=== PATIENT | female | born 1960 | race Caucasian/White ===

== ENCOUNTER 2017-04-16 06:39 | Inpatient (IN) | payer MEDICARE, OTHER ==
[2017-04-16] VITALS (10 sets, daily range): BP systolic 127–174; BP diastolic 81–93
[~2017-04-16] VITALS: Ht 160 cm; Wt 56.2 kg
[~2017-04-16 06:39] MED LIST: ADVAIR 500-501 EACH INH; AMITRIPTYLINE100 M1 ORAL; BACLOFEN10 MG ORAL; BONIVA150 MG ORAL; FLECTOR1 EACH TP; LOVENOX40 MG/0.4 SUBQ; LYRICA75 M1 ORAL; MAGNESIUM250 M2 PO; NORCO 10/3251 EA ORAL; PROAIR HFA8.5 GM INH; PROPRANOLOL HCL10 MG ORAL; SINGULAIR10 MG ORAL; SYNTHROID25 MCG ORAL; TIZANIDINE HCL4 MG ORAL; TOPIRAMATE100 MG ORAL; VESICARE10 MG ORAL; VITAMIN D1000 UNI1 ORAL; VOLTAREN100 G1 TP; ZOFRAN4 M1 SL
[2017-04-16] MEDS ORDERED: LR 1000ml 1,000 ML IV SCH (08:00)
[2017-04-16] MEDS ORDERED: Depo-Medrol 80mg Vial ONE (08:37)
[2017-04-16] MEDS ORDERED: EPINEPHrine 1mg/1ml Amp ONE (08:37)
[2017-04-16] MEDS ORDERED: Bupivacaine w/Epi 0.5% 30ml Vial INJ ONE (08:37)
[2017-04-16] MEDS ORDERED: Bacitracin 50000 Units Vial ONE (08:39)
[2017-04-16] MEDS ORDERED: LR 1000ml 1,000 ML IVLG SCH (08:59)
--- NOTE | 2017-04-16 08:59 | Anethesia Preoperative Eval ---
Anesthesia Pre-op PMH/ROS General Date of Evaluation: Apr 16, 2017 Time of Evaluation: 08:53 Anesthesiologist: Sadie ASA Score: ASA 3 Mallampati Score Class I : Soft palate, uvula, fauces, pillars visible Class II: Soft palate, uvula, fauces visible Class III: Soft palate, base of uvula visible Class IV: Only hard plate visible Mallampati Classification: Class III Surgeon: Сергей Diagnosis: R knee infected implant Surgical Procedure: R knee scope I&D Anesthesia History: none Family History: no anesthesia problems Allergies: Coded Allergies: CEFAZOLIN (Verified Allergy, Severe, hives all over her body, 01/10/16) PHENYTOIN (Verified Allergy, Severe, swell up face, 01/10/16) SULFA (SULFONAMIDE ANTIBIOTICS) (Verified Allergy, Severe, hives all over her body, 01/10/16) HYDROXYZINE (Verified Adverse Reaction, Severe, tachypnea; tachycardia, 01/10/16) PENICILLINS (Verified Adverse Reaction, Severe, vomiting, 01/10/16) PROCHLORPERAZINE (Verified Adverse Reaction, Severe, musle spasm, 01/10/16) Medications: see eMAR Past Medical History Cardiovascular: Reports: HTN, Denies: CAD, HI, arrhythmia, other, valve dz Pulmonary: Denies: COPD, DEEDEE, asthma, other Gastrointestinal/Genitourinary: Reports: GERD, Denies: CRI, ESRD, other Neurologic/Psychiatric: Reports: depression/anxiety, other - chronic pain, Denies: CVA, TIA, dementia Endocrine: Reports: hypothyroidism, Denies: DM, other, steroids HEENT: Denies: [place] (L), [place] (R), cataract (L), cataract (R), glaucoma, other Hematology/Immune: Reports: anemia - mild, Denies: DVT, bleeding disorder, other Musculoskeletal/Integumentary: Reports: DJD, edema - bilateral lower extremities edema, other - severe scoliosis s/p Sx PMH Narrative: parathyroidectomy, ACDF, Multiple back Sx for scoliosis treatment hysterectomy, Cholecystectomy, bilateral Knees arthroplasty, ACL repair R PSxH Narrative: see above Anesthesia Pre-op Phys. Exam Physician Exam Last Vital Signs Date Time Temp Pulse Resp B/P Pulse Ox O2 Delivery O2 Flow Rate FiO2 04/16/17 07:18 97.3 100 18 140/93 98 Room Air Constitutional: NAD Neurologic: CN 2-12 intact Cardiovascular: RRR Respiratory: CTA Gastrointestinal: S/NT/ND Airway Exam Mallampati Score: Class III MO: limited Neck: stiff ROM: limited Teeth: missing Dentures: lower, upper Anesthesia Pre-op A/P Labs see chart Risk Assessment & Plan Assessment: ASA 3 Plan: GA with LMA Status Change Before Surgery: No Pre-Antibiotics Drug: Clindamycin 300 mg. Given Within 1 Hr of Incision: Yes Time Given: 08:59 VERNON OLSON M.D. Apr 16, 2017 08:59
[2017-04-16] MEDS ORDERED: Sterile Water Irrig 1000ml IRRIG ONE (09:00)
[2017-04-16] MEDS ORDERED: Metoclopramide 10mg/2ml Inj IVP PRN (09:00)
[2017-04-16] MEDS ORDERED: NS Irrig 1000ml ONE (09:00)
[2017-04-16] MEDS ORDERED: Midazolam 2mg/2ml Inj ONE (09:00)
[2017-04-16] MEDS ORDERED: Ketorolac 30mg Inj ONE (09:00)
[2017-04-16] MEDS ORDERED: Hydromorphone 0.5mg/0.5ml inj IVP PRN (09:00)
[2017-04-16] MEDS ORDERED: Meperidine 25mg/0.5ml Inj IV PRN (09:00)
[2017-04-16] MEDS ORDERED: DiphenhydrAMINE 50mg/ml Inj IVP PRN (09:00)
[2017-04-16] MEDS ORDERED: Propofol 10mg/ml 20ml IV ONE (09:00)
[2017-04-16] MEDS ORDERED: LR 1000ml ONE (09:00)
[2017-04-16] MEDS ORDERED: Midazolam 2mg/2ml Inj IVP PRN (09:00)
[2017-04-16] MEDS ORDERED: fentaNYL 100 mcg/2 mL IV ONE (09:00)
[2017-04-16] MEDS ORDERED: Clindamycin 2 ML ONE (09:04)
--- NOTE | 2017-04-16 09:11 | Pre-Procedure Note/Attestation ---
Pre-Procedure Note/Attestation Complete Prior to Procedure Planned Procedure: right Procedure Narrative: irrigation debridement r9ight knee Indications for Procedure Pre-Operative Diagnosis: right knee rule out infection Attestation I attest that I discussed the nature of the procedure; its benefits; risks and complications; and alternatives (and the risks and benefits of such alternatives ), prior to the procedure, with the patient (or the patient's legal customer support representative). I attest that, if there was a reasonable possibility of needing a blood transfusion, the patient (or the patient's legal customer support representative) was given the [facility] standardized written summary, pursuant to the Eric Sunita Blood Safety Act ([place] Health and Safety Code # 1645, as amended). I attest that I re-evaluated the patient just prior to the surgery and that there has been no change in the patient's H&P, except as documented below: LUISANA WEEMS Apr 16, 2017 09:11
--- NOTE | 2017-04-16 09:23 | Brief Operative Note ---
Immediate Post Operative Note Operative Note Pre-op Diagnosis: right knee rule out infection Procedure: right bknee i and d Post-op Diagnosis: right knee riule out infection Post-op Diagnosis: same as pre-op Surgeon: ravi Anesthesia: general Specimen: yes Complications: none Condition: stable Estimated Blood Loss: minimal Drains: hemovac Implant(s) used?: No LUISANA WEEMS Apr 16, 2017 09:23
--- NOTE | 2017-04-16 11:40 | Immediate Post-Op Evaluation ---
Immediate Post-Op Evalulation Immediate Post-Op Evalulation Procedure: I&D of R infected knee implant Date of Evaluation: Apr 16, 2017 Time of Evaluation: 10:24 IV Fluids: 600 Blood Products: none Estimated Blood Loss: min Urinary Output: none Blood Pressure Systolic: 128 Blood Pressure Diastolic: 65 Pulse Rate: 68 Respiratory Rate: 22 O2 Sat by Pulse Oximetry: 98 Temperature (Fahrenheit): 97.6 Pain Score (1-10): 2 Nausea: No Vomiting: No Complications none Patient Status: awake, patent, none Hydration Status: adequate VERNON OLSON M.D. Apr 16, 2017 11:40
[2017-04-16] MEDS ORDERED: HYDROmorphone 1mg/ml Carpuject IVP PRN (14:00)
--- NOTE | 2017-04-16 14:14 | General Progress Note ---
Assessment/Plan Assessment/Plan I&D of R infected knee implant knee replacement PLAN 1. incentive spirometry 2. IV antibiotics 3. PT evaluation and therapy 4. Hydration 5. Pain management evaluation noted 6. discharge once stable with outpatient follow up Subjective Allergies: Coded Allergies: CEFAZOLIN (Verified Allergy, Severe, hives all over her body, 01/10/16) PHENYTOIN (Verified Allergy, Severe, swell up face, 01/10/16) SULFA (SULFONAMIDE ANTIBIOTICS) (Verified Allergy, Severe, hives all over her body, 01/10/16) HYDROXYZINE (Verified Adverse Reaction, Severe, tachypnea; tachycardia, 01/10/16) PENICILLINS (Verified Adverse Reaction, Severe, vomiting, 01/10/16) PROCHLORPERAZINE (Verified Adverse Reaction, Severe, musle spasm, 01/10/16) Subjective s/p I and D asked to evaluate Objective Last 24 Hour Vital Signs Date Time Temp Pulse Resp B/P Pulse Ox O2 Delivery O2 Flow Rate FiO2 04/16/17 11:40 68 22 98 04/16/17 11:10 98.9 04/16/17 11:10 98.9 04/16/17 11:09 98.9 93 18 136/92 100 Nasal Cannula 3.0 04/16/17 11:00 95 20 127/84 100 Nasal Cannula 3.0 04/16/17 10:50 93 20 132/92 100 Nasal Cannula 3.0 04/16/17 10:45 94 21 138/83 100 Nasal Cannula 3.0 04/16/17 10:30 97 22 132/91 98 Simple Mask 6.0 04/16/17 10:25 95 16 132/91 100 Simple Mask 6.0 04/16/17 10:20 97.6 94 15 140/93 100 Simple Mask 6.0 04/16/17 07:18 97.3 100 18 140/93 98 Room Air Height (Feet): 5 Height (Inches): 3.00 Weight (Pounds): 124 Objective WDWN NAD clear breath sounds bilaterally without rhonchi or wheeze [id number] without MRG NABS nontender no HSM no CCE nonfocal ALISSA LAN Apr 16, 2017 14:14
[2017-04-16] MEDS ORDERED: Norco 10mg/325mg tab ORAL SCH (14:30)
[2017-04-16] MEDS: D5 1/2NS w/KCl 20mEq 1,000 ML IV SCH (14:52)
[2017-04-16] MEDS: Clindamycin 600mg 50 ML IV SCH ×2 (14:58→23:50)
[2017-04-16] MEDS ORDERED: Norco 10mg/325mg tab ORAL PRN (18:00)
[2017-04-16] MEDS ORDERED: Naloxone 0.4mg/ml Inj IVP PRN (18:00)
[2017-04-16] MEDS: Lyrica 75mg cap ORAL SCH (18:00)
[2017-04-16] MEDS ORDERED: Rate Change PCA 1 Each MISC PRN (18:00)
[2017-04-16] MEDS ORDERED: PCA HYDROmorphone 1mg/ml 30 ML IV PRN (18:00)
[2017-04-16] MEDS ORDERED: Albuterol 90mcg Inhaler 8gm INH PRN (18:30)
[2017-04-16] MEDS: PCA shift volume MISC SCH (19:00)
[2017-04-16] MEDS ORDERED: Amitriptyline 100mg tab ORAL SCH (21:00)
[2017-04-16] MEDS: Amitriptyline 100mg tab ORAL SCH (23:49)
[2017-04-16] MEDS: Montelukast 10mg tablet ORAL SCH (23:49)
[2017-04-16] MEDS: Topiramate 100mg tab ORAL SCH (23:49)
[2017-04-17] MEDS: Clindamycin 600mg 50 ML IV SCH ×4 (03:25→20:56)
[2017-04-17] MEDS: D5 1/2NS w/KCl 20mEq 1,000 ML IV SCH ×3 (03:25→20:56)
[2017-04-17 04:00] VITALS: BP 138/88
[2017-04-17 06:38] LABS: INR 1.1 (0.9-1.1); PROTHROMBIN TIME 11.7 SEC (9.30-11.50)
[2017-04-17 06:53] LABS: ALANINE AMINOTRANSFERASE 6 U/L (3-33); ALBUMIN/GLOBULIN RATIO 0.6 (1.0-2.7); ANION GAP 16 (5-15); ASPARTATE AMINO TRANSFERASE 11 U/L (5-40); CALCIUM 8.1 mg/dL (8.6-10.2); CARBON DIOXIDE 22 mEQ/L (20-30); CHLORIDE 95 mEQ/L (98-107); CREATININE 0.5 mg/dL (0.5-0.9); GLOMERULAR FILTRATION RATE > 60 mL/min (>60); HEMOLYSIS 0; POTASSIUM 3.4 mEQ/L (3.4-4.9); SODIUM 133 mEQ/L (135-145); TOTAL PROTEIN 6.4 g/dL (6.6-8.7)
[2017-04-17 07:00] LABS: BASOPHILS % (AUTO) 0.3 % (0.0-2.0); EOSINOPHILS % (AUTO) 0.1 % (0.0-3.0); LYMPHOCYTES % (AUTO) 18.1 % (20.0-45.0); MEAN CORPUSCULAR HEMOGLOBIN 24.3 PG (27.0-31.0); MEAN CORPUSCULAR HGB CONC 31.4 G/DL (32.0-36.0); MEAN CORPUSCULAR VOLUME 77 FL (80-99); MEAN PLATELET VOLUME 5.9 FL (6.5-10.1); MONOCYTES % (AUTO) 7.5 % (1.0-10.0); PLATELET COUNT 371 K/UL (150-450); RED BLOOD COUNT 3.42 M/UL (4.20-5.40); RED CELL DISTRIBUTION WIDTH 14.4 % (11.6-14.8); WHITE BLOOD COUNT 9.6 K/UL (4.8-10.8)
[2017-04-17] MEDS: PCA shift volume MISC SCH (07:00)
[2017-04-17 08:00] VITALS: BP 146/99
[2017-04-17] MEDS: Propranolol LA 60mg cap ORAL SCH (08:36)
[2017-04-17] MEDS: Solifenacin 10mg tab ORAL SCH (08:39)
[2017-04-17] MEDS: Topiramate 100mg tab ORAL SCH ×2 (08:40→20:56)
[2017-04-17] MEDS: Lyrica 75mg cap ORAL SCH ×4 (08:42→17:20)
--- NOTE | 2017-04-17 08:53 | General Progress Note ---
Assessment/Plan Assessment/Plan (1) H/O Spinal surgery (2) DDD (degenerative disc disease), cervical (3) Lumbar spondylosis (4) Cervical spondylosis (5) Lumbar degenerative disc disease (6) History of total knee replacement, right (7) Osteoarthritis of right knee (8) Right knee pain (9) Status post I+D We will discontinue the Dilaudid IVP and AQUATIC PERFORMER. We will continued the [place] and start Morphine 4mg IVP Q4H PRN severe pain. Pt was d/w Dr. Schaffer and he concurred Thank you for the courtesy of this consultation. Subjective Date patient seen: Apr 17, 2017 Time patient seen: 07:15 - am Constitutional: Reports: no symptoms HEENT: Reports: no symptoms Cardiovascular: Reports: no symptoms Respiratory: Reports: no symptoms Gastrointestinal/Abdominal: Reports: no symptoms Genitourinary: Reports: no symptoms Neurologic/Psychiatric: Reports: no symptoms Endocrine: Reports: no symptoms Hematologic/Lymphatic: Reports: no symptoms Allergies: Coded Allergies: CEFAZOLIN (Verified Allergy, Severe, hives all over her body, 01/10/16) PHENYTOIN (Verified Allergy, Severe, swell up face, 01/10/16) SULFA (SULFONAMIDE ANTIBIOTICS) (Verified Allergy, Severe, hives all over her body, 01/10/16) HYDROXYZINE (Verified Adverse Reaction, Severe, tachypnea; tachycardia, 01/10/16) PENICILLINS (Verified Adverse Reaction, Severe, vomiting, 01/10/16) PROCHLORPERAZINE (Verified Adverse Reaction, Severe, musle spasm, 01/10/16) Subjective Patient is s/p surgery. She was started on Dilaudid 1mg IV Q4H PRN severe pain, [place] 10/325mg PO 1 tab Q6H PRN, and AQUATIC PERFORMER Dilaudid 0.2 mg lock out interval Q6H. At this time pt has used 5.4mg of the AQUATIC PERFORMER in the last 24hrs. However she is confused due to the anesthesia. We will discontinue the Dilaudid IVP and AQUATIC PERFORMER. We will continued the [place] and start Morphine 4mg IVP Q4H PRN severe pain. Objective Last 24 Hour Vital Signs Date Time Temp Pulse Resp B/P Pulse Ox O2 Delivery O2 Flow Rate FiO2 04/17/17 08:00 18 04/17/17 08:00 98.8 100 20 146/99 93 Room Air 04/17/17 06:15 20 04/17/17 04:00 98.8 108 20 138/88 94 Room Air 04/17/17 02:15 20 04/16/17 22:15 20 04/16/17 21:45 20 04/16/17 21:15 20 04/16/17 21:00 18 04/16/17 21:00 99.7 107 20 174/92 98 Room Air 04/16/17 20:45 18 04/16/17 20:30 18 04/16/17 19:53 111 18 Room Air 04/16/17 16:37 98.2 04/16/17 16:03 98.2 93 20 141/81 98 Nasal Cannula 2.0 04/16/17 14:27 98.2 95 18 100 Room Air 04/16/17 11:40 68 22 98 04/16/17 11:10 98.9 04/16/17 11:10 98.9 04/16/17 11:09 98.9 93 18 136/92 100 Nasal Cannula 3.0 04/16/17 11:00 95 20 127/84 100 Nasal Cannula 3.0 04/16/17 10:50 93 20 132/92 100 Nasal Cannula 3.0 04/16/17 10:45 94 21 138/83 100 Nasal Cannula 3.0 04/16/17 10:30 97 22 132/91 98 Simple Mask 6.0 04/16/17 10:25 95 16 132/91 100 Simple Mask 6.0 04/16/17 10:20 97.6 94 15 140/93 100 Simple Mask 6.0 Intake and Output 04/16/17 04/17/17 19:00 07:00 Intake Total 1215 ml 777 ml Output Total 520 ml 1408 ml Balance 695 ml -631 ml Intake Oral 240 ml IV Total 975 ml 777 ml Output Urine Total 500 ml 1400 ml Drainage Total 8 ml Estimated Blood Loss 20 ml Other 0 ml # Voids 5 Laboratory Tests 04/17/17 05:25: White Blood Count 9.6, Red Blood Count 3.42L, Hemoglobin 8.3L, Hematocrit 26.5L , Mean Corpuscular Volume 77L, Mean Corpuscular Hemoglobin 24.3L, Mean Corpuscular Hemoglobin Concent 31.4L, Red Cell Distribution Width 14.4, Platelet Count 371, Mean Platelet Volume 5.9L, Neutrophils (%) (Auto) 74.0, Lymphocytes (%) (Auto) 18.1L, Monocytes (%) (Auto) 7.5, Eosinophils (%) (Auto) 0.1, Basophils (%) (Auto) 0.3, Erythrocyte Sedimentation Rate 90H, Prothrombin Time 11.7H, Prothromb Time International Ratio 1.1, Sodium Level 133L, Potassium Level 3.4, Chloride Level 95L, Carbon Dioxide Level 22, Anion Gap 16H , Blood Urea Nitrogen 7, Creatinine 0.5, Estimat Glomerular Filtration Rate > 60 , Glucose Level 144H, Calcium Level 8.1L, Total Bilirubin 0.3, Aspartate Amino Transf (AST/SGOT) 11, Alanine Aminotransferase (ALT/SGPT) 6, Alkaline Phosphatase 110H, C-Reactive Protein, Quantitative [Pending], Total Protein 6.4L , Albumin 2.5L, Globulin 3.9, Albumin/Globulin Ratio 0.6L Height (Feet): 5 Height (Inches): 3.00 Weight (Pounds): 124 General Appearance: no apparent distress, alert EENT: PERRL/EOMI, normal ENT inspection Neck: non-tender, normal alignment Respiratory/Chest: lungs clear, normal breath sounds Abdomen: non tender, soft Extremities: other - bandages applied to right knee Neurologic: alert, responsive Skin: warm/dry GBAE DOMINGO Apr 17, 2017 08:53
[2017-04-17] MEDS ORDERED: Morphine Sulfate 4mg/ml Inj IVP PRN (09:00)
[2017-04-17] MEDS: Enoxaparin 40mg Inj SUBQ SCH (09:42)
[2017-04-17 12:00] VITALS: BP 152/107
--- NOTE | 2017-04-17 15:17 | 48 Hour Post Anesthesia Eval ---
Post Anesthesia Evaluation Procedure: I&D of R infected knee implant Date of Evaluation: Apr 17, 2017 Time of Evaluation: 15:20 Blood Pressure Systolic: 148 0: 99 Pulse Rate: 100 Respiratory Rate: 20 Temperature (Fahrenheit): 98.8 O2 Sat by Pulse Oximetry: 93 Airway: patent Nausea: No Vomiting: No Pain Intensity: 3 Hydration Status: adequate Cardiopulmonary Status: Stable Mental Status/LOC: other - Patient is repeating herself and not oriented to place at this time. Follow-up Care/Observations: As per surgery. Patient pulled out her hemovac. Message left at Dr. Faith's service. Dr. Toure aware. Post-Anesthesia Complications: No anesthetic complication Follow-up care needed: N/A BRIDGETTE PECK M.D. Apr 17, 2017 15:17
[2017-04-17] MEDS: Morphine Sulfate 4mg/ml Inj IVP PRN ×2 (15:32→20:58)
[2017-04-17 16:00] VITALS: BP 157/91
[2017-04-17] MEDS: Montelukast 10mg tablet ORAL SCH (16:34)
[2017-04-17 20:00] VITALS: BP 153/95
[2017-04-17] MEDS: Amitriptyline 100mg tab ORAL SCH (20:56)
[2017-04-18] VITALS: BP 122/70
[2017-04-18 04:00] VITALS: BP 139/66
[2017-04-18] MEDS: Clindamycin 600mg 50 ML IV SCH ×2 (04:16→10:04)
[2017-04-18 07:06] LABS: INR 1.1 (0.9-1.1)
[2017-04-18 07:13] LABS: BASOPHILS % (AUTO) 0.6 % (0.0-2.0); EOSINOPHILS % (AUTO) 0.6 % (0.0-3.0); MEAN CORPUSCULAR HEMOGLOBIN 24.3 PG (27.0-31.0); MEAN CORPUSCULAR HGB CONC 31.3 G/DL (32.0-36.0); MEAN CORPUSCULAR VOLUME 78 FL (80-99); MEAN PLATELET VOLUME 5.8 FL (6.5-10.1); MONOCYTES % (AUTO) 9.4 % (1.0-10.0); NEUTROPHILS % (AUTO) 63.4 % (45.0-75.0); PLATELET COUNT 361 K/UL (150-450); RED BLOOD COUNT 3.38 M/UL (4.20-5.40); RED CELL DISTRIBUTION WIDTH 14.7 % (11.6-14.8); WHITE BLOOD COUNT 6.8 K/UL (4.8-10.8)
[2017-04-18 08:00] VITALS: BP 160/98
--- NOTE | 2017-04-18 08:33 | General Progress Note ---
Assessment/Plan Assessment/Plan (1) H/O Spinal surgery (2) DDD (degenerative disc disease), cervical (3) Lumbar spondylosis (4) Cervical spondylosis (5) Lumbar degenerative disc disease (6) History of total knee replacement, right (7) Osteoarthritis of right knee (8) Right knee pain (9) Status post I+D We will continued the [place] and Morphine. Pt was d/w Dr. Schaffer and he concurred Subjective Date patient seen: Apr 18, 2017 Time patient seen: 07:00 - am Constitutional: Reports: no symptoms HEENT: Reports: no symptoms Cardiovascular: Reports: no symptoms Respiratory: Reports: no symptoms Gastrointestinal/Abdominal: Reports: no symptoms Genitourinary: Reports: no symptoms Neurologic/Psychiatric: Reports: no symptoms Endocrine: Reports: no symptoms Hematologic/Lymphatic: Reports: no symptoms Allergies: Coded Allergies: CEFAZOLIN (Verified Allergy, Severe, hives all over her body, 01/10/16) PHENYTOIN (Verified Allergy, Severe, swell up face, 01/10/16) SULFA (SULFONAMIDE ANTIBIOTICS) (Verified Allergy, Severe, hives all over her body, 01/10/16) HYDROXYZINE (Verified Adverse Reaction, Severe, tachypnea; tachycardia, 01/10/16) PENICILLINS (Verified Adverse Reaction, Severe, vomiting, 01/10/16) PROCHLORPERAZINE (Verified Adverse Reaction, Severe, musle spasm, 01/10/16) Subjective Her pain is tolerated on the medications. She has been tolerating the pain on the [place] and Morphine doing PT to the best of his abilities. Objective Last 24 Hour Vital Signs Date Time Temp Pulse Resp B/P Pulse Ox O2 Delivery O2 Flow Rate FiO2 04/18/17 04:00 97.5 87 20 139/66 96 Room Air 04/18/17 00:00 97.7 96 20 122/70 97 Room Air 04/17/17 20:00 97.2 87 20 153/95 94 Room Air 04/17/17 16:00 97.7 20 157/91 95 Room Air 04/17/17 15:17 100 20 93 04/17/17 12:00 98.8 98 20 152/107 96 Room Air Intake and Output 04/17/17 04/18/17 19:00 07:00 Intake Total 775 ml 1075 ml Output Total 190 ml 900 ml Balance 585 ml 175 ml IV Total 775 ml 1075 ml Output Urine Total 180 ml 900 ml Drainage Total 10 ml # Voids 4 4 Laboratory Tests 04/18/17 05:35: White Blood Count 6.8, Red Blood Count 3.38L, Hemoglobin 8.2L, Hematocrit 26.2L , Mean Corpuscular Volume 78L, Mean Corpuscular Hemoglobin 24.3L, Mean Corpuscular Hemoglobin Concent 31.3L, Red Cell Distribution Width 14.7, Platelet Count 361, Mean Platelet Volume 5.8L, Neutrophils (%) (Auto) 63.4, Lymphocytes (%) (Auto) 26.0, Monocytes (%) (Auto) 9.4, Eosinophils (%) (Auto) 0.6, Basophils (%) (Auto) 0.6, Erythrocyte Sedimentation Rate [Pending], Prothrombin Time 12.0H, Prothromb Time International Ratio 1.1, C-Reactive Protein, Quantitative 15.1H Height (Feet): 5 Height (Inches): 3.00 Weight (Pounds): 124 General Appearance: no apparent distress, alert EENT: PERRL/EOMI, normal ENT inspection Neck: non-tender, normal alignment Cardiovascular: normal rate, regular rhythm Abdomen: non tender, soft Extremities: other - bandages noted on right knee Neurologic: alert, responsive GABE DOMINGO Apr 18, 2017 08:33
[2017-04-18] MEDS: Lyrica 75mg cap ORAL SCH ×3 (10:03→16:59)
[2017-04-18] MEDS: Propranolol LA 60mg cap ORAL SCH (10:03)
[2017-04-18] MEDS: Morphine Sulfate 4mg/ml Inj IVP PRN ×4 (10:06→21:10)
[2017-04-18] MEDS: Solifenacin 10mg tab ORAL SCH (10:07)
[2017-04-18] MEDS: Enoxaparin 40mg Inj SUBQ SCH (10:07)
[2017-04-18] MEDS: Topiramate 100mg tab ORAL SCH ×2 (10:07→21:06)
[2017-04-18 12:00] VITALS: BP 148/92
--- NOTE | 2017-04-18 12:19 | General Progress Note ---
Assessment/Plan Assessment/Plan I&D of R infected knee implant knee replacement PLAN 1. incentive spirometry 2. IV antibiotics 3. PT evaluation and therapy 4. Hydration 5. Pain management evaluation noted 6. discharge to SNF 7. PICC line 8. ID evaluation to clarify Subjective Allergies: Coded Allergies: CEFAZOLIN (Verified Allergy, Severe, hives all over her body, 01/10/16) PHENYTOIN (Verified Allergy, Severe, swell up face, 01/10/16) SULFA (SULFONAMIDE ANTIBIOTICS) (Verified Allergy, Severe, hives all over her body, 01/10/16) HYDROXYZINE (Verified Adverse Reaction, Severe, tachypnea; tachycardia, 01/10/16) PENICILLINS (Verified Adverse Reaction, Severe, vomiting, 01/10/16) PROCHLORPERAZINE (Verified Adverse Reaction, Severe, musle spasm, 01/10/16) Subjective s/p I and D fluid positive Objective Last 24 Hour Vital Signs Date Time Temp Pulse Resp B/P Pulse Ox O2 Delivery O2 Flow Rate FiO2 04/18/17 08:00 98.4 94 20 160/98 95 Room Air 04/18/17 04:00 97.5 87 20 139/66 96 Room Air 04/18/17 00:00 97.7 96 20 122/70 97 Room Air 04/17/17 20:00 97.2 87 20 153/95 94 Room Air 04/17/17 16:00 97.7 20 157/91 95 Room Air 04/17/17 15:17 100 20 93 Intake and Output 04/17/17 04/18/17 19:00 07:00 Intake Total 775 ml 1075 ml Output Total 190 ml 900 ml Balance 585 ml 175 ml IV Total 775 ml 1075 ml Output Urine Total 180 ml 900 ml Drainage Total 10 ml # Voids 4 4 Laboratory Tests 04/18/17 05:35: White Blood Count 6.8, Red Blood Count 3.38L, Hemoglobin 8.2L, Hematocrit 26.2L , Mean Corpuscular Volume 78L, Mean Corpuscular Hemoglobin 24.3L, Mean Corpuscular Hemoglobin Concent 31.3L, Red Cell Distribution Width 14.7, Platelet Count 361, Mean Platelet Volume 5.8L, Neutrophils (%) (Auto) 63.4, Lymphocytes (%) (Auto) 26.0, Monocytes (%) (Auto) 9.4, Eosinophils (%) (Auto) 0.6, Basophils (%) (Auto) 0.6, Erythrocyte Sedimentation Rate 102H, Prothrombin Time 12.0H, Prothromb Time International Ratio 1.1, C-Reactive Protein, Quantitative 15.1H Height (Feet): 5 Height (Inches): 3.00 Weight (Pounds): 124 Objective WDWN NAD clear breath sounds bilaterally without rhonchi or wheeze [id number] without MRG NABS nontender no HSM no CCE nonfocal some confusion noted ALISSA LAN Apr 18, 2017 12:19
[2017-04-18 16:00] VITALS: BP 117/77
[2017-04-18] MEDS: Montelukast 10mg tablet ORAL SCH (16:59)
[2017-04-18] MEDS: Vancomycin 1.5 GM in D5W 325 ML IVPB SCH (18:05)
[2017-04-18] MEDS: D5 1/2NS w/KCl 20mEq 1,000 ML IV SCH (18:09)
[2017-04-18] MEDS ORDERED: Norco 10mg/325mg tab ORAL PRN (18:15)
[2017-04-18 20:00] VITALS: BP 92/56
[2017-04-18] MEDS: Amitriptyline 100mg tab ORAL SCH (21:06)
--- NOTE | 2017-04-18 23:15 | Consultation ---
DATE OF CONSULTATION: 04/18/2017 INFECTIOUS DISEASE CONSULTATION This consult is for coverage of Dr. Irving. PRIMARY ATTENDING PHYSICIAN: Mario Cao M.D. Gerhard Toure M.D., Internal Medicine doctor. REASON FOR CONSULTATION: Right knee infection. HISTORY OF PRESENT ILLNESS: The patient is a 56-year-old female admitted on 04/16/2017 for surgery. The patient had right knee implant placement in 2016 and was admitted for right knee irrigation and debridement that was done on the day of admission. The patient's culture is growing gram-positive cocci. PAST MEDICAL HISTORY: Significant for hypothyroidism, anemia, multiple surgeries, osteoarthritis, osteoporosis, and cervical fusion. ALLERGIES: The patient has multiple drug allergies including cefazolin, hydroxyzine, penicillin, phenytoin, sulfa. MEDICATIONS: Vancomycin started by me, morphine, enoxaparin, VESIcare, levothyroxine, amitriptyline, Singulair, topiramate, Zofran, albuterol, and Lyrica. Clindamycin was discontinued. The patient was on clindamycin since 04/16/2017. REVIEW OF SYSTEMS: The patient states she is fine. No coughing. No shortness of breath. No problems with passing urine. PHYSICAL EXAMINATION: VITAL SIGNS: Temperature is 98.2, pulse 91, and blood pressure 148/92. GENERAL APPEARANCE: Seems to be thin, in no acute distress. HEAD AND NECK: [place] conjunctivae. HEART: Regular. LUNGS: Clear. ABDOMEN: Soft and nontender. EXTREMITIES: She has right knee bruising, has some swelling in the right knee area. LABORATORY AND DIAGNOSTIC DATA: WBC 6.8, hemoglobin 8.2, hematocrit 26.2, and platelets 361,000. Sodium 133, potassium 3.4, chloride 95, bicarbonate 22, BUN 7, creatinine 0.5, and glucose 144. CRP was elevated at 15.1. Albumin is 2.5. Wound and knee cultures grew Gram-positive cocci in cluster. IMPRESSION: Right knee infection, status post incision and drainage by Orthopedic doctor. According to nurse, had fusion of knee. The patient has anemia and hypothyroidism. RECOMMENDATIONS: We will continue with vancomycin at least for two weeks. We will discuss the case with Orthopedic doctor regarding previous surgeries. At the end of my exam, I thank, Dr. Toure and Dr. Cao, for involving me in the care of this patient. Jose Roberson M.D. DR: BHARATHI JOB#: [id number] CC: ERINN
[2017-04-19] VITALS (7 sets, daily range): BP systolic 94–140; BP diastolic 49–87
[2017-04-19] MEDS: Morphine Sulfate 4mg/ml Inj IVP PRN ×6 (04:48→21:34)
[2017-04-19 06:57] LABS: INR 1.1 (0.9-1.1); PROTHROMBIN TIME 11.5 SEC (9.30-11.50)
[2017-04-19 07:18] LABS: MEAN CORPUSCULAR HEMOGLOBIN 25.3 PG (27.0-31.0); MEAN CORPUSCULAR HGB CONC 32.1 G/DL (32.0-36.0); MEAN CORPUSCULAR VOLUME 79 FL (80-99); MEAN PLATELET VOLUME 5.9 FL (6.5-10.1); PLATELET COUNT 277 K/UL (150-450); RED BLOOD COUNT 2.89 M/UL (4.20-5.40); RED CELL DISTRIBUTION WIDTH 14.6 % (11.6-14.8); WHITE BLOOD COUNT 6.1 K/UL (4.8-10.8)
[2017-04-19] MEDS ORDERED: Heparin 2000 units/Ns 1000ml INJ PRN (08:00)
[2017-04-19] MEDS ORDERED: Lidocaine 1% Plain 30 ml INJ PRN (08:00)
[2017-04-19] MEDS ORDERED: Sodium Bicarbonate 4% 2.4meq/5ml vial INJ PRN (08:00)
--- NOTE | 2017-04-19 08:23 | General Progress Note ---
Assessment/Plan Assessment/Plan I&D of R infected knee implant knee replacement anemia acute encephalopathy resolved debility PLAN 1. incentive spirometry 2. IV antibiotics 3. PT evaluation and therapy 4. Hydration 5. Pain management evaluation noted 6. discharge to home in am with HH 7. PICC line 8. ID evaluation noted impression, plan, and exam edited and reviewed in detail care discussed with RN Subjective Allergies: Coded Allergies: CEFAZOLIN (Verified Allergy, Severe, hives all over her body, 01/10/16) PHENYTOIN (Verified Allergy, Severe, swell up face, 01/10/16) SULFA (SULFONAMIDE ANTIBIOTICS) (Verified Allergy, Severe, hives all over her body, 01/10/16) HYDROXYZINE (Verified Adverse Reaction, Severe, tachypnea; tachycardia, 01/10/16) PENICILLINS (Verified Adverse Reaction, Severe, vomiting, 01/10/16) PROCHLORPERAZINE (Verified Adverse Reaction, Severe, musle spasm, 01/10/16) Subjective s/p I and D fluid positive ID noted does not want SNF Objective Last 24 Hour Vital Signs Date Time Temp Pulse Resp B/P Pulse Ox O2 Delivery O2 Flow Rate FiO2 04/19/17 04:00 98.1 104 18 107/67 93 Room Air 04/19/17 00:00 99.0 109 18 94/60 94 Room Air 04/18/17 20:00 97.9 104 18 92/56 94 Room Air 04/18/17 16:00 97.5 52 20 117/77 95 Room Air 04/18/17 12:00 98.2 91 20 148/92 97 Room Air Intake and Output 04/18/17 04/19/17 19:00 07:00 Intake Total 775 ml 1475.0 ml Balance 775 ml 1475.0 ml Intake Oral 200 ml 250 ml IV Total 575 ml 1225.0 ml # Voids 4 2 # Bowel Movements 1 Laboratory Tests 04/19/17 05:30: White Blood Count 6.1, Red Blood Count 2.89L, Hemoglobin 7.3L, Hematocrit 22.8L , Mean Corpuscular Volume 79L, Mean Corpuscular Hemoglobin 25.3L, Mean Corpuscular Hemoglobin Concent 32.1, Red Cell Distribution Width 14.6, Platelet Count 277, Mean Platelet Volume 5.9L, Neutrophils (%) (Auto) , Lymphocytes (%) ( Auto) , Monocytes (%) (Auto) , Eosinophils (%) (Auto) , Basophils (%) (Auto) , Neutrophils % (Manual) [Pending], Lymphocytes % (Manual) [Pending], Platelet Estimate [Pending], Platelet Morphology [Pending], Erythrocyte Sedimentation Rate [Pending], Prothrombin Time 11.5, Prothromb Time International Ratio 1.1, C -Reactive Protein, Quantitative 8.0H Height (Feet): 5 Height (Inches): 3.00 Weight (Pounds): 124 Objective WDWN NAD clear breath sounds bilaterally without rhonchi or wheeze [id number] without MRG NABS nontender no HSM no CCE nonfocal some confusion noted which is improved ALISSA LAN Apr 19, 2017 08:23
[2017-04-19] MEDS: Propranolol LA 60mg cap ORAL SCH (08:24)
[2017-04-19] MEDS: D5 1/2NS w/KCl 20mEq 1,000 ML IV SCH ×2 (08:31→15:59)
[2017-04-19] MEDS: Lyrica 75mg cap ORAL SCH ×3 (08:33→17:07)
[2017-04-19] MEDS: Solifenacin 10mg tab ORAL SCH (08:33)
[2017-04-19] MEDS: Topiramate 100mg tab ORAL SCH ×2 (08:33→20:27)
[2017-04-19] MEDS: Enoxaparin 40mg Inj SUBQ SCH (08:34)
--- NOTE | 2017-04-19 08:40 | General Progress Note ---
Assessment/Plan Assessment/Plan (1) H/O Spinal surgery (2) DDD (degenerative disc disease), cervical (3) Lumbar spondylosis (4) Cervical spondylosis (5) Lumbar degenerative disc disease (6) History of total knee replacement, right (7) Osteoarthritis of right knee (8) Right knee pain (9) Status post I+D We will continued the [place] and Morphine. Pt was d/w Dr. Schaffer and he concurred Subjective Date patient seen: Apr 19, 2017 Time patient seen: 08:30 - am Constitutional: Reports: no symptoms HEENT: Reports: no symptoms Cardiovascular: Reports: no symptoms Respiratory: Reports: no symptoms Gastrointestinal/Abdominal: Reports: no symptoms Genitourinary: Reports: no symptoms Neurologic/Psychiatric: Reports: no symptoms Endocrine: Reports: no symptoms Hematologic/Lymphatic: Reports: no symptoms Allergies: Coded Allergies: CEFAZOLIN (Verified Allergy, Severe, hives all over her body, 01/10/16) PHENYTOIN (Verified Allergy, Severe, swell up face, 01/10/16) SULFA (SULFONAMIDE ANTIBIOTICS) (Verified Allergy, Severe, hives all over her body, 01/10/16) HYDROXYZINE (Verified Adverse Reaction, Severe, tachypnea; tachycardia, 01/10/16) PENICILLINS (Verified Adverse Reaction, Severe, vomiting, 01/10/16) PROCHLORPERAZINE (Verified Adverse Reaction, Severe, musle spasm, 01/10/16) Subjective Patient reports that her pain has has been tolerated on the Morphine, will use the norco if needed. She is doing PT to the best of her abilities. Objective Last 24 Hour Vital Signs Date Time Temp Pulse Resp B/P Pulse Ox O2 Delivery O2 Flow Rate FiO2 04/19/17 04:00 98.1 104 18 107/67 93 Room Air 04/19/17 00:00 99.0 109 18 94/60 94 Room Air 04/18/17 20:00 97.9 104 18 92/56 94 Room Air 04/18/17 16:00 97.5 52 20 117/77 95 Room Air 04/18/17 12:00 98.2 91 20 148/92 97 Room Air Intake and Output 04/18/17 04/19/17 19:00 07:00 Intake Total 775 ml 1475.0 ml Balance 775 ml 1475.0 ml Intake Oral 200 ml 250 ml IV Total 575 ml 1225.0 ml # Voids 4 2 # Bowel Movements 1 Laboratory Tests 04/19/17 05:30: White Blood Count 6.1, Red Blood Count 2.89L, Hemoglobin 7.3L, Hematocrit 22.8L , Mean Corpuscular Volume 79L, Mean Corpuscular Hemoglobin 25.3L, Mean Corpuscular Hemoglobin Concent 32.1, Red Cell Distribution Width 14.6, Platelet Count 277, Mean Platelet Volume 5.9L, Neutrophils (%) (Auto) , Lymphocytes (%) ( Auto) , Monocytes (%) (Auto) , Eosinophils (%) (Auto) , Basophils (%) (Auto) , Neutrophils % (Manual) [Pending], Lymphocytes % (Manual) [Pending], Platelet Estimate [Pending], Platelet Morphology [Pending], Erythrocyte Sedimentation Rate [Pending], Prothrombin Time 11.5, Prothromb Time International Ratio 1.1, C -Reactive Protein, Quantitative 8.0H Height (Feet): 5 Height (Inches): 3.00 Weight (Pounds): 124 General Appearance: no apparent distress, alert EENT: PERRL/EOMI, normal ENT inspection Neck: non-tender, normal alignment Cardiovascular: normal rate, regular rhythm Respiratory/Chest: lungs clear, normal breath sounds Abdomen: non tender, soft Extremities: other - right knee bandages noted and tenderness to palpation Edema: trace edema Neurologic: alert, oriented x 3 Skin: warm/dry GABE DOMINGO Apr 19, 2017 08:40
[2017-04-19 10:37] LABS: ANISOCYTOSIS 1+; BAND NEUTROPHILS % (MANUAL) 0 % (0-8); BASOPHILS % (MANUAL) 0 % (0-2); EOSINOPHILS % (MANUAL) 0 % (0-3); HYPOCHROMASIA 1+; LYMPHOCYTES % (MANUAL) 26 % (20-45); MICROCYTES 1+; NEUTROPHILS % (MANUAL) 70 % (45-75); PLATELET ESTIMATE ADEQUATE; PLATELET MORPHOLOGY NORMAL; TOTAL CELLS COUNTED 100
[2017-04-19] MEDS: Dyna-Hex 2% Top Sol 8oz TOPIC SCH (13:08)
--- NOTE | 2017-04-19 13:45 | Diagnostic Imaging Report ---
Indications: Long-term central IV access required for intravenous therapy Technique: The procedure indications, risks, and alternatives were explained to the patient who understands and gives consent to proceed. Strict aseptic technique was utilized, including hand washing, use of hat and mask, use of sterile gown and gloves, sterile ultrasound gel and probe cover, prepping of left arm skin with 2% chlorhexidine solution, and application of full body sterile barrier over this area. Skin and subcutaneous soft tissues were infiltrated with 1% lidocaine and sodium bicarbonate. A small dermatotomy was made, through which the larger of two patent, adequate size left brachial veins was punctured percutaneously under direct sonographic guidance with a 21-gauge needle . Exchange was made over a 0.018 inch guidewire for a 5 [place] peel-away sheath. A [facility] Power-PICC 5 [place] dual lumen central venous catheter was cut to appropriate length, then advanced through the sheath over the guidewire under direct fluoroscopic guidance into the superior vena cava. Guidewire and sheath were removed. Both catheter ports were aspirated, then flushed with heparinized saline. Final image was obtained. Catheter was secured the skin with adhesive dressing. Patient tolerated procedure well without immediate complications. Total fluoroscopy time: 0.2 minutes. Dose-area product: 6.7 dGy-cm2 Findings: Final image demonstrates tip of the central venous catheter at the level of superior vena cava-right atrial junction, 38 cm in from the skin. Both ports aspirate and flush freely. IMPRESSION: Placement of peripherally inserted central venous catheter via left brachial vein, working well.
--- NOTE | 2017-04-19 14:26 | Infectious Diseases Prog Note ---
Assessment/Plan Assessment/Plan A; R Knee infection with MRSA OA Osteoporosis Anemia P; Continue IV Vancomycin X 6 weeks Subjective ROS Limited/Unobtainable: No Constitutional: Reports: no symptoms Respiratory: Reports: no symptoms Cardiovascular: Reports: no symptoms Musculoskeletal: Reports: other - in right knee, pain Allergies: Coded Allergies: CEFAZOLIN (Verified Allergy, Severe, hives all over her body, 01/10/16) PHENYTOIN (Verified Allergy, Severe, swell up face, 01/10/16) SULFA (SULFONAMIDE ANTIBIOTICS) (Verified Allergy, Severe, hives all over her body, 01/10/16) HYDROXYZINE (Verified Adverse Reaction, Severe, tachypnea; tachycardia, 01/10/16) PENICILLINS (Verified Adverse Reaction, Severe, vomiting, 01/10/16) PROCHLORPERAZINE (Verified Adverse Reaction, Severe, musle spasm, 01/10/16) Objective Vital Signs Last 24 Hour Vital Signs Date Time Temp Pulse Resp B/P Pulse Ox O2 Delivery O2 Flow Rate FiO2 04/19/17 13:37 98.1 04/19/17 12:00 98.1 113 19 124/76 97 Room Air 04/19/17 10:15 98.0 110 19 118/70 Room Air 04/19/17 09:32 98.1 04/19/17 08:00 98.2 113 19 94/49 Room Air 04/19/17 04:00 98.1 104 18 107/67 93 Room Air 04/19/17 00:00 99.0 109 18 94/60 94 Room Air 04/18/17 20:00 97.9 104 18 92/56 94 Room Air 04/18/17 16:00 97.5 52 20 117/77 95 Room Air Height (Feet): 5 Height (Inches): 3.00 Weight (Pounds): 124 General Appearance: no acute distress HEENT: mucous membranes moist Respiratory/Chest: lungs clear Cardiovascular: normal rate Abdomen: soft, non tender Extremities: other - left arm PICC line Neurologic/Psychiatric: alert, oriented x 3, responsive Laboratory Tests Test 04/19/17 05:30 White Blood Count 6.1 K/UL (4.8-10.8) Red Blood Count 2.89 M/UL (4.20-5.40) L Hemoglobin 7.3 G/DL (12.0-16.0) L Hematocrit 22.8 % (37.0-47.0) L Mean Corpuscular Volume 79 FL (80-99) L Mean Corpuscular Hemoglobin 25.3 PG (27.0-31.0) L Mean Corpuscular Hemoglobin Concent 32.1 G/DL (32.0-36.0) Red Cell Distribution Width 14.6 % (11.6-14.8) Platelet Count 277 K/UL (150-450) Mean Platelet Volume 5.9 FL (6.5-10.1) L Neutrophils (%) (Auto) % (45.0-75.0) Lymphocytes (%) (Auto) % (20.0-45.0) Monocytes (%) (Auto) % (1.0-10.0) Eosinophils (%) (Auto) % (0.0-3.0) Basophils (%) (Auto) % (0.0-2.0) Differential Total Cells Counted 100 Neutrophils % (Manual) 70 % (45-75) Lymphocytes % (Manual) 26 % (20-45) Monocytes % (Manual) 4 % (1-10) Eosinophils % (Manual) 0 % (0-3) Basophils % (Manual) 0 % (0-2) Band Neutrophils 0 % (0-8) Platelet Estimate Adequate Platelet Morphology Normal Hypochromasia 1+ Anisocytosis 1+ Microcytosis 1+ Erythrocyte Sedimentation Rate 86 MM/HR (0-30) H Prothrombin Time 11.5 SEC (9.30-11.50) Prothromb Time International Ratio 1.1 (0.9-1.1) C-Reactive Protein, Quantitative 8.0 mg/dL (< 0.5) H Current Medications Medications (Trade) Dose Ordered Sig/Reanna Route PRN Reason Start Time Stop Time Status Last Admin Dose Admin Acetaminophen/ Hydrocodone Bitart ([place] 10/325) 1 ea Q4H PRN ORAL For moderate Pain 04/18/17 18:15 04/25/17 18:14 Albuterol Sulfate (Proventil MDI) 2 puff EVERY 4 HOURS PRN INH Shortness of Breath 04/16/17 18:30 05/16/17 18:29 Amitriptyline HCl (Elavil) 100 mg BEDTIME ORAL 04/16/17 21:00 05/16/17 20:59 04/18/17 21:06 Chlorhexidine Gluconate (Faye-Hex 2%) 1 applic DAILY TOPIC 04/19/17 09:00 05/19/17 08:59 04/19/17 13:08 Dextrose/ Electrolytes (D5 0.45%NS W/ KCl 20mEq) 1,000 ml @ 75 mls/hr [id number] IV 04/16/17 14:00 05/16/17 13:59 04/18/17 18:09 Enoxaparin Sodium (Lovenox) 40 mg DAILY SUBQ 04/17/17 09:00 05/01/17 08:59 04/19/17 08:34 Heparin Sodium/ Sodium Chloride (Heparin 2000 units/Ns 1000ml premix) 2,000 unit ONCE PRN INJ PICC PLACEMENT 04/19/17 08:00 04/20/17 23:59 Levothyroxine Sodium (Synthroid) 100 mcg DAILY@0600 ORAL 04/17/17 06:00 05/17/17 05:59 04/19/17 05:57 Lidocaine HCl (Xylocaine 1% 30ml) 30 ml ONCE PRN INJ PICC PLACEMENT 04/19/17 08:00 04/20/17 23:59 Montelukast Sodium (Singulair) 10 mg QPM ORAL 04/16/17 21:00 05/16/17 20:59 04/18/17 16:59 Morphine Sulfate (Morphine Sulfate) 4 mg Q3H PRN IVP For severe Pain 04/17/17 14:15 04/24/17 14:14 04/19/17 13:07 Ondansetron HCl (Zofran) 4 mg Q6H PRN IVP Nausea & Vomiting 04/16/17 21:00 05/16/17 20:59 04/19/17 10:23 Pregabalin (Lyrica) 75 mg THREE TIMES A DAY ORAL 04/16/17 18:00 05/16/17 17:59 04/19/17 08:33 Propranolol HCl (Inderal LA) 60 mg DAILY ORAL 04/17/17 09:00 05/17/17 08:59 04/18/17 10:03 Sodium Bicarbonate (Sodium Bicarbonate 4%) 1 ml ONCE PRN INJ PICC PLACEMENT 04/19/17 08:00 04/20/17 23:59 Solifenacin (Vesicare) 10 mg DAILY ORAL 04/17/17 09:00 05/17/17 08:59 04/19/17 08:33 Tizanidine HCl (Zanaflex) 4 mg TIDPRN PRN ORAL muscle spasm 04/16/17 14:00 05/16/17 13:59 Topiramate (Topamax) 200 mg Q12HR ORAL 04/16/17 21:00 05/16/17 20:59 04/19/17 08:33 Vancomycin HCl 1 ea 1 ea DAILY PRN MISC Per rx protocol 04/18/17 16:00 05/18/17 15:59 Vancomycin HCl/ Dextrose (Vancomycin/D5W) 325 ml @ 162.5 mls/ hr Q24H IVPB 04/18/17 18:00 04/23/17 17:59 04/18/17 18:05 KARON MILLER Apr 19, 2017 14:26
[2017-04-19] MEDS: Vancomycin 1.5 GM in D5W 325 ML IVPB SCH (17:07)
[2017-04-19] MEDS: Montelukast 10mg tablet ORAL SCH (17:07)
[2017-04-19] MEDS: Amitriptyline 100mg tab ORAL SCH (20:27)
--- NOTE | 2017-04-19 20:45 | Operative Note - Dictated ---
PREOPERATIVE DIAGNOSIS: Right knee internal derangement, rule out infection with spontaneous effusion and pain. POSTOPERATIVE DIAGNOSIS: Right knee internal derangement, rule out infection with spontaneous effusion and pain. PROCEDURE: Irrigation and debridement of right knee. Modifier 22 secondary to complexity in order to rule out infection. SURGEON: Mario Cao M.D. AUTO ELECTRICAL TECHNICIAN: Unknown. NEWS CAMERAMAN: None. PREOPERATIVE NOTE: This is a pleasant woman who has been having issues with knee. She had a knee replacement done elsewhere four to five years ago. She has been having recurrent instability issues like recently she had spontaneous effusion and pain with no etiology often swollen. She is ruled out . If it is anything, it is an acute infection upon chronic situation due to immunocompromised state. I explained to her the surgery and the risks and benefits. We have planned for implant removal. The patient agreed. Consents were obtained. OPERATIVE ROOM NOTE: Under the benefit of endotracheal intubation and general anesthetic, the patient's knee is prepped and draped in appropriate manner. Through a midline incision retinaculum washed up inferiorly across 5 cm to 6 cm. She has no signs of infection. The synovium was taken and sent off for pathology, Gram stain culture, and urinalysis. I then placed a drain in closing the retinaculum with #1 Vicryl, subcutaneous tissue #0 Vicryl, and skin with alvaro. The patient went to recovery room in stable condition. There were no complications. Mario Cao M.D. DR: Sariah JOB#: [id number] CC:
[2017-04-20 00:27] VITALS: BP 136/78
[2017-04-20] MEDS: Morphine Sulfate 4mg/ml Inj IVP PRN ×3 (01:35→08:53)
[2017-04-20 04:42] VITALS: BP 124/61
[2017-04-20 06:52] LABS: INR 1.1 (0.9-1.1)
[2017-04-20 07:15] LABS: BASOPHILS % (AUTO) 0.9 % (0.0-2.0); EOSINOPHILS % (AUTO) 0.8 % (0.0-3.0); MEAN CORPUSCULAR HEMOGLOBIN 26.5 PG (27.0-31.0); MEAN CORPUSCULAR HGB CONC 32.5 G/DL (32.0-36.0); MEAN CORPUSCULAR VOLUME 81 FL (80-99); MEAN PLATELET VOLUME 5.4 FL (6.5-10.1); MONOCYTES % (AUTO) 8.7 % (1.0-10.0); NEUTROPHILS % (AUTO) 65.7 % (45.0-75.0); PLATELET COUNT 277 K/UL (150-450); RED BLOOD COUNT 3.79 M/UL (4.20-5.40); WHITE BLOOD COUNT 8.8 K/UL (4.8-10.8)
[2017-04-20 07:42] VITALS: BP 138/85
--- NOTE | 2017-04-20 08:45 | General Progress Note ---
Assessment/Plan Assessment/Plan I&D of R infected knee implant- MRSA knee replacement anemia acute encephalopathy resolved debility PLAN 1. ID clearance 2. IV antibiotics-Vanco x 6 weeks; monitor renal function 3. PT evaluation and therapy 4. Hydration 5. Pain management evaluation noted 6. discharge to home HH 7. PICC line 8. ID evaluation appreciated impression, plan, and exam edited and reviewed in detail care discussed with RN Subjective Allergies: Coded Allergies: CEFAZOLIN (Verified Allergy, Severe, hives all over her body, 01/10/16) PHENYTOIN (Verified Allergy, Severe, swell up face, 01/10/16) SULFA (SULFONAMIDE ANTIBIOTICS) (Verified Allergy, Severe, hives all over her body, 01/10/16) HYDROXYZINE (Verified Adverse Reaction, Severe, tachypnea; tachycardia, 01/10/16) PENICILLINS (Verified Adverse Reaction, Severe, vomiting, 01/10/16) PROCHLORPERAZINE (Verified Adverse Reaction, Severe, musle spasm, 01/10/16) Subjective s/p I and D fluid positive for MRSA ID noted does not want SNF Objective Last 24 Hour Vital Signs Date Time Temp Pulse Resp B/P Pulse Ox O2 Delivery O2 Flow Rate FiO2 04/20/17 07:42 99.5 115 20 138/85 96 Room Air 04/20/17 04:42 98.1 64 17 124/61 97 Room Air 04/20/17 00:27 101.7 115 21 136/78 94 Room Air 04/19/17 20:30 99.1 121 22 127/79 96 Room Air 04/19/17 18:59 98.1 04/19/17 18:06 98.1 04/19/17 16:00 98.6 115 20 140/87 97 Room Air 04/19/17 12:00 98.1 113 19 124/76 97 Room Air 04/19/17 10:15 98.0 110 19 118/70 Room Air Intake and Output 04/19/17 04/20/17 19:00 07:00 Intake Total 237.5 ml 1062.5 ml Balance 237.5 ml 1062.5 ml IV Total 237.5 ml 1062.5 ml # Voids 5 Laboratory Tests 04/20/17 06:00: White Blood Count 8.8, Red Blood Count 3.79L, Hemoglobin 10.0#L, Hematocrit 30.8 #L, Mean Corpuscular Volume 81, Mean Corpuscular Hemoglobin 26.5L, Mean Corpuscular Hemoglobin Concent 32.5, Red Cell Distribution Width 15.0H, Platelet Count 277, Mean Platelet Volume 5.4L, Neutrophils (%) (Auto) 65.7, Lymphocytes (%) (Auto) 24.0, Monocytes (%) (Auto) 8.7, Eosinophils (%) (Auto) 0.8, Basophils (%) (Auto) 0.9, Prothrombin Time 11.0, Prothromb Time International Ratio 1.1 Height (Feet): 5 Height (Inches): 3.00 Weight (Pounds): 124 Objective WDWN NAD clear breath sounds bilaterally without rhonchi or wheeze [id number] without MRG NABS nontender no HSM no CCE nonfocal some confusion noted which is improved ALISSA LAN Apr 20, 2017 08:45
[2017-04-20] MEDS ORDERED: VANCOMYCIN1 GM/2502 IVPB (09:09)
[2017-04-20 09:13] LABS: OTHERS PATHOLOGIST COMMENT
--- NOTE | 2017-04-20 09:35 | General Progress Note ---
Assessment/Plan Assessment/Plan (1) H/O Spinal surgery (2) DDD (degenerative disc disease), cervical (3) Lumbar spondylosis (4) Cervical spondylosis (5) Lumbar degenerative disc disease (6) History of total knee replacement, right (7) Osteoarthritis of right knee (8) Right knee pain (9) Status post I+D We will continued the [place] and discontinue Morphine. Rx written in anticipation for discharge [place] 10/325mg 30 tabs. Pt was d/w Dr. Schaffer and he concurred Subjective Date patient seen: Apr 20, 2017 Time patient seen: 07:00 - am Constitutional: Reports: no symptoms HEENT: Reports: no symptoms Respiratory: Reports: no symptoms Gastrointestinal/Abdominal: Reports: no symptoms Genitourinary: Reports: no symptoms Neurologic/Psychiatric: Reports: no symptoms Endocrine: Reports: no symptoms Hematologic/Lymphatic: Reports: no symptoms Allergies: Coded Allergies: CEFAZOLIN (Verified Allergy, Severe, hives all over her body, 01/10/16) PHENYTOIN (Verified Allergy, Severe, swell up face, 01/10/16) SULFA (SULFONAMIDE ANTIBIOTICS) (Verified Allergy, Severe, hives all over her body, 01/10/16) HYDROXYZINE (Verified Adverse Reaction, Severe, tachypnea; tachycardia, 01/10/16) PENICILLINS (Verified Adverse Reaction, Severe, vomiting, 01/10/16) PROCHLORPERAZINE (Verified Adverse Reaction, Severe, musle spasm, 01/10/16) Subjective Patient is stable in bed continues to c/o pain in her back and knee. The pain is tolerated on the medication and is looking forward to being discharged home. Objective Last 24 Hour Vital Signs Date Time Temp Pulse Resp B/P Pulse Ox O2 Delivery O2 Flow Rate FiO2 04/20/17 07:42 99.5 115 20 138/85 96 Room Air 04/20/17 04:42 98.1 64 17 124/61 97 Room Air 04/20/17 00:27 101.7 115 21 136/78 94 Room Air 04/19/17 20:30 99.1 121 22 127/79 96 Room Air 04/19/17 18:59 98.1 04/19/17 18:06 98.1 04/19/17 16:00 98.6 115 20 140/87 97 Room Air 04/19/17 12:00 98.1 113 19 124/76 97 Room Air 04/19/17 10:15 98.0 110 19 118/70 Room Air Intake and Output 04/19/17 04/20/17 19:00 07:00 Intake Total 237.5 ml 1062.5 ml Balance 237.5 ml 1062.5 ml IV Total 237.5 ml 1062.5 ml # Voids 5 Laboratory Tests 04/20/17 06:00: White Blood Count 8.8, Red Blood Count 3.79L, Hemoglobin 10.0#L, Hematocrit 30.8 #L, Mean Corpuscular Volume 81, Mean Corpuscular Hemoglobin 26.5L, Mean Corpuscular Hemoglobin Concent 32.5, Red Cell Distribution Width 15.0H, Platelet Count 277, Mean Platelet Volume 5.4L, Neutrophils (%) (Auto) 65.7, Lymphocytes (%) (Auto) 24.0, Monocytes (%) (Auto) 8.7, Eosinophils (%) (Auto) 0.8, Basophils (%) (Auto) 0.9, Prothrombin Time 11.0, Prothromb Time International Ratio 1.1 Height (Feet): 5 Height (Inches): 3.00 Weight (Pounds): 124 Objective General Appearance: no apparent distress, alert EENT: PERRL/EOMI, normal ENT inspection Neck: non-tender, normal alignment Cardiovascular: normal rate, regular rhythm Respiratory/Chest: lungs clear, normal breath sounds Abdomen: non tender, soft Extremities: other - right knee bandages noted and tenderness to palpation Edema: trace edema Neurologic: alert, oriented x 3 Skin: warm/dry GABE DOMINGO N. PGopi Apr 20, 2017 09:35
[2017-04-20] MEDS: Solifenacin 10mg tab ORAL SCH (10:18)
[2017-04-20] MEDS: Propranolol LA 60mg cap ORAL SCH (10:19)
[2017-04-20] MEDS: Topiramate 100mg tab ORAL SCH (10:19)
[2017-04-20] MEDS: Lyrica 75mg cap ORAL SCH ×2 (10:25→13:31)
[2017-04-20] MEDS: Dyna-Hex 2% Top Sol 8oz TOPIC SCH (10:27)
[2017-04-20] MEDS: Enoxaparin 40mg Inj SUBQ SCH (10:27)
--- NOTE | 2017-04-20 11:09 | Infectious Diseases Prog Note ---
Assessment/Plan Assessment/Plan antibiotics : vancomycin iv A 1. right knee infection with MRSA s/p i and d 2. osteoarthritis 3. osteoporosis 4. anemia P 1. continue iv vancomycin 39 more days 2. cbc, bmp, vancomycin level q weekly 3. will follow up cultures Subjective Constitutional: Denies: chills, fever Respiratory: Denies: dry cough, shortness of breath Gastrointestinal/Abdominal: Denies: diarrhea, nausea, vomiting Musculoskeletal: Reports: pain Allergies: Coded Allergies: CEFAZOLIN (Verified Allergy, Severe, hives all over her body, 01/10/16) PHENYTOIN (Verified Allergy, Severe, swell up face, 01/10/16) SULFA (SULFONAMIDE ANTIBIOTICS) (Verified Allergy, Severe, hives all over her body, 01/10/16) HYDROXYZINE (Verified Adverse Reaction, Severe, tachypnea; tachycardia, 01/10/16) PENICILLINS (Verified Adverse Reaction, Severe, vomiting, 01/10/16) PROCHLORPERAZINE (Verified Adverse Reaction, Severe, musle spasm, 01/10/16) Objective Vital Signs Last 24 Hour Vital Signs Date Time Temp Pulse Resp B/P Pulse Ox O2 Delivery O2 Flow Rate FiO2 04/20/17 07:42 99.5 115 20 138/85 96 Room Air 04/20/17 04:42 98.1 64 17 124/61 97 Room Air 04/20/17 00:27 101.7 115 21 136/78 94 Room Air 04/19/17 20:30 99.1 121 22 127/79 96 Room Air 04/19/17 18:59 98.1 04/19/17 18:06 98.1 04/19/17 16:00 98.6 115 20 140/87 97 Room Air 04/19/17 12:00 98.1 113 19 124/76 97 Room Air Height (Feet): 5 Height (Inches): 3.00 Weight (Pounds): 124 Respiratory/Chest: lungs clear Cardiovascular: normal rate, regular rhythm, no gallop/murmur Abdomen: soft, non tender Extremities: no edema, other - right leg in a brace Laboratory Tests Test 04/20/17 06:00 White Blood Count 8.8 K/UL (4.8-10.8) Red Blood Count 3.79 M/UL (4.20-5.40) L Hemoglobin 10.0 G/DL (12.0-16.0) #L Hematocrit 30.8 % (37.0-47.0) #L Mean Corpuscular Volume 81 FL (80-99) Mean Corpuscular Hemoglobin 26.5 PG (27.0-31.0) L Mean Corpuscular Hemoglobin Concent 32.5 G/DL (32.0-36.0) Red Cell Distribution Width 15.0 % (11.6-14.8) H Platelet Count 277 K/UL (150-450) Mean Platelet Volume 5.4 FL (6.5-10.1) L Neutrophils (%) (Auto) 65.7 % (45.0-75.0) Lymphocytes (%) (Auto) 24.0 % (20.0-45.0) Monocytes (%) (Auto) 8.7 % (1.0-10.0) Eosinophils (%) (Auto) 0.8 % (0.0-3.0) Basophils (%) (Auto) 0.9 % (0.0-2.0) Prothrombin Time 11.0 SEC (9.30-11.50) Prothromb Time International Ratio 1.1 (0.9-1.1) SKYLER RODRIGUEZ Apr 20, 2017 11:09
[2017-04-20] MEDS: D5 1/2NS w/KCl 20mEq 1,000 ML IV SCH (11:20)
[2017-04-20 12:51] VITALS: BP 144/85
[2017-04-20 16:15] VITALS: BP 113/60
[2017-04-20] MEDS: Montelukast 10mg tablet ORAL SCH (17:12)
[2017-04-20] MEDS ORDERED: Tubing IV Secondary IV ONE (18:53)
[2017-04-20] MEDS ORDERED: NS 275ml ONE (18:53)
--- NOTE | 2017-04-23 10:49 | Discharge Summary ---
Discharge Summary Hospital Course Date of Admission Apr 16, 2017 at 13:15 Date of Discharge Apr 20, 2017 at 18:54 Admitting Diagnosis R knee internal derangement, r/o infection HPI Indu Flores is a 56 year old female who was admitted on Apr 16, 2017 at 13: 15 for Rt knee internal derangement with knee effusion, to rule out infection for elective surgery Consultations Ana Oliver, -PADMINI Webster, -pain specialist Dolores Irving- ID Procedures s/p 04/16 Irrigation and debridement of right knee. by Mario Cao M.D. Hospital Course s/p surgery 04/16 pain management pain specialist followed IS at the bedside wound care PT Rx initially on IVF anemic with HH- 7.3/22.8, s/p 2 u PRBC, HH upon dc -10.0/30.8 culture + MRSA ID followed need total 6 wks of abx/ Vanco PICC placed prior to discharge HH arranged for IV abx q wk CBC, BMP, Vanco level as per ID to be checked VSS, labs stable wound clean neurovascular intact tolerated diet voided , had BM FINAL DIAGNOSIS R knee internal derangement s/p Irrigation and debridement of right knee. R knee infection with MRSA anemia s/p blood transfusion acute encephalopathy-resolved OA R knee hx of R total knee replacement hx of spinal surgery cervical DDD lumbar DDD lumbar spondylosis cervical spondylosis Discharge Medications Continued Medications: Albuterol Sulfate* (Proair Hfa*) 8.5 Gm Hfa.aer.ad 2 PUFF INH EVERY 4 HOURS, #8.5 GM 0 Refills Amitriptyline Hcl* (Amitriptyline Hcl*) 100 Mg Tablet 100 MG ORAL BEDTIME, TAB Fluticasone/Salmeterol (Advair 500-50 Diskus) 1 Each Disk.w.dev 1 PUFF INH BID, EA Levothyroxine Sodium* (Synthroid*) 25 Mcg Tablet 0.1 MG ORAL DAILY, TAB Take in the morning on an empty stomach, at least 30 minutes before food. Montelukast Sodium* (Singulair*) 10 Mg Tablet 10 MG ORAL DAILY, TAB Propranolol Hcl* (Inderal*) 10 Mg Tablet 60 MG ORAL DAILY, #90 TAB 0 Refills Solifenacin Succinate (Vesicare*) 10 Mg Tablet 10 MG ORAL DAILY, TAB Topiramate* (Topamax*) 100 Mg Tablet 200 MG ORAL BID, #60 TAB 0 Refills Vancomycin Hcl/D5w (Vancomycin-D5w 1 G/250 Ml) 1 Gm/250 Ml Plast..bag 1.5 GM IVPB Q24H for 42 Days, BAG Discharge Condition Upon Discharge: stable Discharge Disposition Patient was discharged to Home with Home Health(06) Discharge Diagnoses: Discharge Instructions Discharge Instructions Special Instructions I have been assigned to complete a D/C Summary on this account. I was not involved in the patient management Daisy Mendez NP ([place]) Apr 23, 2017 10:49
== END 2017-04-20 18:54 | disposition home health service (06) | DRG 485 ==
LOC: SUR 06:39 → 4E 13:15
PROC: 0S9C00Z Drainage of Right Knee Joint with Drainage Device, Open Approach (ICD-10-PCS; principal; 2017-04-16 08:30)
PROC: 0SBC0ZZ Excision of Right Knee Joint, Open Approach (ICD-10-PCS; principal; 2017-04-16 08:30)
PROC: 30233N1 Transfusion of Nonautologous Red Blood Cells into Peripheral Vein, Percutaneous Approach (ICD-10-PCS; 2017-04-19)
PROC: 02HV33Z Insertion of Infusion Device into Superior Vena Cava, Percutaneous Approach (ICD-10-PCS; 2017-04-19)
DX: T84.53XA Infection and inflammatory reaction due to internal right knee prosthesis, initial encounter (principal); G93.40 Encephalopathy, unspecified; Z88.0 Allergy status to penicillin; Z88.2 Allergy status to sulfonamides; Z88.8 Allergy status to other drugs, medicaments and biological substances; M17.11 Unilateral primary osteoarthritis, right knee; B95.62 Methicillin resistant Staphylococcus aureus infection as the cause of diseases classified elsewhere; M81.0 Age-related osteoporosis without current pathological fracture; D64.9 Anemia, unspecified; Y83.9 Surgical procedure, unspecified as the cause of abnormal reaction of the patient, or of later complication, without mention of misadventure at the time of the procedure; E03.9 Hypothyroidism, unspecified; Z98.1 Arthrodesis status; M47.892 Other spondylosis, cervical region; M47.896 Other spondylosis, lumbar region; R56.9 Unspecified convulsions; I10 Essential (primary) hypertension; J44.9 Chronic obstructive pulmonary disease, unspecified
CPT/HCPCS: 36415; 36569; 76937; 80053; 85007; 85025; 85610; 85651; 86140; 86850; 86870; 86900; 86901; 86904; 86920; 87070; 87075; 87181; 87205; 94003; 94150; 94664; J2180; J2250; J2405; S0077

== ENCOUNTER 2017-09-24 16:49 | Inpatient (IN) | payer MEDICARE, OTHER ==
[~2017-09-24] VITALS: Ht 157.5 cm; Wt 54.4 kg
[~2017-09-24 16:49] MED LIST changes: +VANCOMYCIN1 GM/2502 IVPB
[2017-09-24 17:00] VITALS: BP 102/65
--- NOTE | 2017-09-24 17:28 | Emergency Room Report ---
History of Present Illness General Chief Complaint: Generalized Weakness Source: Patient Present Illness HPI 48-year-old female, multiple back surgeries, chronic back pain, history of DVT on xarelto, bedbound, presenting with dizziness and generalized weakness. Patient states that she was at her pain management doctor, she suddenly felt very weak, felt like she was going to faint but did not actually syncopized. Complaining of her chronic back pain. Denying any shortness of breath, no palpitations. Denies any fever or chills. The last time she ate food was this morning Allergies: Coded Allergies: CEFAZOLIN (Verified Allergy, Severe, hives all over her body, 01/10/16) PHENYTOIN (Verified Allergy, Severe, swell up face, 01/10/16) SULFA (SULFONAMIDE ANTIBIOTICS) (Verified Allergy, Severe, hives all over her body, 01/10/16) HYDROXYZINE (Verified Adverse Reaction, Severe, tachypnea; tachycardia, 01/10/16) PENICILLINS (Verified Adverse Reaction, Severe, vomiting, 01/10/16) PROCHLORPERAZINE (Verified Adverse Reaction, Severe, musle spasm, 01/10/16) Patient History Past Medical History: see triage record Past Surgical History: none Pertinent Family History: none Reviewed Nursing Documentation: PMH: Agreed, PSxH: Agreed Nursing Documentation-PMH Hx Cardiac Problems: No Hx Hypertension: Yes Hx Asthma: No Hx COPD: No Hx Cancer: No Hx Gastrointestinal Problems: Yes Hx Neurological Problems: Yes - chronic back problem Hx Cerebrovascular Accident: No Hx Transient Ischemic Attacks: No Hx Dementia: No Hx Parkinson's Disease: No Hx Meningitis: No Hx Encephalitis: No Hx Seizures: No - patient state more than 15-20 year ago Hx Epilepsy: No Hx Multiple Sclerosis: No Hx Cerebral Palsy: No Hx Amyotrophic Lat Sclerosis: No Hx [place] Syndrome: No Hx Paralysis: No Hx Peripheral Neuropathy: No Hx Spinal Cord Injury: No Hx Head Trauma: No Hx Traumatic Brain Injury: No Hx Memory Loss: No Hx Concentration Difficulty: No Hx Speech Problem: No Hx Tremors: No Hx Headaches: Yes - has migraines at times Hx Aphasia: No Hx Dysphasia: No Hx Numbness: No Hx Weakness: Yes - right leg Hx Neurologic Surgery: No Hx Brain Shunt: No Review of Systems All Other Systems: negative except mentioned in HPI Physical Exam Vital Signs Date Time Temp Pulse Resp B/P (MAP) Pulse Ox O2 Delivery O2 Flow Rate FiO2 09/24/17 16:52 98.2 86 16 90/50 98 Room Air Sp02 EP Interpretation: reviewed, normal General Appearance: Chronically Ill - Thin, chronically ill-appearing middle- aged female, awake and alert Head: normocephalic, atraumatic Eyes: bilateral eye normal inspection, bilateral eye PERRL, bilateral eye EOMI ENT: normal ENT inspection, normal pharynx, normal voice, moist mucus membranes Neck: normal inspection, full range of motion, supple Respiratory: normal inspection, lungs clear, normal breath sounds, no respiratory distress, no retraction, no wheezing, speaking full sentences, chest symmetrical Cardiovascular #1: normal inspection, regular rate, rhythm, normal capillary refill Cardiovascular #2: 2+ radial (R), 2+ radial (L) Gastrointestinal: normal inspection, non tender, soft, non-distended, no guarding Musculoskeletal: other - Diffuse generalized paraspinal tenderness in her back , limited range of motion of bilateral lower extremities which is chronic, but able to bend both her knees without issue 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, other - Awake alert, oriented x4, good strength bilateral upper extremities, able to move bilateral lower extremities spontaneously Psychiatric: normal inspection, judgement/insight normal, memory normal Skin: normal inspection, normal color, no rash, warm/dry, well hydrated, normal turgor Medical Decision Making Diagnostic Impression: Primary Impression: Episode of generalized weakness Additional Impressions: Chronic back pain UTI (urinary tract infection) ER Course 56-year-old female, chronic back pain, generalized weakness DDX: Dehydration, hypovolemia, infection, UTI, pneumonia, electrolyte disturbance Patient has a history of DVT, on his arrival to, but states that she has not taken it recently, however patient is not tachycardic or hypoxic, she is not complaining of chest pain or shortness of breath Plan: Obtain labs, ua, EKG, CXR ER course: Patient has been monitored during ED stay, HD stable Complaining of her chronic back pain, morphine given ABX given for UTI Disposition: Patient is to be admitted to telemetry D/W hospitalist Dr Neely Please note that this Emergency Department Report was dictated using The [employer] pattern maker technology software, occasionally this can lead to erroneous entry secondary to interpretation by the dictation equipment. EKG Diagnostic Results EP Interpretation: Yes Rate: normal Rhythm: NSR ST Segments: Q waves in 2, 3 and aVF ASA given to patient: No Rhythm Strip EP Interpretation: Yes Rate: 90 Rhythm: NSR, no PVCs, no ectopy Chest X-ray CXR: Ordered: Yes 1 view Indication: Pain EP interpretation: Yes Interpretation: No consolidation, no effusion, no PTX, no acute cardiopulmonary disease, surgical screws noted in in back Impression: No acute disease Electronically signed by Shilo Camarillo MD Laboratory Tests Test 09/24/17 17:40 09/24/17 19:10 White Blood Count 13.4 K/UL (4.8-10.8) H Red Blood Count 4.46 M/UL (4.20-5.40) Hemoglobin 11.2 G/DL (12.0-16.0) L Hematocrit 36.7 % (37.0-47.0) L Mean Corpuscular Volume 82 FL (80-99) Mean Corpuscular Hemoglobin 25.1 PG (27.0-31.0) L Mean Corpuscular Hemoglobin Concent 30.5 G/DL (32.0-36.0) L Red Cell Distribution Width 14.3 % (11.6-14.8) Platelet Count 363 K/UL (150-450) Mean Platelet Volume 5.4 FL (6.5-10.1) L Neutrophils (%) (Auto) 77.8 % (45.0-75.0) H Lymphocytes (%) (Auto) 16.2 % (20.0-45.0) L Monocytes (%) (Auto) 5.3 % (1.0-10.0) Eosinophils (%) (Auto) 0.1 % (0.0-3.0) Basophils (%) (Auto) 0.7 % (0.0-2.0) Prothrombin Time 10.7 SEC (9.30-11.50) Prothrombin Time INR 1.0 (0.9-1.1) PTT 30 SEC (23-33) Sodium Level 140 MMOL/L (136-145) Potassium Level 3.9 MMOL/L (3.5-5.1) Chloride Level 108 MMOL/L (98-107) H Carbon Dioxide Level 20 MMOL/L (21-32) L Anion Gap 13 mmol/L (5-15) Blood Urea Nitrogen 19 mg/dL (7-18) H Creatinine 0.8 MG/DL (0.55-1.30) Estimate Glomerular Filtration Rate > 60 mL/min (>60) Glucose Level 98 MG/DL (74-106) Lactic Acid Level 3.00 mmol/L (0.66-2.22) H Calcium Level 8.5 MG/DL (8.5-10.1) Total Bilirubin 0.2 MG/DL (0.2-1.0) Aspartate Amino Transferase (AST) 15 U/L (15-37) Alanine Aminotransferase (ALT) 13 U/L (12-78) Alkaline Phosphatase 105 U/L (46-116) Troponin I 0.003 ng/mL (0.000-0.056) Pro-B-Type Natriuretic Peptide 267 pg/mL (0-125) H Total Protein 7.3 G/DL (6.4-8.2) Albumin 3.0 G/DL (3.4-5.0) L Globulin 4.3 g/dL Albumin/Globulin Ratio 0.7 (1.0-2.7) L Urine Color Pale yellow Urine Appearance Slightly cloudy Urine pH 7 (4.5-8.0) Urine Specific [place] 1.005 (1.005-1.035) Urine Protein Negative (NEGATIVE) Urine Glucose (UA) Negative (NEGATIVE) Urine Ketones Negative (NEGATIVE) Urine Occult Blood 2+ (NEGATIVE) H Urine Nitrite Positive (NEGATIVE) H Urine Bilirubin Negative (NEGATIVE) Urine Urobilinogen Normal MG/DL (0.0-1.0) Urine Leukocyte Esterase 3+ (NEGATIVE) H Urine RBC 5-10 /HPF (0 - 2) H Urine WBC 30-40 /HPF (0 - 2) H Urine Squamous Epithelial Cells Few /LPF (NONE/OCC) Urine Bacteria Moderate /HPF (NONE) H Last Vital Signs Date Time Temp Pulse Resp B/P (MAP) Pulse Ox O2 Delivery O2 Flow Rate FiO2 09/24/17 16:52 98.2 86 16 90/50 98 Room Air Shilo Camarillo M.D. Sep 24, 2017 17:28
[2017-09-24] MEDS ORDERED: XARELTO20 MG ORAL (17:46)
[2017-09-24] MEDS ORDERED: ESOMEPRAZOLE MA40 MG PO (17:54)
[2017-09-24] MEDS ORDERED: FLONASE1 SPRAYS NASAL (17:54)
[2017-09-24] MEDS ORDERED: LEVOTHYROXINE100 MCG PO (17:54)
[2017-09-24] MEDS ORDERED: VOLTAREN100 G1 (18:09)
[2017-09-24 18:22] LABS: BASOPHILS % (AUTO) 0.7 % (0.0-2.0); EOSINOPHILS % (AUTO) 0.1 % (0.0-3.0); LYMPHOCYTES % (AUTO) 16.2 % (20.0-45.0); MEAN CORPUSCULAR HEMOGLOBIN 25.1 PG (27.0-31.0); MEAN CORPUSCULAR HGB CONC 30.5 G/DL (32.0-36.0); MEAN CORPUSCULAR VOLUME 82 FL (80-99); MEAN PLATELET VOLUME 5.4 FL (6.5-10.1); MONOCYTES % (AUTO) 5.3 % (1.0-10.0); NEUTROPHILS % (AUTO) 77.8 % (45.0-75.0); PLATELET COUNT 363 K/UL (150-450); RED BLOOD COUNT 4.46 M/UL (4.20-5.40); RED CELL DISTRIBUTION WIDTH 14.3 % (11.6-14.8); WHITE BLOOD COUNT 13.4 K/UL (4.8-10.8)
[2017-09-24 18:31] LABS: PROTHROMBIN TIME 10.7 SEC (9.30-11.50)
[2017-09-24 18:32] LABS: ANION GAP 13 mmol/L (5-15); CALCIUM 8.5 MG/DL (8.5-10.1); CARBON DIOXIDE 20 MMOL/L (21-32); CHLORIDE 108 MMOL/L (98-107); CREATININE 0.8 MG/DL (0.55-1.30); GLOMERULAR FILTRATION RATE > 60 mL/min (>60); POTASSIUM 3.9 MMOL/L (3.5-5.1); SODIUM 140 MMOL/L (136-145)
[2017-09-24 18:43] LABS: ALANINE AMINOTRANSFERASE 13 U/L (12-78); ALBUMIN/GLOBULIN RATIO 0.7 (1.0-2.7); ASPARTATE AMINO TRANSFERASE 15 U/L (15-37); REFLEX LACTIC ACID YES OR NO YES; TOTAL PROTEIN 7.3 G/DL (6.4-8.2)
[2017-09-24] MEDS ORDERED: Morphine Sulfate 4mg/ml Inj IVP ONE (18:45)
[2017-09-24 19:30] VITALS: BP 136/75
[2017-09-24 19:59] LABS: KETONES,URINE NEGATIVE (NEGATIVE); LEUKOCYTE ESTERASE ,URINE 3+ (NEGATIVE); NITRITE,URINE POSITIVE (NEGATIVE); PH,URINE 7 (4.5-8.0); PROTEIN,URINE NEGATIVE (NEGATIVE); UROBILINOGEN,URINE NORMAL MG/DL (0.0-1.0)
[2017-09-24 20:00] LABS: APPEARANCE,URINE SLIGHTLY CLOUDY
[2017-09-24 20:11] LABS: BACTERIA,URINE MODERATE /HPF; SQUAMOUS EPITHELIAL CELL,UR FEW /LPF (NONE/OCC); WBC,URINE 30-40 /HPF (0 - 2)
[2017-09-24 21:00] VITALS: BP 138/69
[2017-09-24] MEDS ORDERED: Mylanta II UD 30ml ORAL PRN (21:30)
[2017-09-24] MEDS ORDERED: Norco 10mg/325mg tab ORAL PRN (21:30)
[2017-09-24] MEDS ORDERED: Miralax 17gm pkt ORAL PRN (21:30)
[2017-09-24] MEDS: Montelukast 10mg tablet ORAL SCH (22:26)
[2017-09-24] MEDS: Morphine Sulfate 2mg/ml Inj IVP PRN (22:27)
[2017-09-25] VITALS: BP 116/69
[2017-09-25] MEDS: Morphine Sulfate 2mg/ml Inj IVP PRN ×4 (02:37→20:31)
[2017-09-25 04:00] VITALS: BP 106/64
[2017-09-25 05:46] LABS: BASOPHILS % (AUTO) 0.6 % (0.0-2.0); EOSINOPHILS % (AUTO) 0.1 % (0.0-3.0); LYMPHOCYTES % (AUTO) 25.7 % (20.0-45.0); MEAN CORPUSCULAR HEMOGLOBIN 26.2 PG (27.0-31.0); MEAN CORPUSCULAR HGB CONC 32.7 G/DL (32.0-36.0); MEAN CORPUSCULAR VOLUME 80 FL (80-99); MEAN PLATELET VOLUME 5.4 FL (6.5-10.1); MONOCYTES % (AUTO) 7.4 % (1.0-10.0); NEUTROPHILS % (AUTO) 66.2 % (45.0-75.0); PLATELET COUNT 289 K/UL (150-450); RED BLOOD COUNT 3.93 M/UL (4.20-5.40); WHITE BLOOD COUNT 7.3 K/UL (4.8-10.8)
[2017-09-25] MEDS: LORazepam Inj 2mg/ml 1ml IV PRN (06:32)
[2017-09-25 07:23] LABS: ALANINE AMINOTRANSFERASE 10 U/L (12-78); ALBUMIN/GLOBULIN RATIO 0.6 (1.0-2.7); ANION GAP 13 mmol/L (5-15); ASPARTATE AMINO TRANSFERASE 13 U/L (15-37); CALCIUM 8.7 MG/DL (8.5-10.1); CARBON DIOXIDE 18 MMOL/L (21-32); CHLORIDE 109 MMOL/L (98-107); CHOLESTEROL 152 MG/DL (< 200); CHOLESTEROL/HDL RATIO 4.6 (3.3-4.4); CREATININE 0.8 MG/DL (0.55-1.30); GLOMERULAR FILTRATION RATE > 60 mL/min (>60); POTASSIUM 3.6 MMOL/L (3.5-5.1); SODIUM 140 MMOL/L (136-145); THYROID STIMULATING HORMONE 2.885 uiU/mL (0.358-3.740); TOTAL PROTEIN 7.3 G/DL (6.4-8.2)
[2017-09-25 08:00] VITALS: BP 111/64
--- NOTE | 2017-09-25 08:51 | General Progress Note ---
Assessment/Plan Assessment/Plan (1) H/O Spinal surgery (2) DDD (degenerative disc disease), cervical (3) Lumbar spondylosis (4) Cervical spondylosis (5) Lumbar degenerative disc disease (6) History of total knee replacement, right (7) Osteoarthritis of right knee We will continue the [place] Morphine. Pt was d/w Dr. Schaffer and he concurred Thank you for the courtesy of this consultation Subjective Date patient seen: Sep 26, 2017 Time patient seen: 07:15 - am Allergies: Coded Allergies: CEFAZOLIN (Verified Allergy, Severe, hives all over her body, 01/10/16) PHENYTOIN (Verified Allergy, Severe, swell up face, 01/10/16) SULFA (SULFONAMIDE ANTIBIOTICS) (Verified Allergy, Severe, hives all over her body, 01/10/16) HYDROXYZINE (Verified Adverse Reaction, Severe, tachypnea; tachycardia, 01/10/16) PENICILLINS (Verified Adverse Reaction, Severe, vomiting, 01/10/16) PROCHLORPERAZINE (Verified Adverse Reaction, Severe, musle spasm, 01/10/16) Subjective Constitutional: Reports: no symptoms HEENT: Reports: no symptoms Respiratory: Reports: no symptoms Gastrointestinal/Abdominal: Reports: no symptoms Genitourinary: Reports: no symptoms Neurologic/Psychiatric: Reports: no symptoms Endocrine: Reports: no symptoms Hematologic/Lymphatic: Reports: no symptoms Subjective Patient is a known patient from prior admission and was seen in Dr. Richard office yesterday. She was c/o weakness in her LE and dizziness and feeling the room going black. Paramedics were called and she was brought to the ER and is admitted under the care of Dr. Neely. She was started on Morphine 1mg IV Q4H PRN and [place] 10/ 325mg PRN. Objective Last 24 Hour Vital Signs Date Time Temp Pulse Resp B/P (MAP) Pulse Ox O2 Delivery O2 Flow Rate FiO2 09/25/17 08:00 97.5 95 19 111/64 95 Room Air 09/25/17 04:00 98.6 86 18 106/64 95 Room Air 09/25/17 04:00 95 09/25/17 00:00 93 09/25/17 00:00 98.2 85 20 116/69 100 Room Air 09/24/17 21:00 97.9 82 20 138/69 96 Room Air 09/24/17 20:30 98.8 85 23 136/75 99 Room Air 09/24/17 19:30 98.8 85 23 136/75 99 Room Air 09/24/17 19:14 98.0 09/24/17 17:00 98.0 92 20 102/65 97 Room Air 09/24/17 16:52 98.2 86 16 90/50 98 Room Air Laboratory Tests 09/24/17 17:40: White Blood Count 13.4H, Red Blood Count 4.46, Hemoglobin 11.2L, Hematocrit 36.7L, Mean Corpuscular Volume 82, Mean Corpuscular Hemoglobin 25.1L, Mean Corpuscular Hemoglobin Concent 30.5L, Red Cell Distribution Width 14.3, Platelet Count 363, Mean Platelet Volume 5.4L, Neutrophils (%) (Auto) 77.8H, Lymphocytes (%) (Auto) 16.2L, Monocytes (%) (Auto) 5.3, Eosinophils (%) (Auto) 0.1, Basophils (%) (Auto) 0.7, Prothrombin Time 10.7, Prothromb Time International Ratio 1.0, Activated Partial Thromboplast Time 30, Sodium Level 140, Potassium Level 3.9, Chloride Level 108H, Carbon Dioxide Level 20L, Anion Gap 13, Blood Urea Nitrogen 19H, Creatinine 0.8, Estimat Glomerular Filtration Rate > 60, Glucose Level 98, Lactic Acid Level 3.00H, Calcium Level 8.5, Total Bilirubin 0.2, Aspartate Amino Transf (AST/SGOT) 15, Alanine Aminotransferase ( ALT/SGPT) 13, Alkaline Phosphatase 105, Troponin I 0.003, Pro-B-Type Natriuretic Peptide 267H, Total Protein 7.3, Albumin 3.0L, Globulin 4.3, Albumin /Globulin Ratio 0.7L 09/24/17 19:10: Urine Color Pale yellow, Urine Appearance Slightly cloudy, Urine pH 7, Urine Specific [place] 1.005, Urine Protein Negative, Urine Glucose (UA) Negative, Urine Ketones Negative, Urine Occult Blood 2+H, Urine Nitrite PositiveH, Urine Bilirubin Negative, Urine Urobilinogen Normal, Urine Leukocyte Esterase 3+H, Urine RBC 5-10H, Urine WBC 30-40H, Urine Squamous Epithelial Cells Few, Urine Bacteria ModerateH 09/24/17 20:14: Lactic Acid Level 2.20 09/25/17 05:30: White Blood Count 7.3, Red Blood Count 3.93L, Hemoglobin 10.3L, Hematocrit 31.5L , Mean Corpuscular Volume 80, Mean Corpuscular Hemoglobin 26.2L, Mean Corpuscular Hemoglobin Concent 32.7, Red Cell Distribution Width 14.0, Platelet Count 289, Mean Platelet Volume 5.4L, Neutrophils (%) (Auto) 66.2, Lymphocytes ( %) (Auto) 25.7, Monocytes (%) (Auto) 7.4, Eosinophils (%) (Auto) 0.1, Basophils (%) (Auto) 0.6, Sodium Level 140, Potassium Level 3.6, Chloride Level 109H, Carbon Dioxide Level 18L, Anion Gap 13, Blood Urea Nitrogen 20H, Creatinine 0.8 , Estimat Glomerular Filtration Rate > 60, Glucose Level 119H, Calcium Level 8.7 , Total Bilirubin 0.2, Aspartate Amino Transf (AST/SGOT) 13L, Alanine Aminotransferase (ALT/SGPT) 10L, Alkaline Phosphatase 97, Total Protein 7.3, Albumin 2.8L, Globulin 4.5, Albumin/Globulin Ratio 0.6L, Triglycerides Level 178H, Cholesterol Level 152, LDL Cholesterol 92, HDL Cholesterol 33L, Cholesterol/HDL Ratio 4.6H, Thyroid Stimulating Hormone (TSH) 2.885 Height (Feet): 5 Height (Inches): 2.00 Weight (Pounds): 120 Objective General Appearance: no apparent distress, alert EENT: PERRL/EOMI, normal ENT inspection Neck: non-tender, normal alignment Cardiovascular: normal rate, regular rhythm Respiratory/Chest: lungs clear, normal breath sounds Abdomen: non tender, soft Extremities: weakness noted Edema: trace edema Neurologic: alert, oriented x 3 Skin: warm/dry GABE DOMINGO Sep 25, 2017 08:51
[2017-09-25] MEDS: Lyrica 75mg cap ORAL SCH ×3 (09:24→17:22)
[2017-09-25] MEDS: Propranolol ER 60mg cap ORAL SCH (09:24)
[2017-09-25] MEDS: Topiramate 100mg tab ORAL SCH (09:25)
--- NOTE | 2017-09-25 10:30 | Consultation ---
History of Present Illness General Date patient seen: Sep 25, 2017 Time patient seen: 10:29 Chief Complaint: Generalized Weakness Present Illness HPI 56 y/o F with hx of chronic back pain s/p multiple back surgeries, hx of DVT on xarelto, bedbound, HTN, migraine presents to ED on 09/24 with dizziness and generalized weakness. While at her pain management doctor's office she suddently felt very weak and like she was about to faint. Denies SOB, palpitations, f/c. +chronic back pain and +urinary urgency ; denies frequency or dysuria. Afebrile, Mild leukocytosis upon admission. u/a with pyuria and growing GNB. s/ p Cipro x1 in the ED. In ED Bp 90/50, responded to IVFs. Allergies: Coded Allergies: CEFAZOLIN (Verified Allergy, Severe, hives all over her body, 01/10/16) PHENYTOIN (Verified Allergy, Severe, swell up face, 01/10/16) SULFA (SULFONAMIDE ANTIBIOTICS) (Verified Allergy, Severe, hives all over her body, 01/10/16) HYDROXYZINE (Verified Adverse Reaction, Severe, tachypnea; tachycardia, 01/10/16) PENICILLINS (Verified Adverse Reaction, Severe, vomiting, 01/10/16) PROCHLORPERAZINE (Verified Adverse Reaction, Severe, musle spasm, 01/10/16) Medication History Scheduled Cholecalciferol (Vitamin D3)* (Vitamin D*), 2,000 UNITS ORAL DAILY, (Reported) Esomeprazole Magnesium (Esomeprazole Magnesium), 40 MG PO BID, (Reported) Fluticasone Propionate (Fluticasone Propionate), 50 MCG NASAL DAILY, (Reported) Levothyroxine Sodium* (Levothyroxine Sodium*), 100 MCG PO DAILY, (Reported) Montelukast Sodium* (Singulair*), 10 MG ORAL DAILY, (Reported) Pregabalin* (Lyrica*), 75 MG ORAL TID, (Reported) Propranolol Hcl* (Inderal*), 60 MG ORAL DAILY, (Reported) Solifenacin Succinate (Vesicare*), 10 MG ORAL DAILY, (Reported) Tizanidine Hcl* (Zanaflex*), 4 MG ORAL BID, (Reported) Topiramate* (Topamax*), 200 MG ORAL DAILY, (Reported) Scheduled PRN Albuterol Sulfate* (Proair Hfa*), 2 PUFF INH EVERY 4 HOURS PRN for Bronchospasm, (Reported) Fluticasone/Salmeterol (Advair 500-50 Diskus), 1 PUFF INH BID PRN for Bronchospasm, (Reported) Hydrocodone/Acetaminophen (Hydrocodon-Acetaminophn 10-325), 1 TAB ORAL 6 times a day PRN for For Pain, (Reported) Ondansetron (Zofran), 4 MG SL EVERY 8 HOURS PRN for Nausea & Vomiting, (Reported ) Miscellaneous Medications Diclofenac Sodium (Voltaren), (Reported) Rivaroxaban (Xarelto), 20 MG ORAL, (Reported) Discontinued Medications Amitriptyline Hcl* (Amitriptyline Hcl*), 100 MG ORAL BEDTIME, (Reported) Discontinued Reason: Pt stopped taking med Ibandronate (Boniva), 150 MG ORAL Q30D, (Reported) Discontinued Reason: Pt stopped taking med Levothyroxine Sodium* (Synthroid*), 0.1 MG ORAL DAILY, (Reported) Discontinued Reason: Pt stopped taking med Vancomycin Hcl/D5w (Vancomycin-D5w 1 G/250 Ml), 1.5 GM IVPB Q24H, (Reported) Discontinued Reason: Pt stopped taking med Patient History Healthcare decision maker Resuscitation status Full Code Advanced Directive on File Patient History Narrative Pmhx as above reviewed Fhx non contributory Review of Systems All Other Systems: negative except mentioned in HPI Physical Exam Physical Exam Narrative General Appearance: Chronically Ill - Thin, chronically ill-appearing middle- aged female, awake and alert HEENT: normocephalic, atraumatic, bilateral eye PERRL, bilateral eye EOMI, moist mucus membranes Neck: normal inspection, full range of motion, supple Respiratory: normal inspection, lungs clear, normal breath sounds, no respiratory distress, no wheezing, Cardiovascular : normal inspection, regular rate, rhythm, normal capillary refill Gastrointestinal: normal inspection, soft, non-distended, no guarding, L flank TTP Musculoskeletal: other - Diffuse generalized paraspinal tenderness in her back , limited range of motion of bilateral lower extremities which is chronic, but able to bend both her knees without issue 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, other - Awake alert, oriented x4, good strength bilateral upper extremities, able to move bilateral lower extremities spontaneously Skin: normal inspection, normal color, no pat Last 24 Hour Vital Signs Date Time Temp Pulse Resp B/P (MAP) Pulse Ox O2 Delivery O2 Flow Rate FiO2 09/25/17 08:00 97.5 95 19 111/64 95 Room Air 09/25/17 04:00 98.6 86 18 106/64 95 Room Air 09/25/17 04:00 95 09/25/17 00:00 93 09/25/17 00:00 98.2 85 20 116/69 100 Room Air 09/24/17 21:00 97.9 82 20 138/69 96 Room Air 09/24/17 20:30 98.8 85 23 136/75 99 Room Air 09/24/17 19:30 98.8 85 23 136/75 99 Room Air 09/24/17 19:14 98.0 09/24/17 17:00 98.0 92 20 102/65 97 Room Air 09/24/17 16:52 98.2 86 16 90/50 98 Room Air Intake and Output 09/25/17 09/26/17 19:00 07:00 # Bowel Movements 1 Laboratory Tests Test 09/24/17 17:40 09/24/17 19:10 09/24/17 20:14 09/25/17 05:30 White Blood Count 13.4 K/UL (4.8-10.8) H 7.3 K/UL (4.8-10.8) Red Blood Count 4.46 M/UL (4.20-5.40) 3.93 M/UL (4.20-5.40) L Hemoglobin 11.2 G/DL (12.0-16.0) L 10.3 G/DL (12.0-16.0) L Hematocrit 36.7 % (37.0-47.0) L 31.5 % (37.0-47.0) L Mean Corpuscular Volume 82 FL (80-99) 80 FL (80-99) Mean Corpuscular Hemoglobin 25.1 PG (27.0-31.0) L 26.2 PG (27.0-31.0) L Mean Corpuscular Hemoglobin Concent 30.5 G/DL (32.0-36.0) L 32.7 G/DL (32.0-36.0) Red Cell Distribution Width 14.3 % (11.6-14.8) 14.0 % (11.6-14.8) Platelet Count 363 K/UL (150-450) 289 K/UL (150-450) Mean Platelet Volume 5.4 FL (6.5-10.1) L 5.4 FL (6.5-10.1) L Neutrophils (%) (Auto) 77.8 % (45.0-75.0) H 66.2 % (45.0-75.0) Lymphocytes (%) (Auto) 16.2 % (20.0-45.0) L 25.7 % (20.0-45.0) Monocytes (%) (Auto) 5.3 % (1.0-10.0) 7.4 % (1.0-10.0) Eosinophils (%) (Auto) 0.1 % (0.0-3.0) 0.1 % (0.0-3.0) Basophils (%) (Auto) 0.7 % (0.0-2.0) 0.6 % (0.0-2.0) Prothrombin Time 10.7 SEC (9.30-11.50) Prothromb Time International Ratio 1.0 (0.9-1.1) Activated Partial Thromboplast Time 30 SEC (23-33) Sodium Level 140 MMOL/L (136-145) 140 MMOL/L (136-145) Potassium Level 3.9 MMOL/L (3.5-5.1) 3.6 MMOL/L (3.5-5.1) Chloride Level 108 MMOL/L (98-107) H 109 MMOL/L (98-107) H Carbon Dioxide Level 20 MMOL/L (21-32) L 18 MMOL/L (21-32) L Anion Gap 13 mmol/L (5-15) 13 mmol/L (5-15) Blood Urea Nitrogen 19 mg/dL (7-18) H 20 mg/dL (7-18) H Creatinine 0.8 MG/DL (0.55-1.30) 0.8 MG/DL (0.55-1.30) Estimat Glomerular Filtration Rate > 60 mL/min (>60) > 60 mL/min (>60) Glucose Level 98 MG/DL (74-106) 119 MG/DL (74-106) H Lactic Acid Level 3.00 mmol/L (0.66-2.22) H 2.20 mmol/L (0.66-2.22) Calcium Level 8.5 MG/DL (8.5-10.1) 8.7 MG/DL (8.5-10.1) Total Bilirubin 0.2 MG/DL (0.2-1.0) 0.2 MG/DL (0.2-1.0) Aspartate Amino Transf (AST/SGOT) 15 U/L (15-37) 13 U/L (15-37) L Alanine Aminotransferase (ALT/SGPT) 13 U/L (12-78) 10 U/L (12-78) L Alkaline Phosphatase 105 U/L (46-116) 97 U/L (46-116) Troponin I 0.003 ng/mL (0.000-0.056) Pro-B-Type Natriuretic Peptide 267 pg/mL (0-125) H Total Protein 7.3 G/DL (6.4-8.2) 7.3 G/DL (6.4-8.2) Albumin 3.0 G/DL (3.4-5.0) L 2.8 G/DL (3.4-5.0) L Globulin 4.3 g/dL 4.5 g/dL Albumin/Globulin Ratio 0.7 (1.0-2.7) L 0.6 (1.0-2.7) L Urine Color Pale yellow Urine Appearance Slightly cloudy Urine pH 7 (4.5-8.0) Urine Specific [place] 1.005 (1.005-1.035) Urine Protein Negative (NEGATIVE) Urine Glucose (UA) Negative (NEGATIVE) Urine Ketones Negative (NEGATIVE) Urine Occult Blood 2+ (NEGATIVE) H Urine Nitrite Positive (NEGATIVE) H Urine Bilirubin Negative (NEGATIVE) Urine Urobilinogen Normal MG/DL (0.0-1.0) Urine Leukocyte Esterase 3+ (NEGATIVE) H Urine RBC 5-10 /HPF (0 - 2) H Urine WBC 30-40 /HPF (0 - 2) H Urine Squamous Epithelial Cells Few /LPF (NONE/OCC) Urine Bacteria Moderate /HPF (NONE) H Triglycerides Level 178 MG/DL (30-150) H Cholesterol Level 152 MG/DL (< 200) LDL Cholesterol 92 mg/dL (<100) HDL Cholesterol 33 MG/DL (40-60) L Cholesterol/HDL Ratio 4.6 (3.3-4.4) H Thyroid Stimulating Hormone (TSH) 2.885 uiU/mL (0.358-3.740) Microbiology Date/Time Source Procedure Growth Status 09/24/17 19:10 Urine,Clean Catch Urine Culture - Preliminary Gram Negative Bacillus 1 Resulted Height (Feet): 5 Height (Inches): 2.00 Weight (Pounds): 120 Medications Current Medications Medications (Trade) Dose Ordered Sig/Reanna Route PRN Reason Start Time Stop Time Status Last Admin Dose Admin Acetaminophen (Tylenol) 650 mg Q4H PRN ORAL fever 09/24/17 21:30 10/24/17 21:29 Acetaminophen/ Hydrocodone Bitart ([place] 10/325) 1 ea DAILY PRN ORAL For Pain 09/24/17 21:30 10/01/17 21:29 Al Hydroxide/Mg Hydroxide ([place] II) 30 ml Q6H PRN ORAL dyspepsia 09/24/17 21:30 10/24/17 21:29 Dextrose (Dextrose 50%) STAT PRN IV Hypoglycemia 09/24/17 21:30 10/24/17 21:29 Levothyroxine Sodium (Synthroid) 100 mcg ACBREAKFAST ORAL 09/25/17 06:30 10/25/17 06:29 09/25/17 06:32 Lorazepam (Ativan 2mg/ml 1ml) 0.5 mg Q4H PRN IV For Anxiety 09/24/17 21:30 10/01/17 21:29 09/25/17 06:32 Montelukast Sodium (Singulair) 10 mg QHS ORAL 09/24/17 22:00 10/24/17 21:59 09/24/17 22:26 Morphine Sulfate (Morphine Sulfate) 1 mg Q4H PRN IVP For Pain 09/24/17 21:30 10/01/17 21:29 09/25/17 09:26 Ondansetron HCl (Zofran) 4 mg Q6H PRN IVP Nausea & Vomiting 09/24/17 21:30 10/24/17 21:29 09/25/17 06:32 Polyethylene Glycol (Miralax) 17 gm HSPRN PRN ORAL Constipation 09/24/17 21:30 10/24/17 21:29 Pregabalin (Lyrica) 75 mg TID ORAL 09/25/17 09:00 10/25/17 08:59 09/25/17 09:24 Propranolol HCl (Inderal [place]) 60 mg DAILY ORAL 09/25/17 09:00 10/25/17 08:59 09/25/17 09:24 Tizanidine HCl (Zanaflex) 4 mg BID ORAL 09/25/17 09:00 10/25/17 08:59 09/25/17 09:24 Topiramate (Topamax) 200 mg DAILY ORAL 09/25/17 09:00 10/25/17 08:59 09/25/17 09:25 Zolpidem Tartrate (Ambien) 5 mg HSPRN PRN ORAL Insomnia 09/24/17 21:30 10/01/17 21:29 Assessment/Plan Assessment/Plan Abx: Cipro x1 09/24 Assesment: Presyncopal event- likely due to hypotension and dehydration UTI- +Pyuria/bacteriuria, urgency -u/a wbc 30-40, nit+, leuk +3; ucx >100K GNB (Id and sensi pending) Leukocytosis, mild- resolved -afebrile chronic back pain s/p multiple back surgeries, hx of DVT on xarelto, bedbound, HTN, migraine Plan: -Start IV Aztreonam pending urine culture -f/u cx -Monitor CBC/BMP, temperatures Thank you for this consultation. Will continue to follow along with you. Discussed with Cami Hathaway M.D. Sep 25, 2017 10:30
--- NOTE | 2017-09-25 11:34 | History and Physical ---
History of Present Illness General Date patient seen: Sep 25, 2017 Reason for Hospitalization: Generalized Weakness Present Illness HPI 48-year-old female, multiple back surgeries, chronic back pain, history of DVT, bedbound, presenting with dizziness and generalized weakness. She suddenly felt very weak, felt like she was going to faint Complaining of her chronic back pain. She is c/o dysuria and back pain. Allergies: Coded Allergies: CEFAZOLIN (Verified Allergy, Severe, hives all over her body, 01/10/16) PHENYTOIN (Verified Allergy, Severe, swell up face, 01/10/16) SULFA (SULFONAMIDE ANTIBIOTICS) (Verified Allergy, Severe, hives all over her body, 01/10/16) HYDROXYZINE (Verified Adverse Reaction, Severe, tachypnea; tachycardia, 01/10/16) PENICILLINS (Verified Adverse Reaction, Severe, vomiting, 01/10/16) PROCHLORPERAZINE (Verified Adverse Reaction, Severe, musle spasm, 01/10/16) Medication History Scheduled Cholecalciferol (Vitamin D3)* (Vitamin D*), 2,000 UNITS ORAL DAILY, (Reported) Esomeprazole Magnesium (Esomeprazole Magnesium), 40 MG PO BID, (Reported) Fluticasone Propionate (Fluticasone Propionate), 50 MCG NASAL DAILY, (Reported) Levothyroxine Sodium* (Levothyroxine Sodium*), 100 MCG PO DAILY, (Reported) Montelukast Sodium* (Singulair*), 10 MG ORAL DAILY, (Reported) Pregabalin* (Lyrica*), 75 MG ORAL TID, (Reported) Propranolol Hcl* (Inderal*), 60 MG ORAL DAILY, (Reported) Solifenacin Succinate (Vesicare*), 10 MG ORAL DAILY, (Reported) Tizanidine Hcl* (Zanaflex*), 4 MG ORAL BID, (Reported) Topiramate* (Topamax*), 200 MG ORAL DAILY, (Reported) Scheduled PRN Albuterol Sulfate* (Proair Hfa*), 2 PUFF INH EVERY 4 HOURS PRN for Bronchospasm, (Reported) Fluticasone/Salmeterol (Advair 500-50 Diskus), 1 PUFF INH BID PRN for Bronchospasm, (Reported) Hydrocodone/Acetaminophen (Hydrocodon-Acetaminophn 10-325), 1 TAB ORAL 6 times a day PRN for For Pain, (Reported) Ondansetron (Zofran), 4 MG SL EVERY 8 HOURS PRN for Nausea & Vomiting, (Reported ) Miscellaneous Medications Diclofenac Sodium (Voltaren), (Reported) Rivaroxaban (Xarelto), 20 MG ORAL, (Reported) Discontinued Medications Amitriptyline Hcl* (Amitriptyline Hcl*), 100 MG ORAL BEDTIME, (Reported) Discontinued Reason: Pt stopped taking med Ibandronate (Boniva), 150 MG ORAL Q30D, (Reported) Discontinued Reason: Pt stopped taking med Levothyroxine Sodium* (Synthroid*), 0.1 MG ORAL DAILY, (Reported) Discontinued Reason: Pt stopped taking med Vancomycin Hcl/D5w (Vancomycin-D5w 1 G/250 Ml), 1.5 GM IVPB Q24H, (Reported) Discontinued Reason: Pt stopped taking med Patient History Healthcare decision maker Resuscitation status Full Code Advanced Directive on File Past Medical/Surgical History Past Medical/Surgical History: (1) H/O Spinal surgery (2) Status post total knee replacement, right (3) Chronic back pain (4) Osteoarthritis of right knee Review of Systems Constitutional: Reports: malaise, weakness All Other Systems: negative except mentioned in HPI Physical Exam General Appearance: cachetic Lines, tubes and drains: peripheral HEENT: normocephalic, atraumatic Neck: non-tender, normal alignment Cardiovascular/Chest: normal peripheral pulses, normal rate Abdomen: normal bowel sounds, non tender Skin Exam: normal pigmentation 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 Last 24 Hour Vital Signs Date Time Temp Pulse Resp B/P (MAP) Pulse Ox O2 Delivery O2 Flow Rate FiO2 09/25/17 08:00 97.5 95 19 111/64 95 Room Air 09/25/17 04:00 98.6 86 18 106/64 95 Room Air 09/25/17 04:00 95 09/25/17 00:00 93 09/25/17 00:00 98.2 85 20 116/69 100 Room Air 09/24/17 21:00 97.9 82 20 138/69 96 Room Air 09/24/17 20:30 98.8 85 23 136/75 99 Room Air 09/24/17 19:30 98.8 85 23 136/75 99 Room Air 09/24/17 19:14 98.0 09/24/17 17:00 98.0 92 20 102/65 97 Room Air 09/24/17 16:52 98.2 86 16 90/50 98 Room Air Intake and Output 09/25/17 09/26/17 19:00 07:00 # Bowel Movements 1 Laboratory Tests Test 09/24/17 17:40 09/24/17 19:10 09/24/17 20:14 09/25/17 05:30 White Blood Count 13.4 K/UL (4.8-10.8) H 7.3 K/UL (4.8-10.8) Red Blood Count 4.46 M/UL (4.20-5.40) 3.93 M/UL (4.20-5.40) L Hemoglobin 11.2 G/DL (12.0-16.0) L 10.3 G/DL (12.0-16.0) L Hematocrit 36.7 % (37.0-47.0) L 31.5 % (37.0-47.0) L Mean Corpuscular Volume 82 FL (80-99) 80 FL (80-99) Mean Corpuscular Hemoglobin 25.1 PG (27.0-31.0) L 26.2 PG (27.0-31.0) L Mean Corpuscular Hemoglobin Concent 30.5 G/DL (32.0-36.0) L 32.7 G/DL (32.0-36.0) Red Cell Distribution Width 14.3 % (11.6-14.8) 14.0 % (11.6-14.8) Platelet Count 363 K/UL (150-450) 289 K/UL (150-450) Mean Platelet Volume 5.4 FL (6.5-10.1) L 5.4 FL (6.5-10.1) L Neutrophils (%) (Auto) 77.8 % (45.0-75.0) H 66.2 % (45.0-75.0) Lymphocytes (%) (Auto) 16.2 % (20.0-45.0) L 25.7 % (20.0-45.0) Monocytes (%) (Auto) 5.3 % (1.0-10.0) 7.4 % (1.0-10.0) Eosinophils (%) (Auto) 0.1 % (0.0-3.0) 0.1 % (0.0-3.0) Basophils (%) (Auto) 0.7 % (0.0-2.0) 0.6 % (0.0-2.0) Prothrombin Time 10.7 SEC (9.30-11.50) Prothromb Time International Ratio 1.0 (0.9-1.1) Activated Partial Thromboplast Time 30 SEC (23-33) Sodium Level 140 MMOL/L (136-145) 140 MMOL/L (136-145) Potassium Level 3.9 MMOL/L (3.5-5.1) 3.6 MMOL/L (3.5-5.1) Chloride Level 108 MMOL/L (98-107) H 109 MMOL/L (98-107) H Carbon Dioxide Level 20 MMOL/L (21-32) L 18 MMOL/L (21-32) L Anion Gap 13 mmol/L (5-15) 13 mmol/L (5-15) Blood Urea Nitrogen 19 mg/dL (7-18) H 20 mg/dL (7-18) H Creatinine 0.8 MG/DL (0.55-1.30) 0.8 MG/DL (0.55-1.30) Estimat Glomerular Filtration Rate > 60 mL/min (>60) > 60 mL/min (>60) Glucose Level 98 MG/DL (74-106) 119 MG/DL (74-106) H Lactic Acid Level 3.00 mmol/L (0.66-2.22) H 2.20 mmol/L (0.66-2.22) Calcium Level 8.5 MG/DL (8.5-10.1) 8.7 MG/DL (8.5-10.1) Total Bilirubin 0.2 MG/DL (0.2-1.0) 0.2 MG/DL (0.2-1.0) Aspartate Amino Transf (AST/SGOT) 15 U/L (15-37) 13 U/L (15-37) L Alanine Aminotransferase (ALT/SGPT) 13 U/L (12-78) 10 U/L (12-78) L Alkaline Phosphatase 105 U/L (46-116) 97 U/L (46-116) Troponin I 0.003 ng/mL (0.000-0.056) Pro-B-Type Natriuretic Peptide 267 pg/mL (0-125) H Total Protein 7.3 G/DL (6.4-8.2) 7.3 G/DL (6.4-8.2) Albumin 3.0 G/DL (3.4-5.0) L 2.8 G/DL (3.4-5.0) L Globulin 4.3 g/dL 4.5 g/dL Albumin/Globulin Ratio 0.7 (1.0-2.7) L 0.6 (1.0-2.7) L Urine Color Pale yellow Urine Appearance Slightly cloudy Urine pH 7 (4.5-8.0) Urine Specific [place] 1.005 (1.005-1.035) Urine Protein Negative (NEGATIVE) Urine Glucose (UA) Negative (NEGATIVE) Urine Ketones Negative (NEGATIVE) Urine Occult Blood 2+ (NEGATIVE) H Urine Nitrite Positive (NEGATIVE) H Urine Bilirubin Negative (NEGATIVE) Urine Urobilinogen Normal MG/DL (0.0-1.0) Urine Leukocyte Esterase 3+ (NEGATIVE) H Urine RBC 5-10 /HPF (0 - 2) H Urine WBC 30-40 /HPF (0 - 2) H Urine Squamous Epithelial Cells Few /LPF (NONE/OCC) Urine Bacteria Moderate /HPF (NONE) H Triglycerides Level 178 MG/DL (30-150) H Cholesterol Level 152 MG/DL (< 200) LDL Cholesterol 92 mg/dL (<100) HDL Cholesterol 33 MG/DL (40-60) L Cholesterol/HDL Ratio 4.6 (3.3-4.4) H Thyroid Stimulating Hormone (TSH) 2.885 uiU/mL (0.358-3.740) Microbiology Date/Time Source Procedure Growth Status 09/24/17 19:10 Urine,Clean Catch Urine Culture - Preliminary Gram Negative Bacillus 1 Resulted 09/25/17 01:41 Sacral Wound Gram Stain - Final Resulted 09/25/17 01:41 Sacral Wound Wound Culture Pending Resulted Height (Feet): 5 Height (Inches): 2.00 Weight (Pounds): 120 Medications Current Medications Medications (Trade) Dose Ordered Sig/Reanna Route PRN Reason Start Time Stop Time Status Last Admin Dose Admin Acetaminophen (Tylenol) 650 mg Q4H PRN ORAL fever 09/24/17 21:30 10/24/17 21:29 Acetaminophen/ Hydrocodone Bitart ([place] 10/325) 1 ea DAILY PRN ORAL For Pain 09/24/17 21:30 10/01/17 21:29 Al Hydroxide/Mg Hydroxide (Mylanta II) 30 ml Q6H PRN ORAL dyspepsia 09/24/17 21:30 10/24/17 21:29 Dextrose (Dextrose 50%) STAT PRN IV Hypoglycemia 09/24/17 21:30 10/24/17 21:29 Levothyroxine Sodium (Synthroid) 100 mcg ACBREAKFAST ORAL 09/25/17 06:30 10/25/17 06:29 09/25/17 06:32 Lorazepam (Ativan 2mg/ml 1ml) 0.5 mg Q4H PRN IV For Anxiety 09/24/17 21:30 10/01/17 21:29 09/25/17 06:32 Montelukast Sodium (Singulair) 10 mg QHS ORAL 09/24/17 22:00 10/24/17 21:59 09/24/17 22:26 Morphine Sulfate (Morphine Sulfate) 1 mg Q4H PRN IVP For Pain 09/24/17 21:30 10/01/17 21:29 09/25/17 09:26 Ondansetron HCl (Zofran) 4 mg Q6H PRN IVP Nausea & Vomiting 09/24/17 21:30 10/24/17 21:29 09/25/17 06:32 Polyethylene Glycol (Miralax) 17 gm HSPRN PRN ORAL Constipation 09/24/17 21:30 10/24/17 21:29 Pregabalin (Lyrica) 75 mg TID ORAL 09/25/17 09:00 10/25/17 08:59 09/25/17 09:24 Propranolol HCl (Inderal LA) 60 mg DAILY ORAL 09/25/17 09:00 10/25/17 08:59 09/25/17 09:24 Tizanidine HCl (Zanaflex) 4 mg BID ORAL 09/25/17 09:00 10/25/17 08:59 09/25/17 09:24 Topiramate (Topamax) 200 mg DAILY ORAL 09/25/17 09:00 10/25/17 08:59 09/25/17 09:25 Zolpidem Tartrate (Ambien) 5 mg HSPRN PRN ORAL Insomnia 09/24/17 21:30 10/01/17 21:29 Assessment/Plan Problem List: (1) Sepsis ICD Codes: A41.9 - Sepsis, unspecified organism SNOMED: 61990854 (2) Hypotension ICD Codes: I95.9 - Hypotension, unspecified SNOMED: 57590066 (3) UTI (urinary tract infection) ICD Codes: N39.0 - Urinary tract infection, site not specified SNOMED: 03772006 (4) Bedridden ICD Codes: Z74.01 - Bed confinement status SNOMED: 801865846 (5) H/O Spinal surgery ICD Codes: Z98.89 - Other specified postprocedural states SNOMED: 07200651, 340474951 Assessment/Plan IV abx check cultures pain management medical social consultant for home safety. JAMA ALONZO Sep 25, 2017 11:34
[2017-09-25 12:00] VITALS: BP 96/62
--- NOTE | 2017-09-25 12:09 | Diagnostic Imaging Report ---
Indication: Chest pain pain Comparison: None A single view chest radiograph was obtained. Findings: Lungs are clear. Heart size is normal. Aorta is ectatic and calcified. Bones are osteopenic. Cervical thoracic fusion hardware noted as well as thoracolumbar fusion hardware. Impression: No acute cardiopulmonary disease
--- NOTE | 2017-09-25 15:03 | Wound Care Consultation ---
Wound Assessment Wound Assessment #1: Wound Number: 1 Wound Present on Admission: Yes New Wound: No Status Change of Wound: No Wound Location Body Site Modif: mid Wound Location Body Site: sacral Wound Type: pressure ulcer Richard Test: Does not Richard Pressure Ulcer Stage: Unstageable Wound Thickness: Full Thickness Wound Length: 3.5 Wound Width: 2.5 Wound Depth: utd Percent of Wound Alianza/Red: 40 Percent of Wound Bed Yellow/Wh: 60 Wound Drainage Description: Serosanguineous Wound Drainage Amount: Scant Wound Drainage Odor: None/Absent Tissue Surrounding Wound: Erythemic Wound Undermining at 12:00: 0.5 Wound General Appearance: Reddened - yellow, Draining Wound Assessment #2: Wound Number: 2 Wound Present on Admission: Yes New Wound: No Status Change of Wound: No Wound Location Body Site Modif: right Wound Location Body Site: buttocks Wound Type: pressure ulcer Richard Test: Does not Richard Pressure Ulcer Stage: Unstageable Wound Thickness: Full Thickness Wound Length: 4.0 Wound Width: 1.5 Wound Depth: utd Percent of Wound Bed Yellow/Wh: 100 Wound Drainage Description: Serosanguineous Wound Drainage Amount: Moderate Wound Drainage Odor: None/Absent Tissue Surrounding Wound: purple/maroon in color. Wound General Appearance: Reddened - yellow, Draining Wound Comment #1 Sacral unstageable pressure ulcer #2 Right buttock unstageable pressure ulcer Recommendation -Sacral unstageable pressure ulcer and Right buttock unstageable pressure ulcer Cleanse with saline, pat dry, apply skin barrier film to periwound, apply Therahoney gel to wound bed, cover with Biatain silicone daily and PRN soiled/ dislodged -Offload both heels -Low air loss mattress -Heel protector on both heels -Optimize nutrition -Turn and reposition -Keep clean and dry -Assess and f/u accordingly for any changes VIRGINIA GONSALES RN Sep 25, 2017 15:03
--- NOTE | 2017-09-25 15:38 | Cardiology Report ---
APPROVED REPORT EKG Measurement Heart [id number] Normal sinus rhythm Normal ECG
[2017-09-25 16:00] VITALS: BP 115/68
[2017-09-25] MEDS: Aztreonam Inj 1 GM in D5W 55 ML IVPB SCH ×2 (16:05→23:47)
[2017-09-25 20:00] VITALS: BP 96/50
[2017-09-25] MEDS: Montelukast 10mg tablet ORAL SCH (20:30)
[2017-09-26] VITALS (8 sets, daily range): BP systolic 93–124; BP diastolic 54–71
[2017-09-26] MEDS: Morphine Sulfate 2mg/ml Inj IVP PRN ×5 (00:49→20:22)
[2017-09-26] MEDS: Zolpidem 5mg tab ORAL PRN ×2 (00:49→21:06)
[2017-09-26] MEDS: Aztreonam Inj 1 GM in D5W 55 ML IVPB SCH (05:58)
[2017-09-26 06:33] LABS: BASOPHILS % (AUTO) 0.6 % (0.0-2.0); EOSINOPHILS % (AUTO) 0.2 % (0.0-3.0); LYMPHOCYTES % (AUTO) 33.7 % (20.0-45.0); MEAN CORPUSCULAR HEMOGLOBIN 27.3 PG (27.0-31.0); MEAN CORPUSCULAR HGB CONC 33.8 G/DL (32.0-36.0); MEAN CORPUSCULAR VOLUME 81 FL (80-99); NEUTROPHILS % (AUTO) 57.6 % (45.0-75.0); PLATELET COUNT 245 K/UL (150-450); RED BLOOD COUNT 3.58 M/UL (4.20-5.40); RED CELL DISTRIBUTION WIDTH 14.6 % (11.6-14.8); WHITE BLOOD COUNT 5.4 K/UL (4.8-10.8)
[2017-09-26 07:20] LABS: ALANINE AMINOTRANSFERASE 10 U/L (12-78); ALBUMIN/GLOBULIN RATIO 0.6 (1.0-2.7); ANION GAP 12 mmol/L (5-15); ASPARTATE AMINO TRANSFERASE 11 U/L (15-37); CALCIUM 8.5 MG/DL (8.5-10.1); CARBON DIOXIDE 20 MMOL/L (21-32); CHLORIDE 108 MMOL/L (98-107); CREATININE 0.8 MG/DL (0.55-1.30); GLOMERULAR FILTRATION RATE > 60 mL/min (>60); MAGNESIUM 1.8 MG/DL (1.8-2.4); PHOSPHORUS 3.5 MG/DL (2.5-4.9); POTASSIUM 3.7 MMOL/L (3.5-5.1); SODIUM 140 MMOL/L (136-145)
--- NOTE | 2017-09-26 08:25 | General Progress Note ---
Assessment/Plan Assessment/Plan (1) H/O Spinal surgery (2) DDD (degenerative disc disease), cervical (3) Lumbar spondylosis (4) Cervical spondylosis (5) Lumbar degenerative disc disease (6) History of total knee replacement, right (7) Osteoarthritis of right knee We will continue the [address] Morphine. Pt was d/w Dr. Schaffer and he concurred Subjective Date patient seen: Sep 26, 2017 Time patient seen: 07:30 - am Allergies: Coded Allergies: CEFAZOLIN (Verified Allergy, Severe, hives all over her body, 01/10/16) PHENYTOIN (Verified Allergy, Severe, swell up face, 01/10/16) SULFA (SULFONAMIDE ANTIBIOTICS) (Verified Allergy, Severe, hives all over her body, 01/10/16) HYDROXYZINE (Verified Adverse Reaction, Severe, tachypnea; tachycardia, 01/10/16) PENICILLINS (Verified Adverse Reaction, Severe, vomiting, 01/10/16) PROCHLORPERAZINE (Verified Adverse Reaction, Severe, musle spasm, 01/10/16) Subjective Constitutional: Reports: no symptoms HEENT: Reports: no symptoms Respiratory: Reports: no symptoms Gastrointestinal/Abdominal: Reports: no symptoms Genitourinary: Reports: no symptoms Neurologic/Psychiatric: Reports: no symptoms Endocrine: Reports: no symptoms Hematologic/Lymphatic: Reports: no symptoms Subjective Patient is in bed no signs of distress. Has been tolerating the pain on the norco and Morphine. She has no new complaints. Objective Last 24 Hour Vital Signs Date Time Temp Pulse Resp B/P (MAP) Pulse Ox O2 Delivery O2 Flow Rate FiO2 09/26/17 04:00 80 09/26/17 04:00 97.7 77 20 119/69 96 Room Air 09/26/17 00:00 97.7 97 20 106/70 97 Room Air 09/26/17 00:00 74 09/25/17 20:00 76 09/25/17 20:00 97.7 75 20 96/50 96 Room Air 09/25/17 16:00 80 09/25/17 16:00 97.7 81 21 115/68 95 Room Air 09/25/17 12:00 97.5 84 19 96/62 97 Room Air 09/25/17 12:00 77 Laboratory Tests 09/26/17 05:45: White Blood Count 5.4, Red Blood Count 3.58L, Hemoglobin 9.8L, Hematocrit 28.9L , Mean Corpuscular Volume 81, Mean Corpuscular Hemoglobin 27.3, Mean Corpuscular Hemoglobin Concent 33.8, Red Cell Distribution Width 14.6, Platelet Count 245, Mean Platelet Volume 6.0L, Neutrophils (%) (Auto) 57.6, Lymphocytes ( %) (Auto) 33.7, Monocytes (%) (Auto) 8.0, Eosinophils (%) (Auto) 0.2, Basophils (%) (Auto) 0.6, Sodium Level 140, Potassium Level 3.7, Chloride Level 108H, Carbon Dioxide Level 20L, Anion Gap 12, Blood Urea Nitrogen 17, Creatinine 0.8, Estimat Glomerular Filtration Rate > 60, Glucose Level 95, Calcium Level 8.5, Phosphorus Level 3.5, Magnesium Level 1.8, Total Bilirubin 0.2, Aspartate Amino Transf (AST/SGOT) 11L, Alanine Aminotransferase (ALT/SGPT) 10L, Alkaline Phosphatase 85, Total Protein 7.0, Albumin 2.5L, Globulin 4.5, Albumin/Globulin Ratio 0.6L Height (Feet): 5 Height (Inches): 2.00 Weight (Pounds): 120 Objective General Appearance: no apparent distress, alert EENT: PERRL/EOMI, normal ENT inspection Neck: non-tender, normal alignment Cardiovascular: normal rate, regular rhythm Respiratory/Chest: lungs clear, normal breath sounds Abdomen: non tender, soft Extremities: weakness noted Edema: trace edema Neurologic: alert, oriented x 3 Skin: warm/dry GABE DOMINGO PGopi Sep 26, 2017 08:25
[2017-09-26] MEDS ORDERED: Norco 10mg/325mg tab ORAL PRN (08:30)
[2017-09-26] MEDS: Propranolol ER 60mg cap ORAL SCH (09:01)
[2017-09-26] MEDS: Topiramate 100mg tab ORAL SCH (09:01)
[2017-09-26] MEDS: Lyrica 75mg cap ORAL SCH ×3 (09:01→17:29)
--- NOTE | 2017-09-26 10:13 | Infectious Diseases Prog Note ---
Assessment/Plan Assessment/Plan Abx: Cipro x1 09/24 Aztreonam 09/25- Assesment: Presyncopal event- likely due to hypotension and dehydration UTI- +Pyuria/bacteriuria, urgency -u/a wbc 30-40, nit+, leuk +3; ucx >100K PsA (R Cipro/levo, aztreonam; S Cefepime, zosyn) Leukocytosis, mild- resolved -afebrile chronic back pain s/p multiple back surgeries, hx of DVT on xarelto, bedbound, HTN, migraine Plan: -Switch IV Aztreonam #2 to Zosyn for PsA UTI; will treat for 5-7 days -discussed with patient. She has multiple allergies: Ancef worst than PNC in causing hives. FQ and aztreonam are not option as specimen are resistant. We will give Benadryl 30 min before Zosyn administration. Discussed with RN and she will be monitored closely. -f/u cx -Monitor CBC/BMP, temperatures Thank you for this consultation. Will continue to follow along with you. Discussed with RN. Subjective Allergies: Coded Allergies: CEFAZOLIN (Verified Allergy, Severe, hives all over her body, 01/10/16) PHENYTOIN (Verified Allergy, Severe, swell up face, 01/10/16) SULFA (SULFONAMIDE ANTIBIOTICS) (Verified Allergy, Severe, hives all over her body, 01/10/16) HYDROXYZINE (Verified Adverse Reaction, Severe, tachypnea; tachycardia, 01/10/16) PENICILLINS (Verified Adverse Reaction, Severe, vomiting, 01/10/16) PROCHLORPERAZINE (Verified Adverse Reaction, Severe, musle spasm, 01/10/16) Subjective afebrile no leukocytosis Bcx NTD urgency improving Objective Vital Signs Last 24 Hour Vital Signs Date Time Temp Pulse Resp B/P (MAP) Pulse Ox O2 Delivery O2 Flow Rate FiO2 09/26/17 08:00 98.2 82 20 110/63 99 Room Air 09/26/17 04:00 80 09/26/17 04:00 97.7 77 20 119/69 96 Room Air 09/26/17 00:00 97.7 97 20 106/70 97 Room Air 09/26/17 00:00 74 09/25/17 20:00 76 09/25/17 20:00 97.7 75 20 96/50 96 Room Air 09/25/17 16:00 80 09/25/17 16:00 97.7 81 21 115/68 95 Room Air 09/25/17 12:00 97.5 84 19 96/62 97 Room Air 09/25/17 12:00 77 Height (Feet): 5 Height (Inches): 2.00 Weight (Pounds): 120 Objective General Appearance: Chronically Ill - Thin, chronically ill-appearing middle- aged female, awake and alert HEENT: normocephalic, atraumatic, bilateral eye PERRL, bilateral eye EOMI, moist mucus membranes Neck: normal inspection, full range of motion, supple Respiratory: normal inspection, lungs clear, normal breath sounds, no respiratory distress, no wheezing, Cardiovascular : normal inspection, regular rate, rhythm, normal capillary refill Gastrointestinal: normal inspection, soft, non-distended, no guarding, L flank TTP Musculoskeletal: other - Diffuse generalized paraspinal tenderness in her back , limited range of motion of bilateral lower extremities which is chronic, but able to bend both her knees without issue 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: lamp tester 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 inspector III-XII nml as tested, other - Awake alert, oriented x4, good strength bilateral upper extremities, able to move bilateral lower extremities spontaneously Skin: normal inspection, normal color, no pat Microbiology Date/Time Source Procedure Growth Status 09/24/17 17:45 Blood Blood Culture - Preliminary NO GROWTH AFTER 24 HOURS Resulted 09/24/17 17:45 Blood Blood Culture - Preliminary NO GROWTH AFTER 24 HOURS Resulted 09/24/17 19:10 Urine,Clean Catch Urine Culture - Final Pseudomonas Aeruginosa Complete 09/25/17 01:41 Sacral Wound Gram Stain - Final Resulted 09/25/17 01:41 Wound Culture - Preliminary Gram Negative Bacillus 1 Resulted Laboratory Tests Test 09/26/17 05:45 White Blood Count 5.4 K/UL (4.8-10.8) Red Blood Count 3.58 M/UL (4.20-5.40) L Hemoglobin 9.8 G/DL (12.0-16.0) L Hematocrit 28.9 % (37.0-47.0) L Mean Corpuscular Volume 81 FL (80-99) Mean Corpuscular Hemoglobin 27.3 PG (27.0-31.0) Mean Corpuscular Hemoglobin Concent 33.8 G/DL (32.0-36.0) Red Cell Distribution Width 14.6 % (11.6-14.8) Platelet Count 245 K/UL (150-450) Mean Platelet Volume 6.0 FL (6.5-10.1) L Neutrophils (%) (Auto) 57.6 % (45.0-75.0) Lymphocytes (%) (Auto) 33.7 % (20.0-45.0) Monocytes (%) (Auto) 8.0 % (1.0-10.0) Eosinophils (%) (Auto) 0.2 % (0.0-3.0) Basophils (%) (Auto) 0.6 % (0.0-2.0) Sodium Level 140 MMOL/L (136-145) Potassium Level 3.7 MMOL/L (3.5-5.1) Chloride Level 108 MMOL/L (98-107) H Carbon Dioxide Level 20 MMOL/L (21-32) L Anion Gap 12 mmol/L (5-15) Blood Urea Nitrogen 17 mg/dL (7-18) Creatinine 0.8 MG/DL (0.55-1.30) Estimat Glomerular Filtration Rate > 60 mL/min (>60) Glucose Level 95 MG/DL (74-106) Calcium Level 8.5 MG/DL (8.5-10.1) Phosphorus Level 3.5 MG/DL (2.5-4.9) Magnesium Level 1.8 MG/DL (1.8-2.4) Total Bilirubin 0.2 MG/DL (0.2-1.0) Aspartate Amino Transf (AST/SGOT) 11 U/L (15-37) L Alanine Aminotransferase (ALT/SGPT) 10 U/L (12-78) L Alkaline Phosphatase 85 U/L (46-116) Total Protein 7.0 G/DL (6.4-8.2) Albumin 2.5 G/DL (3.4-5.0) L Globulin 4.5 g/dL Albumin/Globulin Ratio 0.6 (1.0-2.7) L Current Medications Medications (Trade) Dose Ordered Sig/Reanna Route PRN Reason Start Time Stop Time Status Last Admin Dose Admin Acetaminophen (Tylenol) 650 mg Q4H PRN ORAL fever 09/24/17 21:30 10/24/17 21:29 Acetaminophen/ Hydrocodone Bitart ([place] 10/325) 1 ea Q4H PRN ORAL Moderate Pain (Pain Scale 4-6) 09/26/17 08:30 10/01/17 08:29 Al Hydroxide/Mg Hydroxide (Mylanta II) 30 ml Q6H PRN ORAL dyspepsia 09/24/17 21:30 10/24/17 21:29 Aztreonam 1 gm/ Dextrose 55 ml @ 110 mls/hr Q8HR IVPB 09/25/17 16:00 10/02/17 15:59 09/26/17 05:58 Dextrose (Dextrose 50%) STAT PRN IV Hypoglycemia 09/24/17 21:30 10/24/17 21:29 Levothyroxine Sodium (Synthroid) 100 mcg ACBREAKFAST ORAL 09/25/17 06:30 10/25/17 06:29 09/26/17 05:36 Lorazepam (Ativan 2mg/ml 1ml) 0.5 mg Q4H PRN IV For Anxiety 09/24/17 21:30 10/01/17 21:29 09/25/17 06:32 Montelukast Sodium (Singulair) 10 mg QHS ORAL 09/24/17 22:00 10/24/17 21:59 09/25/17 20:30 Morphine Sulfate (Morphine Sulfate) 1 mg Q4H PRN IVP Severe Pain (Pain Scale 7-10) 09/26/17 10:00 10/03/17 09:59 Ondansetron HCl (Zofran) 4 mg Q6H PRN IVP Nausea & Vomiting 09/24/17 21:30 10/24/17 21:29 09/26/17 05:35 Phenazopyridine HCl (Pyridium) 100 mg THREE TIMES A DAY ORAL 09/25/17 13:00 10/25/17 12:59 09/26/17 09:01 Polyethylene Glycol (Miralax) 17 gm HSPRN PRN ORAL Constipation 09/24/17 21:30 10/24/17 21:29 Pregabalin (Lyrica) 75 mg TID ORAL 09/25/17 09:00 10/25/17 08:59 09/26/17 09:01 Propranolol HCl (Inderal LA) 60 mg DAILY ORAL 09/25/17 09:00 10/25/17 08:59 09/26/17 09:01 Tizanidine HCl (Zanaflex) 4 mg BID ORAL 09/25/17 09:00 10/25/17 08:59 09/26/17 09:02 Topiramate (Topamax) 200 mg DAILY ORAL 09/25/17 09:00 10/25/17 08:59 09/26/17 09:01 Zolpidem Tartrate (Ambien) 5 mg HSPRN PRN ORAL Insomnia 09/24/17 21:30 10/01/17 21:29 09/26/17 00:49 Cami Mendez M.D. Sep 26, 2017 10:13
--- NOTE | 2017-09-26 11:30 | Pulmonology Progress Note ---
Assessment/Plan Problems: (1) Sepsis (2) Hypotension (3) UTI (urinary tract infection) (4) Bedridden (5) H/O Spinal surgery Assessment/Plan improving continue abx check cultures echo cardio evaluation social service evaluation. Subjective ROS Limited/Unobtainable: No Interval Events: doesn't like the food HEENT: Repors: no symptoms Allergies: Coded Allergies: CEFAZOLIN (Verified Allergy, Severe, hives all over her body, 01/10/16) PHENYTOIN (Verified Allergy, Severe, swell up face, 01/10/16) SULFA (SULFONAMIDE ANTIBIOTICS) (Verified Allergy, Severe, hives all over her body, 01/10/16) HYDROXYZINE (Verified Adverse Reaction, Severe, tachypnea; tachycardia, 01/10/16) PENICILLINS (Verified Adverse Reaction, Severe, vomiting, 01/10/16) PROCHLORPERAZINE (Verified Adverse Reaction, Severe, musle spasm, 01/10/16) Objective Last 24 Hour Vital Signs Date Time Temp Pulse Resp B/P (MAP) Pulse Ox O2 Delivery O2 Flow Rate FiO2 09/26/17 08:00 98.2 82 20 110/63 99 Room Air 09/26/17 04:00 80 09/26/17 04:00 97.7 77 20 119/69 96 Room Air 09/26/17 00:00 97.7 97 20 106/70 97 Room Air 09/26/17 00:00 74 09/25/17 20:00 76 09/25/17 20:00 97.7 75 20 96/50 96 Room Air 09/25/17 16:00 80 09/25/17 16:00 97.7 81 21 115/68 95 Room Air 09/25/17 12:00 97.5 84 19 96/62 97 Room Air 09/25/17 12:00 77 Intake and Output 09/26/17 09/27/17 19:00 07:00 # Bowel Movements 1 General Appearance: cachetic HEENT: normocephalic, atraumatic Respiratory/Chest: chest wall non-tender, lungs clear Cardiovascular: normal peripheral pulses, normal rate Abdomen: normal bowel sounds, no organomegaly Genitourinary: normal external genitalia Extremities: no cyanosis Skin: no ulcers 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, alert Lymphatic: no neck adenopathy, no groin adenopathy Musculoskeletal: normal muscle bulk Microbiology Date/Time Source Procedure Growth Status 09/24/17 17:45 Blood Blood Culture - Preliminary NO GROWTH AFTER 24 HOURS Resulted 09/24/17 17:45 Blood Blood Culture - Preliminary NO GROWTH AFTER 24 HOURS Resulted 09/24/17 19:10 Urine,Clean Catch Urine Culture - Final Pseudomonas Aeruginosa Complete 09/25/17 01:41 Sacral Wound Gram Stain - Final Resulted 09/25/17 01:41 Wound Culture - Preliminary Gram Negative Bacillus 1 Resulted Laboratory Tests 09/26/17 05:45: White Blood Count 5.4, Red Blood Count 3.58L, Hemoglobin 9.8L, Hematocrit 28.9L , Mean Corpuscular Volume 81, Mean Corpuscular Hemoglobin 27.3, Mean Corpuscular Hemoglobin Concent 33.8, Red Cell Distribution Width 14.6, Platelet Count 245, Mean Platelet Volume 6.0L, Neutrophils (%) (Auto) 57.6, Lymphocytes ( %) (Auto) 33.7, Monocytes (%) (Auto) 8.0, Eosinophils (%) (Auto) 0.2, Basophils (%) (Auto) 0.6, Sodium Level 140, Potassium Level 3.7, Chloride Level 108H, Carbon Dioxide Level 20L, Anion Gap 12, Blood Urea Nitrogen 17, Creatinine 0.8, Estimat Glomerular Filtration Rate > 60, Glucose Level 95, Calcium Level 8.5, Phosphorus Level 3.5, Magnesium Level 1.8, Total Bilirubin 0.2, Aspartate Amino Transf (AST/SGOT) 11L, Alanine Aminotransferase (ALT/SGPT) 10L, Alkaline Phosphatase 85, Total Protein 7.0, Albumin 2.5L, Globulin 4.5, Albumin/Globulin Ratio 0.6L Current Medications Medications (Trade) Dose Ordered Sig/Reanna Route PRN Reason Start Time Stop Time Status Last Admin Dose Admin Acetaminophen (Tylenol) 650 mg Q4H PRN ORAL fever 09/24/17 21:30 10/24/17 21:29 Acetaminophen/ Hydrocodone Bitart ([place] 10/325) 1 ea Q4H PRN ORAL Moderate Pain (Pain Scale 4-6) 09/26/17 08:30 10/01/17 08:29 Al Hydroxide/Mg Hydroxide (Mylanta II) 30 ml Q6H PRN ORAL dyspepsia 09/24/17 21:30 10/24/17 21:29 Aztreonam 1 gm/ Dextrose 55 ml @ 110 mls/hr Q8HR IVPB 09/25/17 16:00 10/02/17 15:59 09/26/17 05:58 Dextrose (Dextrose 50%) STAT PRN IV Hypoglycemia 09/24/17 21:30 10/24/17 21:29 Levothyroxine Sodium (Synthroid) 100 mcg ACBREAKFAST ORAL 09/25/17 06:30 10/25/17 06:29 09/26/17 05:36 Lorazepam (Ativan 2mg/ml 1ml) 0.5 mg Q4H PRN IV For Anxiety 09/24/17 21:30 10/01/17 21:29 09/25/17 06:32 Montelukast Sodium (Singulair) 10 mg QHS ORAL 09/24/17 22:00 10/24/17 21:59 09/25/17 20:30 Morphine Sulfate (Morphine Sulfate) 1 mg Q4H PRN IVP Severe Pain (Pain Scale 7-10) 09/26/17 10:00 10/03/17 09:59 Ondansetron HCl (Zofran) 4 mg Q6H PRN IVP Nausea & Vomiting 09/24/17 21:30 10/24/17 21:29 09/26/17 05:35 Phenazopyridine HCl (Pyridium) 100 mg THREE TIMES A DAY ORAL 09/25/17 13:00 10/25/17 12:59 09/26/17 09:01 Polyethylene Glycol (Miralax) 17 gm HSPRN PRN ORAL Constipation 09/24/17 21:30 10/24/17 21:29 Pregabalin (Lyrica) 75 mg TID ORAL 09/25/17 09:00 10/25/17 08:59 09/26/17 09:01 Propranolol HCl (Inderal LA) 60 mg DAILY ORAL 09/25/17 09:00 10/25/17 08:59 09/26/17 09:01 Tizanidine HCl (Zanaflex) 4 mg BID ORAL 09/25/17 09:00 10/25/17 08:59 09/26/17 09:02 Topiramate (Topamax) 200 mg DAILY ORAL 09/25/17 09:00 10/25/17 08:59 09/26/17 09:01 Zolpidem Tartrate (Ambien) 5 mg HSPRN PRN ORAL Insomnia 09/24/17 21:30 10/01/17 21:29 09/26/17 00:49 JAMA ALONZO Sep 26, 2017 11:30
[2017-09-26] MEDS ORDERED: DiphenhydrAMINE 25mg/10ml Elixir NG SCH (14:00)
[2017-09-26] MEDS: DiphenhydrAMINE 25mg/10ml Elixir ORAL SCH ×2 (14:31→22:04)
[2017-09-26] MEDS: Piperacillin/Tazobactam 3.375 GM in D5W 55 ML IVPB SCH ×2 (14:53→22:05)
--- NOTE | 2017-09-26 16:40 | Cardiology Progress Note ---
Assessment/Plan Assessment/Plan [id number] Objective Last 24 Hour Vital Signs Date Time Temp Pulse Resp B/P (MAP) Pulse Ox O2 Delivery O2 Flow Rate FiO2 09/26/17 12:00 69 09/26/17 12:00 98.2 69 18 111/63 99 Room Air 09/26/17 08:00 98.2 82 20 110/63 99 Room Air 09/26/17 08:00 83 09/26/17 04:00 80 09/26/17 04:00 97.7 77 20 119/69 96 Room Air 09/26/17 00:00 97.7 97 20 106/70 97 Room Air 09/26/17 00:00 74 09/25/17 20:00 76 09/25/17 20:00 97.7 75 20 96/50 96 Room Air Intake and Output 09/26/17 09/27/17 18:59 06:59 Intake Total 13.75 ml Balance 13.75 ml IV Total 13.75 ml # Bowel Movements 1 Laboratory Tests Test 09/26/17 05:45 White Blood Count 5.4 K/UL (4.8-10.8) Red Blood Count 3.58 M/UL (4.20-5.40) L Hemoglobin 9.8 G/DL (12.0-16.0) L Hematocrit 28.9 % (37.0-47.0) L Mean Corpuscular Volume 81 FL (80-99) Mean Corpuscular Hemoglobin 27.3 PG (27.0-31.0) Mean Corpuscular Hemoglobin Concent 33.8 G/DL (32.0-36.0) Red Cell Distribution Width 14.6 % (11.6-14.8) Platelet Count 245 K/UL (150-450) Mean Platelet Volume 6.0 FL (6.5-10.1) L Neutrophils (%) (Auto) 57.6 % (45.0-75.0) Lymphocytes (%) (Auto) 33.7 % (20.0-45.0) Monocytes (%) (Auto) 8.0 % (1.0-10.0) Eosinophils (%) (Auto) 0.2 % (0.0-3.0) Basophils (%) (Auto) 0.6 % (0.0-2.0) Sodium Level 140 MMOL/L (136-145) Potassium Level 3.7 MMOL/L (3.5-5.1) Chloride Level 108 MMOL/L (98-107) H Carbon Dioxide Level 20 MMOL/L (21-32) L Anion Gap 12 mmol/L (5-15) Blood Urea Nitrogen 17 mg/dL (7-18) Creatinine 0.8 MG/DL (0.55-1.30) Estimat Glomerular Filtration Rate > 60 mL/min (>60) Glucose Level 95 MG/DL (74-106) Calcium Level 8.5 MG/DL (8.5-10.1) Phosphorus Level 3.5 MG/DL (2.5-4.9) Magnesium Level 1.8 MG/DL (1.8-2.4) Total Bilirubin 0.2 MG/DL (0.2-1.0) Aspartate Amino Transf (AST/SGOT) 11 U/L (15-37) L Alanine Aminotransferase (ALT/SGPT) 10 U/L (12-78) L Alkaline Phosphatase 85 U/L (46-116) Total Protein 7.0 G/DL (6.4-8.2) Albumin 2.5 G/DL (3.4-5.0) L Globulin 4.5 g/dL Albumin/Globulin Ratio 0.6 (1.0-2.7) L Microbiology Date/Time Source Procedure Growth Status 09/24/17 17:45 Blood Blood Culture - Preliminary NO GROWTH AFTER 24 HOURS Resulted 09/24/17 17:45 Blood Blood Culture - Preliminary NO GROWTH AFTER 24 HOURS Resulted 09/24/17 19:10 Urine,Clean Catch Urine Culture - Final Pseudomonas Aeruginosa Complete 09/25/17 01:41 Sacral Wound Gram Stain - Final Resulted 09/25/17 01:41 Wound Culture - Preliminary Gram Negative Bacillus 1 Resulted CHESTER WAITE Sep 26, 2017 16:40
[2017-09-26] MEDS: Montelukast 10mg tablet ORAL SCH (21:06)
--- NOTE | 2017-09-26 23:01 | Consultation ---
DATE OF CONSULTATION: 09/26/2017 CARDIOLOGY CONSULTATION CONSULTING PHYSICIAN: Nicolas Cardona M.D. REFERRING PHYSICIAN: Roge Neely M.D. REASON FOR REFERRAL: Syncope or near syncope. HISTORY OF PRESENT ILLNESS: This is a 56-year-old female, who apparently had some spine problems dating back to 04/2017, in which she was treated and sent home. She was told she would need spine surgery to allow her to walk, unfortunately developed a deep venous thrombosis and the spine surgery was postponed. She received anticoagulation therapy with NOACs, Xarelto for a number of months and from the rehabilitation she was sent home approximately three weeks ago. She has been at home for the past three weeks. She has had a plastic boat buffer that stays with her for approximately three hours a day and arranges for her to have some food and water and then leave for the rest of the day. She is not able to get out of bed on her own and she is basically in bed pretty much most of the time except for going to the doctor's office. She went to her pain management doctor's office in an upright position in a sitting walker, and while she was waiting there, she had almost syncope or near syncopal episode. Apparently, the patient was brought to the emergency room at [facility]. She said when they tried to get blood pressure and heart rate, they were initially unable to get her blood pressure, eventually registered 70/50 according to the patient and she was slow in her heart rate. She was brought to the emergency room here at [place] and she was documented having a blood pressure of 90/50. She denies having had any chest pains. She does not have really any shortness of breath. There is no PND, no orthopnea. No palpitations. She does not really sit or stand to be able to identify if she was lightheaded in those positions. PAST MEDICAL HISTORY: Positive history of back pain. She has had a history of hepatitis B that she has been apparently cured. She has had a history of asthma that was cured. She has had a history of peptic ulcer disease that was cured. She has had a hysterectomy, and she has had parathyroidectomy as well as gallbladder resection. No heart attack. No cancer. No stroke. No tuberculosis. No kidney or liver or thyroid problems or anemia or arthritis. ALLERGIES: She is allergic to multiple medications including cefazolin, Dilantin, sulfa, penicillin, and prochlorperazine. SOCIAL HISTORY: Never smoked and never drank. She lives at home at the present time as mentioned. REVIEW OF SYSTEMS: GASTROINTESTINAL: She has had some nausea and some loose stools recently. GENITOURINARY: She has discomfort on urination. PULMONARY: Denies any coughing or wheezing. CONSTITUTIONAL: She felt hot and cold. NEUROLOGICAL: Basically bedbound and inability to use her legs, though she is able to move her feet. PHYSICAL EXAMINATION: GENERAL: Shows to be an elderly female, in no respiratory distress. NECK: Supple. No jugular venous distention. LUNGS: Appear to be clear to auscultation and percussion. CARDIAC: S1 is normal. S2 is normal. Regular rate and rhythm. No heaves, thrills, gallops, or rubs are noted. ABDOMEN: Abdomen is soft. Positive bowel sounds. EXTREMITIES: There is no clubbing, cyanosis, nor edema. NEUROLOGIC: She is awake, alert, and responsive. She is able to move her toes. LABORATORY AND DIAGNOSTIC DATA: Laboratory values, white count of 5.3, hematocrit 22, and platelet count 245; white count initially was 13.4. Sodium is 140, potassium 3.7, chloride 108, bicarbonate 20, BUN of 17, creatinine 0.8, glucose of 95, and calcium is 8.5. Liver function tests are normal. Her albumin is only 2.5. Her triglycerides 178 with a total cholesterol of 152 with an LDL of 92, HDL of 33. TSH of 2.85. Her proBNP at the time of admission was 267. One set of cardiac enzymes was negative. Her coags, INR 1.0 and PTT of 30. Urinalysis, 30 to 40 WBCs, 5 to 10 RBCs. Her telemetry data shows sinus rhythm, and her EKG shows sinus rhythm with normal QRS axis, really no ST or T-wave abnormalities. There were some Q-waves in lead III only, but no ST-segment changes. She has had imaging performed including a chest x-ray, which is showing no cardiopulmonary disease process, and venous duplex study of the lower extremities also performed. Venous duplex study of the lower extremity shows no evidence of thrombus within the femoral, popliteal, and tibial segments. ASSESSMENT AND PLAN: 1. Syncope, likely secondary to prolonged bed rest, possibly volume and urinary tract infection with prolonged bed rest. 2. History of spine disorder. 3. History of hepatitis B. 4. Remote history of asthma. Dr. Neely, this patient was seen in cardiac consultation. The patient's symptoms, signs, and descriptions are likely in line with having been upright after a prolonged lying position, certainly a combination of hypovolemia may be possible in light of the fact that she has a plastic boat buffer only for three hours and not able to get around by herself. Her blood pressure did eventually improve to as high as 138/69 after hydration, stating again that there is a possibility of volume related. She should have a set of cortisone level checked. I will order a set of orthostatic vitals. She should continue to receive intravenous fluids and an echocardiogram will be evaluated for any wall motion abnormality. She is on high doses of propranolol 60 mg twice a day and due to hypotension in the setting of hypovolemia as well. Of course, her telemetry data has been evaluated, she has no arrhythmias and her most recent blood pressure is in the . She is being treated with intravenous antibiotics for possibility of urinary tract infection and further recommendations will be provided should it be necessary. Nicolas Cardona M.D. DR: BALA JOB#: [id number] CC:
[2017-09-27] MEDS: Morphine Sulfate 2mg/ml Inj IVP PRN ×2 (02:02→06:20)
[2017-09-27 04:07] VITALS: BP 108/70
[2017-09-27] MEDS: Piperacillin/Tazobactam 3.375 GM in D5W 55 ML IVPB SCH ×3 (06:20→22:10)
[2017-09-27] MEDS: DiphenhydrAMINE 25mg/10ml Elixir ORAL SCH ×3 (06:20→21:41)
[2017-09-27 08:00] VITALS: BP 109/64
[2017-09-27] MEDS: Propranolol ER 60mg cap ORAL SCH (09:31)
[2017-09-27] MEDS: Lyrica 75mg cap ORAL SCH ×3 (09:33→17:29)
[2017-09-27] MEDS: Topiramate 100mg tab ORAL SCH (09:34)
--- NOTE | 2017-09-27 10:06 | Pulmonology Progress Note ---
Assessment/Plan Problems: (1) Sepsis (2) Hypotension (3) UTI (urinary tract infection) (4) Bedridden (5) H/O Spinal surgery Assessment/Plan increase Mrophine prn improving continue abx check cultures echo cardio evaluation appreciated decrease Metoprolol dose, considering SBP of 60 social service evaluation. Subjective ROS Limited/Unobtainable: No Interval Events: still c/o lower back pain Allergies: Coded Allergies: CEFAZOLIN (Verified Allergy, Severe, hives all over her body, 01/10/16) PHENYTOIN (Verified Allergy, Severe, swell up face, 01/10/16) SULFA (SULFONAMIDE ANTIBIOTICS) (Verified Allergy, Severe, hives all over her body, 01/10/16) HYDROXYZINE (Verified Adverse Reaction, Severe, tachypnea; tachycardia, 01/10/16) PENICILLINS (Verified Adverse Reaction, Severe, vomiting, 01/10/16) PROCHLORPERAZINE (Verified Adverse Reaction, Severe, musle spasm, 01/10/16) Objective Last 24 Hour Vital Signs Date Time Temp Pulse Resp B/P (MAP) Pulse Ox O2 Delivery O2 Flow Rate FiO2 09/27/17 08:00 97.2 89 20 109/64 98 Room Air 09/27/17 04:07 97.5 68 18 108/70 95 Nasal Cannula 09/27/17 04:00 72 09/27/17 00:00 71 09/26/17 23:53 98.2 66 18 124/63 95 Room Air 09/26/17 20:00 98.1 73 18 93/54 93 Room Air 09/26/17 20:00 72 09/26/17 18:30 97.7 74 18 100/59 96 Room Air 09/26/17 16:00 99.7 76 20 114/71 95 Room Air 09/26/17 16:00 76 09/26/17 12:00 69 09/26/17 12:00 98.2 69 18 111/63 99 Room Air General Appearance: cachetic HEENT: normocephalic, atraumatic Respiratory/Chest: chest wall non-tender, normal breath sounds Cardiovascular: normal peripheral pulses, normal rate Abdomen: normal bowel sounds, no organomegaly Genitourinary: normal external genitalia Skin: no ulcers 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 Lymphatic: no groin adenopathy Microbiology Date/Time Source Procedure Growth Status 09/24/17 17:45 Blood Blood Culture - Preliminary NO GROWTH AFTER 48 HOURS Resulted 09/24/17 17:45 Blood Blood Culture - Preliminary NO GROWTH AFTER 48 HOURS Resulted 09/24/17 19:10 Urine,Clean Catch Urine Culture - Final Pseudomonas Aeruginosa Complete 09/25/17 01:41 Sacral Wound Gram Stain - Final Resulted 09/25/17 01:41 Wound Culture - Preliminary Pseudomonas Aeruginosa Diphtheroids Resulted Laboratory Tests 09/27/17 05:50: Troponin I 0.000 Current Medications Medications (Trade) Dose Ordered Sig/Reanna Route PRN Reason Start Time Stop Time Status Last Admin Dose Admin Acetaminophen (Tylenol) 650 mg Q4H PRN ORAL fever 09/24/17 21:30 10/24/17 21:29 Acetaminophen/ Hydrocodone Bitart ([place] 10/325) 1 ea Q4H PRN ORAL Moderate Pain (Pain Scale 4-6) 09/26/17 08:30 10/01/17 08:29 Al Hydroxide/Mg Hydroxide (Mylanta II) 30 ml Q6H PRN ORAL dyspepsia 09/24/17 21:30 10/24/17 21:29 Dextrose (Dextrose 50%) STAT PRN IV Hypoglycemia 09/24/17 21:30 10/24/17 21:29 Diphenhydramine HCl (Benadryl) 25 mg EVERY 8 HOURS ORAL 09/26/17 14:30 10/26/17 14:29 09/27/17 06:20 Levothyroxine Sodium (Synthroid) 100 mcg ACBREAKFAST ORAL 09/25/17 06:30 10/25/17 06:29 09/27/17 06:20 Lorazepam (Ativan 2mg/ml 1ml) 0.5 mg Q4H PRN IV For Anxiety 09/24/17 21:30 10/01/17 21:29 09/25/17 06:32 Montelukast Sodium (Singulair) 10 mg QHS ORAL 09/24/17 22:00 10/24/17 21:59 09/26/17 21:06 Morphine Sulfate (Morphine Sulfate) 1 mg Q4H PRN IVP Severe Pain (Pain Scale 7-10) 09/26/17 10:00 10/03/17 09:59 09/27/17 06:20 Ondansetron HCl (Zofran) 4 mg Q6H PRN IVP Nausea & Vomiting 09/24/17 21:30 10/24/17 21:29 09/27/17 06:30 Phenazopyridine HCl (Pyridium) 100 mg THREE TIMES A DAY ORAL 09/25/17 13:00 10/25/17 12:59 09/27/17 09:31 Piperacillin Sod/ Tazobactam Sod 3.375 gm/Dextrose 55 ml @ 13.75 mls/ hr EVERY 8 HOURS IVPB 09/26/17 14:00 10/01/17 13:59 09/27/17 06:20 Polyethylene Glycol (Miralax) 17 gm HSPRN PRN ORAL Constipation 09/24/17 21:30 10/24/17 21:29 Pregabalin (Lyrica) 75 mg TID ORAL 09/25/17 09:00 10/25/17 08:59 09/27/17 09:33 Propranolol HCl (Inderal LA) 60 mg DAILY ORAL 09/25/17 09:00 10/25/17 08:59 09/27/17 09:31 Tizanidine HCl (Zanaflex) 4 mg BID ORAL 09/25/17 09:00 10/25/17 08:59 09/27/17 09:31 Topiramate (Topamax) 200 mg DAILY ORAL 09/25/17 09:00 10/25/17 08:59 09/27/17 09:34 Zolpidem Tartrate (Ambien) 5 mg HSPRN PRN ORAL Insomnia 09/24/17 21:30 10/01/17 21:29 09/26/17 21:06 JAMA ALONZO Sep 27, 2017 10:06
--- NOTE | 2017-09-27 10:06 | Infectious Diseases Prog Note ---
Assessment/Plan Assessment/Plan Abx: Cipro x1 09/24 Aztreonam 09/25-09/26 Zosyn 09/26- Assesment: Presyncopal event- likely due to hypotension and dehydration UTI- +Pyuria/bacteriuria, urgency -u/a wbc 30-40, nit+, leuk +3; ucx >100K PsA (R Cipro/levo, aztreonam; S Cefepime, zosyn) Leukocytosis, mild- resolved -afebrile chronic back pain s/p multiple back surgeries, hx of DVT on xarelto, bedbound, HTN, migraine Plan: -Continue Zosyn #2/5-7 for PsA UTI -discussed with patient. She has multiple allergies: Ancef worst than PNC in causing hives. FQ and aztreonam are not option as specimen are resistant. We will give Benadryl 30 min before Zosyn administration. Discussed with RN and she will be monitored closely. Receiving Zofran because of nausea with benadryl -may need to switch to Meropenem if S/E with zofran and benadryl -check EKG to monitor Qtc while on zofran, -09/26 SP Aztreonam #2 -09/25 SP CIpro x1 -f/u cx -Monitor CBC/BMP, temperatures Thank you for this consultation. Will continue to follow along with you. Discussed with RN. Subjective Allergies: Coded Allergies: CEFAZOLIN (Verified Allergy, Severe, hives all over her body, 01/10/16) PHENYTOIN (Verified Allergy, Severe, swell up face, 01/10/16) SULFA (SULFONAMIDE ANTIBIOTICS) (Verified Allergy, Severe, hives all over her body, 01/10/16) HYDROXYZINE (Verified Adverse Reaction, Severe, tachypnea; tachycardia, 01/10/16) PENICILLINS (Verified Adverse Reaction, Severe, vomiting, 01/10/16) PROCHLORPERAZINE (Verified Adverse Reaction, Severe, musle spasm, 01/10/16) Subjective afebrile no leukocytosis Bcx NTD urgency improving nausea with benadryl no hives on zosyn Objective Vital Signs Last 24 Hour Vital Signs Date Time Temp Pulse Resp B/P (MAP) Pulse Ox O2 Delivery O2 Flow Rate FiO2 09/27/17 08:00 97.2 89 20 109/64 98 Room Air 09/27/17 04:07 97.5 68 18 108/70 95 Nasal Cannula 09/27/17 04:00 72 09/27/17 00:00 71 09/26/17 23:53 98.2 66 18 124/63 95 Room Air 09/26/17 20:00 98.1 73 18 93/54 93 Room Air 09/26/17 20:00 72 09/26/17 18:30 97.7 74 18 100/59 96 Room Air 09/26/17 16:00 99.7 76 20 114/71 95 Room Air 09/26/17 16:00 76 09/26/17 12:00 69 09/26/17 12:00 98.2 69 18 111/63 99 Room Air Height (Feet): 5 Height (Inches): 2.00 Weight (Pounds): 120 Objective General Appearance: Chronically Ill - Thin, chronically ill-appearing middle- aged female, awake and alert HEENT: normocephalic, atraumatic, bilateral eye PERRL, bilateral eye EOMI, moist mucus membranes Neck: normal inspection, full range of motion, supple Respiratory: normal inspection, lungs clear, normal breath sounds, no respiratory distress, no wheezing, Cardiovascular : normal inspection, regular rate, rhythm, normal capillary refill Gastrointestinal: normal inspection, soft, non-distended, no guarding, L flank TTP Musculoskeletal: other - Diffuse generalized paraspinal tenderness in her back , limited range of motion of bilateral lower extremities which is chronic, but able to bend both her knees without issue 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, other - Awake alert, oriented x4, good strength bilateral upper extremities, able to move bilateral lower extremities spontaneously Skin: normal inspection, normal color, no pat Microbiology Date/Time Source Procedure Growth Status 09/24/17 17:45 Blood Blood Culture - Preliminary NO GROWTH AFTER 48 HOURS Resulted 09/24/17 17:45 Blood Blood Culture - Preliminary NO GROWTH AFTER 48 HOURS Resulted 09/24/17 19:10 Urine,Clean Catch Urine Culture - Final Pseudomonas Aeruginosa Complete 09/25/17 01:41 Sacral Wound Gram Stain - Final Resulted 09/25/17 01:41 Wound Culture - Preliminary Pseudomonas Aeruginosa Diphtheroids Resulted Laboratory Tests Test 09/27/17 05:50 Troponin I 0.000 ng/mL (0.000-0.056) Current Medications Medications (Trade) Dose Ordered Sig/Reanna Route PRN Reason Start Time Stop Time Status Last Admin Dose Admin Acetaminophen (Tylenol) 650 mg Q4H PRN ORAL fever 09/24/17 21:30 10/24/17 21:29 Acetaminophen/ Hydrocodone Bitart ([place] 10/325) 1 ea Q4H PRN ORAL Moderate Pain (Pain Scale 4-6) 09/26/17 08:30 10/01/17 08:29 Al Hydroxide/Mg Hydroxide (Mylanta II) 30 ml Q6H PRN ORAL dyspepsia 09/24/17 21:30 10/24/17 21:29 Dextrose (Dextrose 50%) STAT PRN IV Hypoglycemia 09/24/17 21:30 10/24/17 21:29 Diphenhydramine HCl (Benadryl) 25 mg EVERY 8 HOURS ORAL 09/26/17 14:30 10/26/17 14:29 09/27/17 06:20 Levothyroxine Sodium (Synthroid) 100 mcg ACBREAKFAST ORAL 09/25/17 06:30 10/25/17 06:29 09/27/17 06:20 Lorazepam (Ativan 2mg/ml 1ml) 0.5 mg Q4H PRN IV For Anxiety 09/24/17 21:30 10/01/17 21:29 09/25/17 06:32 Montelukast Sodium (Singulair) 10 mg QHS ORAL 09/24/17 22:00 10/24/17 21:59 09/26/17 21:06 Morphine Sulfate (Morphine Sulfate) 1 mg Q4H PRN IVP Severe Pain (Pain Scale 7-10) 09/26/17 10:00 10/03/17 09:59 09/27/17 06:20 Ondansetron HCl (Zofran) 4 mg Q6H PRN IVP Nausea & Vomiting 09/24/17 21:30 10/24/17 21:29 09/27/17 06:30 Phenazopyridine HCl (Pyridium) 100 mg THREE TIMES A DAY ORAL 09/25/17 13:00 10/25/17 12:59 09/27/17 09:31 Piperacillin Sod/ Tazobactam Sod 3.375 gm/Dextrose 55 ml @ 13.75 mls/ hr EVERY 8 HOURS IVPB 09/26/17 14:00 10/01/17 13:59 09/27/17 06:20 Polyethylene Glycol (Miralax) 17 gm HSPRN PRN ORAL Constipation 09/24/17 21:30 10/24/17 21:29 Pregabalin (Lyrica) 75 mg TID ORAL 09/25/17 09:00 10/25/17 08:59 09/27/17 09:33 Propranolol HCl (Inderal LA) 60 mg DAILY ORAL 09/25/17 09:00 10/25/17 08:59 09/27/17 09:31 Tizanidine HCl (Zanaflex) 4 mg BID ORAL 09/25/17 09:00 10/25/17 08:59 09/27/17 09:31 Topiramate (Topamax) 200 mg DAILY ORAL 09/25/17 09:00 10/25/17 08:59 09/27/17 09:34 Zolpidem Tartrate (Ambien) 5 mg HSPRN PRN ORAL Insomnia 09/24/17 21:30 10/01/17 21:29 09/26/17 21:06 Cami Mendez M.D. Sep 27, 2017 10:06
[2017-09-27] MEDS: Morphine Sulfate 4mg/ml Inj IVP PRN ×4 (10:45→23:00)
--- NOTE | 2017-09-27 10:59 | General Progress Note ---
Assessment/Plan Assessment/Plan (1) H/O Spinal surgery (2) DDD (degenerative disc disease), cervical (3) Lumbar spondylosis (4) Cervical spondylosis (5) Lumbar degenerative disc disease (6) History of total knee replacement, right (7) Osteoarthritis of right knee We will continue the [place] Morphine. Pt was d/w Dr. Schaffer and he concurred Subjective Date patient seen: Sep 27, 2017 Time patient seen: 10:45 - am Allergies: Coded Allergies: CEFAZOLIN (Verified Allergy, Severe, hives all over her body, 01/10/16) PHENYTOIN (Verified Allergy, Severe, swell up face, 01/10/16) SULFA (SULFONAMIDE ANTIBIOTICS) (Verified Allergy, Severe, hives all over her body, 01/10/16) HYDROXYZINE (Verified Adverse Reaction, Severe, tachypnea; tachycardia, 01/10/16) PENICILLINS (Verified Adverse Reaction, Severe, vomiting, 01/10/16) PROCHLORPERAZINE (Verified Adverse Reaction, Severe, musle spasm, 01/10/16) Subjective Constitutional: Reports: no symptoms HEENT: Reports: no symptoms Respiratory: Reports: no symptoms Gastrointestinal/Abdominal: Reports: no symptoms Genitourinary: Reports: no symptoms Endocrine: Reports: no symptoms Hematologic/Lymphatic: Reports: no symptoms Subjective Patient is in bed c/o severe lower back pain due to this the Morphine was increased to 4mg and now her pain is better tolerated. Objective Last 24 Hour Vital Signs Date Time Temp Pulse Resp B/P (MAP) Pulse Ox O2 Delivery O2 Flow Rate FiO2 09/27/17 08:00 97.2 89 20 109/64 98 Room Air 09/27/17 04:07 97.5 68 18 108/70 95 Nasal Cannula 09/27/17 04:00 72 09/27/17 00:00 71 09/26/17 23:53 98.2 66 18 124/63 95 Room Air 09/26/17 20:00 98.1 73 18 93/54 93 Room Air 09/26/17 20:00 72 09/26/17 18:30 97.7 74 18 100/59 96 Room Air 09/26/17 16:00 99.7 76 20 114/71 95 Room Air 09/26/17 16:00 76 09/26/17 12:00 69 09/26/17 12:00 98.2 69 18 111/63 99 Room Air Laboratory Tests 09/27/17 05:50: Troponin I 0.000 Height (Feet): 5 Height (Inches): 2.00 Weight (Pounds): 120 Objective General Appearance: no apparent distress, alert EENT: PERRL/EOMI, normal ENT inspection Neck: non-tender, normal alignment Cardiovascular: normal rate, regular rhythm Respiratory/Chest: lungs clear, normal breath sounds Abdomen: non tender, soft Extremities: weakness noted Edema: trace edema Neurologic: alert, oriented x 3 Skin: warm/dry GABE DOMINGO Sep 27, 2017 10:59
[2017-09-27 12:00] VITALS: BP 106/64
[2017-09-27 16:00] VITALS: BP 112/66
[2017-09-27 20:00] VITALS: BP 104/63
[2017-09-27] MEDS: Montelukast 10mg tablet ORAL SCH (21:25)
[2017-09-27] MEDS: Zolpidem 5mg tab ORAL PRN (23:00)
[2017-09-28] VITALS: BP 122/72
[2017-09-28] MEDS: Morphine Sulfate 4mg/ml Inj IVP PRN ×3 (03:01→12:02)
[2017-09-28] MEDS: LORazepam Inj 2mg/ml 1ml IV PRN ×2 (03:35→23:20)
[2017-09-28 04:00] VITALS: BP 141/79
[2017-09-28] MEDS: DiphenhydrAMINE 25mg/10ml Elixir ORAL SCH ×3 (05:42→22:14)
[2017-09-28] MEDS: Piperacillin/Tazobactam 3.375 GM in D5W 55 ML IVPB SCH ×3 (06:11→22:46)
[2017-09-28 08:00] VITALS: BP 132/71
--- NOTE | 2017-09-28 08:10 | General Progress Note ---
Assessment/Plan Assessment/Plan (1) H/O Spinal surgery (2) DDD (degenerative disc disease), cervical (3) Lumbar spondylosis (4) Cervical spondylosis (5) Lumbar degenerative disc disease (6) History of total knee replacement, right (7) Osteoarthritis of right knee We will continue the [place] and Morphine. Pt was d/w Dr. Schaffer and he concurred Subjective Date patient seen: Sep 28, 2017 Time patient seen: 07:30 - am Allergies: Coded Allergies: CEFAZOLIN (Verified Allergy, Severe, hives all over her body, 01/10/16) PHENYTOIN (Verified Allergy, Severe, swell up face, 01/10/16) SULFA (SULFONAMIDE ANTIBIOTICS) (Verified Allergy, Severe, hives all over her body, 01/10/16) HYDROXYZINE (Verified Adverse Reaction, Severe, tachypnea; tachycardia, 01/10/16) PENICILLINS (Verified Adverse Reaction, Severe, vomiting, 01/10/16) PROCHLORPERAZINE (Verified Adverse Reaction, Severe, musle spasm, 01/10/16) Subjective Constitutional: Reports: no symptoms HEENT: Reports: no symptoms Respiratory: Reports: no symptoms Gastrointestinal/Abdominal: Reports: no symptoms Genitourinary: Reports: no symptoms Endocrine: Reports: no symptoms Hematologic/Lymphatic: Reports: no symptoms Subjective Patient reports that her pain continues to be severe more so with movement and laying down in the wrong positions. The pain has been tolerated on the medications and she has no new complaints. Objective Last 24 Hour Vital Signs Date Time Temp Pulse Resp B/P (MAP) Pulse Ox O2 Delivery O2 Flow Rate FiO2 09/28/17 04:00 97.7 76 20 141/79 98 Room Air 09/28/17 00:00 98.0 71 18 122/72 97 Room Air 09/27/17 20:00 97.0 64 18 104/63 94 Room Air 09/27/17 16:00 97.9 71 20 112/66 100 09/27/17 15:16 97.9 09/27/17 15:16 97.9 09/27/17 12:00 97.8 75 20 106/64 94 Room Air 09/27/17 12:00 90 Intake and Output 09/28/17 09/29/17 19:00 07:00 Intake Total 13.75 ml Balance 13.75 ml IV Total 13.75 ml Height (Feet): 5 Height (Inches): 2.00 Weight (Pounds): 120 Objective General Appearance: no apparent distress, alert EENT: PERRL/EOMI, normal ENT inspection Neck: non-tender, normal alignment Cardiovascular: normal rate, regular rhythm Respiratory/Chest: lungs clear, normal breath sounds Abdomen: non tender, soft Extremities: weakness noted Edema: trace edema Neurologic: alert, oriented x 3 Skin: warm/dry GABE DOMINGO Sep 28, 2017 08:10
[2017-09-28] MEDS: Propranolol 10mg tab ORAL SCH ×2 (09:25→21:00)
[2017-09-28] MEDS: Lyrica 75mg cap ORAL SCH ×3 (09:26→20:04)
[2017-09-28] MEDS: Topiramate 100mg tab ORAL SCH (09:27)
--- NOTE | 2017-09-28 09:54 | Infectious Diseases Prog Note ---
Assessment/Plan Assessment/Plan Abx: Cipro x1 09/24 Aztreonam 09/25-09/26 Zosyn 09/26- Assesment: Presyncopal event- likely due to hypotension and dehydration UTI- +Pyuria/bacteriuria, urgency -u/a wbc 30-40, nit+, leuk +3; ucx >100K PsA (R Cipro/levo, aztreonam; S Cefepime, zosyn) Leukocytosis, mild- resolved -afebrile chronic back pain s/p multiple back surgeries, hx of DVT on xarelto, bedbound, HTN, migraine Plan: -Continue Zosyn #3/5-7 for PsA UTI -discussed with patient. She has multiple allergies: Ancef worst than PNC in causing hives. FQ and aztreonam are not option as specimen are resistant. We will give Benadryl 30 min before Zosyn administration. Discussed with RN and she will be monitored closely. Receiving Zofran because of nausea with benadryl -may need to switch to Meropenem if S/E with zofran and benadryl -check EKG to monitor Qtc while on zofran, -09/26 SP Aztreonam #2 -09/25 SP CIpro x1 -f/u cx -Monitor CBC/BMP, temperatures Thank you for this consultation. Will continue to follow along with you. Discussed with RN. Subjective Allergies: Coded Allergies: CEFAZOLIN (Verified Allergy, Severe, hives all over her body, 01/10/16) PHENYTOIN (Verified Allergy, Severe, swell up face, 01/10/16) SULFA (SULFONAMIDE ANTIBIOTICS) (Verified Allergy, Severe, hives all over her body, 01/10/16) HYDROXYZINE (Verified Adverse Reaction, Severe, tachypnea; tachycardia, 01/10/16) PENICILLINS (Verified Adverse Reaction, Severe, vomiting, 01/10/16) PROCHLORPERAZINE (Verified Adverse Reaction, Severe, musle spasm, 01/10/16) Subjective afebrile no leukocytosis Bcx NTD urgency improving nausea with benadryl no hives on zosyn Objective Vital Signs Last 24 Hour Vital Signs Date Time Temp Pulse Resp B/P (MAP) Pulse Ox O2 Delivery O2 Flow Rate FiO2 09/28/17 09:25 77 132/83 09/28/17 04:00 97.7 76 20 141/79 98 Room Air 09/28/17 00:00 98.0 71 18 122/72 97 Room Air 09/27/17 20:00 97.0 64 18 104/63 94 Room Air 09/27/17 16:00 97.9 71 20 112/66 100 09/27/17 15:16 97.9 09/27/17 15:16 97.9 09/27/17 12:00 97.8 75 20 106/64 94 Room Air 09/27/17 12:00 90 Height (Feet): 5 Height (Inches): 2.00 Weight (Pounds): 120 Objective General Appearance: Chronically Ill - Thin, chronically ill-appearing middle- aged female, awake and alert HEENT: normocephalic, atraumatic, bilateral eye PERRL, bilateral eye EOMI, moist mucus membranes Neck: normal inspection, full range of motion, supple Respiratory: normal inspection, lungs clear, normal breath sounds, no respiratory distress, no wheezing, Cardiovascular : normal inspection, regular rate, rhythm, normal capillary refill Gastrointestinal: normal inspection, soft, non-distended, no guarding, L flank TTP Musculoskeletal: other - Diffuse generalized paraspinal tenderness in her back , limited range of motion of bilateral lower extremities which is chronic, but able to bend both her knees without issue Neurologic: media services coordinator III-XII nml as tested, other - Awake alert, oriented x4, good strength bilateral upper extremities, able to move bilateral lower extremities spontaneously Skin: normal inspection, normal color, no pat Current Medications Medications (Trade) Dose Ordered Sig/Reanna Route PRN Reason Start Time Stop Time Status Last Admin Dose Admin Acetaminophen (Tylenol) 650 mg Q4H PRN ORAL fever 09/24/17 21:30 10/24/17 21:29 Acetaminophen/ Hydrocodone Bitart ([place] 10/325) 1 ea Q4H PRN ORAL Moderate breakthrough pain 09/28/17 08:30 10/05/17 08:29 Al Hydroxide/Mg Hydroxide (Mylanta II) 30 ml Q6H PRN ORAL dyspepsia 09/24/17 21:30 10/24/17 21:29 Dextrose (Dextrose 50%) STAT PRN IV Hypoglycemia 09/24/17 21:30 10/24/17 21:29 Diphenhydramine HCl (Benadryl) 25 mg EVERY 8 HOURS ORAL 09/26/17 14:30 10/26/17 14:29 09/28/17 05:42 Levothyroxine Sodium (Synthroid) 100 mcg ACBREAKFAST ORAL 09/25/17 06:30 10/25/17 06:29 09/28/17 05:46 Lorazepam (Ativan 2mg/ml 1ml) 0.5 mg Q4H PRN IV For Anxiety 09/24/17 21:30 10/01/17 21:29 09/28/17 03:35 Montelukast Sodium (Singulair) 10 mg QHS ORAL 09/24/17 22:00 10/24/17 21:59 09/27/17 21:25 Morphine Sulfate (Morphine Sulfate) 4 mg Q4H PRN IVP Severe Pain (Pain Scale 7-10) 09/27/17 10:30 10/04/17 10:29 09/28/17 06:57 Ondansetron HCl (Zofran) 4 mg Q6H PRN IVP Nausea & Vomiting 09/24/17 21:30 10/24/17 21:29 09/28/17 05:22 Phenazopyridine HCl (Pyridium) 100 mg THREE TIMES A DAY ORAL 09/25/17 13:00 10/25/17 12:59 09/28/17 09:26 Piperacillin Sod/ Tazobactam Sod 3.375 gm/Dextrose 55 ml @ 13.75 mls/ hr EVERY 8 HOURS IVPB 09/26/17 14:00 10/01/17 13:59 09/28/17 06:11 Polyethylene Glycol (Miralax) 17 gm HSPRN PRN ORAL Constipation 09/24/17 21:30 10/24/17 21:29 Pregabalin (Lyrica) 75 mg TID ORAL 09/25/17 09:00 10/25/17 08:59 09/28/17 09:26 Propranolol HCl (Inderal) 20 mg Q12H ORAL 09/28/17 09:00 10/28/17 08:59 09/28/17 09:25 Tizanidine HCl (Zanaflex) 4 mg BID ORAL 09/25/17 09:00 10/25/17 08:59 09/28/17 09:27 Topiramate (Topamax) 200 mg DAILY ORAL 09/25/17 09:00 10/25/17 08:59 09/28/17 09:27 Zolpidem Tartrate (Ambien) 5 mg HSPRN PRN ORAL Insomnia 09/24/17 21:30 10/01/17 21:29 09/27/17 23:00 Cami Mendez M.D. Sep 28, 2017 09:54
--- NOTE | 2017-09-28 11:55 | Pulmonology Progress Note ---
Assessment/Plan Problems: (1) Sepsis (2) Hypotension (3) UTI (urinary tract infection) (4) Bedridden (5) H/O Spinal surgery Assessment/Plan increase Mrophine prn again to 6 mg improving continue abx check cultures echo cardio evaluation appreciated decrease Metoprolol dose, considering SBP of 60 social service evaluation. dc planning in progress Subjective ROS Limited/Unobtainable: No Constitutional: Reports: no symptoms HEENT: Repors: no symptoms Respiratory: Reports: no symptoms Allergies: Coded Allergies: CEFAZOLIN (Verified Allergy, Severe, hives all over her body, 01/10/16) PHENYTOIN (Verified Allergy, Severe, swell up face, 01/10/16) SULFA (SULFONAMIDE ANTIBIOTICS) (Verified Allergy, Severe, hives all over her body, 01/10/16) HYDROXYZINE (Verified Adverse Reaction, Severe, tachypnea; tachycardia, 01/10/16) PENICILLINS (Verified Adverse Reaction, Severe, vomiting, 01/10/16) PROCHLORPERAZINE (Verified Adverse Reaction, Severe, musle spasm, 01/10/16) Objective Last 24 Hour Vital Signs Date Time Temp Pulse Resp B/P (MAP) Pulse Ox O2 Delivery O2 Flow Rate FiO2 09/28/17 09:25 77 132/83 09/28/17 08:00 98.1 76 20 132/71 93 Room Air 09/28/17 04:00 97.7 76 20 141/79 98 Room Air 09/28/17 00:00 98.0 71 18 122/72 97 Room Air 09/27/17 20:00 97.0 64 18 104/63 94 Room Air 09/27/17 16:00 97.9 71 20 112/66 100 09/27/17 15:16 97.9 09/27/17 15:16 97.9 09/27/17 12:00 97.8 75 20 106/64 94 Room Air 09/27/17 12:00 90 Intake and Output 09/28/17 09/29/17 19:00 07:00 Intake Total 253.75 ml Balance 253.75 ml Intake Oral 240 ml IV Total 13.75 ml # Voids 2 # Bowel Movements 1 General Appearance: WD/WN HEENT: atraumatic, anicteric Respiratory/Chest: chest wall non-tender, lungs clear Breasts: no masses Cardiovascular: normal peripheral pulses Abdomen: normal bowel sounds, soft, non tender Genitourinary: normal external genitalia Extremities: no cyanosis Skin: no rash, no lesions Current Medications Medications (Trade) Dose Ordered Sig/Reanna Route PRN Reason Start Time Stop Time Status Last Admin Dose Admin Acetaminophen (Tylenol) 650 mg Q4H PRN ORAL fever 09/24/17 21:30 10/24/17 21:29 Acetaminophen/ Hydrocodone Bitart ([place] 10/325) 1 ea Q4H PRN ORAL Moderate breakthrough pain 09/28/17 08:30 10/05/17 08:29 Al Hydroxide/Mg Hydroxide (Mylanta II) 30 ml Q6H PRN ORAL dyspepsia 09/24/17 21:30 10/24/17 21:29 Dextrose (Dextrose 50%) STAT PRN IV Hypoglycemia 09/24/17 21:30 10/24/17 21:29 Diphenhydramine HCl (Benadryl) 25 mg EVERY 8 HOURS ORAL 09/26/17 14:30 10/26/17 14:29 09/28/17 05:42 Levothyroxine Sodium (Synthroid) 100 mcg ACBREAKFAST ORAL 09/25/17 06:30 10/25/17 06:29 09/28/17 05:46 Lorazepam (Ativan 2mg/ml 1ml) 0.5 mg Q4H PRN IV For Anxiety 09/24/17 21:30 10/01/17 21:29 09/28/17 03:35 Montelukast Sodium (Singulair) 10 mg QHS ORAL 09/24/17 22:00 10/24/17 21:59 09/27/17 21:25 Morphine Sulfate (Morphine Sulfate) 4 mg Q4H PRN IVP Severe Pain (Pain Scale 7-10) 09/27/17 10:30 10/04/17 10:29 09/28/17 06:57 Ondansetron HCl (Zofran) 4 mg Q6H PRN IVP Nausea & Vomiting 09/24/17 21:30 10/24/17 21:29 09/28/17 05:22 Phenazopyridine HCl (Pyridium) 100 mg THREE TIMES A DAY ORAL 09/25/17 13:00 10/25/17 12:59 09/28/17 09:26 Piperacillin Sod/ Tazobactam Sod 3.375 gm/Dextrose 55 ml @ 13.75 mls/ hr EVERY 8 HOURS IVPB 09/26/17 14:00 10/01/17 13:59 09/28/17 06:11 Polyethylene Glycol (Miralax) 17 gm HSPRN PRN ORAL Constipation 09/24/17 21:30 10/24/17 21:29 Pregabalin (Lyrica) 75 mg TID ORAL 09/25/17 09:00 10/25/17 08:59 09/28/17 09:26 Propranolol HCl (Inderal) 20 mg Q12H ORAL 09/28/17 09:00 10/28/17 08:59 09/28/17 09:25 Solifenacin (Vesicare) 10 mg DAILY ORAL 09/28/17 11:45 10/28/17 11:44 UNV Tizanidine HCl (Zanaflex) 4 mg BID ORAL 09/25/17 09:00 10/25/17 08:59 09/28/17 09:27 Topiramate (Topamax) 200 mg DAILY ORAL 09/25/17 09:00 10/25/17 08:59 09/28/17 09:27 Zolpidem Tartrate (Ambien) 5 mg HSPRN PRN ORAL Insomnia 09/24/17 21:30 10/01/17 21:29 09/27/17 23:00 JAMA ALONZO Sep 28, 2017 11:55
[2017-09-28] MEDS ORDERED: MS CONTIN15 M1 PO (11:57)
[2017-09-28 12:00] VITALS: BP 103/58
[2017-09-28] MEDS ORDERED: Morphine Sulfate 4mg/ml Inj IVP PRN ×2 (12:00→12:31)
--- NOTE | 2017-09-28 15:16 | Cardiology Progress Note ---
Assessment/Plan Assessment/Plan 1. Syncope, likely secondary to prolonged bed rest, possibly volume and uti 2. History of spine disorder. 3. History of hepatitis B. 4. Remote history of asthma. 5. uti several of her med can produce orthostatic hypotension watch bp cv stabel at the moment Subjective Cardiovascular: Denies: chest pain, lightheadedness, palpitations Respiratory: Denies: shortness of breath Gastrointestinal/Abdominal: Denies: abdominal pain Genitourinary: Denies: burning Subjective headache, poor sleep last ntie Objective Last 24 Hour Vital Signs Date Time Temp Pulse Resp B/P (MAP) Pulse Ox O2 Delivery O2 Flow Rate FiO2 09/28/17 12:00 97.0 88 20 103/58 99 Room Air 09/28/17 09:25 77 132/83 09/28/17 08:00 98.1 76 20 132/71 93 Room Air 09/28/17 04:00 97.7 76 20 141/79 98 Room Air 09/28/17 00:00 98.0 71 18 122/72 97 Room Air 09/27/17 20:00 97.0 64 18 104/63 94 Room Air 09/27/17 16:00 97.9 71 20 112/66 100 09/27/17 15:16 97.9 09/27/17 15:16 97.9 General Appearance: no apparent distress, alert Neck: supple Cardiovascular: normal rate, regular rhythm Respiratory/Chest: lungs clear, normal breath sounds Abdomen: non tender, soft Extremities: non-tender, no swelling Intake and Output 09/28/17 09/29/17 19:00 07:00 Intake Total 295.00 ml Balance 295.00 ml Intake Oral 240 ml IV Total 55.00 ml # Voids 2 # Bowel Movements 1 CHESTER WAITE Sep 28, 2017 15:16
[2017-09-28] MEDS ORDERED: Tubing IV Secondary IV ONE (15:19)
[2017-09-28 16:00] VITALS: BP 123/71
[2017-09-28] MEDS: Solifenacin 10mg tab ORAL SCH (17:03)
[2017-09-28] MEDS: Morphine Sulfate 10mg/ml Inj IVP PRN ×2 (17:04→21:07)
[2017-09-28 20:00] VITALS: BP 148/89
[2017-09-28] MEDS: Montelukast 10mg tablet ORAL SCH (21:07)
[2017-09-28] MEDS: Zolpidem 5mg tab ORAL PRN (22:14)
[2017-09-29] VITALS: BP 140/78
[2017-09-29 04:00] VITALS: BP 108/66
[2017-09-29] MEDS: Morphine Sulfate 10mg/ml Inj IVP PRN ×5 (04:16→21:01)
[2017-09-29] MEDS: DiphenhydrAMINE 25mg/10ml Elixir ORAL SCH ×3 (05:30→21:46)
[2017-09-29] MEDS: Piperacillin/Tazobactam 3.375 GM in D5W 55 ML IVPB SCH ×3 (06:04→23:28)
[2017-09-29 07:40] LABS: BASOPHILS % (AUTO) 0.8 % (0.0-2.0); EOSINOPHILS % (AUTO) 0.2 % (0.0-3.0); LYMPHOCYTES % (AUTO) 42.3 % (20.0-45.0); MEAN CORPUSCULAR HEMOGLOBIN 26.5 PG (27.0-31.0); MEAN CORPUSCULAR HGB CONC 33.2 G/DL (32.0-36.0); MEAN CORPUSCULAR VOLUME 80 FL (80-99); MEAN PLATELET VOLUME 5.9 FL (6.5-10.1); MONOCYTES % (AUTO) 8.4 % (1.0-10.0); NEUTROPHILS % (AUTO) 48.3 % (45.0-75.0); PLATELET COUNT 265 K/UL (150-450); RED BLOOD COUNT 4.03 M/UL (4.20-5.40); RED CELL DISTRIBUTION WIDTH 14.5 % (11.6-14.8); WHITE BLOOD COUNT 4.7 K/UL (4.8-10.8)
[2017-09-29 08:00] VITALS: BP 107/71
[2017-09-29] MEDS: Lyrica 75mg cap ORAL SCH ×3 (08:20→18:06)
[2017-09-29] MEDS: Solifenacin 10mg tab ORAL SCH (08:21)
[2017-09-29] MEDS: Topiramate 100mg tab ORAL SCH (08:22)
[2017-09-29] MEDS: Propranolol 10mg tab ORAL SCH ×2 (08:22→21:00)
[2017-09-29 08:26] LABS: ALANINE AMINOTRANSFERASE 11 U/L (12-78); ALBUMIN/GLOBULIN RATIO 0.6 (1.0-2.7); ANION GAP 4 mmol/L (5-15); ASPARTATE AMINO TRANSFERASE 10 U/L (15-37); CALCIUM 8.7 MG/DL (8.5-10.1); CARBON DIOXIDE 28 MMOL/L (21-32); CHLORIDE 106 MMOL/L (98-107); CREATININE 0.9 MG/DL (0.55-1.30); GLOMERULAR FILTRATION RATE > 60 mL/min (>60); MAGNESIUM 1.5 MG/DL (1.8-2.4); SODIUM 138 MMOL/L (136-145); TOTAL PROTEIN 6.8 G/DL (6.4-8.2)
[2017-09-29 09:27] LABS: ERYTHROCYTE SEDIMENTATION RATE 65 MM/HR (0-30)
[2017-09-29 12:00] VITALS: BP 101/60
--- NOTE | 2017-09-29 14:33 | Infectious Diseases Prog Note ---
Assessment/Plan Assessment/Plan Abx: Cipro x1 09/24 Aztreonam 09/25-09/26 Zosyn 09/26- Assesment: Presyncopal event- likely due to hypotension and dehydration UTI- +Pyuria/bacteriuria, urgency -u/a wbc 30-40, nit+, leuk +3; ucx >100K PsA (R Cipro/levo, aztreonam; S Cefepime, zosyn) Leukocytosis, mild- resolved -afebrile chronic back pain s/p multiple back surgeries, hx of DVT on xarelto, bedbound, HTN, migraine Plan: -Continue Zosyn # 4 /5-7 for PsA UTI -discussed with patient. She has multiple allergies: Ancef worst than PNC in causing hives. FQ and aztreonam are not option as specimen are resistant. We will give Benadryl 30 min before Zosyn administration. Discussed with RN and she will be monitored closely. Receiving Zofran because of nausea with benadryl -may need to switch to Meropenem if S/E with zofran and benadryl -check EKG to monitor Qtc while on zofran, -09/26 SP Aztreonam #2 -09/25 SP CIpro x1 -f/u cx -Monitor CBC/BMP, temperatures Subjective Constitutional: Denies: no symptoms, fever, chills, fatigue, anorexia, drenching sweats, other Allergies: Coded Allergies: CEFAZOLIN (Verified Allergy, Severe, hives all over her body, 01/10/16) PHENYTOIN (Verified Allergy, Severe, swell up face, 01/10/16) SULFA (SULFONAMIDE ANTIBIOTICS) (Verified Allergy, Severe, hives all over her body, 01/10/16) HYDROXYZINE (Verified Adverse Reaction, Severe, tachypnea; tachycardia, 01/10/16) PENICILLINS (Verified Adverse Reaction, Severe, vomiting, 01/10/16) PROCHLORPERAZINE (Verified Adverse Reaction, Severe, musle spasm, 01/10/16) Subjective feeling better Objective Vital Signs Last 24 Hour Vital Signs Date Time Temp Pulse Resp B/P (MAP) Pulse Ox O2 Delivery O2 Flow Rate FiO2 09/29/17 13:05 98.1 09/29/17 12:00 98.1 81 19 101/60 97 Room Air 09/29/17 08:50 98.1 09/29/17 08:50 98.1 09/29/17 08:22 91 108/66 09/29/17 08:00 98.1 89 18 107/71 98 Room Air 09/29/17 04:00 98.1 91 20 108/66 95 Room Air 09/29/17 00:00 98.6 89 18 140/78 96 Room Air 09/28/17 21:00 92 148/89 09/28/17 20:00 98.8 92 20 148/89 96 Room Air 09/28/17 16:00 99.1 76 18 123/71 99 Room Air Height (Feet): 5 Height (Inches): 2.00 Weight (Pounds): 120 HEENT: anicteric Respiratory/Chest: normal breath sounds Cardiovascular: regular rhythm Abdomen: no organomegaly Laboratory Tests Test 09/29/17 07:20 White Blood Count 4.7 K/UL (4.8-10.8) L Red Blood Count 4.03 M/UL (4.20-5.40) L Hemoglobin 10.7 G/DL (12.0-16.0) L Hematocrit 32.1 % (37.0-47.0) L Mean Corpuscular Volume 80 FL (80-99) Mean Corpuscular Hemoglobin 26.5 PG (27.0-31.0) L Mean Corpuscular Hemoglobin Concent 33.2 G/DL (32.0-36.0) Red Cell Distribution Width 14.5 % (11.6-14.8) Platelet Count 265 K/UL (150-450) Mean Platelet Volume 5.9 FL (6.5-10.1) L Neutrophils (%) (Auto) 48.3 % (45.0-75.0) Lymphocytes (%) (Auto) 42.3 % (20.0-45.0) Monocytes (%) (Auto) 8.4 % (1.0-10.0) Eosinophils (%) (Auto) 0.2 % (0.0-3.0) Basophils (%) (Auto) 0.8 % (0.0-2.0) Erythrocyte Sedimentation Rate 65 MM/HR (0-30) H Sodium Level 138 MMOL/L (136-145) Potassium Level 4.0 MMOL/L (3.5-5.1) Chloride Level 106 MMOL/L (98-107) Carbon Dioxide Level 28 MMOL/L (21-32) Anion Gap 4 mmol/L (5-15) L Blood Urea Nitrogen 13 mg/dL (7-18) Creatinine 0.9 MG/DL (0.55-1.30) Estimat Glomerular Filtration Rate > 60 mL/min (>60) Glucose Level 115 MG/DL (74-106) H Calcium Level 8.7 MG/DL (8.5-10.1) Phosphorus Level 4.0 MG/DL (2.5-4.9) Magnesium Level 1.5 MG/DL (1.8-2.4) L Total Bilirubin 0.2 MG/DL (0.2-1.0) Aspartate Amino Transf (AST/SGOT) 10 U/L (15-37) L Alanine Aminotransferase (ALT/SGPT) 11 U/L (12-78) L Alkaline Phosphatase 83 U/L (46-116) Total Protein 6.8 G/DL (6.4-8.2) Albumin 2.6 G/DL (3.4-5.0) L Globulin 4.2 g/dL Albumin/Globulin Ratio 0.6 (1.0-2.7) L Current Medications Medications (Trade) Dose Ordered Sig/Reanna Route PRN Reason Start Time Stop Time Status Last Admin Dose Admin Acetaminophen (Tylenol) 650 mg Q4H PRN ORAL fever 09/24/17 21:30 10/24/17 21:29 Acetaminophen/ Hydrocodone Bitart ([place] 10/325) 1 ea Q4H PRN ORAL Moderate breakthrough pain 09/28/17 08:30 10/05/17 08:29 Al Hydroxide/Mg Hydroxide (Mylanta II) 30 ml Q6H PRN ORAL dyspepsia 09/24/17 21:30 10/24/17 21:29 Dextrose (Dextrose 50%) STAT PRN IV Hypoglycemia 09/24/17 21:30 10/24/17 21:29 Diphenhydramine HCl (Benadryl) 25 mg EVERY 8 HOURS ORAL 09/26/17 14:30 10/26/17 14:29 09/29/17 13:56 Levothyroxine Sodium (Synthroid) 100 mcg ACBREAKFAST ORAL 09/25/17 06:30 10/25/17 06:29 09/29/17 06:04 Lorazepam (Ativan 2mg/ml 1ml) 0.5 mg Q4H PRN IV For Anxiety 09/24/17 21:30 10/01/17 21:29 09/28/17 23:20 Montelukast Sodium (Singulair) 10 mg QHS ORAL 09/24/17 22:00 10/24/17 21:59 09/28/17 21:07 Morphine Sulfate (Morphine Sulfate) 6 mg Q4H PRN IVP Severe Pain (Pain Scale 7-10) 09/28/17 17:00 10/05/17 12:30 09/29/17 12:35 Ondansetron HCl (Zofran) 4 mg Q6H PRN IVP Nausea & Vomiting 09/24/17 21:30 10/24/17 21:29 09/29/17 13:33 Phenazopyridine HCl (Pyridium) 100 mg THREE TIMES A DAY ORAL 09/25/17 13:00 10/25/17 12:59 09/29/17 13:33 Piperacillin Sod/ Tazobactam Sod 3.375 gm/Dextrose 55 ml @ 13.75 mls/ hr EVERY 8 HOURS IVPB 09/26/17 14:00 10/01/17 13:59 09/29/17 06:04 Polyethylene Glycol (Miralax) 17 gm HSPRN PRN ORAL Constipation 09/24/17 21:30 10/24/17 21:29 Pregabalin (Lyrica) 75 mg TID ORAL 09/25/17 09:00 10/25/17 08:59 09/29/17 13:33 Propranolol HCl (Inderal) 20 mg Q12H ORAL 09/28/17 09:00 10/28/17 08:59 09/28/17 09:25 Solifenacin (Vesicare) 10 mg DAILY ORAL 09/28/17 14:00 10/28/17 13:59 09/29/17 08:21 Tizanidine HCl (Zanaflex) 4 mg BID ORAL 09/25/17 09:00 10/25/17 08:59 09/29/17 08:20 Topiramate (Topamax) 200 mg DAILY ORAL 09/25/17 09:00 10/25/17 08:59 09/29/17 08:22 Zolpidem Tartrate (Ambien) 5 mg HSPRN PRN ORAL Insomnia 09/24/17 21:30 10/01/17 21:29 09/28/17 22:14 NESSA MARTINO M.D. Sep 29, 2017 14:33
[2017-09-29] MEDS: Norco 10mg/325mg tab ORAL PRN (15:39)
[2017-09-29 16:00] VITALS: BP 115/83
[2017-09-29 20:00] VITALS: BP 101/67
[2017-09-29] MEDS: Montelukast 10mg tablet ORAL SCH (21:04)
[2017-09-29] MEDS: LORazepam Inj 2mg/ml 1ml IV PRN (23:28)
[2017-09-29] MEDS: Zolpidem 5mg tab ORAL PRN (23:28)
[2017-09-30] VITALS: BP 115/84
[2017-09-30] MEDS: Morphine Sulfate 10mg/ml Inj IVP PRN ×6 (03:35→23:33)
[2017-09-30 04:24] VITALS: BP 104/71
[2017-09-30] MEDS: DiphenhydrAMINE 25mg/10ml Elixir ORAL SCH ×4 (05:45→20:26)
[2017-09-30] MEDS: Piperacillin/Tazobactam 3.375 GM in D5W 55 ML IVPB SCH ×3 (06:07→20:27)
[2017-09-30 08:00] VITALS: BP 111/67
[2017-09-30] MEDS: Propranolol 10mg tab ORAL SCH ×2 (09:00→20:25)
[2017-09-30] MEDS: Solifenacin 10mg tab ORAL SCH (09:03)
[2017-09-30] MEDS: Lyrica 75mg cap ORAL SCH ×3 (09:03→18:14)
[2017-09-30] MEDS: Topiramate 100mg tab ORAL SCH (09:04)
[2017-09-30] MEDS ORDERED: Tubing IV Secondary IV ONE (09:08)
[2017-09-30] MEDS ORDERED: NS 500ML ONE (09:08)
--- NOTE | 2017-09-30 09:24 | General Progress Note ---
Assessment/Plan Assessment/Plan (1) H/O Spinal surgery (2) DDD (degenerative disc disease), cervical (3) Lumbar spondylosis (4) Cervical spondylosis (5) Lumbar degenerative disc disease (6) History of total knee replacement, right (7) Osteoarthritis of right knee We will continue the [place] and Morphine. Pt was d/w Dr. Schaffer and he concurred Subjective Date patient seen: Sep 30, 2017 Time patient seen: 07:00 - am Allergies: Coded Allergies: CEFAZOLIN (Verified Allergy, Severe, hives all over her body, 01/10/16) PHENYTOIN (Verified Allergy, Severe, swell up face, 01/10/16) SULFA (SULFONAMIDE ANTIBIOTICS) (Verified Allergy, Severe, hives all over her body, 01/10/16) HYDROXYZINE (Verified Adverse Reaction, Severe, tachypnea; tachycardia, 01/10/16) PENICILLINS (Verified Adverse Reaction, Severe, vomiting, 01/10/16) PROCHLORPERAZINE (Verified Adverse Reaction, Severe, musle spasm, 01/10/16) Subjective Constitutional: Reports: no symptoms HEENT: Reports: no symptoms Respiratory: Reports: no symptoms Gastrointestinal/Abdominal: Reports: no symptoms Genitourinary: Reports: no symptoms Endocrine: Reports: no symptoms Hematologic/Lymphatic: Reports: no symptoms Subjective Patient is in bed and has been using the Morphine, which was increased to 6mg due to her c/o severe pain, with [place] as needed. Her pain has been tolerated well on the medication and she has no new complaints. Objective Last 24 Hour Vital Signs Date Time Temp Pulse Resp B/P (MAP) Pulse Ox O2 Delivery O2 Flow Rate FiO2 09/30/17 09:02 98.1 09/30/17 09:00 98 111/67 09/30/17 08:00 98.1 98 18 111/67 97 Room Air 09/30/17 04:24 98.2 94 18 104/71 98 Room Air 09/30/17 00:00 98.5 98 19 115/84 92 Room Air 09/29/17 21:00 87 101/67 09/29/17 20:00 98.3 87 20 101/67 94 Room Air 09/29/17 19:05 98.4 09/29/17 19:05 98.4 11/25/17 16:38 98.4 09/29/17 16:00 98.4 94 18 115/83 96 Room Air 09/29/17 12:00 98.1 81 19 101/60 97 Room Air Intake and Output 09/30/17 10/01/17 19:00 07:00 Intake Total 13.75 ml Balance 13.75 ml IV Total 13.75 ml Height (Feet): 5 Height (Inches): 2.00 Weight (Pounds): 120 Objective General Appearance: no apparent distress, alert EENT: PERRL/EOMI, normal ENT inspection Neck: non-tender, normal alignment Cardiovascular: normal rate, regular rhythm Respiratory/Chest: lungs clear, normal breath sounds Abdomen: non tender, soft Extremities: weakness noted Edema: trace edema Neurologic: alert, oriented x 3 Skin: warm/dry GABE DOMINGO Sep 30, 2017 09:24
[2017-09-30 12:00] VITALS: BP 99/63
[2017-09-30] MEDS: Norco 10mg/325mg tab ORAL PRN (12:31)
--- NOTE | 2017-09-30 14:34 | Pulmonology Progress Note ---
Assessment/Plan Problems: (1) Sepsis (2) Hypotension (3) UTI (urinary tract infection) (4) Bedridden (5) H/O Spinal surgery Assessment/Plan increase Mrophine prn again to 6 mg improving continue abx check cultures echo cardio evaluation appreciated decrease Metoprolol dose, considering SBP of 60 social service evaluation. dc planning in progress Subjective Interval Events: late note for 09/29 Constitutional: Reports: no symptoms HEENT: Repors: no symptoms Respiratory: Reports: no symptoms Allergies: Coded Allergies: CEFAZOLIN (Verified Allergy, Severe, hives all over her body, 01/10/16) PHENYTOIN (Verified Allergy, Severe, swell up face, 01/10/16) SULFA (SULFONAMIDE ANTIBIOTICS) (Verified Allergy, Severe, hives all over her body, 01/10/16) HYDROXYZINE (Verified Adverse Reaction, Severe, tachypnea; tachycardia, 01/10/16) PENICILLINS (Verified Adverse Reaction, Severe, vomiting, 01/10/16) PROCHLORPERAZINE (Verified Adverse Reaction, Severe, musle spasm, 01/10/16) Objective Last 24 Hour Vital Signs Date Time Temp Pulse Resp B/P (MAP) Pulse Ox O2 Delivery O2 Flow Rate FiO2 09/30/17 13:30 98.1 09/30/17 13:30 98.1 09/30/17 13:30 98.1 09/30/17 12:00 98.5 85 17 99/63 95 Room Air 09/30/17 10:02 98.1 09/30/17 09:00 98 111/67 09/30/17 08:00 98.1 98 18 111/67 97 Room Air 09/30/17 04:24 98.2 94 18 104/71 98 Room Air 09/30/17 00:00 98.5 98 19 115/84 92 Room Air 09/29/17 21:00 87 101/67 09/29/17 20:00 98.3 87 20 101/67 94 Room Air 09/29/17 16:00 98.4 94 18 115/83 96 Room Air Intake and Output 09/30/17 10/01/17 19:00 07:00 Intake Total 13.75 ml Balance 13.75 ml IV Total 13.75 ml # Bowel Movements 1 General Appearance: cachetic HEENT: normocephalic, anicteric Respiratory/Chest: chest wall non-tender, lungs clear Breasts: no masses Cardiovascular: normal peripheral pulses Abdomen: normal bowel sounds, soft, non tender Genitourinary: normal external genitalia Skin: no rash 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, no motor/sensory deficits Current Medications Medications (Trade) Dose Ordered Sig/Reanna Route PRN Reason Start Time Stop Time Status Last Admin Dose Admin Acetaminophen (Tylenol) 650 mg Q4H PRN ORAL fever 09/24/17 21:30 10/24/17 21:29 Acetaminophen/ Hydrocodone Bitart ([place] 10/325) 1 ea Q4H PRN ORAL Moderate breakthrough pain 09/28/17 08:30 10/05/17 08:29 09/30/17 12:31 Al Hydroxide/Mg Hydroxide (Mylanta II) 30 ml Q6H PRN ORAL dyspepsia 09/24/17 21:30 10/24/17 21:29 Dextrose (Dextrose 50%) STAT PRN IV Hypoglycemia 09/24/17 21:30 10/24/17 21:29 Diphenhydramine HCl (Benadryl) 25 mg EVERY 8 HOURS ORAL 09/26/17 14:30 10/26/17 14:29 09/30/17 05:45 Levothyroxine Sodium (Synthroid) 100 mcg ACBREAKFAST ORAL 09/25/17 06:30 10/25/17 06:29 09/30/17 06:07 Lorazepam (Ativan 2mg/ml 1ml) 0.5 mg Q4H PRN IV For Anxiety 09/24/17 21:30 10/01/17 21:29 09/29/17 23:28 Montelukast Sodium (Singulair) 10 mg QHS ORAL 09/24/17 22:00 10/24/17 21:59 09/29/17 21:04 Morphine Sulfate (Morphine Sulfate) 6 mg Q4H PRN IVP Severe Pain (Pain Scale 7-10) 09/28/17 17:00 10/05/17 12:30 09/30/17 14:11 Ondansetron HCl (Zofran) 4 mg Q6H PRN IVP Nausea & Vomiting 09/24/17 21:30 10/24/17 21:29 09/30/17 14:11 Phenazopyridine HCl (Pyridium) 100 mg THREE TIMES A DAY ORAL 09/25/17 13:00 10/25/17 12:59 09/30/17 12:31 Piperacillin Sod/ Tazobactam Sod 3.375 gm/Dextrose 55 ml @ 13.75 mls/ hr EVERY 8 HOURS IVPB 09/26/17 14:00 10/01/17 13:59 09/30/17 06:07 Polyethylene Glycol (Miralax) 17 gm HSPRN PRN ORAL Constipation 09/24/17 21:30 10/24/17 21:29 Pregabalin (Lyrica) 75 mg TID ORAL 09/25/17 09:00 10/25/17 08:59 09/30/17 12:31 Propranolol HCl (Inderal) 20 mg Q12H ORAL 09/28/17 09:00 10/28/17 08:59 09/28/17 09:25 Solifenacin (Vesicare) 10 mg DAILY ORAL 09/28/17 14:00 10/28/17 13:59 09/30/17 09:03 Tizanidine HCl (Zanaflex) 4 mg BID ORAL 09/25/17 09:00 10/25/17 08:59 09/30/17 09:03 Topiramate (Topamax) 200 mg DAILY ORAL 09/25/17 09:00 10/25/17 08:59 09/30/17 09:04 Zolpidem Tartrate (Ambien) 5 mg HSPRN PRN ORAL Insomnia 09/24/17 21:30 10/01/17 21:29 09/29/17 23:28 JAMA ALONZO Sep 30, 2017 14:34
--- NOTE | 2017-09-30 14:35 | Pulmonology Progress Note ---
Assessment/Plan Problems: (1) Sepsis (2) Hypotension (3) UTI (urinary tract infection) (4) Bedridden (5) H/O Spinal surgery Assessment/Plan pain is better difficult to get a line improving continue abx check cultures echo cardio evaluation appreciated social service evaluation. dc planning in progress Subjective ROS Limited/Unobtainable: No Interval Events: pain is better controlled Allergies: Coded Allergies: CEFAZOLIN (Verified Allergy, Severe, hives all over her body, 01/10/16) PHENYTOIN (Verified Allergy, Severe, swell up face, 01/10/16) SULFA (SULFONAMIDE ANTIBIOTICS) (Verified Allergy, Severe, hives all over her body, 01/10/16) HYDROXYZINE (Verified Adverse Reaction, Severe, tachypnea; tachycardia, 01/10/16) PENICILLINS (Verified Adverse Reaction, Severe, vomiting, 01/10/16) PROCHLORPERAZINE (Verified Adverse Reaction, Severe, musle spasm, 01/10/16) Objective Last 24 Hour Vital Signs Date Time Temp Pulse Resp B/P (MAP) Pulse Ox O2 Delivery O2 Flow Rate FiO2 09/30/17 13:30 98.1 09/30/17 13:30 98.1 09/30/17 13:30 98.1 09/30/17 12:00 98.5 85 17 99/63 95 Room Air 09/30/17 10:02 98.1 09/30/17 09:00 98 111/67 09/30/17 08:00 98.1 98 18 111/67 97 Room Air 09/30/17 04:24 98.2 94 18 104/71 98 Room Air 09/30/17 00:00 98.5 98 19 115/84 92 Room Air 09/29/17 21:00 87 101/67 09/29/17 20:00 98.3 87 20 101/67 94 Room Air 09/29/17 16:00 98.4 94 18 115/83 96 Room Air Intake and Output 09/30/17 10/01/17 19:00 07:00 Intake Total 13.75 ml Balance 13.75 ml IV Total 13.75 ml # Bowel Movements 1 General Appearance: WD/WN HEENT: normocephalic, atraumatic Respiratory/Chest: chest wall non-tender, lungs clear Breasts: no masses Cardiovascular: normal peripheral pulses, regular rhythm Abdomen: normal bowel sounds, soft, non tender Genitourinary: normal external genitalia Extremities: no clubbing Current Medications Medications (Trade) Dose Ordered Sig/Reanna Route PRN Reason Start Time Stop Time Status Last Admin Dose Admin Acetaminophen (Tylenol) 650 mg Q4H PRN ORAL fever 09/24/17 21:30 10/24/17 21:29 Acetaminophen/ Hydrocodone Bitart ([place] 10/325) 1 ea Q4H PRN ORAL Moderate breakthrough pain 09/28/17 08:30 10/05/17 08:29 09/30/17 12:31 Al Hydroxide/Mg Hydroxide (Mylanta II) 30 ml Q6H PRN ORAL dyspepsia 09/24/17 21:30 10/24/17 21:29 Dextrose (Dextrose 50%) STAT PRN IV Hypoglycemia 09/24/17 21:30 10/24/17 21:29 Diphenhydramine HCl (Benadryl) 25 mg EVERY 8 HOURS ORAL 09/26/17 14:30 10/26/17 14:29 09/30/17 05:45 Levothyroxine Sodium (Synthroid) 100 mcg ACBREAKFAST ORAL 09/25/17 06:30 10/25/17 06:29 09/30/17 06:07 Lorazepam (Ativan 2mg/ml 1ml) 0.5 mg Q4H PRN IV For Anxiety 09/24/17 21:30 10/01/17 21:29 09/29/17 23:28 Montelukast Sodium (Singulair) 10 mg QHS ORAL 09/24/17 22:00 10/24/17 21:59 09/29/17 21:04 Morphine Sulfate (Morphine Sulfate) 6 mg Q4H PRN IVP Severe Pain (Pain Scale 7-10) 09/28/17 17:00 10/05/17 12:30 09/30/17 14:11 Ondansetron HCl (Zofran) 4 mg Q6H PRN IVP Nausea & Vomiting 09/24/17 21:30 10/24/17 21:29 09/30/17 14:11 Phenazopyridine HCl (Pyridium) 100 mg THREE TIMES A DAY ORAL 09/25/17 13:00 10/25/17 12:59 09/30/17 12:31 Piperacillin Sod/ Tazobactam Sod 3.375 gm/Dextrose 55 ml @ 13.75 mls/ hr EVERY 8 HOURS IVPB 09/26/17 14:00 10/01/17 13:59 09/30/17 06:07 Polyethylene Glycol (Miralax) 17 gm HSPRN PRN ORAL Constipation 09/24/17 21:30 10/24/17 21:29 Pregabalin (Lyrica) 75 mg TID ORAL 09/25/17 09:00 10/25/17 08:59 09/30/17 12:31 Propranolol HCl (Inderal) 20 mg Q12H ORAL 09/28/17 09:00 10/28/17 08:59 09/28/17 09:25 Solifenacin (Vesicare) 10 mg DAILY ORAL 09/28/17 14:00 10/28/17 13:59 09/30/17 09:03 Tizanidine HCl (Zanaflex) 4 mg BID ORAL 09/25/17 09:00 10/25/17 08:59 09/30/17 09:03 Topiramate (Topamax) 200 mg DAILY ORAL 09/25/17 09:00 10/25/17 08:59 09/30/17 09:04 Zolpidem Tartrate (Ambien) 5 mg HSPRN PRN ORAL Insomnia 09/24/17 21:30 10/01/17 21:29 09/29/17 23:28 JAMA ALONZO Sep 30, 2017 14:35
[2017-09-30 16:00] VITALS: BP 113/70
[2017-09-30 20:00] VITALS: BP 108/58
[2017-09-30] MEDS: Montelukast 10mg tablet ORAL SCH (20:25)
[2017-09-30] MEDS: Zolpidem 5mg tab ORAL PRN (23:40)
[2017-10-01] VITALS: BP 106/59
[2017-10-01 04:00] VITALS: BP 103/65
[2017-10-01] MEDS: Morphine Sulfate 10mg/ml Inj IVP PRN ×5 (05:00→21:46)
[2017-10-01] MEDS: DiphenhydrAMINE 25mg/10ml Elixir ORAL SCH (05:34)
[2017-10-01] MEDS: Piperacillin/Tazobactam 3.375 GM in D5W 55 ML IVPB SCH (06:31)
[2017-10-01 08:00] VITALS: BP 129/20
--- NOTE | 2017-10-01 08:46 | General Progress Note ---
Assessment/Plan Assessment/Plan (1) H/O Spinal surgery (2) DDD (degenerative disc disease), cervical (3) Lumbar spondylosis (4) Cervical spondylosis (5) Lumbar degenerative disc disease (6) History of total knee replacement, right (7) Osteoarthritis of right knee We will continue the [place] and Morphine. We will start Oxycontin 20mg BID hold for oversedation Pt was d/w Dr. Schaffer and he concurred Subjective Date patient seen: Oct 01, 2017 Time patient seen: 07:00 - am Allergies: Coded Allergies: CEFAZOLIN (Verified Allergy, Severe, hives all over her body, 01/10/16) PHENYTOIN (Verified Allergy, Severe, swell up face, 01/10/16) SULFA (SULFONAMIDE ANTIBIOTICS) (Verified Allergy, Severe, hives all over her body, 01/10/16) HYDROXYZINE (Verified Adverse Reaction, Severe, tachypnea; tachycardia, 01/10/16) PENICILLINS (Verified Adverse Reaction, Severe, vomiting, 01/10/16) PROCHLORPERAZINE (Verified Adverse Reaction, Severe, musle spasm, 01/10/16) Subjective Constitutional: Reports: no symptoms HEENT: Reports: no symptoms Respiratory: Reports: no symptoms Gastrointestinal/Abdominal: Reports: no symptoms Genitourinary: Reports: no symptoms Endocrine: Reports: no symptoms Hematologic/Lymphatic: Reports: no symptoms Subjective Patient reports that the pain has been severe and not tolerated on the current medications. I d/w her about starting her on Oxycontin a long acting medication and she understands. She has used 5 does of Morphine in the last 24hrs. Objective Last 24 Hour Vital Signs Date Time Temp Pulse Resp B/P (MAP) Pulse Ox O2 Delivery O2 Flow Rate FiO2 10/01/17 04:00 97.6 82 19 103/65 95 Room Air 10/01/17 00:00 98.6 85 18 106/59 91 Room Air 09/30/17 20:25 67 108/58 09/30/17 20:00 99.7 67 18 108/58 96 Room Air 09/30/17 18:45 97.8 09/30/17 18:45 97.8 09/30/17 18:45 97.8 09/30/17 16:00 97.8 101 17 113/70 98 Room Air 09/30/17 13:30 98.1 09/30/17 12:00 98.5 85 17 99/63 95 Room Air 09/30/17 09:00 98 111/67 Height (Feet): 5 Height (Inches): 2.00 Weight (Pounds): 120 Objective General Appearance: no apparent distress, alert EENT: PERRL/EOMI, normal ENT inspection Neck: non-tender, normal alignment Cardiovascular: normal rate, regular rhythm Respiratory/Chest: lungs clear, normal breath sounds Abdomen: non tender, soft Extremities: weakness noted Edema: trace edema Neurologic: alert, oriented x 3 Skin: warm/dry GABE DOMINGO Oct 01, 2017 08:46
[2017-10-01] MEDS: Topiramate 100mg tab ORAL SCH (09:10)
[2017-10-01] MEDS: Propranolol 10mg tab ORAL SCH ×2 (09:11→21:00)
[2017-10-01] MEDS: Solifenacin 10mg tab ORAL SCH (09:12)
[2017-10-01] MEDS: Lyrica 75mg cap ORAL SCH ×3 (09:12→17:37)
--- NOTE | 2017-10-01 10:18 | Diagnostic Imaging Report ---
APPROVED REPORT CPT Code: 38759 Present Symptoms Comments: R/O DVT BILATERAL: Imaging reveals a patent deep venous system bilaterally. There is no evidence of thrombus within the femoral, popliteal or tibial segments. The greater saphenous veins are also within normal limits. Doppler indicates normal spontaneous flow within these segments.
[2017-10-01] MEDS: oxyCONTIN 20mg tab ORAL SCH ×2 (11:18→21:05)
[2017-10-01 12:00] VITALS: BP 108/49
--- NOTE | 2017-10-01 14:02 | Pulmonology Progress Note ---
Assessment/Plan Problems: (1) Sepsis (2) Hypotension (3) UTI (urinary tract infection) (4) Bedridden (5) H/O Spinal surgery Assessment/Plan pain is better improving continue abx check cultures echo noted social service evaluation. dc planning in progress Subjective ROS Limited/Unobtainable: No Constitutional: Reports: no symptoms HEENT: Repors: no symptoms Respiratory: Reports: no symptoms Allergies: Coded Allergies: CEFAZOLIN (Verified Allergy, Severe, hives all over her body, 01/10/16) PHENYTOIN (Verified Allergy, Severe, swell up face, 01/10/16) SULFA (SULFONAMIDE ANTIBIOTICS) (Verified Allergy, Severe, hives all over her body, 01/10/16) HYDROXYZINE (Verified Adverse Reaction, Severe, tachypnea; tachycardia, 01/10/16) PENICILLINS (Verified Adverse Reaction, Severe, vomiting, 01/10/16) PROCHLORPERAZINE (Verified Adverse Reaction, Severe, musle spasm, 01/10/16) Objective Last 24 Hour Vital Signs Date Time Temp Pulse Resp B/P (MAP) Pulse Ox O2 Delivery O2 Flow Rate FiO2 10/01/17 12:00 99.9 85 18 108/49 91 10/01/17 09:11 82 103/65 10/01/17 08:00 98.1 74 18 129/20 97 Room Air 10/01/17 04:00 97.6 82 19 103/65 95 Room Air 10/01/17 00:00 98.6 85 18 106/59 91 Room Air 09/30/17 20:25 67 108/58 09/30/17 20:00 99.7 67 18 108/58 96 Room Air 09/30/17 18:45 97.8 09/30/17 18:45 97.8 09/30/17 18:45 97.8 09/30/17 16:00 97.8 101 17 113/70 98 Room Air Intake and Output 10/01/17 10/02/17 19:00 07:00 # Bowel Movements 1 General Appearance: WD/WN HEENT: normocephalic, atraumatic Respiratory/Chest: chest wall non-tender, lungs clear Cardiovascular: normal peripheral pulses, normal rate Abdomen: normal bowel sounds, soft, non tender Genitourinary: normal external genitalia Extremities: no clubbing Skin: no rash Current Medications Medications (Trade) Dose Ordered Sig/Reanna Route PRN Reason Start Time Stop Time Status Last Admin Dose Admin Acetaminophen (Tylenol) 650 mg Q4H PRN ORAL fever 09/24/17 21:30 10/24/17 21:29 Acetaminophen/ Butalbital/ Caffeine (Fioricet) 1 tab Q6H PRN ORAL headache 10/01/17 10:00 10/31/17 09:59 Acetaminophen/ Hydrocodone Bitart ([place] 10/325) 1 ea Q4H PRN ORAL Moderate breakthrough pain 09/28/17 08:30 10/05/17 08:29 09/30/17 12:31 Al Hydroxide/Mg Hydroxide (Mylanta II) 30 ml Q6H PRN ORAL dyspepsia 09/24/17 21:30 10/24/17 21:29 Dextrose (Dextrose 50%) STAT PRN IV Hypoglycemia 09/24/17 21:30 10/24/17 21:29 Diphenhydramine HCl (Benadryl) 25 mg EVERY 8 HOURS ORAL 09/26/17 14:30 10/26/17 14:29 10/01/17 05:34 Levothyroxine Sodium (Synthroid) 100 mcg ACBREAKFAST ORAL 09/25/17 06:30 10/25/17 06:29 10/01/17 06:37 Lorazepam (Ativan 2mg/ml 1ml) 0.5 mg Q4H PRN IV For Anxiety 09/24/17 21:30 10/01/17 21:29 09/29/17 23:28 Montelukast Sodium (Singulair) 10 mg QHS ORAL 09/24/17 22:00 10/24/17 21:59 09/30/17 20:25 Morphine Sulfate (Morphine Sulfate) 6 mg Q4H PRN IVP Severe Pain (Pain Scale 7-10) 09/28/17 17:00 10/05/17 12:30 10/01/17 13:33 Ondansetron HCl (Zofran) 4 mg Q6H PRN IVP Nausea & Vomiting 09/24/17 21:30 10/24/17 21:29 10/01/17 05:11 Oxycodone HCl (OxyCONTIN) 20 mg Q12HR ORAL 10/01/17 11:00 10/08/17 10:59 10/01/17 11:18 Phenazopyridine HCl (Pyridium) 100 mg THREE TIMES A DAY ORAL 09/25/17 13:00 10/25/17 12:59 10/01/17 13:33 Polyethylene Glycol (Miralax) 17 gm HSPRN PRN ORAL Constipation 09/24/17 21:30 10/24/17 21:29 Pregabalin (Lyrica) 75 mg TID ORAL 09/25/17 09:00 10/25/17 08:59 10/01/17 13:33 Propranolol HCl (Inderal) 20 mg Q12H ORAL 09/28/17 09:00 10/28/17 08:59 10/01/17 09:11 Solifenacin (Vesicare) 10 mg DAILY ORAL 09/28/17 14:00 10/28/17 13:59 10/01/17 09:12 Tizanidine HCl (Zanaflex) 4 mg BID ORAL 09/25/17 09:00 10/25/17 08:59 10/01/17 09:12 Topiramate (Topamax) 200 mg DAILY ORAL 09/25/17 09:00 10/25/17 08:59 10/01/17 09:10 Zolpidem Tartrate (Ambien) 5 mg HSPRN PRN ORAL Insomnia 09/24/17 21:30 10/01/17 21:29 09/30/17 23:40 JAMA ALONZO Oct 01, 2017 14:02
--- NOTE | 2017-10-01 14:17 | Infectious Diseases Prog Note ---
Assessment/Plan Assessment/Plan Abx: Cipro x1 09/24 Aztreonam 09/25-09/26 Zosyn 09/26- Assesment: Presyncopal event- likely due to hypotension and dehydration UTI- +Pyuria/bacteriuria, urgency -u/a wbc 30-40, nit+, leuk +3; ucx >100K PsA (R Cipro/levo, aztreonam; S Cefepime, zosyn) Leukocytosis, mild- resolved -afebrile -Bcx NTD sacral wound- not infected -wound cx PSA, diphteroids (colonizers) chronic back pain s/p multiple back surgeries, hx of DVT on xarelto, bedbound, HTN, migraine Plan: -Continue to monitor off abx -10/01 SP Zosyn #6 for PsA UTI -09/26 SP Aztreonam #2 -09/25 SP CIpro x1 -wound care -Monitor CBC/BMP, temperatures -stable for discharge from ID stand point. Subjective Allergies: Coded Allergies: CEFAZOLIN (Verified Allergy, Severe, hives all over her body, 01/10/16) PHENYTOIN (Verified Allergy, Severe, swell up face, 01/10/16) SULFA (SULFONAMIDE ANTIBIOTICS) (Verified Allergy, Severe, hives all over her body, 01/10/16) HYDROXYZINE (Verified Adverse Reaction, Severe, tachypnea; tachycardia, 01/10/16) PENICILLINS (Verified Adverse Reaction, Severe, vomiting, 01/10/16) PROCHLORPERAZINE (Verified Adverse Reaction, Severe, musle spasm, 01/10/16) Subjective afebrile no leukocytosis Objective Vital Signs Last 24 Hour Vital Signs Date Time Temp Pulse Resp B/P (MAP) Pulse Ox O2 Delivery O2 Flow Rate FiO2 10/01/17 12:00 99.9 85 18 108/49 91 10/01/17 09:11 82 103/65 10/01/17 08:00 98.1 74 18 129/20 97 Room Air 10/01/17 04:00 97.6 82 19 103/65 95 Room Air 10/01/17 00:00 98.6 85 18 106/59 91 Room Air 09/30/17 20:25 67 108/58 09/30/17 20:00 99.7 67 18 108/58 96 Room Air 09/30/17 18:45 97.8 09/30/17 18:45 97.8 09/30/17 18:45 97.8 09/30/17 16:00 97.8 101 17 113/70 98 Room Air Height (Feet): 5 Height (Inches): 2.00 Weight (Pounds): 120 Objective General Appearance: Chronically Ill - Thin, chronically ill-appearing middle- aged female, awake and alert HEENT: normocephalic, atraumatic, bilateral eye PERRL, bilateral eye EOMI, moist mucus membranes Neck: normal inspection, full range of motion, supple Respiratory: normal inspection, lungs clear, normal breath sounds, no respiratory distress, no wheezing, Cardiovascular : normal inspection, regular rate, rhythm, normal capillary refill Gastrointestinal: normal inspection, soft, non-distended, no guarding, L flank TTP Musculoskeletal: other - Diffuse generalized paraspinal tenderness in her back , limited range of motion of bilateral lower extremities which is chronic, but able to bend both her knees without issue 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, other - Awake alert, oriented x4, good strength bilateral upper extremities, able to move bilateral lower extremities spontaneously Skin: normal inspection, normal color, no pat Current Medications Medications (Trade) Dose Ordered Sig/Reanna Route PRN Reason Start Time Stop Time Status Last Admin Dose Admin Acetaminophen (Tylenol) 650 mg Q4H PRN ORAL fever 09/24/17 21:30 10/24/17 21:29 Acetaminophen/ Butalbital/ Caffeine (Fioricet) 1 tab Q6H PRN ORAL headache 10/01/17 10:00 10/31/17 09:59 Acetaminophen/ Hydrocodone Bitart ([place] 10/325) 1 ea Q4H PRN ORAL Moderate breakthrough pain 09/28/17 08:30 10/05/17 08:29 09/30/17 12:31 Al Hydroxide/Mg Hydroxide (Mylanta II) 30 ml Q6H PRN ORAL dyspepsia 09/24/17 21:30 10/24/17 21:29 Dextrose (Dextrose 50%) STAT PRN IV Hypoglycemia 09/24/17 21:30 10/24/17 21:29 Diphenhydramine HCl (Benadryl) 25 mg EVERY 8 HOURS ORAL 09/26/17 14:30 10/26/17 14:29 10/01/17 05:34 Levothyroxine Sodium (Synthroid) 100 mcg ACBREAKFAST ORAL 09/25/17 06:30 10/25/17 06:29 10/01/17 06:37 Lorazepam (Ativan 2mg/ml 1ml) 0.5 mg Q4H PRN IV For Anxiety 09/24/17 21:30 10/01/17 21:29 09/29/17 23:28 Montelukast Sodium (Singulair) 10 mg QHS ORAL 09/24/17 22:00 10/24/17 21:59 09/30/17 20:25 Morphine Sulfate (Morphine Sulfate) 6 mg Q4H PRN IVP Severe Pain (Pain Scale 7-10) 09/28/17 17:00 10/05/17 12:30 10/01/17 13:33 Ondansetron HCl (Zofran) 4 mg Q6H PRN IVP Nausea & Vomiting 09/24/17 21:30 10/24/17 21:29 10/01/17 05:11 Oxycodone HCl (OxyCONTIN) 20 mg Q12HR ORAL 10/01/17 11:00 10/08/17 10:59 10/01/17 11:18 Phenazopyridine HCl (Pyridium) 100 mg THREE TIMES A DAY ORAL 09/25/17 13:00 10/25/17 12:59 10/01/17 13:33 Polyethylene Glycol (Miralax) 17 gm HSPRN PRN ORAL Constipation 09/24/17 21:30 10/24/17 21:29 Pregabalin (Lyrica) 75 mg TID ORAL 09/25/17 09:00 10/25/17 08:59 10/01/17 13:33 Propranolol HCl (Inderal) 20 mg Q12H ORAL 09/28/17 09:00 10/28/17 08:59 10/01/17 09:11 Solifenacin (Vesicare) 10 mg DAILY ORAL 09/28/17 14:00 10/28/17 13:59 10/01/17 09:12 Tizanidine HCl (Zanaflex) 4 mg BID ORAL 09/25/17 09:00 10/25/17 08:59 10/01/17 09:12 Topiramate (Topamax) 200 mg DAILY ORAL 09/25/17 09:00 10/25/17 08:59 10/01/17 09:10 Zolpidem Tartrate (Ambien) 5 mg HSPRN PRN ORAL Insomnia 09/24/17 21:30 10/01/17 21:29 09/30/17 23:40 Cami Mendez M.D. Oct 01, 2017 14:17
[2017-10-01 16:00] VITALS: BP 109/64
[2017-10-01] MEDS ORDERED: DiphenhydrAMINE 50mg/ml Inj IVP PRN (16:30)
[2017-10-01] MEDS: Norco 10mg/325mg tab ORAL PRN (16:38)
[2017-10-01 20:00] VITALS: BP 102/59
[2017-10-01] MEDS: Montelukast 10mg tablet ORAL SCH (21:03)
--- NOTE | 2017-10-01 23:31 | Consultation ---
History of Present Illness General Chief Complaint: Generalized Weakness Present Illness Allergies: Coded Allergies: CEFAZOLIN (Verified Allergy, Severe, hives all over her body, 01/10/16) PHENYTOIN (Verified Allergy, Severe, swell up face, 01/10/16) SULFA (SULFONAMIDE ANTIBIOTICS) (Verified Allergy, Severe, hives all over her body, 01/10/16) HYDROXYZINE (Verified Adverse Reaction, Severe, tachypnea; tachycardia, 01/10/16) PENICILLINS (Verified Adverse Reaction, Severe, vomiting, 01/10/16) PROCHLORPERAZINE (Verified Adverse Reaction, Severe, musle spasm, 01/10/16) Medication History Scheduled Cholecalciferol (Vitamin D3)* (Vitamin D*), 2,000 UNITS ORAL DAILY, (Reported) Esomeprazole Magnesium (Esomeprazole Magnesium), 40 MG PO BID, (Reported) Fluticasone Propionate (Fluticasone Propionate), 50 MCG NASAL DAILY, (Reported) Levothyroxine Sodium* (Levothyroxine Sodium*), 100 MCG PO DAILY, (Reported) Montelukast Sodium* (Singulair*), 10 MG ORAL DAILY, (Reported) Pregabalin* (Lyrica*), 75 MG ORAL TID, (Reported) Propranolol Hcl* (Inderal*), 60 MG ORAL DAILY, (Reported) Solifenacin Succinate (Vesicare*), 10 MG ORAL DAILY, (Reported) Tizanidine Hcl* (Zanaflex*), 4 MG ORAL BID, (Reported) Topiramate* (Topamax*), 200 MG ORAL DAILY, (Reported) Scheduled PRN Albuterol Sulfate* (Proair Hfa*), 2 PUFF INH EVERY 4 HOURS PRN for Bronchospasm, (Reported) Fluticasone/Salmeterol (Advair 500-50 Diskus), 1 PUFF INH BID PRN for Bronchospasm, (Reported) Hydrocodone/Acetaminophen (Hydrocodon-Acetaminophn 10-325), 1 TAB ORAL 6 times a day PRN for For Pain, (Reported) Ondansetron (Zofran), 4 MG SL EVERY 8 HOURS PRN for Nausea & Vomiting, (Reported ) Miscellaneous Medications Diclofenac Sodium (Voltaren), (Reported) Rivaroxaban (Xarelto), 20 MG ORAL, (Reported) Discontinued Medications Amitriptyline Hcl* (Amitriptyline Hcl*), 100 MG ORAL BEDTIME, (Reported) Discontinued Reason: Pt stopped taking med Ibandronate (Boniva), 150 MG ORAL Q30D, (Reported) Discontinued Reason: Pt stopped taking med Levothyroxine Sodium* (Synthroid*), 0.1 MG ORAL DAILY, (Reported) Discontinued Reason: Pt stopped taking med Vancomycin Hcl/D5w (Vancomycin-D5w 1 G/250 Ml), 1.5 GM IVPB Q24H, (Reported) Discontinued Reason: Pt stopped taking med Patient History Healthcare decision maker Resuscitation status Full Code Advanced Directive on File Physical Exam Last 24 Hour Vital Signs Date Time Temp Pulse Resp B/P (MAP) Pulse Ox O2 Delivery O2 Flow Rate FiO2 10/01/17 21:00 78 102/59 10/01/17 20:00 98.2 78 20 102/59 95 Room Air 10/01/17 16:00 92 Room Air 10/01/17 16:00 99.3 87 18 109/64 90 10/01/17 12:00 99.9 85 18 108/49 91 10/01/17 12:00 91 Room Air 10/01/17 09:11 82 103/65 10/01/17 08:00 98.1 74 18 129/20 97 Room Air 10/01/17 04:00 97.6 82 19 103/65 95 Room Air 10/01/17 00:00 98.6 85 18 106/59 91 Room Air Intake and Output 10/01/17 10/02/17 19:00 07:00 Intake Total 480 ml Balance 480 ml Intake Oral 480 ml # Voids 8 # Bowel Movements 1 Height (Feet): 5 Height (Inches): 2.00 Weight (Pounds): 120 Medications Current Medications Medications (Trade) Dose Ordered Sig/Reanna Route PRN Reason Start Time Stop Time Status Last Admin Dose Admin Acetaminophen (Tylenol) 650 mg Q4H PRN ORAL fever 09/24/17 21:30 10/24/17 21:29 Acetaminophen/ Butalbital/ Caffeine (Fioricet) 1 tab Q6H PRN ORAL headache 10/01/17 10:00 10/31/17 09:59 Acetaminophen/ Hydrocodone Bitart ([place] 10/325) 1 ea Q4H PRN ORAL Moderate breakthrough pain 09/28/17 08:30 10/05/17 08:29 10/01/17 16:38 Al Hydroxide/Mg Hydroxide (Mylanta II) 30 ml Q6H PRN ORAL dyspepsia 09/24/17 21:30 10/24/17 21:29 Dextrose (Dextrose 50%) STAT PRN IV Hypoglycemia 09/24/17 21:30 10/24/17 21:29 Diphenhydramine HCl (Benadryl) 25 mg Q8H PRN IVP Itching 10/01/17 16:30 10/31/17 16:29 10/01/17 16:38 Levothyroxine Sodium (Synthroid) 100 mcg ACBREAKFAST ORAL 09/25/17 06:30 10/25/17 06:29 10/01/17 06:37 Montelukast Sodium (Singulair) 10 mg QHS ORAL 09/24/17 22:00 10/24/17 21:59 10/01/17 21:03 Morphine Sulfate (Morphine Sulfate) 6 mg Q4H PRN IVP Severe Pain (Pain Scale 7-10) 09/28/17 17:00 10/05/17 12:30 10/01/17 21:46 Ondansetron HCl (Zofran) 4 mg Q6H PRN IVP Nausea & Vomiting 09/24/17 21:30 10/24/17 21:29 10/01/17 15:15 Oxycodone HCl (OxyCONTIN) 20 mg Q12HR ORAL 10/01/17 11:00 10/08/17 10:59 10/01/17 21:05 Polyethylene Glycol (Miralax) 17 gm HSPRN PRN ORAL Constipation 09/24/17 21:30 10/24/17 21:29 Pregabalin (Lyrica) 75 mg TID ORAL 09/25/17 09:00 10/25/17 08:59 10/01/17 17:37 Propranolol HCl (Inderal) 20 mg Q12H ORAL 09/28/17 09:00 10/28/17 08:59 10/01/17 09:11 Solifenacin (Vesicare) 10 mg DAILY ORAL 09/28/17 14:00 10/28/17 13:59 10/01/17 09:12 Tizanidine HCl (Zanaflex) 4 mg BID ORAL 09/25/17 09:00 10/25/17 08:59 10/01/17 17:37 Topiramate (Topamax) 200 mg DAILY ORAL 09/25/17 09:00 10/25/17 08:59 10/01/17 09:10 Assessment/Plan Status: doing well, stable Assessment/Plan mood d/o danax Tata Huynh M.D. Oct 01, 2017 23:31
[2017-10-02] VITALS: BP 100/56
[2017-10-02] MEDS: Morphine Sulfate 10mg/ml Inj IVP PRN ×2 (01:50→06:10)
[2017-10-02] MEDS ORDERED: LORazepam Inj 2mg/ml 1ml IV PRN (03:00)
[2017-10-02] MEDS: Zolpidem 5mg tab ORAL PRN (03:05)
[2017-10-02 04:08] VITALS: BP 127/69
[2017-10-02 08:00] VITALS: BP 98/65
--- NOTE | 2017-10-02 08:51 | General Progress Note ---
Assessment/Plan Assessment/Plan (1) H/O Spinal surgery (2) DDD (degenerative disc disease), cervical (3) Lumbar spondylosis (4) Cervical spondylosis (5) Lumbar degenerative disc disease (6) History of total knee replacement, right (7) Osteoarthritis of right knee We will continue the [place] and Oxycontin. We will discontinue Morphine Pt was d/w Dr. Schaffer and he concurred Subjective Date patient seen: Oct 02, 2017 Time patient seen: 07:15 - am Allergies: Coded Allergies: CEFAZOLIN (Verified Allergy, Severe, hives all over her body, 01/10/16) PHENYTOIN (Verified Allergy, Severe, swell up face, 01/10/16) SULFA (SULFONAMIDE ANTIBIOTICS) (Verified Allergy, Severe, hives all over her body, 01/10/16) HYDROXYZINE (Verified Adverse Reaction, Severe, tachypnea; tachycardia, 01/10/16) PENICILLINS (Verified Adverse Reaction, Severe, vomiting, 01/10/16) PROCHLORPERAZINE (Verified Adverse Reaction, Severe, musle spasm, 01/10/16) Subjective Constitutional: Reports: no symptoms HEENT: Reports: no symptoms Respiratory: Reports: no symptoms Gastrointestinal/Abdominal: Reports: no symptoms Genitourinary: Reports: no symptoms Endocrine: Reports: no symptoms Hematologic/Lymphatic: Reports: no symptoms Subjective Patient is in bed and reports that her pain is at a moderate level since starting the oxycontin. I d/w her about discontinuing the morphine and she understands. Objective Last 24 Hour Vital Signs Date Time Temp Pulse Resp B/P (MAP) Pulse Ox O2 Delivery O2 Flow Rate FiO2 10/02/17 08:00 97.9 96 20 98/65 92 10/02/17 04:08 97.5 77 19 127/69 96 10/02/17 00:00 98.1 88 20 100/56 95 Room Air 10/01/17 21:00 78 102/59 10/01/17 20:00 98.2 78 20 102/59 95 Room Air 10/01/17 16:00 92 Room Air 10/01/17 16:00 99.3 87 18 109/64 90 10/01/17 12:00 99.9 85 18 108/49 91 10/01/17 12:00 91 Room Air 10/01/17 09:11 82 103/65 Height (Feet): 5 Height (Inches): 2.00 Weight (Pounds): 120 Objective General Appearance: no apparent distress, alert EENT: PERRL/EOMI, normal ENT inspection Neck: non-tender, normal alignment Cardiovascular: normal rate, regular rhythm Respiratory/Chest: lungs clear, normal breath sounds Abdomen: non tender, soft Extremities: weakness noted Edema: trace edema Neurologic: alert, oriented x 3 Skin: warm/dry GABE DOMINGO Oct 02, 2017 08:51
[2017-10-02] MEDS: Propranolol 10mg tab ORAL SCH ×2 (09:00→21:00)
[2017-10-02] MEDS: oxyCONTIN 20mg tab ORAL SCH ×2 (09:58→22:02)
[2017-10-02] MEDS: Lyrica 75mg cap ORAL SCH ×3 (10:00→17:09)
[2017-10-02] MEDS: Solifenacin 10mg tab ORAL SCH (10:01)
[2017-10-02] MEDS: Topiramate 100mg tab ORAL SCH (10:01)
--- NOTE | 2017-10-02 11:31 | Wound Care Consultation ---
Wound Assessment Wound Assessment #1: Wound Number: 1 Wound Present on Admission: Yes New Wound: No Status Change of Wound: No Wound Location Body Site Modif: mid Wound Location Body Site: sacral Wound Type: pressure ulcer Richard Test: Does not Richard Pressure Ulcer Stage: Unstageable Wound Thickness: Full Thickness Wound Length: 3.5 Wound Width: 2.5 Wound Depth: utd Percent of Wound [place]/Red: 50 Percent of Wound Bed Yellow/Wh: 50 Wound Drainage Description: Serosanguineous Wound Drainage Amount: Moderate Wound Drainage Odor: None/Absent Tissue Surrounding Wound: Erythemic Wound Undermining at 12:00: 0.8 Wound General Appearance: Reddened - yellow, Draining Wound Assessment #2: Wound Number: 2 Wound Present on Admission: Yes New Wound: No Status Change of Wound: No Wound Location Body Site Modif: right Wound Location Body Site: buttocks Wound Type: pressure ulcer Richard Test: Does not Richard Pressure Ulcer Stage: Unstageable Wound Thickness: Full Thickness Wound Length: 4.0 Wound Width: 1.3 Wound Depth: utd Percent of Wound [place]/Red: 5 Percent of Wound Bed Yellow/Wh: 95 Other Colors Identified: surrounding tissue maroon /purple color. intact Wound Drainage Description: Serosanguineous Wound Drainage Amount: Moderate Wound Drainage Odor: None/Absent Tissue Surrounding Wound: Erythemic Wound General Appearance: Reddened, Draining, Necrotic Wound Comment #1 Sacral unstageable pressure ulcer. #2 Right buttock unstageable pressure ulcer. Reassessment noted good progress current wound care is effective, noted decrease in slough, increase in pink tissue. Recommendation. -Local wound care as previously recommended. -Turn and reposition. -offload heels -low air loss. -Heel protectors. -Optimize nutrition. -Avoid shear and friction -Keep clean and dry. -Offload affected sites. -Assess and follow up with MD for any changes of condition to skin noted. MAURIZIO HONG Oct 02, 2017 11:31
[2017-10-02] MEDS: Norco 10mg/325mg tab ORAL PRN (11:57)
[2017-10-02 12:00] VITALS: BP 93/58
--- NOTE | 2017-10-02 12:28 | Infectious Diseases Prog Note ---
Assessment/Plan Assessment/Plan Assesment: Presyncopal event- likely due to hypotension and dehydration UTI- +Pyuria/bacteriuria, urgency -u/a wbc 30-40, nit+, leuk +3; ucx >100K PsA (R Cipro/levo, aztreonam; S Cefepime, zosyn) Leukocytosis, mild- resolved -afebrile -Bcx NTD sacral wound- not infected -wound cx PSA, diphteroids (colonizers) chronic back pain s/p multiple back surgeries, hx of DVT on xarelto, bedbound, HTN, migraine Plan: -Continue to monitor off abx -10/01 SP Zosyn #6 for PsA UTI -09/26 SP Aztreonam #2 -09/25 SP CIpro x1 -wound care -Monitor CBC/BMP, temperatures -stable for discharge from ID stand point. Subjective Allergies: Coded Allergies: CEFAZOLIN (Verified Allergy, Severe, hives all over her body, 01/10/16) PHENYTOIN (Verified Allergy, Severe, swell up face, 01/10/16) SULFA (SULFONAMIDE ANTIBIOTICS) (Verified Allergy, Severe, hives all over her body, 01/10/16) HYDROXYZINE (Verified Adverse Reaction, Severe, tachypnea; tachycardia, 01/10/16) PENICILLINS (Verified Adverse Reaction, Severe, vomiting, 01/10/16) PROCHLORPERAZINE (Verified Adverse Reaction, Severe, musle spasm, 01/10/16) Subjective afebrile no leukocytosis, mild leukopenia off abx Objective Vital Signs Last 24 Hour Vital Signs Date Time Temp Pulse Resp B/P (MAP) Pulse Ox O2 Delivery O2 Flow Rate FiO2 10/02/17 09:00 96 98/65 10/02/17 08:00 97.9 96 20 98/65 92 10/02/17 04:08 97.5 77 19 127/69 96 10/02/17 00:00 98.1 88 20 100/56 95 Room Air 10/01/17 21:00 78 102/59 10/01/17 20:00 98.2 78 20 102/59 95 Room Air 10/01/17 16:00 92 Room Air 10/01/17 16:00 99.3 87 18 109/64 90 Height (Feet): 5 Height (Inches): 2.00 Weight (Pounds): 120 Objective General Appearance: Chronically Ill - Thin, chronically ill-appearing middle- aged female, awake and alert HEENT: normocephalic, atraumatic, bilateral eye PERRL, bilateral eye EOMI, moist mucus membranes Neck: normal inspection, full range of motion, supple Respiratory: normal inspection, lungs clear, normal breath sounds, no respiratory distress, no wheezing, Cardiovascular : normal inspection, regular rate, rhythm, normal capillary refill Gastrointestinal: normal inspection, soft, non-distended, no guarding, L flank TTP Musculoskeletal: other - Diffuse generalized paraspinal tenderness in her back , limited range of motion of bilateral lower extremities which is chronic, but able to bend both her knees without issue Neurologic: fountain server III-XII nml as tested, other - Awake alert, oriented x4, good strength bilateral upper extremities, able to move bilateral lower extremities spontaneously Skin: normal inspection, normal color, no pat Current Medications Medications (Trade) Dose Ordered Sig/Reanna Route PRN Reason Start Time Stop Time Status Last Admin Dose Admin Acetaminophen (Tylenol) 650 mg Q4H PRN ORAL fever 09/24/17 21:30 10/24/17 21:29 Acetaminophen/ Butalbital/ Caffeine (Fioricet) 1 tab Q6H PRN ORAL headache 10/01/17 10:00 10/31/17 09:59 Acetaminophen/ Hydrocodone Bitart ([place] 10/325) 1 ea Q4H PRN ORAL Moderate breakthrough pain 09/28/17 08:30 10/05/17 08:29 10/02/17 11:57 Al Hydroxide/Mg Hydroxide (Mylanta II) 30 ml Q6H PRN ORAL dyspepsia 09/24/17 21:30 10/24/17 21:29 Dextrose (Dextrose 50%) STAT PRN IV Hypoglycemia 09/24/17 21:30 10/24/17 21:29 Diphenhydramine HCl (Benadryl) 25 mg Q8H PRN IVP Itching 10/01/17 16:30 10/31/17 16:29 10/01/17 16:38 Levothyroxine Sodium (Synthroid) 100 mcg ACBREAKFAST ORAL 09/25/17 06:30 10/25/17 06:29 10/02/17 06:09 Lorazepam (Ativan 2mg/ml 1ml) 0.5 mg Q4H PRN IV For Anxiety 10/02/17 03:00 10/09/17 02:59 Montelukast Sodium (Singulair) 10 mg QHS ORAL 09/24/17 22:00 10/24/17 21:59 10/01/17 21:03 Ondansetron HCl (Zofran) 4 mg Q6H PRN IVP Nausea & Vomiting 09/24/17 21:30 10/24/17 21:29 10/02/17 10:56 Oxycodone HCl (OxyCONTIN) 20 mg Q12HR ORAL 10/01/17 11:00 10/08/17 10:59 10/02/17 09:58 Polyethylene Glycol (Miralax) 17 gm HSPRN PRN ORAL Constipation 09/24/17 21:30 10/24/17 21:29 Pregabalin (Lyrica) 75 mg TID ORAL 09/25/17 09:00 10/25/17 08:59 10/02/17 10:00 Propranolol HCl (Inderal) 20 mg Q12H ORAL 09/28/17 09:00 10/28/17 08:59 10/01/17 09:11 Solifenacin (Vesicare) 10 mg DAILY ORAL 09/28/17 14:00 10/28/17 13:59 10/02/17 10:01 Tizanidine HCl (Zanaflex) 4 mg BID ORAL 09/25/17 09:00 10/25/17 08:59 10/02/17 09:57 Topiramate (Topamax) 200 mg DAILY ORAL 09/25/17 09:00 10/25/17 08:59 10/02/17 10:01 Zolpidem Tartrate (Ambien) 5 mg HSPRN PRN ORAL Insomnia 10/02/17 03:00 10/09/17 02:59 10/02/17 03:05 Cami Mendez M.D. Oct 02, 2017 12:28
[2017-10-02 16:00] VITALS: BP 96/60
--- NOTE | 2017-10-02 18:56 | Pulmonology Progress Note ---
Assessment/Plan Problems: (1) Sepsis (2) Hypotension (3) UTI (urinary tract infection) (4) Bedridden (5) H/O Spinal surgery Assessment/Plan pain is better improving off abx check cultures echo noted social service evaluation. dc planning in progress difficult placement because of lack of skilled days Subjective ROS Limited/Unobtainable: No Constitutional: Reports: no symptoms HEENT: Repors: no symptoms Allergies: Coded Allergies: CEFAZOLIN (Verified Allergy, Severe, hives all over her body, 01/10/16) PHENYTOIN (Verified Allergy, Severe, swell up face, 01/10/16) SULFA (SULFONAMIDE ANTIBIOTICS) (Verified Allergy, Severe, hives all over her body, 01/10/16) HYDROXYZINE (Verified Adverse Reaction, Severe, tachypnea; tachycardia, 01/10/16) PENICILLINS (Verified Adverse Reaction, Severe, vomiting, 01/10/16) PROCHLORPERAZINE (Verified Adverse Reaction, Severe, musle spasm, 01/10/16) Objective Last 24 Hour Vital Signs Date Time Temp Pulse Resp B/P (MAP) Pulse Ox O2 Delivery O2 Flow Rate FiO2 10/02/17 16:00 98.2 92 20 96/60 91 Room Air 10/02/17 12:00 98.2 96 20 93/58 86 10/02/17 09:00 96 98/65 10/02/17 08:00 97.9 96 20 98/65 92 10/02/17 04:08 97.5 77 19 127/69 96 10/02/17 00:00 98.1 88 20 100/56 95 Room Air 10/01/17 21:00 78 102/59 10/01/17 20:00 98.2 78 20 102/59 95 Room Air Intake and Output 10/02/17 10/03/17 19:00 07:00 Intake Total 240 ml Balance 240 ml Intake Oral 240 ml General Appearance: WD/WN HEENT: normocephalic, atraumatic Respiratory/Chest: chest wall non-tender, lungs clear Cardiovascular: normal peripheral pulses, normal rate Genitourinary: normal external genitalia Skin: no lesions Neurologic/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: 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 grossly normal, no motor/sensory deficits Current Medications Medications (Trade) Dose Ordered Sig/Reanna Route PRN Reason Start Time Stop Time Status Last Admin Dose Admin Acetaminophen (Tylenol) 650 mg Q4H PRN ORAL fever 09/24/17 21:30 10/24/17 21:29 Acetaminophen/ Butalbital/ Caffeine (Fioricet) 1 tab Q6H PRN ORAL headache 10/01/17 10:00 10/31/17 09:59 Acetaminophen/ Hydrocodone Bitart ([place] 10/325) 1 ea Q4H PRN ORAL Moderate breakthrough pain 09/28/17 08:30 10/05/17 08:29 10/02/17 11:57 Al Hydroxide/Mg Hydroxide (Mylanta II) 30 ml Q6H PRN ORAL dyspepsia 09/24/17 21:30 10/24/17 21:29 Dextrose (Dextrose 50%) STAT PRN IV Hypoglycemia 09/24/17 21:30 10/24/17 21:29 Diphenhydramine HCl (Benadryl) 25 mg Q8H PRN IVP Itching 10/01/17 16:30 10/31/17 16:29 10/01/17 16:38 Levothyroxine Sodium (Synthroid) 100 mcg ACBREAKFAST ORAL 09/25/17 06:30 10/25/17 06:29 10/02/17 06:09 Lorazepam (Ativan 2mg/ml 1ml) 0.5 mg Q4H PRN IV For Anxiety 10/02/17 03:00 10/09/17 02:59 Montelukast Sodium (Singulair) 10 mg QHS ORAL 09/24/17 22:00 10/24/17 21:59 10/01/17 21:03 Ondansetron HCl (Zofran) 4 mg Q6H PRN IVP Nausea & Vomiting 09/24/17 21:30 10/24/17 21:29 10/02/17 17:04 Oxycodone HCl (OxyCONTIN) 20 mg Q12HR ORAL 10/01/17 11:00 10/08/17 10:59 10/02/17 09:58 Polyethylene Glycol (Miralax) 17 gm HSPRN PRN ORAL Constipation 09/24/17 21:30 10/24/17 21:29 Pregabalin (Lyrica) 75 mg TID ORAL 09/25/17 09:00 10/25/17 08:59 10/02/17 17:09 Propranolol HCl (Inderal) 20 mg Q12H ORAL 09/28/17 09:00 10/28/17 08:59 10/01/17 09:11 Solifenacin (Vesicare) 10 mg DAILY ORAL 09/28/17 14:00 10/28/17 13:59 10/02/17 10:01 Tizanidine HCl (Zanaflex) 4 mg BID ORAL 09/25/17 09:00 10/25/17 08:59 10/02/17 17:09 Topiramate (Topamax) 200 mg DAILY ORAL 09/25/17 09:00 10/25/17 08:59 10/02/17 10:01 Zolpidem Tartrate (Ambien) 5 mg HSPRN PRN ORAL Insomnia 10/02/17 03:00 10/09/17 02:59 10/02/17 03:05 JAMA ALONZO Oct 02, 2017 18:56
[2017-10-02 19:52] VITALS: BP 122/71
[2017-10-02] MEDS: Montelukast 10mg tablet ORAL SCH (22:01)
[2017-10-03] VITALS (7 sets, daily range): BP systolic 99–114; BP diastolic 57–91
[2017-10-03] MEDS: Norco 10mg/325mg tab ORAL PRN (00:56)
[2017-10-03] MEDS: Morphine Sulfate 4mg/ml Inj IVP PRN ×4 (02:13→20:20)
--- NOTE | 2017-10-03 08:04 | General Progress Note ---
Assessment/Plan Assessment/Plan (1) H/O Spinal surgery (2) DDD (degenerative disc disease), cervical (3) Lumbar spondylosis (4) Cervical spondylosis (5) Lumbar degenerative disc disease (6) History of total knee replacement, right (7) Osteoarthritis of right knee We will continue the Morphine, [place] and Oxycontin. Pt was d/w Dr. Schaffer and he concurred Subjective Date patient seen: Oct 03, 2017 Time patient seen: 07:15 Allergies: Coded Allergies: CEFAZOLIN (Verified Allergy, Severe, hives all over her body, 01/10/16) PHENYTOIN (Verified Allergy, Severe, swell up face, 01/10/16) SULFA (SULFONAMIDE ANTIBIOTICS) (Verified Allergy, Severe, hives all over her body, 01/10/16) HYDROXYZINE (Verified Adverse Reaction, Severe, tachypnea; tachycardia, 01/10/16) PENICILLINS (Verified Adverse Reaction, Severe, vomiting, 01/10/16) PROCHLORPERAZINE (Verified Adverse Reaction, Severe, musle spasm, 01/10/16) Subjective Constitutional: Reports: no symptoms HEENT: Reports: no symptoms Respiratory: Reports: no symptoms Gastrointestinal/Abdominal: Reports: N/v Genitourinary: Reports: no symptoms Endocrine: Reports: no symptoms Hematologic/Lymphatic: Reports: no symptoms Subjective Patient reports that she had some N/v yesterday and it has gotten better. She was unable to take the tabs and due to this was started on Morphine 4mg IV as needed. Objective Last 24 Hour Vital Signs Date Time Temp Pulse Resp B/P (MAP) Pulse Ox O2 Delivery O2 Flow Rate FiO2 10/03/17 04:00 98.4 99 18 114/61 95 Room Air 10/03/17 00:00 Room Air 10/02/17 21:00 80 109/69 10/02/17 20:00 99 Room Air 10/02/17 19:52 99.7 97 18 122/71 99 Room Air 10/02/17 16:00 98.2 92 20 96/60 91 Room Air 10/02/17 12:00 98.2 96 20 93/58 86 10/02/17 09:00 96 98/65 Height (Feet): 5 Height (Inches): 2.00 Weight (Pounds): 120 Objective General Appearance: no apparent distress, alert EENT: PERRL/EOMI, normal ENT inspection Neck: non-tender, normal alignment Cardiovascular: normal rate, regular rhythm Respiratory/Chest: lungs clear, normal breath sounds Abdomen: non tender, soft Extremities: weakness noted Edema: trace edema Neurologic: alert, oriented x 3 Skin: warm/dry GABE DOMINGO Oct 03, 2017 08:04
[2017-10-03] MEDS: Sennosides 8.6mg ORAL SCH (08:38)
[2017-10-03] MEDS: Lyrica 75mg cap ORAL SCH ×3 (08:38→17:39)
[2017-10-03] MEDS: Solifenacin 10mg tab ORAL SCH (08:38)
[2017-10-03] MEDS: Docusate 100mg cap ORAL SCH ×3 (08:38→17:39)
[2017-10-03] MEDS: Topiramate 100mg tab ORAL SCH (08:39)
[2017-10-03] MEDS: oxyCONTIN 20mg tab ORAL SCH ×2 (08:40→20:52)
[2017-10-03] MEDS: Propranolol 10mg tab ORAL SCH ×2 (08:47→20:52)
--- NOTE | 2017-10-03 11:44 | Infectious Diseases Prog Note ---
Assessment/Plan Assessment/Plan Assesment: Low grade fevers- r/o PEMA vs persistent UTI- r/o intrabdominal pathology (+abd pain) Presyncopal event- likely due to hypotension and dehydration UTI- +Pyuria/bacteriuria, urgency -u/a wbc 30-40, nit+, leuk +3; ucx >100K PsA (R Cipro/levo, aztreonam; S Cefepime, zosyn) Leukocytosis, mild- resolved -Bcx NTD sacral wound- not infected -wound cx PSA, diphteroids (colonizers) chronic back pain s/p multiple back surgeries, hx of DVT on xarelto, bedbound, HTN, migraine Plan: -Obtain CXR, u/a with reflex, 2 sets of Bcx, Abd xray -CBC, CMP today -monitor closely may need Abd us and/or CT abd/p if persistent fever and abd pain -Continue to monitor off abx unless peristently febrile, HD unstable and/or worsening leukocytosis -10/01 SP Zosyn #6 for PsA UTI -09/26 SP Aztreonam #2 -09/25 SP CIpro x1 -wound care -Monitor CBC/BMP, temperatures Subjective Allergies: Coded Allergies: CEFAZOLIN (Verified Allergy, Severe, hives all over her body, 01/10/16) PHENYTOIN (Verified Allergy, Severe, swell up face, 01/10/16) SULFA (SULFONAMIDE ANTIBIOTICS) (Verified Allergy, Severe, hives all over her body, 01/10/16) HYDROXYZINE (Verified Adverse Reaction, Severe, tachypnea; tachycardia, 01/10/16) PENICILLINS (Verified Adverse Reaction, Severe, vomiting, 01/10/16) PROCHLORPERAZINE (Verified Adverse Reaction, Severe, musle spasm, 01/10/16) Subjective low grade fevers Tm 100.1 no new labs since 09/29 c/o of diffuse abd pain, dysuria mild cough Objective Vital Signs Last 24 Hour Vital Signs Date Time Temp Pulse Resp B/P (MAP) Pulse Ox O2 Delivery O2 Flow Rate FiO2 10/03/17 09:37 100.1 10/03/17 09:37 100.1 10/03/17 08:47 114 104/71 10/03/17 08:15 100.1 114 20 104/71 94 10/03/17 04:00 98.4 99 18 114/61 95 Room Air 10/03/17 00:00 Room Air 10/02/17 21:00 80 109/69 10/02/17 20:00 99 Room Air 10/02/17 19:52 99.7 97 18 122/71 99 Room Air 10/02/17 16:00 98.2 92 20 96/60 91 Room Air 10/02/17 12:00 98.2 96 20 93/58 86 Height (Feet): 5 Height (Inches): 2.00 Weight (Pounds): 120 Objective General Appearance: Chronically Ill - Thin, chronically ill-appearing middle- aged female, awake and alert HEENT: normocephalic, atraumatic, bilateral eye PERRL, bilateral eye EOMI, moist mucus membranes Neck: normal inspection, full range of motion, supple Respiratory: normal inspection, lungs clear, normal breath sounds, no respiratory distress, no wheezing, Cardiovascular : normal inspection, regular rate, rhythm, normal capillary refill Gastrointestinal: normal inspection, soft, non-distended, no guarding, Musculoskeletal: other - Diffuse generalized paraspinal tenderness in her back , limited range of motion of bilateral lower extremities which is chronic, but able to bend both her knees without issue 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, other - Awake alert, oriented x4, good strength bilateral upper extremities, able to move bilateral lower extremities spontaneously Skin: normal inspection, normal color, no pat Current Medications Medications (Trade) Dose Ordered Sig/Reanna Route PRN Reason Start Time Stop Time Status Last Admin Dose Admin Acetaminophen (Tylenol) 650 mg Q4H PRN ORAL fever 09/24/17 21:30 10/24/17 21:29 Acetaminophen/ Butalbital/ Caffeine (Fioricet) 1 tab Q6H PRN ORAL headache 10/01/17 10:00 10/31/17 09:59 Acetaminophen/ Hydrocodone Bitart ([place] 10/325) 1 ea Q4H PRN ORAL Moderate breakthrough pain 09/28/17 08:30 10/05/17 08:29 10/03/17 00:56 Al Hydroxide/Mg Hydroxide (Mylanta II) 30 ml Q6H PRN ORAL dyspepsia 09/24/17 21:30 10/24/17 21:29 Dextrose (Dextrose 50%) STAT PRN IV Hypoglycemia 09/24/17 21:30 10/24/17 21:29 Diphenhydramine HCl (Benadryl) 25 mg Q8H PRN IVP Itching 10/01/17 16:30 10/31/17 16:29 10/01/17 16:38 Docusate Sodium (Colace) 100 mg THREE TIMES A DAY ORAL 10/03/17 09:00 11/02/17 08:59 10/03/17 08:38 Levothyroxine Sodium (Synthroid) 100 mcg ACBREAKFAST ORAL 09/25/17 06:30 10/25/17 06:29 10/02/17 06:09 Lorazepam (Ativan 2mg/ml 1ml) 0.5 mg Q4H PRN IV For Anxiety 10/02/17 03:00 10/09/17 02:59 Montelukast Sodium (Singulair) 10 mg QHS ORAL 09/24/17 22:00 10/24/17 21:59 10/02/17 22:01 Morphine Sulfate (Morphine Sulfate) 4 mg Q4H PRN IVP severe Pain 10/02/17 23:15 10/09/17 23:14 10/03/17 06:22 Ondansetron HCl (Zofran) 4 mg Q4H PRN IVP Nausea & Vomiting 10/02/17 21:00 11/01/17 20:59 10/03/17 06:27 Oxycodone HCl (OxyCONTIN) 20 mg Q12HR ORAL 10/01/17 11:00 10/08/17 10:59 10/03/17 08:40 Polyethylene Glycol (Miralax) 17 gm HSPRN PRN ORAL Constipation 09/24/17 21:30 10/24/17 21:29 Pregabalin (Lyrica) 75 mg TID ORAL 09/25/17 09:00 10/25/17 08:59 10/03/17 08:38 Propranolol HCl (Inderal) 20 mg Q12H ORAL 09/28/17 09:00 10/28/17 08:59 10/01/17 09:11 Sennosides (Senokot) 8.6 mg DAILY ORAL 10/03/17 09:00 11/02/17 08:59 10/03/17 08:38 Solifenacin (Vesicare) 10 mg DAILY ORAL 09/28/17 14:00 10/28/17 13:59 10/03/17 08:38 Tizanidine HCl (Zanaflex) 4 mg BID ORAL 09/25/17 09:00 10/25/17 08:59 10/03/17 08:39 Topiramate (Topamax) 200 mg DAILY ORAL 09/25/17 09:00 10/25/17 08:59 10/03/17 08:39 Zolpidem Tartrate (Ambien) 5 mg HSPRN PRN ORAL Insomnia 10/02/17 03:00 10/09/17 02:59 10/02/17 03:05 Cami Mendez M.D. Oct 03, 2017 11:44
[2017-10-03 13:30] LABS: BASOPHILS % (AUTO) 0.7 % (0.0-2.0); EOSINOPHILS % (AUTO) 0.1 % (0.0-3.0); LYMPHOCYTES % (AUTO) 22.4 % (20.0-45.0); MEAN CORPUSCULAR HEMOGLOBIN 25.3 PG (27.0-31.0); MEAN CORPUSCULAR HGB CONC 30.8 G/DL (32.0-36.0); MEAN CORPUSCULAR VOLUME 82 FL (80-99); MEAN PLATELET VOLUME 6.8 FL (6.5-10.1); MONOCYTES % (AUTO) 6.6 % (1.0-10.0); NEUTROPHILS % (AUTO) 70.2 % (45.0-75.0); PLATELET COUNT 338 K/UL (150-450); RED BLOOD COUNT 4.29 M/UL (4.20-5.40); RED CELL DISTRIBUTION WIDTH 14.9 % (11.6-14.8); WHITE BLOOD COUNT 9.3 K/UL (4.8-10.8)
[2017-10-03 15:09] LABS: ALANINE AMINOTRANSFERASE 11 U/L (12-78); ALBUMIN/GLOBULIN RATIO 0.6 (1.0-2.7); ANION GAP 10 mmol/L (5-15); ASPARTATE AMINO TRANSFERASE 14 U/L (15-37); CALCIUM 8.7 MG/DL (8.5-10.1); CARBON DIOXIDE 28 MMOL/L (21-32); CHLORIDE 100 MMOL/L (98-107); CREATININE 0.8 MG/DL (0.55-1.30); GLOMERULAR FILTRATION RATE > 60 mL/min (>60); POTASSIUM 3.2 MMOL/L (3.5-5.1); SODIUM 138 MMOL/L (136-145); TOTAL PROTEIN 7.3 G/DL (6.4-8.2)
--- NOTE | 2017-10-03 16:41 | Cardiology Report ---
APPROVED REPORT EXAM: Two-dimensional and M-mode echocardiogram with Doppler and color Doppler. INDICATION Left Ventricular Function M-Mode DIMENSIONS IVSd0.8 (0.7-1.1cm)Left Atrium (MM)3.1 (1.6-4.0cm) LVDd4.8 (3.5-5.6cm)Aortic Root2.7 (2.0-3.7cm) PWd0.7 (0.7-1.1cm)Aortic Cusp Exc.1.6 (1.5-2.0cm) LVDs2.9 (2.5-4.0cm) PWs1.3 cm Normal left ventricular chamber size. Mild global left ventricular hypokinesis. Left ventricular ejection fraction estimated to be 45 %. No evidence of left ventricular hypertrophy. Anterior Echo-free space, may be due to pericardial fat or effusion. All other cardiac chamber sizes are within normal limits. Mild focal aortic valve sclerosis with adequate cusp excursion. Mildly thickened mitral valve leaflets with normal excursion. Mild mitral annulus and aortic root calcification. Normal pulmonic valve structure. Normal tricuspid valve structure. IVC dilated at 2.1 cm with physiological collapse. A color flow and spectral Doppler study was performed and revealed: Trace aortic insufficiency. Trace mitral regurgitation. reduced left ventricular relaxation c/w impaired relaxation diastolic dysfunction. Mild tricuspid regurgitation. Tricuspid systolic velocities suggests peak right ventricular systolic pressure of 32 mmHg. Trace pulmonic regurgitation present.
--- NOTE | 2017-10-03 17:03 | Pulmonology Progress Note ---
Assessment/Plan Problems: (1) Sepsis (2) Hypotension (3) UTI (urinary tract infection) (4) Bedridden (5) H/O Spinal surgery Assessment/Plan pain is better improving off abx check cultures echo noted social service evaluation. dc planning in progress difficult placement because of lack of skilled days, pt is bed bound and has only 3 hours of caregiver. Subjective ROS Limited/Unobtainable: No Constitutional: Reports: no symptoms HEENT: Repors: no symptoms Respiratory: Reports: no symptoms Allergies: Coded Allergies: CEFAZOLIN (Verified Allergy, Severe, hives all over her body, 01/10/16) PHENYTOIN (Verified Allergy, Severe, swell up face, 01/10/16) SULFA (SULFONAMIDE ANTIBIOTICS) (Verified Allergy, Severe, hives all over her body, 01/10/16) HYDROXYZINE (Verified Adverse Reaction, Severe, tachypnea; tachycardia, 01/10/16) PENICILLINS (Verified Adverse Reaction, Severe, vomiting, 01/10/16) PROCHLORPERAZINE (Verified Adverse Reaction, Severe, musle spasm, 01/10/16) Objective Last 24 Hour Vital Signs Date Time Temp Pulse Resp B/P (MAP) Pulse Ox O2 Delivery O2 Flow Rate FiO2 10/03/17 16:00 99.3 114 20 99/73 91 Room Air 10/03/17 15:35 97.9 10/03/17 14:28 97.9 10/03/17 12:15 97.9 107 21 114/91 99 Room Air 10/03/17 09:37 100.1 10/03/17 08:47 114 104/71 10/03/17 08:15 100.1 114 20 104/71 94 10/03/17 04:00 98.4 99 18 114/61 95 Room Air 10/03/17 00:00 Room Air 10/02/17 21:00 80 109/69 10/02/17 20:00 99 Room Air 10/02/17 19:52 99.7 97 18 122/71 99 Room Air Intake and Output 10/03/17 10/04/17 19:00 07:00 Intake Total 480 ml Balance 480 ml Intake Oral 480 ml # Voids 2 # Bowel Movements 1 General Appearance: cachetic HEENT: normocephalic, atraumatic Respiratory/Chest: chest wall non-tender, lungs clear Cardiovascular: normal peripheral pulses Abdomen: normal bowel sounds, soft, non tender, no scars Extremities: no cyanosis Skin: no rash Laboratory Tests 10/03/17 13:20: White Blood Count 9.3, Red Blood Count 4.29, Hemoglobin 10.9L, Hematocrit 35.3L , Mean Corpuscular Volume 82, Mean Corpuscular Hemoglobin 25.3L, Mean Corpuscular Hemoglobin Concent 30.8L, Red Cell Distribution Width 14.9H, Platelet Count 338, Mean Platelet Volume 6.8, Neutrophils (%) (Auto) 70.2, Lymphocytes (%) (Auto) 22.4, Monocytes (%) (Auto) 6.6, Eosinophils (%) (Auto) 0.1, Basophils (%) (Auto) 0.7, Sodium Level 138, Potassium Level 3.2L, Chloride Level 100, Carbon Dioxide Level 28, Anion Gap 10, Blood Urea Nitrogen 19H, Creatinine 0.8, Estimat Glomerular Filtration Rate > 60, Glucose Level 111H, Calcium Level 8.7, Total Bilirubin 0.2, Aspartate Amino Transf (AST/SGOT) 14L, Alanine Aminotransferase (ALT/SGPT) 11L, Alkaline Phosphatase 75, Total Protein 7.3, Albumin 2.7L, Globulin 4.6, Albumin/Globulin Ratio 0.6L Current Medications Medications (Trade) Dose Ordered Sig/Reanna Route PRN Reason Start Time Stop Time Status Last Admin Dose Admin Acetaminophen (Tylenol) 650 mg Q4H PRN ORAL fever 09/24/17 21:30 10/24/17 21:29 Acetaminophen/ Butalbital/ Caffeine (Fioricet) 1 tab Q6H PRN ORAL headache 10/01/17 10:00 10/31/17 09:59 Acetaminophen/ Hydrocodone Bitart ([place] 10/325) 1 ea Q4H PRN ORAL Moderate breakthrough pain 09/28/17 08:30 10/05/17 08:29 10/03/17 00:56 Al Hydroxide/Mg Hydroxide (Mylanta II) 30 ml Q6H PRN ORAL dyspepsia 09/24/17 21:30 10/24/17 21:29 Dextrose (Dextrose 50%) STAT PRN IV Hypoglycemia 09/24/17 21:30 10/24/17 21:29 Diphenhydramine HCl (Benadryl) 25 mg Q8H PRN IVP Itching 10/01/17 16:30 10/31/17 16:29 10/01/17 16:38 Docusate Sodium (Colace) 100 mg THREE TIMES A DAY ORAL 10/03/17 09:00 11/02/17 08:59 10/03/17 13:29 Levothyroxine Sodium (Synthroid) 100 mcg ACBREAKFAST ORAL 09/25/17 06:30 10/25/17 06:29 10/02/17 06:09 Lorazepam (Ativan 2mg/ml 1ml) 0.5 mg Q4H PRN IV For Anxiety 10/02/17 03:00 10/09/17 02:59 Montelukast Sodium (Singulair) 10 mg QHS ORAL 09/24/17 22:00 10/24/17 21:59 10/02/17 22:01 Morphine Sulfate (Morphine Sulfate) 4 mg Q4H PRN IVP severe Pain 10/02/17 23:15 10/09/17 23:14 10/03/17 15:05 Ondansetron HCl (Zofran) 4 mg Q4H PRN IVP Nausea & Vomiting 10/02/17 21:00 11/01/17 20:59 10/03/17 06:27 Oxycodone HCl (OxyCONTIN) 20 mg Q12HR ORAL 10/01/17 11:00 10/08/17 10:59 10/03/17 08:40 Polyethylene Glycol (Miralax) 17 gm HSPRN PRN ORAL Constipation 09/24/17 21:30 10/24/17 21:29 Pregabalin (Lyrica) 75 mg TID ORAL 09/25/17 09:00 10/25/17 08:59 10/03/17 13:29 Propranolol HCl (Inderal) 20 mg Q12H ORAL 09/28/17 09:00 10/28/17 08:59 10/01/17 09:11 Sennosides (Senokot) 8.6 mg DAILY ORAL 10/03/17 09:00 11/02/17 08:59 10/03/17 08:38 Solifenacin (Vesicare) 10 mg DAILY ORAL 09/28/17 14:00 10/28/17 13:59 10/03/17 08:38 Tizanidine HCl (Zanaflex) 4 mg BID ORAL 09/25/17 09:00 10/25/17 08:59 10/03/17 08:39 Topiramate (Topamax) 200 mg DAILY ORAL 09/25/17 09:00 10/25/17 08:59 10/03/17 08:39 Zolpidem Tartrate (Ambien) 5 mg HSPRN PRN ORAL Insomnia 10/02/17 03:00 10/09/17 02:59 10/02/17 03:05 JAMA ALONZO Oct 03, 2017 17:03
[2017-10-03] MEDS: Montelukast 10mg tablet ORAL SCH (20:21)
[2017-10-03] MEDS ORDERED: KCl 10% 40mEq/30ml liquid ORAL ONE (21:00)
[2017-10-03] MEDS: Zolpidem 5mg tab ORAL PRN (23:33)
[2017-10-04 00:47] LABS: APPEARANCE,URINE CLEAR; KETONES,URINE NEGATIVE (NEGATIVE); PH,URINE 6 (4.5-8.0); PROTEIN,URINE 2+ (NEGATIVE); UROBILINOGEN,URINE 4 MG/DL (0.0-1.0)
--- NOTE | 2017-10-04 00:51 | General Progress Note ---
Assessment/Plan Status: stable Assessment/Plan anxiety d/o mdd cont ativan cont topamax Subjective Date patient seen: Oct 03, 2017 Neurologic/Psychiatric: Reports: anxiety, depressed, emotional problems Allergies: Coded Allergies: CEFAZOLIN (Verified Allergy, Severe, hives all over her body, 01/10/16) PHENYTOIN (Verified Allergy, Severe, swell up face, 01/10/16) SULFA (SULFONAMIDE ANTIBIOTICS) (Verified Allergy, Severe, hives all over her body, 01/10/16) HYDROXYZINE (Verified Adverse Reaction, Severe, tachypnea; tachycardia, 01/10/16) PENICILLINS (Verified Adverse Reaction, Severe, vomiting, 01/10/16) PROCHLORPERAZINE (Verified Adverse Reaction, Severe, musle spasm, 01/10/16) Objective Last 24 Hour Vital Signs Date Time Temp Pulse Resp B/P (MAP) Pulse Ox O2 Delivery O2 Flow Rate FiO2 10/03/17 23:32 98.2 114 20 105/61 98 Room Air 10/03/17 20:52 111 101/57 10/03/17 20:20 106/60 Room Air 10/03/17 20:09 98.2 111 20 101/57 98 Room Air 10/03/17 18:38 99.3 10/03/17 18:38 99.3 10/03/17 16:00 99.3 114 20 99/73 91 Room Air 10/03/17 15:35 97.9 10/03/17 12:15 97.9 107 21 114/91 99 Room Air 10/03/17 08:47 114 104/71 10/03/17 08:15 100.1 114 20 104/71 94 10/03/17 04:00 98.4 99 18 114/61 95 Room Air Laboratory Tests 10/03/17 13:20: White Blood Count 9.3, Red Blood Count 4.29, Hemoglobin 10.9L, Hematocrit 35.3L , Mean Corpuscular Volume 82, Mean Corpuscular Hemoglobin 25.3L, Mean Corpuscular Hemoglobin Concent 30.8L, Red Cell Distribution Width 14.9H, Platelet Count 338, Mean Platelet Volume 6.8, Neutrophils (%) (Auto) 70.2, Lymphocytes (%) (Auto) 22.4, Monocytes (%) (Auto) 6.6, Eosinophils (%) (Auto) 0.1, Basophils (%) (Auto) 0.7, Sodium Level 138, Potassium Level 3.2L, Chloride Level 100, Carbon Dioxide Level 28, Anion Gap 10, Blood Urea Nitrogen 19H, Creatinine 0.8, Estimat Glomerular Filtration Rate > 60, Glucose Level 111H, Calcium Level 8.7, Total Bilirubin 0.2, Aspartate Amino Transf (AST/SGOT) 14L, Alanine Aminotransferase (ALT/SGPT) 11L, Alkaline Phosphatase 75, Total Protein 7.3, Albumin 2.7L, Globulin 4.6, Albumin/Globulin Ratio 0.6L 10/03/17 22:30: Urine Color [Pending], Urine Appearance [Pending], Urine pH [Pending], Urine Specific [place] [Pending], Urine Protein [Pending], Urine Glucose (UA) [Pending ], Urine Ketones [Pending], Urine Occult Blood [Pending], Urine Nitrite [Pending ], Urine Bilirubin [Pending], Urine Urobilinogen [Pending], Urine Leukocyte Esterase [Pending] Height (Feet): 5 Height (Inches): 2.00 Weight (Pounds): 120 General Appearance: no apparent distress, alert, overweight Neurologic: alert, oriented x 3, responsive, depressed affect Tata Huynh M.D. Oct 04, 2017 00:51
--- NOTE | 2017-10-04 00:52 | Geriatric Progress Note ---
Assessment/Plan Discussed with: patient Subjective Interval Events 10/02/17 Mood/Memory: Reports: prior hx, anxiety, depressed feelings, emotional problems Geriatric Geriatric Last 24 Hour Vital Signs Date Time Temp Pulse Resp B/P (MAP) Pulse Ox O2 Delivery O2 Flow Rate FiO2 10/03/17 23:32 98.2 114 20 105/61 98 Room Air 10/03/17 20:52 111 101/57 10/03/17 20:20 106/60 Room Air 10/03/17 20:09 98.2 111 20 101/57 98 Room Air 10/03/17 18:38 99.3 10/03/17 18:38 99.3 10/03/17 16:00 99.3 114 20 99/73 91 Room Air 10/03/17 15:35 97.9 10/03/17 12:15 97.9 107 21 114/91 99 Room Air 10/03/17 08:47 114 104/71 10/03/17 08:15 100.1 114 20 104/71 94 10/03/17 04:00 98.4 99 18 114/61 95 Room Air Laboratory Tests Test 10/03/17 13:20 10/03/17 22:30 White Blood Count 9.3 K/UL (4.8-10.8) Red Blood Count 4.29 M/UL (4.20-5.40) Hemoglobin 10.9 G/DL (12.0-16.0) L Hematocrit 35.3 % (37.0-47.0) L Mean Corpuscular Volume 82 FL (80-99) Mean Corpuscular Hemoglobin 25.3 PG (27.0-31.0) L Mean Corpuscular Hemoglobin Concent 30.8 G/DL (32.0-36.0) L Red Cell Distribution Width 14.9 % (11.6-14.8) H Platelet Count 338 K/UL (150-450) Mean Platelet Volume 6.8 FL (6.5-10.1) Neutrophils (%) (Auto) 70.2 % (45.0-75.0) Lymphocytes (%) (Auto) 22.4 % (20.0-45.0) Monocytes (%) (Auto) 6.6 % (1.0-10.0) Eosinophils (%) (Auto) 0.1 % (0.0-3.0) Basophils (%) (Auto) 0.7 % (0.0-2.0) Sodium Level 138 MMOL/L (136-145) Potassium Level 3.2 MMOL/L (3.5-5.1) L Chloride Level 100 MMOL/L (98-107) Carbon Dioxide Level 28 MMOL/L (21-32) Anion Gap 10 mmol/L (5-15) Blood Urea Nitrogen 19 mg/dL (7-18) H Creatinine 0.8 MG/DL (0.55-1.30) Estimat Glomerular Filtration Rate > 60 mL/min (>60) Glucose Level 111 MG/DL (74-106) H Calcium Level 8.7 MG/DL (8.5-10.1) Total Bilirubin 0.2 MG/DL (0.2-1.0) Aspartate Amino Transf (AST/SGOT) 14 U/L (15-37) L Alanine Aminotransferase (ALT/SGPT) 11 U/L (12-78) L Alkaline Phosphatase 75 U/L (46-116) Total Protein 7.3 G/DL (6.4-8.2) Albumin 2.7 G/DL (3.4-5.0) L Globulin 4.6 g/dL Albumin/Globulin Ratio 0.6 (1.0-2.7) L Urine Color Pending Urine Appearance Pending Urine pH Pending Urine Specific [place] Pending Urine Protein Pending Urine Glucose (UA) Pending Urine Ketones Pending Urine Occult Blood Pending Urine Nitrite Pending Urine Bilirubin Pending Urine Urobilinogen Pending Urine Leukocyte Esterase Pending Current Medications Medications (Trade) Dose Ordered Sig/Reanna Route PRN Reason Start Time Stop Time Status Last Admin Dose Admin Acetaminophen (Tylenol) 650 mg Q4H PRN ORAL fever 09/24/17 21:30 10/24/17 21:29 Acetaminophen/ Butalbital/ Caffeine (Fioricet) 1 tab Q6H PRN ORAL headache 10/01/17 10:00 10/31/17 09:59 Acetaminophen/ Hydrocodone Bitart ([place] ) 1 ea Q4H PRN ORAL Moderate breakthrough pain 09/28/17 08:30 10/05/17 08:29 10/03/17 00:56 Al Hydroxide/Mg Hydroxide (Mylanta II) 30 ml Q6H PRN ORAL dyspepsia 09/24/17 21:30 10/24/17 21:29 Dextrose (Dextrose 50%) STAT PRN IV Hypoglycemia 09/24/17 21:30 10/24/17 21:29 Diphenhydramine HCl (Benadryl) 25 mg Q8H PRN IVP Itching 10/01/17 16:30 10/31/17 16:29 10/01/17 16:38 Docusate Sodium (Colace) 100 mg THREE TIMES A DAY ORAL 10/03/17 09:00 11/02/17 08:59 10/03/17 17:39 Levothyroxine Sodium (Synthroid) 100 mcg ACBREAKFAST ORAL 09/25/17 06:30 10/25/17 06:29 10/02/17 06:09 Lorazepam (Ativan 2mg/ml 1ml) 0.5 mg Q4H PRN IV For Anxiety 10/02/17 03:00 10/09/17 02:59 Montelukast Sodium (Singulair) 10 mg QHS ORAL 09/24/17 22:00 10/24/17 21:59 10/03/17 20:21 Morphine Sulfate (Morphine Sulfate) 4 mg Q4H PRN IVP severe Pain 10/02/17 23:15 10/09/17 23:14 10/03/17 20:20 Ondansetron HCl (Zofran) 4 mg Q4H PRN IVP Nausea & Vomiting 10/02/17 21:00 11/01/17 20:59 10/03/17 23:33 Oxycodone HCl (OxyCONTIN) 20 mg Q12HR ORAL 10/01/17 11:00 10/08/17 10:59 10/03/17 08:40 Polyethylene Glycol (Miralax) 17 gm HSPRN PRN ORAL Constipation 09/24/17 21:30 10/24/17 21:29 Pregabalin (Lyrica) 75 mg TID ORAL 09/25/17 09:00 10/25/17 08:59 10/03/17 17:39 Propranolol HCl (Inderal) 20 mg Q12H ORAL 09/28/17 09:00 10/28/17 08:59 10/01/17 09:11 Sennosides (Senokot) 8.6 mg DAILY ORAL 10/03/17 09:00 11/02/17 08:59 10/03/17 08:38 Solifenacin (Vesicare) 10 mg DAILY ORAL 09/28/17 14:00 10/28/17 13:59 10/03/17 08:38 Tizanidine HCl (Zanaflex) 4 mg BID ORAL 09/25/17 09:00 10/25/17 08:59 10/03/17 17:39 Topiramate (Topamax) 200 mg DAILY ORAL 09/25/17 09:00 10/25/17 08:59 10/03/17 08:39 Zolpidem Tartrate (Ambien) 5 mg HSPRN PRN ORAL Insomnia 10/02/17 03:00 10/09/17 02:59 10/03/17 23:33 Height (Feet): 5 Height (Inches): 2.00 Weight (Pounds): 120 General Appearance: no apparent distress, alert Psychiatric Orientation: person, place, time Affect: appropriate Insight: Tata Giron M.D. Oct 04, 2017 00:52
[2017-10-04 00:59] LABS: LEUKOCYTE ESTERASE ,URINE NEGATIVE (NEGATIVE); NITRITE,URINE NEGATIVE (NEGATIVE)
[2017-10-04 01:00] LABS: BACTERIA,URINE FEW /HPF; RBC,URINE 0-2 /HPF (0 - 2); SQUAMOUS EPITHELIAL CELL,UR FEW /LPF (NONE/OCC); WBC,URINE 0 /HPF (0 - 2)
[2017-10-04 01:01] LABS: CALCIUM OXALATE CRYSTALS,UR MANY /LPF; ICTOTEST POSITIVE
[2017-10-04 04:10] VITALS: BP 113/48
[2017-10-04] MEDS: Morphine Sulfate 4mg/ml Inj IVP PRN ×4 (06:29→23:45)
[2017-10-04 08:15] VITALS: BP 114/76
[2017-10-04] MEDS: Solifenacin 10mg tab ORAL SCH (09:00)
[2017-10-04] MEDS: Propranolol 10mg tab ORAL SCH ×2 (09:00→21:30)
[2017-10-04] MEDS: Topiramate 100mg tab ORAL SCH (09:00)
[2017-10-04] MEDS: Docusate 100mg cap ORAL SCH ×3 (09:00→18:22)
[2017-10-04] MEDS: Lyrica 75mg cap ORAL SCH ×3 (09:00→18:23)
[2017-10-04] MEDS: oxyCONTIN 20mg tab ORAL SCH ×2 (09:00→21:31)
[2017-10-04] MEDS: Sennosides 8.6mg ORAL SCH (09:00)
--- NOTE | 2017-10-04 11:10 | Infectious Diseases Prog Note ---
Assessment/Plan Assessment/Plan Assesment: Low grade fevers x1, no further- r/o PEMA vs persistent UTI- r/o intrabdominal pathology (+abd pain) -repeat UA no pyuria Presyncopal event- likely due to hypotension and dehydration UTI- +Pyuria/bacteriuria, urgency -u/a wbc 30-40, nit+, leuk +3; ucx >100K PsA (R Cipro/levo, aztreonam; S Cefepime, zosyn) Leukocytosis, mild- resolved -Bcx NTD sacral wound- not infected -wound cx PSA, diphteroids (colonizers) chronic back pain s/p multiple back surgeries, hx of DVT on xarelto, bedbound, HTN, migraine Plan: -f/u CXR,2 sets of Bcx, Abd xray -monitor closely may need Abd us and/or CT abd/p if persistent fever and abd pain -Continue to monitor off abx unless persistently febrile, HD unstable and/or worsening leukocytosis -10/01 SP Zosyn #6 for PsA UTI -09/26 SP Aztreonam #2 -09/25 SP CIpro x1 -wound care -Monitor CBC/BMP, temperatures Subjective Allergies: Coded Allergies: CEFAZOLIN (Verified Allergy, Severe, hives all over her body, 01/10/16) PHENYTOIN (Verified Allergy, Severe, swell up face, 01/10/16) SULFA (SULFONAMIDE ANTIBIOTICS) (Verified Allergy, Severe, hives all over her body, 01/10/16) HYDROXYZINE (Verified Adverse Reaction, Severe, tachypnea; tachycardia, 01/10/16) PENICILLINS (Verified Adverse Reaction, Severe, vomiting, 01/10/16) PROCHLORPERAZINE (Verified Adverse Reaction, Severe, musle spasm, 01/10/16) Subjective afebrile in 24hrs off abx no leukocytosis repeat ua neg +abd corine, passing gas and stool Objective Vital Signs Last 24 Hour Vital Signs Date Time Temp Pulse Resp B/P (MAP) Pulse Ox O2 Delivery O2 Flow Rate FiO2 10/04/17 09:00 103 114/76 10/04/17 08:15 98.1 103 20 114/76 99 Room Air 10/04/17 04:10 98.2 105 20 113/48 98 Room Air 10/03/17 23:32 98.2 114 20 105/61 98 Room Air 10/03/17 20:52 111 101/57 10/03/17 20:20 106/60 Room Air 10/03/17 20:09 98.2 111 20 101/57 98 Room Air 10/03/17 18:38 99.3 10/03/17 18:38 99.3 10/03/17 16:00 99.3 114 20 99/73 91 Room Air 10/03/17 15:35 97.9 10/03/17 12:15 97.9 107 21 114/91 99 Room Air Height (Feet): 5 Height (Inches): 2.00 Weight (Pounds): 120 Objective General Appearance: Chronically Ill - Thin, chronically ill-appearing middle- aged female, awake and alert HEENT: normocephalic, atraumatic, bilateral eye PERRL, bilateral eye EOMI, moist mucus membranes Neck: normal inspection, full range of motion, supple Respiratory: normal inspection, lungs clear, normal breath sounds, no respiratory distress, no wheezing, Cardiovascular : normal inspection, regular rate, rhythm, normal capillary refill Gastrointestinal: normal inspection, soft, non-distended, no guarding, Musculoskeletal: other - Diffuse generalized paraspinal tenderness in her back , limited range of motion of bilateral lower extremities which is chronic, but able to bend both her knees without issue 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: recreation attendant III-XII 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 as tested, other - Awake alert, oriented x4, good strength bilateral upper extremities, able to move bilateral lower extremities spontaneously Skin: normal inspection, normal color, no pat Laboratory Tests Test 10/03/17 13:20 10/03/17 22:30 White Blood Count 9.3 K/UL (4.8-10.8) Red Blood Count 4.29 M/UL (4.20-5.40) Hemoglobin 10.9 G/DL (12.0-16.0) L Hematocrit 35.3 % (37.0-47.0) L Mean Corpuscular Volume 82 FL (80-99) Mean Corpuscular Hemoglobin 25.3 PG (27.0-31.0) L Mean Corpuscular Hemoglobin Concent 30.8 G/DL (32.0-36.0) L Red Cell Distribution Width 14.9 % (11.6-14.8) H Platelet Count 338 K/UL (150-450) Mean Platelet Volume 6.8 FL (6.5-10.1) Neutrophils (%) (Auto) 70.2 % (45.0-75.0) Lymphocytes (%) (Auto) 22.4 % (20.0-45.0) Monocytes (%) (Auto) 6.6 % (1.0-10.0) Eosinophils (%) (Auto) 0.1 % (0.0-3.0) Basophils (%) (Auto) 0.7 % (0.0-2.0) Sodium Level 138 MMOL/L (136-145) Potassium Level 3.2 MMOL/L (3.5-5.1) L Chloride Level 100 MMOL/L (98-107) Carbon Dioxide Level 28 MMOL/L (21-32) Anion Gap 10 mmol/L (5-15) Blood Urea Nitrogen 19 mg/dL (7-18) H Creatinine 0.8 MG/DL (0.55-1.30) Estimat Glomerular Filtration Rate > 60 mL/min (>60) Glucose Level 111 MG/DL (74-106) H Calcium Level 8.7 MG/DL (8.5-10.1) Total Bilirubin 0.2 MG/DL (0.2-1.0) Aspartate Amino Transf (AST/SGOT) 14 U/L (15-37) L Alanine Aminotransferase (ALT/SGPT) 11 U/L (12-78) L Alkaline Phosphatase 75 U/L (46-116) Total Protein 7.3 G/DL (6.4-8.2) Albumin 2.7 G/DL (3.4-5.0) L Globulin 4.6 g/dL Albumin/Globulin Ratio 0.6 (1.0-2.7) L Urine Color Yellow Urine Appearance Clear Urine pH 6 (4.5-8.0) Urine Specific [place] 1.015 (1.005-1.035) Urine Protein 2+ (NEGATIVE) H Urine Glucose (UA) Negative (NEGATIVE) Urine Ketones Negative (NEGATIVE) Urine Occult Blood 1+ (NEGATIVE) H Urine Nitrite Negative (NEGATIVE) Urine Bilirubin 2+ (NEGATIVE) H Urine Ictotest Positive Urine Urobilinogen 4 MG/DL (0.0-1.0) H Urine Leukocyte Esterase Negative (NEGATIVE) Urine RBC 0-2 /HPF (0 - 2) Urine WBC 0 /HPF (0 - 2) Urine Squamous Epithelial Cells Few /LPF (NONE/OCC) Urine Calcium Oxalate Crystals Many /LPF (NONE) Urine Bacteria Few /HPF (NONE) Current Medications Medications (Trade) Dose Ordered Sig/Reanna Route PRN Reason Start Time Stop Time Status Last Admin Dose Admin Acetaminophen (Tylenol) 650 mg Q4H PRN ORAL fever 09/24/17 21:30 10/24/17 21:29 Acetaminophen/ Butalbital/ Caffeine (Fioricet) 1 tab Q6H PRN ORAL headache 10/01/17 10:00 10/31/17 09:59 Acetaminophen/ Hydrocodone Bitart ([place] 10/325) 1 ea Q4H PRN ORAL Moderate breakthrough pain 09/28/17 08:30 10/05/17 08:29 10/03/17 00:56 Al Hydroxide/Mg Hydroxide (Mylanta II) 30 ml Q6H PRN ORAL dyspepsia 09/24/17 21:30 10/24/17 21:29 Dextrose (Dextrose 50%) STAT PRN IV Hypoglycemia 09/24/17 21:30 10/24/17 21:29 Diphenhydramine HCl (Benadryl) 25 mg Q8H PRN IVP Itching 10/01/17 16:30 10/31/17 16:29 10/01/17 16:38 Docusate Sodium (Colace) 100 mg THREE TIMES A DAY ORAL 10/03/17 09:00 11/02/17 08:59 10/03/17 17:39 Levothyroxine Sodium (Synthroid) 100 mcg ACBREAKFAST ORAL 09/25/17 06:30 10/25/17 06:29 10/04/17 06:05 Lorazepam (Ativan 2mg/ml 1ml) 0.5 mg Q4H PRN IV For Anxiety 10/02/17 03:00 10/09/17 02:59 Montelukast Sodium (Singulair) 10 mg QHS ORAL 09/24/17 22:00 10/24/17 21:59 10/03/17 20:21 Morphine Sulfate (Morphine Sulfate) 4 mg Q4H PRN IVP severe Pain 10/02/17 23:15 10/09/17 23:14 10/04/17 06:29 Ondansetron HCl (Zofran) 4 mg Q4H PRN IVP Nausea & Vomiting 10/02/17 21:00 11/01/17 20:59 10/03/17 23:33 Oxycodone HCl (OxyCONTIN) 20 mg Q12HR ORAL 10/01/17 11:00 10/08/17 10:59 10/03/17 08:40 Polyethylene Glycol (Miralax) 17 gm HSPRN PRN ORAL Constipation 09/24/17 21:30 10/24/17 21:29 Pregabalin (Lyrica) 75 mg TID ORAL 09/25/17 09:00 10/25/17 08:59 10/03/17 17:39 Propranolol HCl (Inderal) 20 mg Q12H ORAL 09/28/17 09:00 10/28/17 08:59 10/01/17 09:11 Sennosides (Senokot) 8.6 mg DAILY ORAL 10/03/17 09:00 11/02/17 08:59 10/03/17 08:38 Solifenacin (Vesicare) 10 mg DAILY ORAL 09/28/17 14:00 10/28/17 13:59 10/03/17 08:38 Tizanidine HCl (Zanaflex) 4 mg BID ORAL 09/25/17 09:00 10/25/17 08:59 10/03/17 17:39 Topiramate (Topamax) 200 mg DAILY ORAL 09/25/17 09:00 10/25/17 08:59 10/03/17 08:39 Zolpidem Tartrate (Ambien) 5 mg HSPRN PRN ORAL Insomnia 10/02/17 03:00 10/09/17 02:59 10/03/17 23:33 Cami Mendez M.D. Oct 04, 2017 11:10
--- NOTE | 2017-10-04 11:38 | Infectious Diseases Prog Note ---
Assessment/Plan Assessment/Plan Assesment: abd pain- r/o intrabdominal pathology Intermittent Low grade - r/o PEMA vs persistent UTI- r/o intrabdominal pathology (+abd pain) -repeat UA no pyuria -bcx p -CXR p -abd xray p Presyncopal event- likely due to hypotension and dehydration UTI- +Pyuria/bacteriuria, urgency -u/a wbc 30-40, nit+, leuk +3; ucx >100K PsA (R Cipro/levo, aztreonam; S Cefepime, zosyn) Leukocytosis, mild- resolved -Bcx NTD sacral wound- not infected -wound cx PSA, diphteroids (colonizers) chronic back pain s/p multiple back surgeries, hx of DVT on xarelto, bedbound, HTN, migraine Plan: -f/u CXR,2 sets of Bcx, Abd xray and obtain Abd us -monitor closely may need CT abd/p if persistent fever and abd pain -Will start Cipro and Flagyl given low grade fevers and abd pain awaiting abdominal studies. -10/01 SP Zosyn #6 for PsA UTI -09/26 SP Aztreonam #2 -09/25 SP CIpro x1 -wound care -Monitor CBC/BMP, temperatures Subjective Allergies: Coded Allergies: CEFAZOLIN (Verified Allergy, Severe, hives all over her body, 01/10/16) PHENYTOIN (Verified Allergy, Severe, swell up face, 01/10/16) SULFA (SULFONAMIDE ANTIBIOTICS) (Verified Allergy, Severe, hives all over her body, 01/10/16) HYDROXYZINE (Verified Adverse Reaction, Severe, tachypnea; tachycardia, 01/10/16) PENICILLINS (Verified Adverse Reaction, Severe, vomiting, 01/10/16) PROCHLORPERAZINE (Verified Adverse Reaction, Severe, musle spasm, 01/10/16) Subjective low grade fever last night Tm 100.2 no leukocytosis awaitin CXR and abd xray still c/o of abd pain Objective Vital Signs Last 24 Hour Vital Signs Date Time Temp Pulse Resp B/P (MAP) Pulse Ox O2 Delivery O2 Flow Rate FiO2 10/04/17 09:00 103 114/76 10/04/17 08:15 98.1 103 20 114/76 99 Room Air 10/04/17 04:10 98.2 105 20 113/48 98 Room Air 10/03/17 23:32 98.2 114 20 105/61 98 Room Air 10/03/17 20:52 111 101/57 10/03/17 20:20 106/60 Room Air 10/03/17 20:09 98.2 111 20 101/57 98 Room Air 10/03/17 18:38 99.3 10/03/17 18:38 99.3 10/03/17 16:00 99.3 114 20 99/73 91 Room Air 10/03/17 15:35 97.9 10/03/17 12:15 97.9 107 21 114/91 99 Room Air Height (Feet): 5 Height (Inches): 2.00 Weight (Pounds): 120 Objective General Appearance: Chronically Ill - Thin, chronically ill-appearing middle- aged female, awake and alert HEENT: normocephalic, atraumatic, bilateral eye PERRL, bilateral eye EOMI, moist mucus membranes Neck: normal inspection, full range of motion, supple Respiratory: normal inspection, lungs clear, normal breath sounds, no respiratory distress, no wheezing, Cardiovascular : normal inspection, regular rate, rhythm, normal capillary refill Gastrointestinal: normal inspection, soft, non-distended, no guarding, Musculoskeletal: other - Diffuse generalized paraspinal tenderness in her back , limited range of motion of bilateral lower extremities which is chronic, but able to bend both her knees without issue Neurologic: 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 core 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 III-XII nml as tested, other - Awake alert, oriented x4, good strength bilateral upper extremities, able to move bilateral lower extremities spontaneously Skin: normal inspection, normal color, no pat Laboratory Tests Test 10/03/17 13:20 10/03/17 22:30 White Blood Count 9.3 K/UL (4.8-10.8) Red Blood Count 4.29 M/UL (4.20-5.40) Hemoglobin 10.9 G/DL (12.0-16.0) L Hematocrit 35.3 % (37.0-47.0) L Mean Corpuscular Volume 82 FL (80-99) Mean Corpuscular Hemoglobin 25.3 PG (27.0-31.0) L Mean Corpuscular Hemoglobin Concent 30.8 G/DL (32.0-36.0) L Red Cell Distribution Width 14.9 % (11.6-14.8) H Platelet Count 338 K/UL (150-450) Mean Platelet Volume 6.8 FL (6.5-10.1) Neutrophils (%) (Auto) 70.2 % (45.0-75.0) Lymphocytes (%) (Auto) 22.4 % (20.0-45.0) Monocytes (%) (Auto) 6.6 % (1.0-10.0) Eosinophils (%) (Auto) 0.1 % (0.0-3.0) Basophils (%) (Auto) 0.7 % (0.0-2.0) Sodium Level 138 MMOL/L (136-145) Potassium Level 3.2 MMOL/L (3.5-5.1) L Chloride Level 100 MMOL/L (98-107) Carbon Dioxide Level 28 MMOL/L (21-32) Anion Gap 10 mmol/L (5-15) Blood Urea Nitrogen 19 mg/dL (7-18) H Creatinine 0.8 MG/DL (0.55-1.30) Estimat Glomerular Filtration Rate > 60 mL/min (>60) Glucose Level 111 MG/DL (74-106) H Calcium Level 8.7 MG/DL (8.5-10.1) Total Bilirubin 0.2 MG/DL (0.2-1.0) Aspartate Amino Transf (AST/SGOT) 14 U/L (15-37) L Alanine Aminotransferase (ALT/SGPT) 11 U/L (12-78) L Alkaline Phosphatase 75 U/L (46-116) Total Protein 7.3 G/DL (6.4-8.2) Albumin 2.7 G/DL (3.4-5.0) L Globulin 4.6 g/dL Albumin/Globulin Ratio 0.6 (1.0-2.7) L Urine Color Yellow Urine Appearance Clear Urine pH 6 (4.5-8.0) Urine Specific [place] 1.015 (1.005-1.035) Urine Protein 2+ (NEGATIVE) H Urine Glucose (UA) Negative (NEGATIVE) Urine Ketones Negative (NEGATIVE) Urine Occult Blood 1+ (NEGATIVE) H Urine Nitrite Negative (NEGATIVE) Urine Bilirubin 2+ (NEGATIVE) H Urine Ictotest Positive Urine Urobilinogen 4 MG/DL (0.0-1.0) H Urine Leukocyte Esterase Negative (NEGATIVE) Urine RBC 0-2 /HPF (0 - 2) Urine WBC 0 /HPF (0 - 2) Urine Squamous Epithelial Cells Few /LPF (NONE/OCC) Urine Calcium Oxalate Crystals Many /LPF (NONE) Urine Bacteria Few /HPF (NONE) Current Medications Medications (Trade) Dose Ordered Sig/Reanna Route PRN Reason Start Time Stop Time Status Last Admin Dose Admin Acetaminophen (Tylenol) 650 mg Q4H PRN ORAL fever 09/24/17 21:30 10/24/17 21:29 Acetaminophen/ Butalbital/ Caffeine (Fioricet) 1 tab Q6H PRN ORAL headache 10/01/17 10:00 10/31/17 09:59 Acetaminophen/ Hydrocodone Bitart ([place] 10/325) 1 ea Q4H PRN ORAL Moderate breakthrough pain 09/28/17 08:30 10/05/17 08:29 10/03/17 00:56 Al Hydroxide/Mg Hydroxide (Mylanta II) 30 ml Q6H PRN ORAL dyspepsia 09/24/17 21:30 10/24/17 21:29 Dextrose (Dextrose 50%) STAT PRN IV Hypoglycemia 09/24/17 21:30 10/24/17 21:29 Diphenhydramine HCl (Benadryl) 25 mg Q8H PRN IVP Itching 10/01/17 16:30 10/31/17 16:29 10/01/17 16:38 Docusate Sodium (Colace) 100 mg THREE TIMES A DAY ORAL 10/03/17 09:00 11/02/17 08:59 10/03/17 17:39 Levothyroxine Sodium (Synthroid) 100 mcg ACBREAKFAST ORAL 09/25/17 06:30 10/25/17 06:29 10/04/17 06:05 Lorazepam (Ativan 2mg/ml 1ml) 0.5 mg Q4H PRN IV For Anxiety 10/02/17 03:00 10/09/17 02:59 Montelukast Sodium (Singulair) 10 mg QHS ORAL 09/24/17 22:00 10/24/17 21:59 10/03/17 20:21 Morphine Sulfate (Morphine Sulfate) 4 mg Q4H PRN IVP severe Pain 10/02/17 23:15 10/09/17 23:14 10/04/17 06:29 Ondansetron HCl (Zofran) 4 mg Q4H PRN IVP Nausea & Vomiting 10/02/17 21:00 11/01/17 20:59 10/03/17 23:33 Oxycodone HCl (OxyCONTIN) 20 mg Q12HR ORAL 10/01/17 11:00 10/08/17 10:59 10/03/17 08:40 Polyethylene Glycol (Miralax) 17 gm HSPRN PRN ORAL Constipation 09/24/17 21:30 10/24/17 21:29 Pregabalin (Lyrica) 75 mg TID ORAL 09/25/17 09:00 10/25/17 08:59 10/03/17 17:39 Propranolol HCl (Inderal) 20 mg Q12H ORAL 09/28/17 09:00 10/28/17 08:59 10/01/17 09:11 Sennosides (Senokot) 8.6 mg DAILY ORAL 10/03/17 09:00 11/02/17 08:59 10/03/17 08:38 Solifenacin (Vesicare) 10 mg DAILY ORAL 09/28/17 14:00 10/28/17 13:59 10/03/17 08:38 Tizanidine HCl (Zanaflex) 4 mg BID ORAL 09/25/17 09:00 10/25/17 08:59 10/03/17 17:39 Topiramate (Topamax) 200 mg DAILY ORAL 09/25/17 09:00 10/25/17 08:59 10/03/17 08:39 Zolpidem Tartrate (Ambien) 5 mg HSPRN PRN ORAL Insomnia 10/02/17 03:00 10/09/17 02:59 10/03/17 23:33 Cami Mendez M.D. Oct 04, 2017 11:37
[2017-10-04 12:05] LABS: BASOPHILS % (AUTO) 0.7 % (0.0-2.0); LYMPHOCYTES % (AUTO) 24.8 % (20.0-45.0); MEAN CORPUSCULAR HEMOGLOBIN 25.5 PG (27.0-31.0); MEAN CORPUSCULAR HGB CONC 31.3 G/DL (32.0-36.0); MEAN CORPUSCULAR VOLUME 81 FL (80-99); MEAN PLATELET VOLUME 7.7 FL (6.5-10.1); MONOCYTES % (AUTO) 6.4 % (1.0-10.0); NEUTROPHILS % (AUTO) 68.2 % (45.0-75.0); PLATELET COUNT 284 K/UL (150-450); RED BLOOD COUNT 3.81 M/UL (4.20-5.40); RED CELL DISTRIBUTION WIDTH 14.7 % (11.6-14.8); WHITE BLOOD COUNT 8.3 K/UL (4.8-10.8)
[2017-10-04 12:15] VITALS: BP 123/77
--- NOTE | 2017-10-04 13:52 | General Progress Note ---
Assessment/Plan Assessment/Plan (1) H/O Spinal surgery (2) DDD (degenerative disc disease), cervical (3) Lumbar spondylosis (4) Cervical spondylosis (5) Lumbar degenerative disc disease (6) History of total knee replacement, right (7) Osteoarthritis of right knee We will continue the Morphine, [place] and Oxycontin. Pt was d/w Dr. Schaffer and he concurred Subjective Date patient seen: Oct 04, 2017 Time patient seen: 01:15 - pm Allergies: Coded Allergies: CEFAZOLIN (Verified Allergy, Severe, hives all over her body, 01/10/16) PHENYTOIN (Verified Allergy, Severe, swell up face, 01/10/16) SULFA (SULFONAMIDE ANTIBIOTICS) (Verified Allergy, Severe, hives all over her body, 01/10/16) HYDROXYZINE (Verified Adverse Reaction, Severe, tachypnea; tachycardia, 01/10/16) PENICILLINS (Verified Adverse Reaction, Severe, vomiting, 01/10/16) PROCHLORPERAZINE (Verified Adverse Reaction, Severe, musle spasm, 01/10/16) Subjective Constitutional: Reports: no symptoms HEENT: Reports: no symptoms Respiratory: Reports: no symptoms Gastrointestinal/Abdominal: Reports: N/v Genitourinary: Reports: no symptoms Endocrine: Reports: no symptoms Hematologic/Lymphatic: Reports: no symptoms Subjective Patient is in bed and c/o severe pain. Nurse informs that she had not taken two does on the OxyContin last night and this morning. I explained to patient this is why her pain has increased and now she understands to continue to take the OxyContin. Objective Last 24 Hour Vital Signs Date Time Temp Pulse Resp B/P (MAP) Pulse Ox O2 Delivery O2 Flow Rate FiO2 10/04/17 12:15 98.1 110 20 123/77 99 Room Air 10/04/17 09:00 103 114/76 10/04/17 08:15 98.1 103 20 114/76 99 Room Air 10/04/17 04:10 98.2 105 20 113/48 98 Room Air 10/03/17 23:32 98.2 114 20 105/61 98 Room Air 10/03/17 20:52 111 101/57 10/03/17 20:20 106/60 Room Air 10/03/17 20:09 98.2 111 20 101/57 98 Room Air 10/03/17 18:38 99.3 10/03/17 18:38 99.3 10/03/17 16:00 99.3 114 20 99/73 91 Room Air 10/03/17 15:35 97.9 Intake and Output 10/04/17 10/05/17 19:00 07:00 # Voids 1 Laboratory Tests 10/03/17 22:30: Urine Color Yellow, Urine Appearance Clear, Urine pH 6, Urine Specific [place] 1.015, Urine Protein 2+H, Urine Glucose (UA) Negative, Urine Ketones Negative, Urine Occult Blood 1+H, Urine Nitrite Negative, Urine Bilirubin 2+H, Urine Ictotest Positive, Urine Urobilinogen 4H, Urine Leukocyte Esterase Negative, Urine RBC 0-2, Urine WBC 0, Urine Squamous Epithelial Cells Few, Urine Calcium Oxalate Crystals Many, Urine Bacteria Few 10/04/17 11:30: White Blood Count 8.3, Red Blood Count 3.81L, Hemoglobin 9.7L, Hematocrit 31.0L , Mean Corpuscular Volume 81, Mean Corpuscular Hemoglobin 25.5L, Mean Corpuscular Hemoglobin Concent 31.3L, Red Cell Distribution Width 14.7, Platelet Count 284, Mean Platelet Volume 7.7, Neutrophils (%) (Auto) 68.2, Lymphocytes (%) (Auto) 24.8, Monocytes (%) (Auto) 6.4, Eosinophils (%) (Auto) 0.0, Basophils (%) (Auto) 0.7 Height (Feet): 5 Height (Inches): 2.00 Weight (Pounds): 120 Objective General Appearance: no apparent distress, alert EENT: PERRL/EOMI, normal ENT inspection Neck: non-tender, normal alignment Cardiovascular: normal rate, regular rhythm Respiratory/Chest: lungs clear, normal breath sounds Abdomen: non tender, soft Extremities: weakness noted Edema: trace edema Neurologic: alert, oriented x 3 Skin: warm/dry GABE DOMINGO Oct 04, 2017 13:52
[2017-10-04 16:06] VITALS: BP 122/82
--- NOTE | 2017-10-04 16:57 | Pulmonology Progress Note ---
Assessment/Plan Problems: (1) Sepsis (2) Hypotension (3) UTI (urinary tract infection) (4) Bedridden (5) H/O Spinal surgery Assessment/Plan pain is better improving off abx check cultures echo noted social service evaluation. dc planning in progress difficult placement because of lack of skilled days, pt is bed bound and has only 3 hours of caregiver. Subjective Allergies: Coded Allergies: CEFAZOLIN (Verified Allergy, Severe, hives all over her body, 01/10/16) PHENYTOIN (Verified Allergy, Severe, swell up face, 01/10/16) SULFA (SULFONAMIDE ANTIBIOTICS) (Verified Allergy, Severe, hives all over her body, 01/10/16) HYDROXYZINE (Verified Adverse Reaction, Severe, tachypnea; tachycardia, 01/10/16) PENICILLINS (Verified Adverse Reaction, Severe, vomiting, 01/10/16) PROCHLORPERAZINE (Verified Adverse Reaction, Severe, musle spasm, 01/10/16) Objective Last 24 Hour Vital Signs Date Time Temp Pulse Resp B/P (MAP) Pulse Ox O2 Delivery O2 Flow Rate FiO2 10/04/17 16:21 99 Room Air 10/04/17 16:06 98.7 109 21 122/82 99 Room Air 10/04/17 12:15 98.1 110 20 123/77 99 Room Air 10/04/17 09:00 103 114/76 10/04/17 08:15 98.1 103 20 114/76 99 Room Air 10/04/17 04:10 98.2 105 20 113/48 98 Room Air 10/03/17 23:32 98.2 114 20 105/61 98 Room Air 10/03/17 20:52 111 101/57 10/03/17 20:20 106/60 Room Air 10/03/17 20:09 98.2 111 20 101/57 98 Room Air 10/03/17 18:38 99.3 10/03/17 18:38 99.3 Intake and Output 10/04/17 10/05/17 19:00 07:00 # Voids 3 # Bowel Movements 1 Laboratory Tests 10/03/17 22:30: Urine Color Yellow, Urine Appearance Clear, Urine pH 6, Urine Specific [place] 1.015, Urine Protein 2+H, Urine Glucose (UA) Negative, Urine Ketones Negative, Urine Occult Blood 1+H, Urine Nitrite Negative, Urine Bilirubin 2+H, Urine Ictotest Positive, Urine Urobilinogen 4H, Urine Leukocyte Esterase Negative, Urine RBC 0-2, Urine WBC 0, Urine Squamous Epithelial Cells Few, Urine Calcium Oxalate Crystals Many, Urine Bacteria Few 10/04/17 11:30: White Blood Count 8.3, Red Blood Count 3.81L, Hemoglobin 9.7L, Hematocrit 31.0L , Mean Corpuscular Volume 81, Mean Corpuscular Hemoglobin 25.5L, Mean Corpuscular Hemoglobin Concent 31.3L, Red Cell Distribution Width 14.7, Platelet Count 284, Mean Platelet Volume 7.7, Neutrophils (%) (Auto) 68.2, Lymphocytes (%) (Auto) 24.8, Monocytes (%) (Auto) 6.4, Eosinophils (%) (Auto) 0.0, Basophils (%) (Auto) 0.7 Current Medications Medications (Trade) Dose Ordered Sig/Reanna Route PRN Reason Start Time Stop Time Status Last Admin Dose Admin Acetaminophen (Tylenol) 650 mg Q4H PRN ORAL fever 09/24/17 21:30 10/24/17 21:29 Acetaminophen/ Butalbital/ Caffeine (Fioricet) 1 tab Q6H PRN ORAL headache 10/01/17 10:00 10/31/17 09:59 Acetaminophen/ Hydrocodone Bitart ([place] 10/325) 1 ea Q4H PRN ORAL Moderate breakthrough pain 09/28/17 08:30 10/05/17 08:29 10/03/17 00:56 Al Hydroxide/Mg Hydroxide (Mylanta II) 30 ml Q6H PRN ORAL dyspepsia 09/24/17 21:30 10/24/17 21:29 Dextrose (Dextrose 50%) STAT PRN IV Hypoglycemia 09/24/17 21:30 10/24/17 21:29 Diphenhydramine HCl (Benadryl) 25 mg Q8H PRN IVP Itching 10/01/17 16:30 10/31/17 16:29 10/01/17 16:38 Docusate Sodium (Colace) 100 mg THREE TIMES A DAY ORAL 10/03/17 09:00 11/02/17 08:59 10/04/17 13:45 Levothyroxine Sodium (Synthroid) 100 mcg ACBREAKFAST ORAL 09/25/17 06:30 10/25/17 06:29 10/04/17 06:05 Lorazepam (Ativan 2mg/ml 1ml) 0.5 mg Q4H PRN IV For Anxiety 10/02/17 03:00 10/09/17 02:59 Montelukast Sodium (Singulair) 10 mg QHS ORAL 09/24/17 22:00 10/24/17 21:59 10/03/17 20:21 Morphine Sulfate (Morphine Sulfate) 4 mg Q4H PRN IVP severe Pain 10/02/17 23:15 10/09/17 23:14 10/04/17 12:15 Ondansetron HCl (Zofran) 4 mg Q4H PRN IVP Nausea & Vomiting 10/02/17 21:00 11/01/17 20:59 10/04/17 12:14 Oxycodone HCl (OxyCONTIN) 20 mg Q12HR ORAL 10/01/17 11:00 10/08/17 10:59 10/03/17 08:40 Polyethylene Glycol (Miralax) 17 gm HSPRN PRN ORAL Constipation 09/24/17 21:30 10/24/17 21:29 Pregabalin (Lyrica) 75 mg TID ORAL 09/25/17 09:00 10/25/17 08:59 10/04/17 13:45 Propranolol HCl (Inderal) 20 mg Q12H ORAL 09/28/17 09:00 10/28/17 08:59 10/01/17 09:11 Sennosides (Senokot) 8.6 mg DAILY ORAL 10/03/17 09:00 11/02/17 08:59 10/03/17 08:38 Solifenacin (Vesicare) 10 mg DAILY ORAL 09/28/17 14:00 10/28/17 13:59 10/03/17 08:38 Tizanidine HCl (Zanaflex) 4 mg BID ORAL 09/25/17 09:00 10/25/17 08:59 10/03/17 17:39 Topiramate (Topamax) 200 mg DAILY ORAL 09/25/17 09:00 10/25/17 08:59 10/03/17 08:39 Zolpidem Tartrate (Ambien) 5 mg HSPRN PRN ORAL Insomnia 10/02/17 03:00 10/09/17 02:59 10/03/17 23:33 JAMA ALONZO Oct 04, 2017 16:57
[2017-10-04 20:00] VITALS: BP 102/63
[2017-10-04] MEDS: Montelukast 10mg tablet ORAL SCH (21:30)
--- NOTE | 2017-10-04 23:10 | General Progress Note ---
Assessment/Plan Status: stable Assessment/Plan anxiety d/o mdd cont ativan cont topamax Subjective Neurologic/Psychiatric: Reports: anxiety, depressed, emotional problems Allergies: Coded Allergies: CEFAZOLIN (Verified Allergy, Severe, hives all over her body, 01/10/16) PHENYTOIN (Verified Allergy, Severe, swell up face, 01/10/16) SULFA (SULFONAMIDE ANTIBIOTICS) (Verified Allergy, Severe, hives all over her body, 01/10/16) HYDROXYZINE (Verified Adverse Reaction, Severe, tachypnea; tachycardia, 01/10/16) PENICILLINS (Verified Adverse Reaction, Severe, vomiting, 01/10/16) PROCHLORPERAZINE (Verified Adverse Reaction, Severe, musle spasm, 01/10/16) Subjective the pt is depressed and during the eval is not engaged the pt has cognitive impairment specifically with memory and has poor insight. Objective Last 24 Hour Vital Signs Date Time Temp Pulse Resp B/P (MAP) Pulse Ox O2 Delivery O2 Flow Rate FiO2 10/04/17 21:30 72 121/77 10/04/17 20:00 100.2 118 18 102/63 93 Room Air 10/04/17 18:54 98.7 10/04/17 18:54 98.7 10/04/17 18:54 98.7 10/04/17 16:21 99 Room Air 10/04/17 16:06 98.7 109 21 122/82 99 Room Air 10/04/17 12:15 98.1 110 20 123/77 99 Room Air 10/04/17 09:00 103 114/76 10/04/17 08:15 98.1 103 20 114/76 99 Room Air 10/04/17 04:10 98.2 105 20 113/48 98 Room Air 10/03/17 23:32 98.2 114 20 105/61 98 Room Air Intake and Output 10/04/17 10/05/17 19:00 07:00 Intake Total 480 ml Balance 480 ml Intake Oral 480 ml # Voids 3 2 # Bowel Movements 1 1 Laboratory Tests 10/04/17 11:30: White Blood Count 8.3, Red Blood Count 3.81L, Hemoglobin 9.7L, Hematocrit 31.0L , Mean Corpuscular Volume 81, Mean Corpuscular Hemoglobin 25.5L, Mean Corpuscular Hemoglobin Concent 31.3L, Red Cell Distribution Width 14.7, Platelet Count 284, Mean Platelet Volume 7.7, Neutrophils (%) (Auto) 68.2, Lymphocytes (%) (Auto) 24.8, Monocytes (%) (Auto) 6.4, Eosinophils (%) (Auto) 0.0, Basophils (%) (Auto) 0.7 Height (Feet): 5 Height (Inches): 2.00 Weight (Pounds): 120 General Appearance: no apparent distress, alert Neurologic: alert, oriented x 3, responsive, depressed affect Tata Huynh M.D. Oct 04, 2017 23:10
[2017-10-05] VITALS: BP 122/89
[2017-10-05] MEDS: Zolpidem 5mg tab ORAL PRN ×2 (00:49→23:17)
--- NOTE | 2017-10-05 07:41 | Pulmonology Progress Note ---
Assessment/Plan Assessment/Plan ASSESSMENT Sepsis UTI with Pseudomonas syncopal episode likely due to combination of dehydration, hypotension, UTI, prolonged BR, hypotension cardiomyopathy systolic HF hx of multiple spinal surgeries DDD lumbar spine DDD cervical spine Lumbar spondylosis cervical spondylosis OA R knee hypokalemia MDD anxiety disorder bedridden sacral decub unstageable POA R buttock decub unstageable POA PLAN OF CARE MS floor 500 cc bolus watch BP closely s/p abx Rx; urine cx +Pseudomonas, blood cx negative pain management pain specialist follows Venous Duplex BLE negative CXR negative cardio follows ECHO with EF 45% and RVSP of 32 K replaced, check K and Mg in am psych follows continue meds as per psych PT Rx Bowel regimen wound care a per wound nurse recommendations Dc plan difficult placement patient needs skilled services, bedridden, has caregiver only for 3 hrs case discussed and evaluated by supervising physician Subjective Allergies: Coded Allergies: CEFAZOLIN (Verified Allergy, Severe, hives all over her body, 01/10/16) PHENYTOIN (Verified Allergy, Severe, swell up face, 01/10/16) SULFA (SULFONAMIDE ANTIBIOTICS) (Verified Allergy, Severe, hives all over her body, 01/10/16) HYDROXYZINE (Verified Adverse Reaction, Severe, tachypnea; tachycardia, 01/10/16) PENICILLINS (Verified Adverse Reaction, Severe, vomiting, 01/10/16) PROCHLORPERAZINE (Verified Adverse Reaction, Severe, musle spasm, 01/10/16) Subjective BP low K-3.2 denies chest pain, SOB + back pain , chronci, intermittent , controlled with current regimen Objective Last 24 Hour Vital Signs Date Time Temp Pulse Resp B/P (MAP) Pulse Ox O2 Delivery O2 Flow Rate FiO2 10/05/17 00:15 98.2 10/05/17 00:00 98.2 103 18 122/89 95 Room Air 10/04/17 21:30 72 121/77 10/04/17 20:00 100.2 118 18 102/63 93 Room Air 10/04/17 18:54 98.7 10/04/17 18:54 98.7 10/04/17 16:21 99 Room Air 10/04/17 16:06 98.7 109 21 122/82 99 Room Air 10/04/17 12:15 98.1 110 20 123/77 99 Room Air 10/04/17 09:00 103 114/76 10/04/17 08:15 98.1 103 20 114/76 99 Room Air Objective General Appearance: no acute distress, other - awake, alert, chronically ill looking bedridden female in NAD HEENT: normocephalic, atraumatic, anicteric, mucous membranes moist Respiratory/Chest: lungs clear, normal breath sounds, no respiratory distress Cardiovascular: normal rate, regular rhythm, no JVD Abdomen: normal bowel sounds, soft, non tender Genitourinary: normal external genitalia Extremities: no edema, pedal pulses normal Neurologic/Psychiatric: abnormal gait, alert, responsive Musculoskeletal: atrophy - BLE Laboratory Tests 10/04/17 11:30: White Blood Count 8.3, Red Blood Count 3.81L, Hemoglobin 9.7L, Hematocrit 31.0L , Mean Corpuscular Volume 81, Mean Corpuscular Hemoglobin 25.5L, Mean Corpuscular Hemoglobin Concent 31.3L, Red Cell Distribution Width 14.7, Platelet Count 284, Mean Platelet Volume 7.7, Neutrophils (%) (Auto) 68.2, Lymphocytes (%) (Auto) 24.8, Monocytes (%) (Auto) 6.4, Eosinophils (%) (Auto) 0.0, Basophils (%) (Auto) 0.7 Current Medications Medications (Trade) Dose Ordered Sig/Reanna Route PRN Reason Start Time Stop Time Status Last Admin Dose Admin Acetaminophen (Tylenol) 650 mg Q4H PRN ORAL fever 09/24/17 21:30 10/24/17 21:29 Acetaminophen/ Butalbital/ Caffeine (Fioricet) 1 tab Q6H PRN ORAL headache 10/01/17 10:00 10/31/17 09:59 Acetaminophen/ Hydrocodone Bitart ([place] 10/325) 1 ea Q4H PRN ORAL Moderate breakthrough pain 09/28/17 08:30 10/05/17 08:29 10/03/17 00:56 Al Hydroxide/Mg Hydroxide (Mylanta II) 30 ml Q6H PRN ORAL dyspepsia 09/24/17 21:30 10/24/17 21:29 Dextrose (Dextrose 50%) STAT PRN IV Hypoglycemia 09/24/17 21:30 10/24/17 21:29 Diphenhydramine HCl (Benadryl) 25 mg Q8H PRN IVP Itching 10/01/17 16:30 10/31/17 16:29 10/01/17 16:38 Docusate Sodium (Colace) 100 mg THREE TIMES A DAY ORAL 10/03/17 09:00 11/02/17 08:59 10/04/17 18:22 Levothyroxine Sodium (Synthroid) 100 mcg ACBREAKFAST ORAL 09/25/17 06:30 10/25/17 06:29 10/05/17 06:15 Lorazepam (Ativan 2mg/ml 1ml) 0.5 mg Q4H PRN IV For Anxiety 10/02/17 03:00 10/09/17 02:59 Montelukast Sodium (Singulair) 10 mg QHS ORAL 09/24/17 22:00 10/24/17 21:59 10/04/17 21:30 Morphine Sulfate (Morphine Sulfate) 4 mg Q4H PRN IVP severe Pain 10/02/17 23:15 10/09/17 23:14 10/04/17 23:45 Ondansetron HCl (Zofran) 4 mg Q4H PRN IVP Nausea & Vomiting 10/02/17 21:00 11/01/17 20:59 10/04/17 23:47 Oxycodone HCl (OxyCONTIN) 20 mg Q12HR ORAL 10/01/17 11:00 10/08/17 10:59 10/04/17 21:31 Polyethylene Glycol (Miralax) 17 gm HSPRN PRN ORAL Constipation 09/24/17 21:30 10/24/17 21:29 Pregabalin (Lyrica) 75 mg TID ORAL 09/25/17 09:00 10/25/17 08:59 10/04/17 18:23 Propranolol HCl (Inderal) 20 mg Q12H ORAL 09/28/17 09:00 10/28/17 08:59 10/04/17 21:30 Sennosides (Senokot) 8.6 mg DAILY ORAL 10/03/17 09:00 11/02/17 08:59 10/03/17 08:38 Solifenacin (Vesicare) 10 mg DAILY ORAL 09/28/17 14:00 10/28/17 13:59 10/03/17 08:38 Tizanidine HCl (Zanaflex) 4 mg BID ORAL 09/25/17 09:00 10/25/17 08:59 10/04/17 18:23 Topiramate (Topamax) 200 mg DAILY ORAL 09/25/17 09:00 10/25/17 08:59 10/03/17 08:39 Zolpidem Tartrate (Ambien) 5 mg HSPRN PRN ORAL Insomnia 10/02/17 03:00 10/09/17 02:59 10/05/17 00:49 Andrea CastilloDaisy herndon NP Oct 05, 2017 07:41
[2017-10-05 08:30] VITALS: BP 113/65
--- NOTE | 2017-10-05 08:33 | General Progress Note ---
Assessment/Plan Assessment/Plan (1) H/O Spinal surgery (2) DDD (degenerative disc disease), cervical (3) Lumbar spondylosis (4) Cervical spondylosis (5) Lumbar degenerative disc disease (6) History of total knee replacement, right (7) Osteoarthritis of right knee We will continue the Morphine, [place] and Oxycontin. We will start Relistor 12mg subQ QOD. Pt was d/w Dr. Schaffer and he concurred Subjective Date patient seen: Oct 05, 2017 Time patient seen: 07:15 - am Allergies: Coded Allergies: CEFAZOLIN (Verified Allergy, Severe, hives all over her body, 01/10/16) PHENYTOIN (Verified Allergy, Severe, swell up face, 01/10/16) SULFA (SULFONAMIDE ANTIBIOTICS) (Verified Allergy, Severe, hives all over her body, 01/10/16) HYDROXYZINE (Verified Adverse Reaction, Severe, tachypnea; tachycardia, 01/10/16) PENICILLINS (Verified Adverse Reaction, Severe, vomiting, 01/10/16) PROCHLORPERAZINE (Verified Adverse Reaction, Severe, musle spasm, 01/10/16) Subjective Constitutional: Reports: no symptoms HEENT: Reports: no symptoms Respiratory: Reports: no symptoms Gastrointestinal/Abdominal: Reports: N/v, constipation Genitourinary: Reports: no symptoms Endocrine: Reports: no symptoms Hematologic/Lymphatic: Reports: no symptoms Subjective Patient reports that her pain has been severe at times and is reduced to a tolerable level on the Oxycontin, [place] and Morphine. She is c/o constipation and has been on Colace with minimal relief. Objective Last 24 Hour Vital Signs Date Time Temp Pulse Resp B/P (MAP) Pulse Ox O2 Delivery O2 Flow Rate FiO2 10/05/17 00:15 98.2 10/05/17 00:00 98.2 103 18 122/89 95 Room Air 10/04/17 21:30 72 121/77 10/04/17 20:00 100.2 118 18 102/63 93 Room Air 10/04/17 18:54 98.7 10/04/17 18:54 98.7 10/04/17 16:21 99 Room Air 10/04/17 16:06 98.7 109 21 122/82 99 Room Air 10/04/17 12:15 98.1 110 20 123/77 99 Room Air 10/04/17 09:00 103 114/76 Laboratory Tests 10/04/17 11:30: White Blood Count 8.3, Red Blood Count 3.81L, Hemoglobin 9.7L, Hematocrit 31.0L , Mean Corpuscular Volume 81, Mean Corpuscular Hemoglobin 25.5L, Mean Corpuscular Hemoglobin Concent 31.3L, Red Cell Distribution Width 14.7, Platelet Count 284, Mean Platelet Volume 7.7, Neutrophils (%) (Auto) 68.2, Lymphocytes (%) (Auto) 24.8, Monocytes (%) (Auto) 6.4, Eosinophils (%) (Auto) 0.0, Basophils (%) (Auto) 0.7 Height (Feet): 5 Height (Inches): 2.00 Weight (Pounds): 120 Objective General Appearance: no apparent distress, alert EENT: PERRL/EOMI, normal ENT inspection Neck: non-tender, normal alignment Cardiovascular: normal rate, regular rhythm Respiratory/Chest: lungs clear, normal breath sounds Abdomen: non tender, soft Extremities: weakness noted Edema: trace edema Neurologic: alert, oriented x 3 Skin: warm/dry GABE DOMINGO Oct 05, 2017 08:33
[2017-10-05] MEDS: Morphine Sulfate 4mg/ml Inj IVP PRN ×3 (09:03→21:45)
[2017-10-05] MEDS: Sennosides 8.6mg ORAL SCH (09:53)
[2017-10-05] MEDS: Docusate 100mg cap ORAL SCH ×3 (09:53→17:23)
[2017-10-05] MEDS: oxyCONTIN 20mg tab ORAL SCH ×2 (09:54→21:00)
[2017-10-05] MEDS: Propranolol 10mg tab ORAL SCH ×2 (09:55→21:00)
[2017-10-05] MEDS: Lyrica 75mg cap ORAL SCH ×3 (09:55→17:23)
[2017-10-05] MEDS: Topiramate 100mg tab ORAL SCH (09:56)
[2017-10-05] MEDS: Solifenacin 10mg tab ORAL SCH (09:56)
[2017-10-05] MEDS: Relistor 12mg/0.6ml Vial SUBQ SCH (10:30)
[2017-10-05 12:00] VITALS: BP 86/52
[2017-10-05] MEDS ORDERED: Sodium Chloride 500ML 500 ML IV ONE (13:50)
[2017-10-05 14:50] VITALS: BP 116/78
--- NOTE | 2017-10-05 15:05 | Diagnostic Imaging Report ---
Indication: COUGH, chest pain Technique: One view of the chest Comparison: 09/24/2017 Findings: Less optimal inspiration. There is interim development of infiltrate at the left lung base. There is also some atelectasis and possibly some pleural fluid. The heart size is normal. Cervical and thoracolumbar spine fusion hardware again demonstrated Impression: Left basilar infiltrate, atelectasis, possibly some pleural fluid, new since 09/24/2017
--- NOTE | 2017-10-05 15:08 | Diagnostic Imaging Report ---
Indication: Abdominal pain Technique: Supine view of the abdomen Comparison: none Findings: Considerable gas is seen in the ascending transverse colon, which is upper limits of normal in caliber. No small bowel distention. Thoracolumbar spine fusion hardware is demonstrated. Impression: Findings as noted. No definite acute process
--- NOTE | 2017-10-05 15:15 | General Progress Note ---
Assessment/Plan Status: stable Assessment/Plan anxiety d/o mdd cont ativan cont topamax Subjective Neurologic/Psychiatric: Reports: anxiety, depressed, emotional problems Allergies: Coded Allergies: CEFAZOLIN (Verified Allergy, Severe, hives all over her body, 01/10/16) PHENYTOIN (Verified Allergy, Severe, swell up face, 01/10/16) SULFA (SULFONAMIDE ANTIBIOTICS) (Verified Allergy, Severe, hives all over her body, 01/10/16) HYDROXYZINE (Verified Adverse Reaction, Severe, tachypnea; tachycardia, 01/10/16) PENICILLINS (Verified Adverse Reaction, Severe, vomiting, 01/10/16) PROCHLORPERAZINE (Verified Adverse Reaction, Severe, musle spasm, 01/10/16) Subjective the pt is depressed today she stated that she would follow our sw recs and would go to a sniff/assisted living. She understands that she is unable to take care of herself Objective Last 24 Hour Vital Signs Date Time Temp Pulse Resp B/P (MAP) Pulse Ox O2 Delivery O2 Flow Rate FiO2 10/05/17 12:00 98.4 86 18 86/52 97 10/05/17 09:55 91 113/65 10/05/17 08:30 98.1 91 18 113/65 94 Room Air 10/05/17 00:15 98.2 10/05/17 00:00 98.2 103 18 122/89 95 Room Air 10/04/17 21:30 72 121/77 10/04/17 20:00 100.2 118 18 102/63 93 Room Air 10/04/17 18:54 98.7 10/04/17 18:54 98.7 10/04/17 16:21 99 Room Air 10/04/17 16:06 98.7 109 21 122/82 99 Room Air Height (Feet): 5 Height (Inches): 2.00 Weight (Pounds): 120 General Appearance: no apparent distress, alert, thin Neurologic: alert, oriented x 3, responsive, depressed affect Tata Huynh M.D. Oct 05, 2017 15:15
[2017-10-05 16:00] VITALS: BP 111/68
[2017-10-05] MEDS: metroNIDAZOLE 500mg tab ORAL SCH ×2 (16:24→21:51)
[2017-10-05] MEDS: Aztreonam Inj 1 GM in D5W 55 ML IVPB SCH ×2 (17:08→23:26)
[2017-10-05 20:00] VITALS: BP 91/59
[2017-10-05] MEDS: Montelukast 10mg tablet ORAL SCH (21:44)
[2017-10-06] MEDS: Morphine Sulfate 4mg/ml Inj IVP PRN ×4 (02:20→15:22)
[2017-10-06] MEDS: metroNIDAZOLE 500mg tab ORAL SCH ×3 (06:06→20:54)
[2017-10-06 07:43] LABS: BASOPHILS % (AUTO) 0.9 % (0.0-2.0); EOSINOPHILS % (AUTO) 0.2 % (0.0-3.0); LYMPHOCYTES % (AUTO) 31.7 % (20.0-45.0); MEAN CORPUSCULAR HEMOGLOBIN 26.3 PG (27.0-31.0); MEAN CORPUSCULAR HGB CONC 32.3 G/DL (32.0-36.0); MEAN CORPUSCULAR VOLUME 82 FL (80-99); MEAN PLATELET VOLUME 7.4 FL (6.5-10.1); MONOCYTES % (AUTO) 9.2 % (1.0-10.0); PLATELET COUNT 224 K/UL (150-450); RED BLOOD COUNT 3.49 M/UL (4.20-5.40); WHITE BLOOD COUNT 5.1 K/UL (4.8-10.8)
[2017-10-06 07:53] LABS: ANION GAP 6 mmol/L (5-15); CALCIUM 8.5 MG/DL (8.5-10.1); CARBON DIOXIDE 26 MMOL/L (21-32); CHLORIDE 106 MMOL/L (98-107); CREATININE 0.7 MG/DL (0.55-1.30); GLOMERULAR FILTRATION RATE > 60 mL/min (>60); MAGNESIUM 1.5 MG/DL (1.8-2.4); POTASSIUM 3.8 MMOL/L (3.5-5.1); SODIUM 138 MMOL/L (136-145)
[2017-10-06 08:00] VITALS: BP 109/70
[2017-10-06] MEDS: Aztreonam Inj 1 GM in D5W 55 ML IVPB SCH ×2 (09:24→15:22)
[2017-10-06] MEDS: Lyrica 75mg cap ORAL SCH ×3 (09:25→17:37)
[2017-10-06] MEDS: Sennosides 8.6mg ORAL SCH (09:25)
[2017-10-06] MEDS: Solifenacin 10mg tab ORAL SCH (09:25)
[2017-10-06] MEDS: Docusate 100mg cap ORAL SCH ×3 (09:25→17:38)
[2017-10-06] MEDS: Topiramate 100mg tab ORAL SCH (09:25)
[2017-10-06] MEDS: oxyCONTIN 20mg tab ORAL SCH ×2 (09:26→20:55)
[2017-10-06] MEDS: Propranolol 10mg tab ORAL SCH ×2 (09:30→20:56)
--- NOTE | 2017-10-06 10:20 | Infectious Diseases Prog Note ---
Assessment/Plan Assessment/Plan Assesment: abd pain- r/o intrabdominal pathology Intermittent Low grade - r/o PEMA vs persistent UTI- r/o intrabdominal pathology (+abd pain) improved -repeat UA no pyuria probable Asp Pneum : Cxray : Left basilar infiltrate, atelectasis, possibly some pleural fluid, new since 09/24/2017 UTI- +Pyuria/bacteriuria, urgency -u/a wbc 30-40, nit+, leuk +3; ucx >100K PsA (R Cipro/levo, aztreonam; S Cefepime, zosyn) Leukocytosis, mild- resolved -Bcx NTD Presyncopal event- likely due to hypotension and dehydration sacral wound- not infected -wound cx PSA, diphteroids (colonizers) chronic back pain s/p multiple back surgeries, hx of DVT on xarelto, bedbound, HTN, migraine Plan: - on Aztreonam and Flagyl d# 2 given low grade fevers and abd pain awaiting abdominal studies. -10/01 SP Zosyn #6 for PsA UTI -09/26 SP Aztreonam #2 -09/25 SP CIpro x1 -wound care -Monitor CBC/BMP, temperatures -f/u Bcx, - Abd us -monitor closely may need CT abd/p if persistent fever and abd pain Subjective Constitutional: Denies: no symptoms, fever, chills, fatigue, anorexia, drenching sweats, other Allergies: Coded Allergies: CEFAZOLIN (Verified Allergy, Severe, hives all over her body, 01/10/16) PHENYTOIN (Verified Allergy, Severe, swell up face, 01/10/16) SULFA (SULFONAMIDE ANTIBIOTICS) (Verified Allergy, Severe, hives all over her body, 01/10/16) HYDROXYZINE (Verified Adverse Reaction, Severe, tachypnea; tachycardia, 01/10/16) PENICILLINS (Verified Adverse Reaction, Severe, vomiting, 01/10/16) PROCHLORPERAZINE (Verified Adverse Reaction, Severe, musle spasm, 01/10/16) Subjective feeling better Objective Vital Signs Last 24 Hour Vital Signs Date Time Temp Pulse Resp B/P (MAP) Pulse Ox O2 Delivery O2 Flow Rate FiO2 10/06/17 09:30 64 109/70 10/06/17 08:00 98.2 64 19 109/70 94 Room Air 10/06/17 04:00 Room Air 10/06/17 00:02 Room Air 10/05/17 21:00 97 129/58 10/05/17 20:00 Room Air 10/05/17 20:00 97.7 95 20 91/59 98 10/05/17 16:00 98.2 83 20 111/68 95 10/05/17 14:50 89 116/78 10/05/17 12:00 98.4 86 18 86/52 97 Height (Feet): 5 Height (Inches): 2.00 Weight (Pounds): 120 HEENT: anicteric Respiratory/Chest: no respiratory distress Cardiovascular: regular rhythm Abdomen: no organomegaly Microbiology Date/Time Source Procedure Growth Status 10/04/17 11:45 Blood Blood Culture - Preliminary NO GROWTH AFTER 24 HOURS Resulted 10/04/17 11:30 Blood Blood Culture - Preliminary NO GROWTH AFTER 24 HOURS Resulted Laboratory Tests Test 10/06/17 05:20 White Blood Count 5.1 K/UL (4.8-10.8) Red Blood Count 3.49 M/UL (4.20-5.40) L Hemoglobin 9.2 G/DL (12.0-16.0) L Hematocrit 28.5 % (37.0-47.0) L Mean Corpuscular Volume 82 FL (80-99) Mean Corpuscular Hemoglobin 26.3 PG (27.0-31.0) L Mean Corpuscular Hemoglobin Concent 32.3 G/DL (32.0-36.0) Red Cell Distribution Width 15.0 % (11.6-14.8) H Platelet Count 224 K/UL (150-450) Mean Platelet Volume 7.4 FL (6.5-10.1) Neutrophils (%) (Auto) 58.0 % (45.0-75.0) Lymphocytes (%) (Auto) 31.7 % (20.0-45.0) Monocytes (%) (Auto) 9.2 % (1.0-10.0) Eosinophils (%) (Auto) 0.2 % (0.0-3.0) Basophils (%) (Auto) 0.9 % (0.0-2.0) Sodium Level 138 MMOL/L (136-145) Potassium Level 3.8 MMOL/L (3.5-5.1) Chloride Level 106 MMOL/L (98-107) Carbon Dioxide Level 26 MMOL/L (21-32) Anion Gap 6 mmol/L (5-15) Blood Urea Nitrogen 14 mg/dL (7-18) Creatinine 0.7 MG/DL (0.55-1.30) Estimat Glomerular Filtration Rate > 60 mL/min (>60) Glucose Level 114 MG/DL (74-106) H Calcium Level 8.5 MG/DL (8.5-10.1) Magnesium Level 1.5 MG/DL (1.8-2.4) L Current Medications Medications (Trade) Dose Ordered Sig/Reanna Route PRN Reason Start Time Stop Time Status Last Admin Dose Admin Acetaminophen (Tylenol) 650 mg Q4H PRN ORAL fever 09/24/17 21:30 10/24/17 21:29 Acetaminophen/ Butalbital/ Caffeine (Fioricet) 1 tab Q6H PRN ORAL headache 10/01/17 10:00 10/31/17 09:59 Al Hydroxide/Mg Hydroxide (Mylanta II) 30 ml Q6H PRN ORAL dyspepsia 09/24/17 21:30 10/24/17 21:29 Aztreonam 1 gm/ Dextrose 55 ml @ 110 mls/hr Q8HR@0000,0800,1600 IVPB 10/05/17 16:00 10/12/17 15:59 10/06/17 09:24 Dextrose (Dextrose 50%) STAT PRN IV Hypoglycemia 09/24/17 21:30 10/24/17 21:29 Diphenhydramine HCl (Benadryl) 25 mg Q8H PRN IVP Itching 10/01/17 16:30 10/31/17 16:29 10/01/17 16:38 Docusate Sodium (Colace) 100 mg THREE TIMES A DAY ORAL 10/03/17 09:00 11/02/17 08:59 10/06/17 09:25 Levothyroxine Sodium (Synthroid) 100 mcg ACBREAKFAST ORAL 09/25/17 06:30 10/25/17 06:29 10/06/17 06:06 Lorazepam (Ativan 2mg/ml 1ml) 0.5 mg Q4H PRN IV For Anxiety 10/02/17 03:00 10/09/17 02:59 Methylnaltrexone [place] (Relistor) 12 mg QOD SUBQ 10/05/17 10:30 11/04/17 10:29 Metronidazole (Flagyl) 500 mg Q8HR ORAL 10/05/17 15:00 10/12/17 14:59 10/06/17 06:06 Montelukast Sodium (Singulair) 10 mg QHS ORAL 09/24/17 22:00 10/24/17 21:59 10/05/17 21:44 Morphine Sulfate (Morphine Sulfate) 4 mg Q4H PRN IVP severe Pain 10/02/17 23:15 10/09/17 23:14 10/06/17 06:30 Ondansetron HCl (Zofran) 4 mg Q4H PRN IVP Nausea & Vomiting 10/02/17 21:00 11/01/17 20:59 10/06/17 06:30 Oxycodone HCl (OxyCONTIN) 20 mg Q12HR ORAL 10/01/17 11:00 10/08/17 10:59 10/06/17 09:26 Polyethylene Glycol (Miralax) 17 gm HSPRN PRN ORAL Constipation 09/24/17 21:30 10/24/17 21:29 Pregabalin (Lyrica) 75 mg TID ORAL 09/25/17 09:00 10/25/17 08:59 10/06/17 09:25 Propranolol HCl (Inderal) 20 mg Q12H ORAL 09/28/17 09:00 10/28/17 08:59 10/05/17 09:55 Sennosides (Senokot) 8.6 mg DAILY ORAL 10/03/17 09:00 11/02/17 08:59 10/06/17 09:25 Solifenacin (Vesicare) 10 mg DAILY ORAL 09/28/17 14:00 10/28/17 13:59 10/06/17 09:25 Tizanidine HCl (Zanaflex) 4 mg BID ORAL 09/25/17 09:00 10/25/17 08:59 10/06/17 09:24 Topiramate (Topamax) 200 mg DAILY ORAL 09/25/17 09:00 10/25/17 08:59 10/06/17 09:25 Zolpidem Tartrate (Ambien) 5 mg HSPRN PRN ORAL Insomnia 10/02/17 03:00 10/09/17 02:59 10/05/17 23:17 NESSA MARTINO M.D. Oct 06, 2017 10:20
[2017-10-06 12:00] VITALS: BP 116/65
--- NOTE | 2017-10-06 14:37 | Pulmonology Progress Note ---
Assessment/Plan Assessment/Plan ASSESSMENT Sepsis UTI with Pseudomonas syncopal episode likely due to combination of dehydration, hypotension, UTI, prolonged BR, hypotension cardiomyopathy systolic HF abdominal pain hx of multiple spinal surgeries DDD lumbar spine DDD cervical spine Lumbar spondylosis cervical spondylosis OA R knee hypokalemia hypomagnesemia MDD anxiety disorder bedridden sacral decub unstageable POA R buttock decub unstageable POA PLAN OF CARE MS floor 500 cc bolus watch BP closely s/p abx Rx; urine cx +Pseudomonas, blood cx negative pain management pain specialist follows Venous Duplex BLE negative CXR negative cardio follows ECHO with EF 45% and RVSP of 32 abdominal US just completed pain management K stable after replacement, replace Mg psych follows continue meds as per psych PT Rx Bowel regimen wound care a per wound nurse recommendations Dc plan difficult placement patient needs skilled services, bedridden, has caregiver only for 3 hrs case discussed and evaluated by supervising physician Subjective Allergies: Coded Allergies: CEFAZOLIN (Verified Allergy, Severe, hives all over her body, 01/10/16) PHENYTOIN (Verified Allergy, Severe, swell up face, 01/10/16) SULFA (SULFONAMIDE ANTIBIOTICS) (Verified Allergy, Severe, hives all over her body, 01/10/16) HYDROXYZINE (Verified Adverse Reaction, Severe, tachypnea; tachycardia, 01/10/16) PENICILLINS (Verified Adverse Reaction, Severe, vomiting, 01/10/16) PROCHLORPERAZINE (Verified Adverse Reaction, Severe, musle spasm, 01/10/16) Subjective c/o abdominal pain denies chest pain, SOB + back pain , chronic, intermittent , controlled with current regimen Mg-1.5 Objective Last 24 Hour Vital Signs Date Time Temp Pulse Resp B/P (MAP) Pulse Ox O2 Delivery O2 Flow Rate FiO2 10/06/17 12:00 98.2 89 19 116/65 94 Room Air 10/06/17 09:30 64 109/70 10/06/17 08:00 98.2 64 19 109/70 94 Room Air 10/06/17 08:00 Room Air 10/06/17 04:00 Room Air 10/06/17 00:02 Room Air 10/05/17 21:00 97 129/58 10/05/17 20:00 Room Air 10/05/17 20:00 97.7 95 20 91/59 98 10/05/17 16:00 98.2 83 20 111/68 95 10/05/17 14:50 89 116/78 General Appearance: no acute distress, other - awake, alert, chronically ill looking bedridden female in NAD HEENT: normocephalic, atraumatic, anicteric, mucous membranes moist Respiratory/Chest: lungs clear, normal breath sounds, no respiratory distress Cardiovascular: normal rate, regular rhythm, no JVD Abdomen: normal bowel sounds - mild TTP in epigastric area, no rebound, no guarding Genitourinary: normal external genitalia Extremities: no edema, pedal pulses normal Neurologic/Psychiatric: abnormal gait, alert, responsive Musculoskeletal: atrophy - BLE Microbiology Date/Time Source Procedure Growth Status 10/04/17 11:45 Blood Blood Culture - Preliminary NO GROWTH AFTER 24 HOURS Resulted 10/04/17 11:30 Blood Blood Culture - Preliminary NO GROWTH AFTER 24 HOURS Resulted Laboratory Tests 10/06/17 05:20: White Blood Count 5.1, Red Blood Count 3.49L, Hemoglobin 9.2L, Hematocrit 28.5L , Mean Corpuscular Volume 82, Mean Corpuscular Hemoglobin 26.3L, Mean Corpuscular Hemoglobin Concent 32.3, Red Cell Distribution Width 15.0H, Platelet Count 224, Mean Platelet Volume 7.4, Neutrophils (%) (Auto) 58.0, Lymphocytes (%) (Auto) 31.7, Monocytes (%) (Auto) 9.2, Eosinophils (%) (Auto) 0.2, Basophils (%) (Auto) 0.9, Sodium Level 138, Potassium Level 3.8, Chloride Level 106, Carbon Dioxide Level 26, Anion Gap 6, Blood Urea Nitrogen 14, Creatinine 0.7, Estimat Glomerular Filtration Rate > 60, Glucose Level 114H, Calcium Level 8.5, Magnesium Level 1.5L Current Medications Medications (Trade) Dose Ordered Sig/Reanna Route PRN Reason Start Time Stop Time Status Last Admin Dose Admin Acetaminophen (Tylenol) 650 mg Q4H PRN ORAL fever 09/24/17 21:30 10/24/17 21:29 Acetaminophen/ Butalbital/ Caffeine (Fioricet) 1 tab Q6H PRN ORAL headache 10/01/17 10:00 10/31/17 09:59 Al Hydroxide/Mg Hydroxide (Mylanta II) 30 ml Q6H PRN ORAL dyspepsia 09/24/17 21:30 10/24/17 21:29 Aztreonam 1 gm/ Dextrose 55 ml @ 110 mls/hr Q8HR@0000,0800,1600 IVPB 10/05/17 16:00 10/12/17 15:59 10/06/17 09:24 Dextrose (Dextrose 50%) STAT PRN IV Hypoglycemia 09/24/17 21:30 10/24/17 21:29 Diphenhydramine HCl (Benadryl) 25 mg Q8H PRN IVP Itching 10/01/17 16:30 10/31/17 16:29 10/01/17 16:38 Docusate Sodium (Colace) 100 mg THREE TIMES A DAY ORAL 10/03/17 09:00 11/02/17 08:59 10/06/17 13:34 Levothyroxine Sodium (Synthroid) 100 mcg ACBREAKFAST ORAL 09/25/17 06:30 10/25/17 06:29 10/06/17 06:06 Lorazepam (Ativan 2mg/ml 1ml) 0.5 mg Q4H PRN IV For Anxiety 10/02/17 03:00 10/09/17 02:59 Methylnaltrexone [place] (Relistor) 12 mg QOD SUBQ 10/05/17 10:30 11/04/17 10:29 Metronidazole (Flagyl) 500 mg Q8HR ORAL 10/05/17 15:00 10/12/17 14:59 10/06/17 13:34 Montelukast Sodium (Singulair) 10 mg QHS ORAL 09/24/17 22:00 10/24/17 21:59 10/05/17 21:44 Morphine Sulfate (Morphine Sulfate) 4 mg Q4H PRN IVP severe Pain 10/02/17 23:15 10/09/17 23:14 10/06/17 10:43 Ondansetron HCl (Zofran) 4 mg Q4H PRN IVP Nausea & Vomiting 10/02/17 21:00 11/01/17 20:59 10/06/17 10:38 Oxycodone HCl (OxyCONTIN) 20 mg Q12HR ORAL 10/01/17 11:00 10/08/17 10:59 10/06/17 09:26 Polyethylene Glycol (Miralax) 17 gm HSPRN PRN ORAL Constipation 09/24/17 21:30 10/24/17 21:29 Pregabalin (Lyrica) 75 mg TID ORAL 09/25/17 09:00 10/25/17 08:59 10/06/17 13:34 Propranolol HCl (Inderal) 20 mg Q12H ORAL 09/28/17 09:00 10/28/17 08:59 10/05/17 09:55 Sennosides (Senokot) 8.6 mg DAILY ORAL 10/03/17 09:00 11/02/17 08:59 10/06/17 09:25 Solifenacin (Vesicare) 10 mg DAILY ORAL 09/28/17 14:00 10/28/17 13:59 10/06/17 09:25 Tizanidine HCl (Zanaflex) 4 mg BID ORAL 09/25/17 09:00 10/25/17 08:59 10/06/17 09:24 Topiramate (Topamax) 200 mg DAILY ORAL 09/25/17 09:00 10/25/17 08:59 10/06/17 09:25 Zolpidem Tartrate (Ambien) 5 mg HSPRN PRN ORAL Insomnia 10/02/17 03:00 10/09/17 02:59 10/05/17 23:17 Daisy Mendez NP ([facility]) Oct 06, 2017 14:37
[2017-10-06 16:00] VITALS: BP 106/70
[2017-10-06 20:10] VITALS: BP 109/57
[2017-10-06] MEDS: Montelukast 10mg tablet ORAL SCH (20:54)
[2017-10-06 23:45] VITALS: BP 102/67
[2017-10-07] MEDS: Morphine Sulfate 4mg/ml Inj IVP PRN ×6 (00:22→21:48)
[2017-10-07] MEDS: Aztreonam Inj 1 GM in D5W 55 ML IVPB SCH ×3 (00:28→16:04)
[2017-10-07 04:00] VITALS: BP 113/64
[2017-10-07] MEDS: metroNIDAZOLE 500mg tab ORAL SCH ×3 (06:01→21:48)
[2017-10-07 07:46] LABS: EOSINOPHILS % (AUTO) 0.2 % (0.0-3.0); LYMPHOCYTES % (AUTO) 37.9 % (20.0-45.0); MEAN CORPUSCULAR HEMOGLOBIN 26.1 PG (27.0-31.0); MEAN CORPUSCULAR VOLUME 81 FL (80-99); MEAN PLATELET VOLUME 7.2 FL (6.5-10.1); MONOCYTES % (AUTO) 9.3 % (1.0-10.0); NEUTROPHILS % (AUTO) 51.7 % (45.0-75.0); PLATELET COUNT 210 K/UL (150-450); RED BLOOD COUNT 3.42 M/UL (4.20-5.40); RED CELL DISTRIBUTION WIDTH 15.6 % (11.6-14.8); WHITE BLOOD COUNT 4.1 K/UL (4.8-10.8)
[2017-10-07 07:56] LABS: ANION GAP 7 mmol/L (5-15); CALCIUM 8.5 MG/DL (8.5-10.1); CARBON DIOXIDE 27 MMOL/L (21-32); CHLORIDE 106 MMOL/L (98-107); CREATININE 0.7 MG/DL (0.55-1.30); GLOMERULAR FILTRATION RATE > 60 mL/min (>60); MAGNESIUM 2.1 MG/DL (1.8-2.4); POTASSIUM 3.5 MMOL/L (3.5-5.1); SODIUM 139 MMOL/L (136-145)
[2017-10-07 08:00] VITALS: BP 103/67
[2017-10-07] MEDS: Relistor 12mg/0.6ml Vial SUBQ SCH (09:00)
[2017-10-07] MEDS: Propranolol 10mg tab ORAL SCH ×2 (09:00→21:00)
[2017-10-07] MEDS: oxyCONTIN 20mg tab ORAL SCH ×2 (09:00→21:00)
[2017-10-07] MEDS: Solifenacin 10mg tab ORAL SCH (09:03)
[2017-10-07] MEDS: Sennosides 8.6mg ORAL SCH (09:04)
[2017-10-07] MEDS: Topiramate 100mg tab ORAL SCH (09:04)
[2017-10-07] MEDS: Lyrica 75mg cap ORAL SCH ×3 (09:04→17:22)
[2017-10-07] MEDS: Docusate 100mg cap ORAL SCH ×3 (09:05→17:22)
--- NOTE | 2017-10-07 10:36 | General Progress Note ---
Assessment/Plan Assessment/Plan (1) H/O Spinal surgery (2) DDD (degenerative disc disease), cervical (3) Lumbar spondylosis (4) Cervical spondylosis (5) Lumbar degenerative disc disease (6) History of total knee replacement, right (7) Osteoarthritis of right knee We will continue the Relistor, Morphine, [place] and Oxycontin. Pt was d/w Dr. Schaffer and he concurred Subjective Date patient seen: Oct 07, 2017 Time patient seen: 07:30 - am Allergies: Coded Allergies: CEFAZOLIN (Verified Allergy, Severe, hives all over her body, 01/10/16) PHENYTOIN (Verified Allergy, Severe, swell up face, 01/10/16) SULFA (SULFONAMIDE ANTIBIOTICS) (Verified Allergy, Severe, hives all over her body, 01/10/16) HYDROXYZINE (Verified Adverse Reaction, Severe, tachypnea; tachycardia, 01/10/16) PENICILLINS (Verified Adverse Reaction, Severe, vomiting, 01/10/16) PROCHLORPERAZINE (Verified Adverse Reaction, Severe, musle spasm, 01/10/16) Subjective Constitutional: Reports: no symptoms HEENT: Reports: no symptoms Respiratory: Reports: no symptoms Gastrointestinal/Abdominal: Reports: N/v, constipation Genitourinary: Reports: no symptoms Endocrine: Reports: no symptoms Hematologic/Lymphatic: Reports: no symptoms Subjective Patient is in bed and reports that her pain is unchanged however is tolerated on the Oxycontin, [place] and Morphine . She has no new complaints. Objective Last 24 Hour Vital Signs Date Time Temp Pulse Resp B/P (MAP) Pulse Ox O2 Delivery O2 Flow Rate FiO2 10/07/17 09:36 98.6 10/07/17 09:36 98.6 10/07/17 09:36 98.6 10/07/17 09:00 98 103/67 10/07/17 08:00 98.6 98 20 103/67 96 Room Air 10/07/17 04:00 97.9 81 20 113/64 97 Room Air 10/07/17 04:00 Room Air 10/06/17 23:45 98.2 99 18 102/67 97 Room Air 10/06/17 20:56 91 109/57 10/06/17 20:10 97.7 91 18 109/57 97 Room Air 10/06/17 16:00 98.2 91 18 106/70 92 Room Air 10/06/17 12:00 98.2 89 19 116/65 94 Room Air Laboratory Tests 10/07/17 05:15: White Blood Count 4.1L, Red Blood Count 3.42L, Hemoglobin 8.9L, Hematocrit 27.8L , Mean Corpuscular Volume 81, Mean Corpuscular Hemoglobin 26.1L, Mean Corpuscular Hemoglobin Concent 32.0, Red Cell Distribution Width 15.6H, Platelet Count 210, Mean Platelet Volume 7.2, Neutrophils (%) (Auto) 51.7, Lymphocytes (%) (Auto) 37.9, Monocytes (%) (Auto) 9.3, Eosinophils (%) (Auto) 0.2, Basophils (%) (Auto) 1.0, Sodium Level 139, Potassium Level 3.5, Chloride Level 106, Carbon Dioxide Level 27, Anion Gap 7, Blood Urea Nitrogen 11, Creatinine 0.7, Estimat Glomerular Filtration Rate > 60, Glucose Level 102, Calcium Level 8.5, Magnesium Level 2.1 Height (Feet): 5 Height (Inches): 2.00 Weight (Pounds): 120 Objective General Appearance: no apparent distress, alert EENT: PERRL/EOMI, normal ENT inspection Neck: non-tender, normal alignment Cardiovascular: normal rate, regular rhythm Respiratory/Chest: lungs clear, normal breath sounds Abdomen: non tender, soft Extremities: weakness noted Edema: trace edema Neurologic: alert, oriented x 3 Skin: warm/dry GABE DOMINGO Oct 07, 2017 10:36
[2017-10-07 12:00] VITALS: BP 94/51
--- NOTE | 2017-10-07 13:26 | Pulmonology Progress Note ---
Assessment/Plan Assessment/Plan ASSESSMENT Sepsis UTI with Pseudomonas syncopal episode likely due to combination of dehydration, hypotension, UTI, prolonged BR, hypotension cardiomyopathy systolic HF abdominal pain hx of multiple spinal surgeries DDD lumbar spine DDD cervical spine Lumbar spondylosis cervical spondylosis OA R knee hypokalemia hypomagnesemia MDD anxiety disorder bedridden sacral decub un-stageable POA R buttock decub un-stageable POA PLAN OF CARE MS floor watch BP closely , currently stable s/p abx Rx; urine cx +Pseudomonas, blood cx negative pain management pain specialist follows Venous Duplex BLE negative CXR negative cardio follows ECHO with EF 45% and RVSP of 32 abdominal US results pending pain management K and mg stable after replacement, g psych follows continue meds as per psych PT Rx Bowel regimen wound care a per wound nurse recommendations Dc plan difficult placement patient needs skilled services, bedridden, has caregiver only for 3 hrs case discussed and evaluated by supervising physician Subjective Allergies: Coded Allergies: CEFAZOLIN (Verified Allergy, Severe, hives all over her body, 01/10/16) PHENYTOIN (Verified Allergy, Severe, swell up face, 01/10/16) SULFA (SULFONAMIDE ANTIBIOTICS) (Verified Allergy, Severe, hives all over her body, 01/10/16) HYDROXYZINE (Verified Adverse Reaction, Severe, tachypnea; tachycardia, 01/10/16) PENICILLINS (Verified Adverse Reaction, Severe, vomiting, 01/10/16) PROCHLORPERAZINE (Verified Adverse Reaction, Severe, musle spasm, 01/10/16) Subjective denies chest pain, SOB + back pain , chronic, intermittent , controlled with current regimen + abdominal pain, no n/v/diarrhea results of abdominal US pending Objective Last 24 Hour Vital Signs Date Time Temp Pulse Resp B/P (MAP) Pulse Ox O2 Delivery O2 Flow Rate FiO2 10/07/17 09:36 98.6 10/07/17 09:36 98.6 10/07/17 09:36 98.6 10/07/17 09:00 98 103/67 10/07/17 08:00 98.6 98 20 103/67 96 Room Air 10/07/17 04:00 97.9 81 20 113/64 97 Room Air 10/07/17 04:00 Room Air 10/06/17 23:45 98.2 99 18 102/67 97 Room Air 10/06/17 20:56 91 109/57 10/06/17 20:10 97.7 91 18 109/57 97 Room Air 10/06/17 16:00 98.2 91 18 106/70 92 Room Air Objective General Appearance: no acute distress, other - awake, alert, chronically ill looking bedridden female in NAD HEENT: normocephalic, atraumatic, anicteric, mucous membranes moist Respiratory/Chest: lungs clear, normal breath sounds, no respiratory distress Cardiovascular: normal rate, regular rhythm, no JVD Abdomen: normal bowel sounds, soft, non tender Genitourinary: normal external genitalia Extremities: no edema, pedal pulses normal Neurologic/Psychiatric: abnormal gait, alert, responsive Musculoskeletal: atrophy - BLE Laboratory Tests 10/07/17 05:15: White Blood Count 4.1L, Red Blood Count 3.42L, Hemoglobin 8.9L, Hematocrit 27.8L , Mean Corpuscular Volume 81, Mean Corpuscular Hemoglobin 26.1L, Mean Corpuscular Hemoglobin Concent 32.0, Red Cell Distribution Width 15.6H, Platelet Count 210, Mean Platelet Volume 7.2, Neutrophils (%) (Auto) 51.7, Lymphocytes (%) (Auto) 37.9, Monocytes (%) (Auto) 9.3, Eosinophils (%) (Auto) 0.2, Basophils (%) (Auto) 1.0, Sodium Level 139, Potassium Level 3.5, Chloride Level 106, Carbon Dioxide Level 27, Anion Gap 7, Blood Urea Nitrogen 11, Creatinine 0.7, Estimat Glomerular Filtration Rate > 60, Glucose Level 102, Calcium Level 8.5, Magnesium Level 2.1 Current Medications Medications (Trade) Dose Ordered Sig/Reanna Route PRN Reason Start Time Stop Time Status Last Admin Dose Admin Acetaminophen (Tylenol) 650 mg Q4H PRN ORAL fever 09/24/17 21:30 10/24/17 21:29 Acetaminophen/ Butalbital/ Caffeine (Fioricet) 1 tab Q6H PRN ORAL headache 10/01/17 10:00 10/31/17 09:59 Acetaminophen/ Hydrocodone Bitart ([place] 10/325) 1 ea Q4H PRN ORAL Moderate Pain (Pain Scale 4-6) 10/07/17 10:45 10/14/17 10:44 Al Hydroxide/Mg Hydroxide (Mylanta II) 30 ml Q6H PRN ORAL dyspepsia 09/24/17 21:30 10/24/17 21:29 Aztreonam 1 gm/ Dextrose 55 ml @ 110 mls/hr Q8HR@0000,0800,1600 IVPB 10/05/17 16:00 10/12/17 15:59 10/07/17 09:03 Dextrose (Dextrose 50%) STAT PRN IV Hypoglycemia 09/24/17 21:30 10/24/17 21:29 Diphenhydramine HCl (Benadryl) 25 mg Q8H PRN IVP Itching 10/01/17 16:30 10/31/17 16:29 10/01/17 16:38 Docusate Sodium (Colace) 100 mg THREE TIMES A DAY ORAL 10/03/17 09:00 11/02/17 08:59 10/07/17 13:21 Levothyroxine Sodium (Synthroid) 100 mcg ACBREAKFAST ORAL 09/25/17 06:30 10/25/17 06:29 10/07/17 06:01 Lorazepam (Ativan 2mg/ml 1ml) 0.5 mg Q4H PRN IV For Anxiety 10/02/17 03:00 10/09/17 02:59 Methylnaltrexone [place] (Relistor) 12 mg QOD SUBQ 10/05/17 10:30 11/04/17 10:29 Metronidazole (Flagyl) 500 mg Q8HR ORAL 10/05/17 15:00 10/12/17 14:59 10/07/17 13:22 Montelukast Sodium (Singulair) 10 mg QHS ORAL 09/24/17 22:00 10/24/17 21:59 10/06/17 20:54 Morphine Sulfate (Morphine Sulfate) 4 mg Q4H PRN IVP severe Pain 10/02/17 23:15 10/09/17 23:14 10/07/17 13:21 Ondansetron HCl (Zofran) 4 mg Q4H PRN IVP Nausea & Vomiting 10/02/17 21:00 11/01/17 20:59 10/07/17 13:21 Oxycodone HCl (OxyCONTIN) 20 mg Q12HR ORAL 10/01/17 11:00 10/08/17 10:59 10/06/17 20:55 Polyethylene Glycol (Miralax) 17 gm HSPRN PRN ORAL Constipation 09/24/17 21:30 10/24/17 21:29 Pregabalin (Lyrica) 75 mg TID ORAL 09/25/17 09:00 10/25/17 08:59 10/07/17 13:21 Propranolol HCl (Inderal) 20 mg Q12H ORAL 09/28/17 09:00 10/28/17 08:59 10/05/17 09:55 Sennosides (Senokot) 8.6 mg DAILY ORAL 10/03/17 09:00 11/02/17 08:59 10/07/17 09:04 Solifenacin (Vesicare) 10 mg DAILY ORAL 09/28/17 14:00 10/28/17 13:59 10/07/17 09:03 Tizanidine HCl (Zanaflex) 4 mg BID ORAL 09/25/17 09:00 10/25/17 08:59 10/07/17 09:04 Topiramate (Topamax) 200 mg DAILY ORAL 09/25/17 09:00 10/25/17 08:59 10/07/17 09:04 Zolpidem Tartrate (Ambien) 5 mg HSPRN PRN ORAL Insomnia 10/02/17 03:00 10/09/17 02:59 10/05/17 23:17 [facility] CenterDaisy Mckeon NP Oct 07, 2017 13:26
[2017-10-07] MEDS ORDERED: Tubing IV Secondary IV ONE (14:49)
[2017-10-07 16:43] VITALS: BP 119/69
[2017-10-07 19:50] VITALS: BP 102/61
[2017-10-07] MEDS: Montelukast 10mg tablet ORAL SCH (21:48)
[2017-10-07 23:57] VITALS: BP 102/69
[2017-10-08] MEDS: Aztreonam Inj 1 GM in D5W 55 ML IVPB SCH ×4 (00:13→23:31)
[2017-10-08] MEDS: Zolpidem 5mg tab ORAL PRN (00:13)
[2017-10-08 04:00] VITALS: BP 130/80
[2017-10-08] MEDS: metroNIDAZOLE 500mg tab ORAL SCH ×3 (06:00→21:27)
[2017-10-08] MEDS: Morphine Sulfate 4mg/ml Inj IVP PRN (06:00)
[2017-10-08 07:09] LABS: BASOPHILS % (AUTO) 1.7 % (0.0-2.0); EOSINOPHILS % (AUTO) 0.2 % (0.0-3.0); LYMPHOCYTES % (AUTO) 33.9 % (20.0-45.0); MEAN CORPUSCULAR HEMOGLOBIN 26.3 PG (27.0-31.0); MEAN CORPUSCULAR HGB CONC 31.9 G/DL (32.0-36.0); MEAN CORPUSCULAR VOLUME 82 FL (80-99); MEAN PLATELET VOLUME 6.7 FL (6.5-10.1); MONOCYTES % (AUTO) 9.1 % (1.0-10.0); NEUTROPHILS % (AUTO) 55.1 % (45.0-75.0); PLATELET COUNT 263 K/UL (150-450); RED BLOOD COUNT 3.59 M/UL (4.20-5.40); RED CELL DISTRIBUTION WIDTH 16.4 % (11.6-14.8); WHITE BLOOD COUNT 4.3 K/UL (4.8-10.8)
[2017-10-08 07:23] LABS: ANION GAP 7 mmol/L (5-15); CALCIUM 8.7 MG/DL (8.5-10.1); CARBON DIOXIDE 25 MMOL/L (21-32); CHLORIDE 109 MMOL/L (98-107); CREATININE 0.7 MG/DL (0.55-1.30); GLOMERULAR FILTRATION RATE > 60 mL/min (>60); POTASSIUM 4.1 MMOL/L (3.5-5.1); SODIUM 141 MMOL/L (136-145)
[2017-10-08 08:00] VITALS: BP 122/74
[2017-10-08] MEDS: Docusate 100mg cap ORAL SCH ×3 (08:22→17:25)
[2017-10-08] MEDS: Lyrica 75mg cap ORAL SCH ×3 (08:23→17:25)
[2017-10-08] MEDS: Sennosides 8.6mg ORAL SCH (08:24)
[2017-10-08] MEDS: Topiramate 100mg tab ORAL SCH (08:24)
[2017-10-08] MEDS: Solifenacin 10mg tab ORAL SCH (08:24)
--- NOTE | 2017-10-08 08:25 | General Progress Note ---
Assessment/Plan Assessment/Plan (1) H/O Spinal surgery (2) DDD (degenerative disc disease), cervical (3) Lumbar spondylosis (4) Cervical spondylosis (5) Lumbar degenerative disc disease (6) History of total knee replacement, right (7) Osteoarthritis of right knee We will continue the Relistor, [place] and start Percocet 10/325mg PO 1 tab Q4H PRN severe pain We will discontinue the Morphine and Oxycontin. Pt was d/w Dr. Schaffer and he concurred Subjective Date patient seen: Oct 08, 2017 Time patient seen: 07:15 - am Allergies: Coded Allergies: CEFAZOLIN (Verified Allergy, Severe, hives all over her body, 01/10/16) PHENYTOIN (Verified Allergy, Severe, swell up face, 01/10/16) SULFA (SULFONAMIDE ANTIBIOTICS) (Verified Allergy, Severe, hives all over her body, 01/10/16) HYDROXYZINE (Verified Adverse Reaction, Severe, tachypnea; tachycardia, 01/10/16) PENICILLINS (Verified Adverse Reaction, Severe, vomiting, 01/10/16) PROCHLORPERAZINE (Verified Adverse Reaction, Severe, musle spasm, 01/10/16) Subjective Constitutional: Reports: no symptoms HEENT: Reports: no symptoms Respiratory: Reports: no symptoms Gastrointestinal/Abdominal: Reports: N/v, constipation Genitourinary: Reports: no symptoms Endocrine: Reports: no symptoms Hematologic/Lymphatic: Reports: no symptoms Subjective Patient is in bed and reports that the pain continues to be severe. She states that the Oxycontin has not helped to reduce her pain and has been refusing the last 2 doses. I d/w her about discontinuing the Oxycontin and the Morphine, we will continue the [place] and start Percocet 10/325mg as needed for severe pain. Objective Last 24 Hour Vital Signs Date Time Temp Pulse Resp B/P (MAP) Pulse Ox O2 Delivery O2 Flow Rate FiO2 10/08/17 06:30 98.1 10/08/17 04:00 97.7 100 18 130/80 96 Room Air 10/07/17 23:57 98.1 88 18 102/69 93 10/07/17 21:00 90 102/61 10/07/17 19:50 98.1 90 18 102/61 94 10/07/17 17:53 98.1 10/07/17 17:53 98.1 10/07/17 16:43 98.1 89 16 119/69 96 Room Air 10/07/17 12:00 97.9 87 17 94/51 100 Room Air 10/07/17 09:00 98 103/67 Laboratory Tests 10/08/17 04:35: White Blood Count 4.3L, Red Blood Count 3.59L, Hemoglobin 9.4L, Hematocrit 29.5L , Mean Corpuscular Volume 82, Mean Corpuscular Hemoglobin 26.3L, Mean Corpuscular Hemoglobin Concent 31.9L, Red Cell Distribution Width 16.4H, Platelet Count 263, Mean Platelet Volume 6.7, Neutrophils (%) (Auto) 55.1, Lymphocytes (%) (Auto) 33.9, Monocytes (%) (Auto) 9.1, Eosinophils (%) (Auto) 0.2, Basophils (%) (Auto) 1.7, Sodium Level 141, Potassium Level 4.1, Chloride Level 109H, Carbon Dioxide Level 25, Anion Gap 7, Blood Urea Nitrogen 12, Creatinine 0.7, Estimat Glomerular Filtration Rate > 60, Glucose Level 106, Calcium Level 8.7 Height (Feet): 5 Height (Inches): 2.00 Weight (Pounds): 120 Objective General Appearance: no apparent distress, alert EENT: PERRL/EOMI, normal ENT inspection Neck: non-tender, normal alignment Cardiovascular: normal rate, regular rhythm Respiratory/Chest: lungs clear, normal breath sounds Abdomen: non tender, soft Extremities: weakness noted Edema: trace edema Neurologic: alert, oriented x 3 Skin: warm/dry GABE DOMINGO N. P.ANiels Oct 08, 2017 08:25
[2017-10-08] MEDS: Propranolol 10mg tab ORAL SCH ×2 (08:29→21:00)
[2017-10-08] MEDS ORDERED: oxyCONTIN 20mg tab ORAL SCH (09:00)
[2017-10-08] MEDS ORDERED: Morphine Sulfate 4mg/ml Inj IVP PRN (11:15)
[2017-10-08 12:00] VITALS: BP 97/62
--- NOTE | 2017-10-08 12:09 | Infectious Diseases Prog Note ---
Assessment/Plan Assessment/Plan Assesment: abd pain- r/o intrabdominal pathology- ?ileus -Abx xray: Considerable gas is seen in the ascending transverse colon, which is upper limits of normal in caliber. No small bowel distention. Thoracolumbar spine fusion hardware is demonstrated. Intermittent Low grade; resolved ?2ry to possible asp PNA vs intrabdominal pathology (+abd pain) -repeat UA no pyuria -10/04 Bcx NTD probable Asp Pneum : Cxray 10/05 : Left basilar infiltrate, atelectasis, possibly some pleural fluid , new since 09/24/2017 UTI- +Pyuria/bacteriuria, urgency -u/a wbc 30-40, nit+, leuk +3; ucx >100K PsA (R Cipro/levo, aztreonam; S Cefepime, zosyn) Leukocytosis, mild- resolved -Bcx NTD Presyncopal event- likely due to hypotension and dehydration sacral wound- not infected -wound cx PSA, diphteroids (colonizers) chronic back pain s/p multiple back surgeries, hx of DVT on xarelto, bedbound, HTN, migraine Plan: - on Aztreonam and Flagyl d# 4 given low grade fevers and abd pain awaiting abdominal studies. -10/01 SP Zosyn #6 for PsA UTI -09/26 SP Aztreonam #2 -09/25 SP CIpro x1 -wound care -Monitor CBC/BMP, temperatures -f/u Bcx, - f/u Abd us -monitor closely may need CT abd/p if persistent fever and abd pain Subjective Allergies: Coded Allergies: CEFAZOLIN (Verified Allergy, Severe, hives all over her body, 01/10/16) PHENYTOIN (Verified Allergy, Severe, swell up face, 01/10/16) SULFA (SULFONAMIDE ANTIBIOTICS) (Verified Allergy, Severe, hives all over her body, 01/10/16) HYDROXYZINE (Verified Adverse Reaction, Severe, tachypnea; tachycardia, 01/10/16) PENICILLINS (Verified Adverse Reaction, Severe, vomiting, 01/10/16) PROCHLORPERAZINE (Verified Adverse Reaction, Severe, musle spasm, 01/10/16) Subjective afebrile in >72hrs mild leukopenia awaiging abd us results still c/o abd pain Objective Vital Signs Last 24 Hour Vital Signs Date Time Temp Pulse Resp B/P (MAP) Pulse Ox O2 Delivery O2 Flow Rate FiO2 10/08/17 09:22 98.1 10/08/17 09:22 98.1 10/08/17 08:29 114 122/74 10/08/17 08:00 98.1 114 19 122/74 97 10/08/17 06:30 98.1 10/08/17 04:00 97.7 100 18 130/80 96 Room Air 10/07/17 23:57 98.1 88 18 102/69 93 10/07/17 21:00 90 102/61 10/07/17 19:50 98.1 90 18 102/61 94 10/07/17 16:43 98.1 89 16 119/69 96 Room Air Height (Feet): 5 Height (Inches): 2.00 Weight (Pounds): 120 Objective General Appearance: Chronically Ill - Thin, chronically ill-appearing middle- aged female, awake and alert HEENT: normocephalic, atraumatic, bilateral eye PERRL, bilateral eye EOMI, moist mucus membranes Neck: normal inspection, full range of motion, supple Respiratory: normal inspection, lungs clear, normal breath sounds, no respiratory distress, no wheezing, Cardiovascular : normal inspection, regular rate, rhythm, normal capillary refill Gastrointestinal: distended, diffused abd tenderness Musculoskeletal: other - Diffuse generalized paraspinal tenderness in her back , limited range of motion of bilateral lower extremities which is chronic, but able to bend both her knees without issue 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, other - Awake alert, oriented x4, good strength bilateral upper extremities, able to move bilateral lower extremities spontaneously Skin: normal inspection, normal color, no pat Laboratory Tests Test 10/08/17 04:35 White Blood Count 4.3 K/UL (4.8-10.8) L Red Blood Count 3.59 M/UL (4.20-5.40) L Hemoglobin 9.4 G/DL (12.0-16.0) L Hematocrit 29.5 % (37.0-47.0) L Mean Corpuscular Volume 82 FL (80-99) Mean Corpuscular Hemoglobin 26.3 PG (27.0-31.0) L Mean Corpuscular Hemoglobin Concent 31.9 G/DL (32.0-36.0) L Red Cell Distribution Width 16.4 % (11.6-14.8) H Platelet Count 263 K/UL (150-450) Mean Platelet Volume 6.7 FL (6.5-10.1) Neutrophils (%) (Auto) 55.1 % (45.0-75.0) Lymphocytes (%) (Auto) 33.9 % (20.0-45.0) Monocytes (%) (Auto) 9.1 % (1.0-10.0) Eosinophils (%) (Auto) 0.2 % (0.0-3.0) Basophils (%) (Auto) 1.7 % (0.0-2.0) Sodium Level 141 MMOL/L (136-145) Potassium Level 4.1 MMOL/L (3.5-5.1) Chloride Level 109 MMOL/L (98-107) H Carbon Dioxide Level 25 MMOL/L (21-32) Anion Gap 7 mmol/L (5-15) Blood Urea Nitrogen 12 mg/dL (7-18) Creatinine 0.7 MG/DL (0.55-1.30) Estimat Glomerular Filtration Rate > 60 mL/min (>60) Glucose Level 106 MG/DL (74-106) Calcium Level 8.7 MG/DL (8.5-10.1) Current Medications Medications (Trade) Dose Ordered Sig/Reanna Route PRN Reason Start Time Stop Time Status Last Admin Dose Admin Acetaminophen (Tylenol) 650 mg Q4H PRN ORAL fever 09/24/17 21:30 10/24/17 21:29 Acetaminophen/ Butalbital/ Caffeine (Fioricet) 1 tab Q6H PRN ORAL headache 10/01/17 10:00 10/31/17 09:59 Acetaminophen/ Hydrocodone Bitart ([place] 10) 1 ea Q4H PRN ORAL Moderate Pain (Pain Scale 4-6) 10/07/17 10:45 10/14/17 10:44 Al Hydroxide/Mg Hydroxide (Mylanta II) 30 ml Q6H PRN ORAL dyspepsia 09/24/17 21:30 10/24/17 21:29 Aztreonam 1 gm/ Dextrose 55 ml @ 110 mls/hr Q8HR@0000,0800,1600 IVPB 10/05/17 16:00 10/12/17 15:59 10/08/17 08:22 Dextrose (Dextrose 50%) STAT PRN IV Hypoglycemia 09/24/17 21:30 10/24/17 21:29 Diphenhydramine HCl (Benadryl) 25 mg Q8H PRN IVP Itching 10/01/17 16:30 10/31/17 16:29 10/01/17 16:38 Docusate Sodium (Colace) 100 mg THREE TIMES A DAY ORAL 10/03/17 09:00 11/02/17 08:59 10/08/17 08:22 Levothyroxine Sodium (Synthroid) 100 mcg ACBREAKFAST ORAL 09/25/17 06:30 10/25/17 06:29 10/08/17 06:00 Lorazepam (Ativan 2mg/ml 1ml) 0.5 mg Q4H PRN IV For Anxiety 10/02/17 03:00 10/09/17 02:59 Methylnaltrexone [place] (Relistor) 12 mg QOD SUBQ 10/05/17 10:30 11/04/17 10:29 Metronidazole (Flagyl) 500 mg Q8HR ORAL 10/05/17 15:00 10/12/17 14:59 10/08/17 06:00 Montelukast Sodium (Singulair) 10 mg QHS ORAL 09/24/17 22:00 10/24/17 21:59 10/07/17 21:48 Ondansetron HCl (Zofran) 4 mg Q4H PRN IVP Nausea & Vomiting 10/02/17 21:00 11/01/17 20:59 10/08/17 06:00 Oxycodone/ Acetaminophen (Percocet 10/325) 1 tab Q4H PRN ORAL severe pain 10/08/17 08:30 10/15/17 08:29 Polyethylene Glycol (Miralax) 17 gm HSPRN PRN ORAL Constipation 09/24/17 21:30 10/24/17 21:29 Pregabalin (Lyrica) 75 mg TID ORAL 09/25/17 09:00 10/25/17 08:59 10/08/17 08:23 Propranolol HCl (Inderal) 20 mg Q12H ORAL 09/28/17 09:00 10/28/17 08:59 12/4/17 08:29 Sennosides (Senokot) 8.6 mg DAILY ORAL 10/03/17 09:00 11/02/17 08:59 10/08/17 08:24 Solifenacin (Vesicare) 10 mg DAILY ORAL 09/28/17 14:00 10/28/17 13:59 10/08/17 08:24 Tizanidine HCl (Zanaflex) 4 mg BID ORAL 09/25/17 09:00 10/25/17 08:59 10/08/17 08:23 Topiramate (Topamax) 200 mg DAILY ORAL 09/25/17 09:00 10/25/17 08:59 10/08/17 08:24 Zolpidem Tartrate (Ambien) 5 mg HSPRN PRN ORAL Insomnia 10/02/17 03:00 10/09/17 02:59 10/08/17 00:13 Cami Mendez M.D. Oct 08, 2017 12:09
[2017-10-08] MEDS: Norco 10mg/325mg tab ORAL PRN ×3 (13:18→21:27)
--- NOTE | 2017-10-08 14:12 | Diagnostic Imaging Report ---
Indication: Abdominal pain Technique: Tadeo-scale and duplex images of the upper abdomen were obtained Comparison: None Findings: Gallbladder is surgically absent. Common bile duct measures 3 mm in diameter. No intrahepatic biliary ductal dilatation. Liver demonstrates normal echogenicity, no focal abnormality. Portal vein and hepatic veins are patent. Pancreas is unremarkable. The spleen is enlarged, measuring 14 cm long axis dimension Left kidney measures 10.7 cm in length, is suboptimally visualized due to body habitus. Right kidney measures 10.4 cm length. Both kidneys demonstrate normal echogenicity. There is no hydronephrosis. No focal abnormality . Abdominal aorta is partially obscured by bowel gas, visualized portions are non-aneurysmal . Impression: Surgically absent gallbladder. Negative for dilated ducts Mild splenomegaly Note suboptimal visualization of the abdominal aorta and left kidney
[2017-10-08 16:00] VITALS: BP 100/66
--- NOTE | 2017-10-08 16:44 | Pulmonology Progress Note ---
Assessment/Plan Problems: (1) Sepsis (2) Hypotension (3) UTI (urinary tract infection) (4) Bedridden (5) H/O Spinal surgery Assessment/Plan pain is better off iv morphine check cultures echo noted social service evaluation. dc planning in progress difficult placement because of lack of skilled days, pt is bed bound and has only 3 hours of caregiver. Subjective ROS Limited/Unobtainable: No Constitutional: Reports: no symptoms HEENT: Repors: no symptoms Allergies: Coded Allergies: CEFAZOLIN (Verified Allergy, Severe, hives all over her body, 01/10/16) PHENYTOIN (Verified Allergy, Severe, swell up face, 01/10/16) SULFA (SULFONAMIDE ANTIBIOTICS) (Verified Allergy, Severe, hives all over her body, 01/10/16) HYDROXYZINE (Verified Adverse Reaction, Severe, tachypnea; tachycardia, 01/10/16) PENICILLINS (Verified Adverse Reaction, Severe, vomiting, 01/10/16) PROCHLORPERAZINE (Verified Adverse Reaction, Severe, musle spasm, 01/10/16) Objective Last 24 Hour Vital Signs Date Time Temp Pulse Resp B/P (MAP) Pulse Ox O2 Delivery O2 Flow Rate FiO2 10/08/17 14:16 98.1 10/08/17 14:16 98.1 10/08/17 12:00 97.0 85 17 97/62 97 Room Air 10/08/17 09:22 98.1 10/08/17 08:29 114 122/74 10/08/17 08:00 98.1 114 19 122/74 97 10/08/17 06:30 98.1 10/08/17 04:00 97.7 100 18 130/80 96 Room Air 10/07/17 23:57 98.1 88 18 102/69 93 10/07/17 21:00 90 102/61 10/07/17 19:50 98.1 90 18 102/61 94 Intake and Output 10/08/17 10/09/17 19:00 07:00 Intake Total 55 ml Balance 55 ml IV Total 55 ml General Appearance: WD/WN HEENT: normocephalic, atraumatic Respiratory/Chest: chest wall non-tender, lungs clear Breasts: no masses Cardiovascular: regular rhythm Abdomen: normal bowel sounds, no organomegaly Extremities: no cyanosis, no clubbing Skin: no ulcers Laboratory Tests 10/08/17 04:35: White Blood Count 4.3L, Red Blood Count 3.59L, Hemoglobin 9.4L, Hematocrit 29.5L , Mean Corpuscular Volume 82, Mean Corpuscular Hemoglobin 26.3L, Mean Corpuscular Hemoglobin Concent 31.9L, Red Cell Distribution Width 16.4H, Platelet Count 263, Mean Platelet Volume 6.7, Neutrophils (%) (Auto) 55.1, Lymphocytes (%) (Auto) 33.9, Monocytes (%) (Auto) 9.1, Eosinophils (%) (Auto) 0.2, Basophils (%) (Auto) 1.7, Sodium Level 141, Potassium Level 4.1, Chloride Level 109H, Carbon Dioxide Level 25, Anion Gap 7, Blood Urea Nitrogen 12, Creatinine 0.7, Estimat Glomerular Filtration Rate > 60, Glucose Level 106, Calcium Level 8.7 Current Medications Medications (Trade) Dose Ordered Sig/Reanna Route PRN Reason Start Time Stop Time Status Last Admin Dose Admin Acetaminophen (Tylenol) 650 mg Q4H PRN ORAL fever 09/24/17 21:30 10/24/17 21:29 Acetaminophen/ Butalbital/ Caffeine (Fioricet) 1 tab Q6H PRN ORAL headache 10/01/17 10:00 10/31/17 09:59 Acetaminophen/ Hydrocodone Bitart ([place] 10/325) 1 ea Q4H PRN ORAL Moderate Pain (Pain Scale 4-6) 10/07/17 10:45 10/14/17 10:44 10/08/17 13:18 Al Hydroxide/Mg Hydroxide (Mylanta II) 30 ml Q6H PRN ORAL dyspepsia 09/24/17 21:30 10/24/17 21:29 Aztreonam 1 gm/ Dextrose 55 ml @ 110 mls/hr Q8HR@0000,0800,1600 IVPB 10/05/17 16:00 10/12/17 15:59 10/08/17 15:09 Dextrose (Dextrose 50%) STAT PRN IV Hypoglycemia 09/24/17 21:30 10/24/17 21:29 Diphenhydramine HCl (Benadryl) 25 mg Q8H PRN IVP Itching 10/01/17 16:30 10/31/17 16:29 11/27/17 16:38 Docusate Sodium (Colace) 100 mg THREE TIMES A DAY ORAL 10/03/17 09:00 11/02/17 08:59 10/08/17 13:18 Levothyroxine Sodium (Synthroid) 100 mcg ACBREAKFAST ORAL 09/25/17 06:30 10/25/17 06:29 10/08/17 06:00 Lorazepam (Ativan 2mg/ml 1ml) 0.5 mg Q4H PRN IV For Anxiety 10/02/17 03:00 10/09/17 02:59 Methylnaltrexone [place] (Relistor) 12 mg QOD SUBQ 10/05/17 10:30 11/04/17 10:29 Metronidazole (Flagyl) 500 mg Q8HR ORAL 10/05/17 15:00 10/12/17 14:59 10/08/17 13:18 Montelukast Sodium (Singulair) 10 mg QHS ORAL 09/24/17 22:00 10/24/17 21:59 10/07/17 21:48 Ondansetron HCl (Zofran) 4 mg Q4H PRN IVP Nausea & Vomiting 10/02/17 21:00 11/01/17 20:59 10/08/17 06:00 Oxycodone/ Acetaminophen (Percocet 10/325) 1 tab Q4H PRN ORAL severe pain 10/08/17 08:30 10/15/17 08:29 Polyethylene Glycol (Miralax) 17 gm HSPRN PRN ORAL Constipation 09/24/17 21:30 10/24/17 21:29 Pregabalin (Lyrica) 75 mg TID ORAL 09/25/17 09:00 10/25/17 08:59 10/08/17 13:18 Propranolol HCl (Inderal) 20 mg Q12H ORAL 09/28/17 09:00 10/28/17 08:59 10/08/17 08:29 Sennosides (Senokot) 8.6 mg DAILY ORAL 10/03/17 09:00 11/02/17 08:59 10/08/17 08:24 Solifenacin (Vesicare) 10 mg DAILY ORAL 09/28/17 14:00 10/28/17 13:59 10/08/17 08:24 Tizanidine HCl (Zanaflex) 4 mg BID ORAL 09/25/17 09:00 10/25/17 08:59 10/08/17 08:23 Topiramate (Topamax) 200 mg DAILY ORAL 09/25/17 09:00 10/25/17 08:59 10/08/17 08:24 Zolpidem Tartrate (Ambien) 5 mg HSPRN PRN ORAL Insomnia 10/02/17 03:00 10/09/17 02:59 10/08/17 00:13 JAMA ALONZO Oct 08, 2017 16:44
[2017-10-08 20:00] VITALS: BP 103/62
[2017-10-08] MEDS: Montelukast 10mg tablet ORAL SCH (21:27)
--- NOTE | 2017-10-08 22:41 | General Progress Note ---
Assessment/Plan Status: stable Assessment/Plan anxiety d/o mdd the pt lacks capacity as she vacillates. she is forgetful. cont ativan cont topamax Subjective Neurologic/Psychiatric: Reports: anxiety, depressed, emotional problems Allergies: Coded Allergies: CEFAZOLIN (Verified Allergy, Severe, hives all over her body, 01/10/16) PHENYTOIN (Verified Allergy, Severe, swell up face, 01/10/16) SULFA (SULFONAMIDE ANTIBIOTICS) (Verified Allergy, Severe, hives all over her body, 01/10/16) HYDROXYZINE (Verified Adverse Reaction, Severe, tachypnea; tachycardia, 01/10/16) PENICILLINS (Verified Adverse Reaction, Severe, vomiting, 01/10/16) PROCHLORPERAZINE (Verified Adverse Reaction, Severe, musle spasm, 01/10/16) Subjective the pt has poor memory she was unable to recall the discussion we had regarding her placement on sunday the pt has poor insight Objective Last 24 Hour Vital Signs Date Time Temp Pulse Resp B/P (MAP) Pulse Ox O2 Delivery O2 Flow Rate FiO2 10/08/17 21:00 89 103/62 10/08/17 20:00 97.5 89 16 103/62 96 Room Air 10/08/17 18:24 97.7 10/08/17 18:24 97.7 10/08/17 18:24 97.7 10/08/17 16:00 97.7 82 18 100/66 97 Room Air 10/08/17 12:00 97.0 85 17 97/62 97 Room Air 10/08/17 08:29 114 122/74 10/08/17 08:00 98.1 114 19 122/74 97 10/08/17 06:30 98.1 10/08/17 04:00 97.7 100 18 130/80 96 Room Air 10/07/17 23:57 98.1 88 18 102/69 93 Intake and Output 10/08/17 10/09/17 19:00 07:00 Intake Total 350 ml Balance 350 ml Intake Oral 240 ml IV Total 110 ml # Voids 2 # Bowel Movements 1 Laboratory Tests 10/08/17 04:35: White Blood Count 4.3L, Red Blood Count 3.59L, Hemoglobin 9.4L, Hematocrit 29.5L , Mean Corpuscular Volume 82, Mean Corpuscular Hemoglobin 26.3L, Mean Corpuscular Hemoglobin Concent 31.9L, Red Cell Distribution Width 16.4H, Platelet Count 263, Mean Platelet Volume 6.7, Neutrophils (%) (Auto) 55.1, Lymphocytes (%) (Auto) 33.9, Monocytes (%) (Auto) 9.1, Eosinophils (%) (Auto) 0.2, Basophils (%) (Auto) 1.7, Sodium Level 141, Potassium Level 4.1, Chloride Level 109H, Carbon Dioxide Level 25, Anion Gap 7, Blood Urea Nitrogen 12, Creatinine 0.7, Estimat Glomerular Filtration Rate > 60, Glucose Level 106, Calcium Level 8.7 Height (Feet): 5 Height (Inches): 2.00 Weight (Pounds): 120 General Appearance: WD/WN, no apparent distress, alert Neurologic: alert, oriented x 3, responsive, depressed affect Tata Huynh M.D. Oct 08, 2017 22:41
[2017-10-09] VITALS: BP 118/70
[2017-10-09] MEDS: Zolpidem 5mg tab ORAL PRN (01:31)
[2017-10-09] MEDS: Norco 10mg/325mg tab ORAL PRN ×3 (01:32→11:49)
[2017-10-09 04:00] VITALS: BP 106/62
[2017-10-09] MEDS: metroNIDAZOLE 500mg tab ORAL SCH (05:50)
[2017-10-09 08:00] VITALS: BP 137/83
[2017-10-09 08:15] VITALS: BP 137/83
--- NOTE | 2017-10-09 08:33 | General Progress Note ---
Assessment/Plan Assessment/Plan (1) H/O Spinal surgery (2) DDD (degenerative disc disease), cervical (3) Lumbar spondylosis (4) Cervical spondylosis (5) Lumbar degenerative disc disease (6) History of total knee replacement, right (7) Osteoarthritis of right knee We will continue the Relistor, [place] and Percocet. Pt was d/w Dr. Schaffer and he concurred Subjective Date patient seen: Oct 09, 2017 Time patient seen: 07:00 - am Allergies: Coded Allergies: CEFAZOLIN (Verified Allergy, Severe, hives all over her body, 01/10/16) PHENYTOIN (Verified Allergy, Severe, swell up face, 01/10/16) SULFA (SULFONAMIDE ANTIBIOTICS) (Verified Allergy, Severe, hives all over her body, 01/10/16) HYDROXYZINE (Verified Adverse Reaction, Severe, tachypnea; tachycardia, 01/10/16) PENICILLINS (Verified Adverse Reaction, Severe, vomiting, 01/10/16) PROCHLORPERAZINE (Verified Adverse Reaction, Severe, musle spasm, 01/10/16) Subjective Constitutional: Reports: no symptoms HEENT: Reports: no symptoms Respiratory: Reports: no symptoms Gastrointestinal/Abdominal: Reports: N/v, constipation Genitourinary: Reports: no symptoms Endocrine: Reports: no symptoms Hematologic/Lymphatic: Reports: no symptoms Subjective Patient is bed no signs of pain or distress. The pain has been reduced on the [place] from a 9/10 to a 5/10. Objective Last 24 Hour Vital Signs Date Time Temp Pulse Resp B/P (MAP) Pulse Ox O2 Delivery O2 Flow Rate FiO2 10/09/17 08:15 97.5 75 21 137/83 95 Room Air 10/09/17 08:00 98.1 89 18 137/83 100 Room Air 10/09/17 04:00 97.9 88 18 106/62 96 Room Air 10/09/17 00:00 98.2 90 18 118/70 95 Room Air 10/08/17 21:00 89 103/62 10/08/17 20:00 97.5 89 16 103/62 96 Room Air 10/08/17 18:24 97.7 10/08/17 18:24 97.7 10/08/17 18:24 97.7 10/08/17 16:00 97.7 82 18 100/66 97 Room Air 10/08/17 12:00 97.0 85 17 97/62 97 Room Air Height (Feet): 5 Height (Inches): 2.00 Weight (Pounds): 120 Objective General Appearance: no apparent distress, alert EENT: PERRL/EOMI, normal ENT inspection Neck: non-tender, normal alignment Cardiovascular: normal rate, regular rhythm Respiratory/Chest: lungs clear, normal breath sounds Abdomen: non tender, soft Extremities: weakness noted Edema: trace edema Neurologic: alert, oriented x 3 Skin: warm/dry GABE DOMINGO Oct 09, 2017 08:33
[2017-10-09] MEDS: Sennosides 8.6mg ORAL SCH (09:00)
[2017-10-09] MEDS: Relistor 12mg/0.6ml Vial SUBQ SCH ×2 (09:00→09:18)
[2017-10-09] MEDS: Docusate 100mg cap ORAL SCH ×2 (09:00→12:59)
[2017-10-09] MEDS: Solifenacin 10mg tab ORAL SCH (09:18)
[2017-10-09] MEDS: Aztreonam Inj 1 GM in D5W 55 ML IVPB SCH (09:18)
[2017-10-09] MEDS: Topiramate 100mg tab ORAL SCH (09:19)
[2017-10-09] MEDS: Lyrica 75mg cap ORAL SCH (09:20)
[2017-10-09] MEDS: Propranolol 10mg tab ORAL SCH (09:20)
--- NOTE | 2017-10-09 10:44 | Infectious Diseases Prog Note ---
Assessment/Plan Assessment/Plan Assesment: abd pain- r/o intrabdominal pathology- ?ileus -Abd US: Surgically absent gallbladder. Negative for dilated ducts. Mild splenomegaly -Abx xray: Considerable gas is seen in the ascending transverse colon, which is upper limits of normal in caliber. No small bowel distention. Thoracolumbar spine fusion hardware is demonstrated. Intermittent Low grade; resolved ?2ry to possible asp PNA vs intrabdominal pathology (+abd pain) -repeat UA no pyuria -10/04 Bcx NTD probable Asp Pneum : Cxray 10/05 : Left basilar infiltrate, atelectasis, possibly some pleural fluid , new since 09/24/2017 UTI- +Pyuria/bacteriuria, urgency -u/a wbc 30-40, nit+, leuk +3; ucx >100K PsA (R Cipro/levo, aztreonam; S Cefepime, zosyn) Leukocytosis, mild- resolved -Bcx NTD Presyncopal event- likely due to hypotension and dehydration sacral wound- not infected -wound cx PSA, diphteroids (colonizers) chronic back pain s/p multiple back surgeries, hx of DVT on xarelto, bedbound, HTN, migraine Plan: - on Aztreonam and Flagyl d# 5/7 for possible intrabdominal process; upon discharge transition to PO Cipro and Flagyl -10/01 SP Zosyn #6 for PsA UTI -09/26 SP Aztreonam #2 -09/25 SP CIpro x1 -monitor closely may need CT abd/p if persistent fever and abd pain -wound care -Monitor CBC/BMP, temperatures -f/u Bcx, Subjective Allergies: Coded Allergies: CEFAZOLIN (Verified Allergy, Severe, hives all over her body, 01/10/16) PHENYTOIN (Verified Allergy, Severe, swell up face, 01/10/16) SULFA (SULFONAMIDE ANTIBIOTICS) (Verified Allergy, Severe, hives all over her body, 01/10/16) HYDROXYZINE (Verified Adverse Reaction, Severe, tachypnea; tachycardia, 01/10/16) PENICILLINS (Verified Adverse Reaction, Severe, vomiting, 01/10/16) PROCHLORPERAZINE (Verified Adverse Reaction, Severe, musle spasm, 01/10/16) Subjective afebrile in >72hrs mild leukopenia for discharge today patient refers diarrhea but per RN not diarrhea, soft stool Objective Vital Signs Last 24 Hour Vital Signs Date Time Temp Pulse Resp B/P (MAP) Pulse Ox O2 Delivery O2 Flow Rate FiO2 10/09/17 09:20 75 137/83 10/09/17 08:15 97.5 75 21 137/83 95 Room Air 10/09/17 08:00 98.1 89 18 137/83 100 Room Air 10/09/17 04:00 97.9 88 18 106/62 96 Room Air 10/09/17 00:00 98.2 90 18 118/70 95 Room Air 10/08/17 21:00 89 103/62 10/08/17 20:00 97.5 89 16 103/62 96 Room Air 10/08/17 18:24 97.7 10/08/17 18:24 97.7 10/08/17 18:24 97.7 10/08/17 16:00 97.7 82 18 100/66 97 Room Air 10/08/17 12:00 97.0 85 17 97/62 97 Room Air Height (Feet): 5 Height (Inches): 2.00 Weight (Pounds): 120 Objective General Appearance: Chronically Ill - Thin, chronically ill-appearing middle- aged female, awake and alert HEENT: normocephalic, atraumatic, bilateral eye PERRL, bilateral eye EOMI, moist mucus membranes Neck: normal inspection, full range of motion, supple Respiratory: normal inspection, lungs clear, normal breath sounds, no respiratory distress, no wheezing, Cardiovascular : normal inspection, regular rate, rhythm, normal capillary refill Gastrointestinal: distended, diffused abd tenderness Musculoskeletal: other - Diffuse generalized paraspinal tenderness in her back , limited range of motion of bilateral lower extremities which is chronic, but able to bend both her knees without issue 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, other - Awake alert, oriented x4, good strength bilateral upper extremities, able to move bilateral lower extremities spontaneously Skin: normal inspection, normal color, no pat Current Medications Medications (Trade) Dose Ordered Sig/Reanna Route PRN Reason Start Time Stop Time Status Last Admin Dose Admin Acetaminophen (Tylenol) 650 mg Q4H PRN ORAL fever 09/24/17 21:30 10/24/17 21:29 Acetaminophen/ Butalbital/ Caffeine (Fioricet) 1 tab Q6H PRN ORAL headache 10/01/17 10:00 10/31/17 09:59 Acetaminophen/ Hydrocodone Bitart ([place] 10/325) 1 ea Q4H PRN ORAL Moderate Pain (Pain Scale 4-6) 10/07/17 10:45 10/14/17 10:44 10/09/17 05:51 Al Hydroxide/Mg Hydroxide (Mylanta II) 30 ml Q6H PRN ORAL dyspepsia 09/24/17 21:30 10/24/17 21:29 Aztreonam 1 gm/ Dextrose 55 ml @ 110 mls/hr Q8HR@0000,0800,1600 IVPB 10/05/17 16:00 10/12/17 15:59 10/09/17 09:18 Dextrose (Dextrose 50%) STAT PRN IV Hypoglycemia 09/24/17 21:30 10/24/17 21:29 Diphenhydramine HCl (Benadryl) 25 mg Q8H PRN IVP Itching 10/01/17 16:30 10/31/17 16:29 10/01/17 16:38 Docusate Sodium (Colace) 100 mg THREE TIMES A DAY ORAL 10/03/17 09:00 11/02/17 08:59 10/08/17 17:25 Levothyroxine Sodium (Synthroid) 100 mcg ACBREAKFAST ORAL 09/25/17 06:30 10/25/17 06:29 10/09/17 05:50 Methylnaltrexone [place] (Relistor) 12 mg QOD SUBQ 10/05/17 10:30 11/04/17 10:29 Metronidazole (Flagyl) 500 mg Q8HR ORAL 10/05/17 15:00 10/12/17 14:59 10/09/17 05:50 Montelukast Sodium (Singulair) 10 mg QHS ORAL 09/24/17 22:00 10/24/17 21:59 10/08/17 21:27 Ondansetron HCl (Zofran) 4 mg Q4H PRN IVP Nausea & Vomiting 10/02/17 21:00 11/01/17 20:59 10/09/17 09:22 Oxycodone/ Acetaminophen (Percocet 10/325) 1 tab Q4H PRN ORAL severe pain 10/08/17 08:30 10/15/17 08:29 Polyethylene Glycol (Miralax) 17 gm HSPRN PRN ORAL Constipation 09/24/17 21:30 10/24/17 21:29 Pregabalin (Lyrica) 75 mg TID ORAL 09/25/17 09:00 10/25/17 08:59 10/09/17 09:20 Propranolol HCl (Inderal) 20 mg Q12H ORAL 09/28/17 09:00 10/28/17 08:59 10/09/17 09:20 Sennosides (Senokot) 8.6 mg DAILY ORAL 10/03/17 09:00 11/02/17 08:59 10/08/17 08:24 Solifenacin (Vesicare) 10 mg DAILY ORAL 09/28/17 14:00 10/28/17 13:59 10/09/17 09:18 Tizanidine HCl (Zanaflex) 4 mg BID ORAL 09/25/17 09:00 10/25/17 08:59 10/09/17 09:19 Topiramate (Topamax) 200 mg DAILY ORAL 09/25/17 09:00 10/25/17 08:59 10/09/17 09:19 Cami Mendez M.D. Oct 09, 2017 10:44
--- NOTE | 2017-10-09 11:22 | Wound Care Consultation ---
Wound Assessment Wound Assessment #1: Wound Number: 1 Wound Present on Admission: Yes New Wound: No Status Change of Wound: No Wound Location Body Site Modif: mid Wound Location Body Site: sacral Wound Type: pressure ulcer Richard Test: Does not Richard Pressure Ulcer Stage: IV Wound Thickness: Full Thickness Wound Length: 3.2 Wound Width: 2.2 Wound Depth: 0.5 Percent of Wound [place]/Red: 80 Percent of Wound Bed Yellow/Wh: 20 Wound Drainage Description: Serosanguineous Wound Drainage Amount: Moderate Wound Drainage Odor: None/Absent Tissue Surrounding Wound: Erythemic Wound Undermining at 12:00: 0.8 Wound General Appearance: Reddened, Draining, Necrotic Wound Assessment #2: Wound Number: 2 Wound Present on Admission: Yes New Wound: No Status Change of Wound: No Wound Location Body Site Modif: right Wound Location Body Site: buttocks Wound Type: pressure ulcer Richard Test: Does not Richard Pressure Ulcer Stage: Unstageable Wound Thickness: Full Thickness Wound Length: 2.0 Wound Width: 1.0 Wound Depth: utd Percent of Wound [place]/Red: 5 Percent of Wound Bed Yellow/Wh: 95 Wound Drainage Description: Serosanguineous Wound Drainage Amount: Moderate Wound Drainage Odor: None/Absent Tissue Surrounding Wound: Erythemic Wound General Appearance: Reddened, Draining, Necrotic Wound Comment Reassessment. #1 Sacral unstageable pressure ulcer.- noted good progress, decrease in necrotic tissue,increase in granulation tissue wound bed pink and decrease in size noted. current wound care remains effective. #2 Right buttock unstageable pressure ulcer.- noted good progress decrease in size, remains as unstageable , no further deterioration present. Recommendation. -Local wound care as previously recommended. -Turn and reposition. -offload heels -low air loss. -Heel protectors. -Optimize nutrition. -Avoid shear and friction -Keep clean and dry. -Offload affected sites. -Assess and follow up with MD for any changes of condition to skin noted. MAURIZIO HONG Oct 09, 2017 11:22
[2017-10-09 11:53] VITALS: BP 116/68
--- NOTE | 2017-10-09 15:21 | General Progress Note ---
Assessment/Plan Assessment/Plan anxiety d/o mdd the pt lacks capacity as she vacillates. she is forgetful. cont ativan cont topamax Subjective Date patient seen: Oct 09, 2017 Allergies: Coded Allergies: CEFAZOLIN (Verified Allergy, Severe, hives all over her body, 01/10/16) PHENYTOIN (Verified Allergy, Severe, swell up face, 01/10/16) SULFA (SULFONAMIDE ANTIBIOTICS) (Verified Allergy, Severe, hives all over her body, 01/10/16) HYDROXYZINE (Verified Adverse Reaction, Severe, tachypnea; tachycardia, 01/10/16) PENICILLINS (Verified Adverse Reaction, Severe, vomiting, 01/10/16) PROCHLORPERAZINE (Verified Adverse Reaction, Severe, musle spasm, 01/10/16) Subjective the pt has poor memory she was unable to recall the discussion we had regarding her placement on sunday the pt has poor insight Objective Last 24 Hour Vital Signs Date Time Temp Pulse Resp B/P (MAP) Pulse Ox O2 Delivery O2 Flow Rate FiO2 10/09/17 11:53 97.7 68 18 116/68 97 Room Air 10/09/17 09:20 75 137/83 10/09/17 08:15 97.5 75 21 137/83 95 Room Air 10/09/17 08:00 98.1 89 18 137/83 100 Room Air 10/09/17 04:00 97.9 88 18 106/62 96 Room Air 10/09/17 00:00 98.2 90 18 118/70 95 Room Air 10/08/17 21:00 89 103/62 10/08/17 20:00 97.5 89 16 103/62 96 Room Air 10/08/17 18:24 97.7 10/08/17 18:24 97.7 10/08/17 18:24 97.7 10/08/17 16:00 97.7 82 18 100/66 97 Room Air Height (Feet): 5 Height (Inches): 2.00 Weight (Pounds): 120 Tata Huynh M.D. Oct 09, 2017 15:21
--- NOTE | 2017-10-09 15:24 | Pulmonology Progress Note ---
Assessment/Plan Problems: (1) Sepsis (2) Hypotension (3) UTI (urinary tract infection) (4) Bedridden (5) H/O Spinal surgery Assessment/Plan pain is better pt is accepted at [facility] evaluation. Subjective ROS Limited/Unobtainable: No Interval Events: no new complains Allergies: Coded Allergies: CEFAZOLIN (Verified Allergy, Severe, hives all over her body, 01/10/16) PHENYTOIN (Verified Allergy, Severe, swell up face, 01/10/16) SULFA (SULFONAMIDE ANTIBIOTICS) (Verified Allergy, Severe, hives all over her body, 01/10/16) HYDROXYZINE (Verified Adverse Reaction, Severe, tachypnea; tachycardia, 01/10/16) PENICILLINS (Verified Adverse Reaction, Severe, vomiting, 01/10/16) PROCHLORPERAZINE (Verified Adverse Reaction, Severe, musle spasm, 01/10/16) Objective Last 24 Hour Vital Signs Date Time Temp Pulse Resp B/P (MAP) Pulse Ox O2 Delivery O2 Flow Rate FiO2 10/09/17 11:53 97.7 68 18 116/68 97 Room Air 10/09/17 09:20 75 137/83 10/09/17 08:15 97.5 75 21 137/83 95 Room Air 10/09/17 08:00 98.1 89 18 137/83 100 Room Air 10/09/17 04:00 97.9 88 18 106/62 96 Room Air 10/09/17 00:00 98.2 90 18 118/70 95 Room Air 10/08/17 21:00 89 103/62 10/08/17 20:00 97.5 89 16 103/62 96 Room Air 10/08/17 18:24 97.7 10/08/17 18:24 97.7 10/08/17 18:24 97.7 10/08/17 16:00 97.7 82 18 100/66 97 Room Air General Appearance: cachetic HEENT: normocephalic, atraumatic Respiratory/Chest: chest wall non-tender, lungs clear Breasts: no masses Cardiovascular: normal peripheral pulses Abdomen: normal bowel sounds, no organomegaly Genitourinary: normal external genitalia Extremities: no clubbing Skin: no rash Neurologic/Psychiatric: skiver blockers II-XII grossly normal, no motor/sensory deficits, abnormal gait JAMA ALONZO Oct 09, 2017 15:24
--- NOTE | 2017-10-12 15:23 | Discharge Summary ---
Discharge Summary Hospital Course Date of Admission Sep 24, 2017 at 17:51 Date of Discharge Oct 09, 2017 at 13:35 Admitting Diagnosis hypotension, generalized weakness HPI Indu Flores is a 57 year old female who was admitted on Sep 24, 2017 at 17: 51 for Hypotesion, Generalized Weakness Hospital Course [id number] Discharge Discharge Disposition Patient was discharged to SNF/Subacute Facility(03) Discharge Diagnoses: Hayley Bloom NP Oct 12, 2017 15:23
--- NOTE | 2017-10-13 01:30 | Discharge Summary 2 SIG ---
DATE OF ADMISSION: 09/24/2017 DATE OF DISCHARGE: 10/09/2017 CONSULTANTS: 1. Nicolas Cardona M.D. 2. Tata Huynh M.D. 3. Cami Mendez M.D. BRIEF HOSPITAL COURSE: The patient is a 57-year-old female with multiple back surgeries, chronic back pain, history of DVT, and mostly bedbound, presented to ED complaining of dizziness and generalized weakness. The patient had spine problems, and would be needing spine surgery to allow her to walk. Unfortunately, she developed a deep venous thrombosis and spine and surgery was postponed. She then received anticoagulation therapy with Xarelto for several months and she was in the rehabilitation. She was sent home approximately three weeks prior to admission. She had been at home for the past three weeks and had a hygiene assistant who stays with her for approximately three hours a day and arranges for her to have some food and water. She is not able to get up much on her own from bed. She is basically in bed. On the day of admission, she was at the doctor's office and felt like she was almost about to pass out. She was then taken to [facility] ER for further evaluation. Initial blood pressure recording was 70/50. She was brought to ER, documented blood pressure was 90/50. She had an EKG done that showed normal QRS with no ST to T-wave abnormality. There was some Q-waves in lead 3, but no ST-segment changes. She had a chest x-ray done, which showed no cardiopulmonary process. Venous duplex of lower extremity was negative for DVT. Urinalysis showed infection. She was then admitted to telemetry for evaluation of syncope/presyncope and urinary tract infection. She was seen by Infectious Disease specialist and was initially started on aztreonam pending culture results. It was later on transitioned to Zosyn. She was seen by pain management and was continued on [place] and morphine p.r.n. She had a mood disorder and was continued on Topamax. Blood pressure was monitored. She had episodes of hypokalemia and was given potassium supplements. She had an echocardiogram done that showed ejection fraction of 45% with RVSP of 32. She complained of abdominal pain. Abdominal ultrasound showed surgically absent gallbladder, negative for dilated ducts with mild splenomegaly. Urine culture showed growth of Pseudomonas. She was given Zosyn and aztreonam. There was concern for possible intra-abdominal process and was given Flagyl. Blood culture did not isolate any growth. She came in with sacral and right buttock unstageable decubitus ulcer. She was given wound care. Wound culture with Pseudomonas and diphtheroids (colonizers). She had unfit living conditions at home. She was then referred to multiple facilities. She was eventually accepted at [facility] and the patient was discharged to a SNF. FINAL DIAGNOSES: 1. Sepsis. 2. Urinary tract infection with Pseudomonas. 3. Syncopal episode likely due to combination of dehydration, hypotension, infection, and prolonged bedrest. 4. Hypotension. 5. Cardiomyopathy. 6. Systolic heart failure. 7. History of multiple spinal surgeries. 8. 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 9. Lumbar spondylosis. 10. Cervical spondylosis. 11. Osteoarthritis of the right knee. 12. Hypokalemia. 13. Hypomagnesemia. 14. Major depressive disorder. 15. Anxiety disorder. 16. Unstageable decubitus on the sacral and right buttocks, present on admission. 17. Mostly bed-bound. 18. Probable aspiration pneumonia. 19. Urinary tract infection with Pseudomonas. DISCHARGE DISPOSITION: The patient was discharged to SNF. DISCHARGE MEDICATIONS: Refer to medication list. Roge Neely M.D. I have been assigned to dictate discharge summary on this account and I was not involved in the patient's management. Hayley Bloom N.P. DR: LILI JOB#: [id number] CC: ERINN
== END 2017-10-09 13:35 | DRG 871 ==
LOC: EDBD 16:49 → EMR 17:47 → 2E 17:51 → EDBEDREQ 18:02 → 4E 09-27 14:24
DX: A41.9 Sepsis, unspecified organism (principal); J69.0 Pneumonitis due to inhalation of food and vomit; L89.310 Pressure ulcer of right buttock, unstageable; I42.9 Cardiomyopathy, unspecified; I50.20 Unspecified systolic (congestive) heart failure; E83.42 Hypomagnesemia; N39.0 Urinary tract infection, site not specified; E86.0 Dehydration; R55 Syncope and collapse; R53.1 Weakness; M50.30 Other cervical disc degeneration, unspecified cervical region; Z96.651 Presence of right artificial knee joint; Z88.1 Allergy status to other antibiotic agents; Z88.0 Allergy status to penicillin; Z88.2 Allergy status to sulfonamides; Z88.8 Allergy status to other drugs, medicaments and biological substances; Z86.718 Personal history of other venous thrombosis and embolism; G89.29 Other chronic pain; Z79.01 Long term (current) use of anticoagulants; B96.5 Pseudomonas (aeruginosa) (mallei) (pseudomallei) as the cause of diseases classified elsewhere; Z74.01 Bed confinement status; M47.896 Other spondylosis, lumbar region; M47.892 Other spondylosis, cervical region; M17.11 Unilateral primary osteoarthritis, right knee; E87.6 Hypokalemia; F32.9 Major depressive disorder, single episode, unspecified; F41.9 Anxiety disorder, unspecified; Z98.890 Other specified postprocedural states; R10.9 Unspecified abdominal pain
CPT/HCPCS: 36415; 71010; 74000; 76700; 80048; 80053; 80061; 81003; 83605; 83735; 83880; 84100; 84443; 84484; 85025; 85610; 85651; 85730; 87040; 87070; 87086; 87181; 87205; 93005; 93306; 93970; 99285; J2405

== ENCOUNTER 2017-12-27 22:45 | Inpatient (IN) | payer MEDICARE, OTHER ==
[~2017-12-27] VITALS: Ht 157.5 cm; Wt 68.9 kg
[~2017-12-27 22:45] MED LIST changes: +ESOMEPRAZOLE MA40 MG PO; +FLONASE1 SPRAYS NASAL; +LEVOTHYROXINE100 MCG PO; +MS CONTIN15 M1 PO; +VOLTAREN100 G1; +XARELTO20 MG ORAL
[2017-12-27] MEDS: Ipratropium 0.02% Inh Soln 2.5ml UD HHN SCH ×3 (23:15→23:36)
[2017-12-27] MEDS: Albuterol ud Inhalation HHN SCH ×3 (23:15→23:36)
--- NOTE | 2017-12-27 23:40 | Emergency Room Report ---
History of Present Illness General Chief Complaint: Fever Source: Patient, Medical Record Present Illness HPI 57-year-old female, coming from a retirement p/w cough fever and chills for 7 days. Pt states cough is productive, with green sputum. +fever chills sob, no chest pain. Also states she has had a decreased appetite Allergies: Coded Allergies: CEFAZOLIN (Verified Allergy, Severe, hives all over her body, 01/10/16) PHENYTOIN (Verified Allergy, Severe, swell up face, 01/10/16) SULFA (SULFONAMIDE ANTIBIOTICS) (Verified Allergy, Severe, hives all over her body, 01/10/16) HYDROXYZINE (Verified Adverse Reaction, Severe, tachypnea; tachycardia, 01/10/16) PENICILLINS (Verified Adverse Reaction, Severe, vomiting, 01/10/16) PROCHLORPERAZINE (Verified Adverse Reaction, Severe, musle spasm, 01/10/16) Patient History Past Medical History: see triage record Past Surgical History: none Pertinent Family History: none Now: No Reviewed Nursing Documentation: PMH: Agreed, PSxH: Agreed Nursing Documentation-PMH Past Medical History: No History, Except For Hx Cardiac Problems: No Hx Hypertension: Yes Hx Asthma: No Hx COPD: No Hx Cancer: No Hx Gastrointestinal Problems: No - Sepsis, Low back pain, Right artificail knee joint, Ostearthritis History Of Psychiatric Problem: Yes - Major Depressive Disorder Hx Neurological Problems: Yes - Muscle weakness, Spondylolysis, Cervical Disc Denegration, Spinal stenosis Hx Cerebrovascular Accident: No Hx Transient Ischemic Attacks: No Hx Dementia: No Hx Parkinson's Disease: No Hx Meningitis: No Hx Encephalitis: No Hx Seizures: Yes - patient state more than 15-20 year ago. No recent events. Hx Epilepsy: No Hx Multiple Sclerosis: No Hx Cerebral Palsy: No Hx Amyotrophic Lat Sclerosis: No Hx Gu[place] Syndrome: No Hx Paralysis: No Hx Peripheral Neuropathy: No Hx Spinal Cord Injury: No Hx Head Trauma: No Hx Traumatic Brain Injury: No Hx Memory Loss: No Hx Concentration Difficulty: No Hx Speech Problem: No Hx Tremors: No Hx Headaches: Yes - has migraines at times Hx Aphasia: No Hx Dysphasia: No Hx Numbness: No Hx Weakness: Yes - right leg Hx Neurologic Surgery: No Hx Brain Shunt: No Review of Systems All Other Systems: negative except mentioned in HPI Physical Exam Vital Signs Date Time Temp Pulse Resp B/P (MAP) Pulse Ox O2 Delivery O2 Flow Rate FiO2 12/27/17 22:41 101.4 115 20 143/75 100 Nasal Cannula 2.0 101.5 12/27/17 23:14 28 Sp02 EP Interpretation: abnormal General Appearance: alert, GCS 15, non-toxic, moderate distress Head: normocephalic, atraumatic Eyes: bilateral eye normal inspection, bilateral eye PERRL, bilateral eye EOMI ENT: normal ENT inspection, normal pharynx, normal voice, moist mucus membranes Neck: normal inspection, full range of motion, supple Respiratory: respiratory distress, wheezing, expiration Cardiovascular #1: normal inspection, regular rate, rhythm, no edema, normal capillary refill Cardiovascular #2: 2+ radial (R), 2+ radial (L) Gastrointestinal: normal inspection, non tender, soft, non-distended, no guarding Musculoskeletal: normal inspection, back normal, normal range of motion, non- tender Neurologic: normal inspection, alert, oriented x3, responsive, motor strength/ tone normal, sensory intact, normal gait, speech normal Psychiatric: normal inspection, judgement/insight normal, memory normal Skin: normal inspection, normal color, no rash, warm/dry, well hydrated, normal turgor Medical Decision Making Diagnostic Impression: Primary Impression: Respiratory distress Additional Impressions: Pneumonia Decreased oral intake ER Course 57-year-old female with cough fever chills, not eating DDX: Viral URI vs. pneumonia The patient is wheezing however states that she has never had a diagnosis of asthma or COPD in the past Plan: Labs, nebs CXR, antibiotics ER course: Patient remains hypoxic on room air and has required NC nebs and abx given tylenol given Disposition: Patient is to be admitted to [facility] D/w hospitalist Dr Neely EKG Diagnostic Results EP Interpretation: Yes Rate: Tachycardic Rhythm: NSR ST Segments: T-wave inversion III ASA given to patient: No Rhythm Strip EP Interpretation: Yes Rate: 113 Rhythm: NSR, no PVCs, no ectopy Chest X-ray CXR: Ordered: Yes 1 view Indication: SOB EP interpretation: Yes Interpretation: +Infiltrate R Impression: R sided pneumonia Electronically signed by Shilo Camarillo MD Laboratory Tests Test 12/27/17 23:12/27/17 23:40 White Blood Count 5.1 K/UL (4.8-10.8) Red Blood Count 3.96 M/UL (4.20-5.40) L Hemoglobin 9.7 G/DL (12.0-16.0) L Hematocrit 30.2 % (37.0-47.0) L Mean Corpuscular Volume 76 FL (80-99) L Mean Corpuscular Hemoglobin 24.6 PG (27.0-31.0) L Mean Corpuscular Hemoglobin Concent 32.3 G/DL (32.0-36.0) Red Cell Distribution Width 13.8 % (11.6-14.8) Platelet Count 215 K/UL (150-450) Mean Platelet Volume 6.4 FL (6.5-10.1) L Neutrophils (%) (Auto) 72.3 % (45.0-75.0) Lymphocytes (%) (Auto) 19.8 % (20.0-45.0) L Monocytes (%) (Auto) 7.2 % (1.0-10.0) Eosinophils (%) (Auto) 0.1 % (0.0-3.0) Basophils (%) (Auto) 0.7 % (0.0-2.0) Sodium Level 130 MMOL/L (136-145) L Potassium Level 4.5 MMOL/L (3.5-5.1) Chloride Level 94 MMOL/L (98-107) L Carbon Dioxide Level 29 MMOL/L (21-32) Anion Gap 7 mmol/L (5-15) Blood Urea Nitrogen 30 mg/dL (7-18) H Creatinine 1.0 MG/DL (0.55-1.30) Estimate Glomerular Filtration Rate 56.8 mL/min (>60) Glucose Level 112 MG/DL (74-106) H Lactic Acid Level 1.20 mmol/L (0.66-2.22) Calcium Level 8.9 MG/DL (8.5-10.1) Total Bilirubin 0.2 MG/DL (0.2-1.0) Aspartate Amino Transferase (AST) 21 U/L (15-37) Alanine Aminotransferase (ALT) 15 U/L (12-78) Alkaline Phosphatase 116 U/L (46-116) Troponin I 0.000 ng/mL (0.000-0.056) Total Protein 8.0 G/DL (6.4-8.2) Albumin 2.9 G/DL (3.4-5.0) L Globulin 5.1 g/dL Albumin/Globulin Ratio 0.6 (1.0-2.7) L Urine Color Pale yellow Urine Appearance Clear Urine pH 5 (4.5-8.0) Urine Specific [place] 1.015 (1.005-1.035) Urine Protein 1+ (NEGATIVE) H Urine Glucose (UA) Negative (NEGATIVE) Urine Ketones Negative (NEGATIVE) Urine Occult Blood 3+ (NEGATIVE) H Urine Nitrite Negative (NEGATIVE) Urine Bilirubin Negative (NEGATIVE) Urine Urobilinogen Normal MG/DL (0.0-1.0) Urine Leukocyte Esterase Negative (NEGATIVE) Urine RBC 0-2 /HPF (0 - 2) Urine WBC 0-2 /HPF (0 - 2) Urine Squamous Epithelial Cells Few /LPF (NONE/OCC) Urine Amorphous Sediment Many /LPF (NONE) H Urine Bacteria Moderate /HPF (NONE) H Last Vital Signs Date Time Temp Pulse Resp B/P (MAP) Pulse Ox O2 Delivery O2 Flow Rate FiO2 12/27/17 23:35 114 16 100 Nasal Cannula 2.0 28 12/27/17 22:41 101.4 143/75 101.5 Disposition: ADMITTED INPATIENT Condition: Serious Shilo Camarillo M.D. Dec 27, 2017 23:40
[2017-12-27] MEDS ORDERED: Azithromycin 500 MG in NS 275 ML IV ONE (23:45)
[2017-12-27] MEDS ORDERED: Vancomycin 1 GM in NS 275 ML IVPB ONE (23:45)
[2017-12-27 23:59] LABS: APPEARANCE,URINE CLEAR; BILIRUBIN, URINE NEGATIVE (NEGATIVE); COLOR,URINE PALE YELLOW; GLUCOSE, URINE (UA) NEGATIVE (NEGATIVE); KETONES,URINE NEGATIVE (NEGATIVE); LEUKOCYTE ESTERASE ,URINE NEGATIVE (NEGATIVE); NITRITE,URINE NEGATIVE (NEGATIVE); PH,URINE 5 (4.5-8.0); PROTEIN,URINE 1+ (NEGATIVE); UROBILINOGEN,URINE NORMAL MG/DL (0.0-1.0)
[2017-12-28] VITALS (8 sets, daily range): BP systolic 86–106; BP diastolic 51–67
[2017-12-28 00:01] LABS: ANION GAP 7 mmol/L (5-15); BLOOD UREA NITROGEN 30 mg/dL (7-18); CALCIUM 8.9 MG/DL (8.5-10.1); CARBON DIOXIDE 29 MMOL/L (21-32); CHLORIDE 94 MMOL/L (98-107); POTASSIUM 4.5 MMOL/L (3.5-5.1); SODIUM 130 MMOL/L (136-145)
[2017-12-28 00:03] LABS: BASOPHILS % (AUTO) 0.7 % (0.0-2.0); EOSINOPHILS % (AUTO) 0.1 % (0.0-3.0); HEMATOCRIT 30.2 % (37.0-47.0); HEMOGLOBIN 9.7 G/DL (12.0-16.0); LYMPHOCYTES % (AUTO) 19.8 % (20.0-45.0); MEAN CORPUSCULAR VOLUME 76 FL (80-99); MONOCYTES % (AUTO) 7.2 % (1.0-10.0); NEUTROPHILS % (AUTO) 72.3 % (45.0-75.0); PLATELET COUNT 215 K/UL (150-450); RED BLOOD COUNT 3.96 M/UL (4.20-5.40); RED CELL DISTRIBUTION WIDTH 13.8 % (11.6-14.8); WHITE BLOOD COUNT 5.1 K/UL (4.8-10.8)
[2017-12-28] MEDS ORDERED: Azithromycin 500mg Inj IV ONE (00:04)
[2017-12-28 00:06] LABS: ALANINE AMINOTRANSFERASE 15 U/L (12-78); ALBUMIN 2.9 G/DL (3.4-5.0); ALBUMIN/GLOBULIN RATIO 0.6 (1.0-2.7); ALKALINE PHOSPHATASE 116 U/L (46-116); ASPARTATE AMINO TRANSFERASE 21 U/L (15-37); BILIRUBIN,TOTAL 0.2 MG/DL (0.2-1.0)
[2017-12-28] MEDS ORDERED: Acetaminophen 500mg (ES) tab ORAL ONE (00:15)
[2017-12-28] MEDS ORDERED: FERROUS SULFAT325 MG ORAL (00:29)
[2017-12-28] MEDS ORDERED: Morphine Sulfate 4mg/ml Inj IVP ONE (00:30)
[2017-12-28] MEDS ORDERED: POLYETHYLENE GL17 GM ORAL (00:38)
[2017-12-28] MEDS ORDERED: MULTIVITAMINS1 EAC8 ORAL (00:38)
[2017-12-28] MEDS ORDERED: ACETAMINOPHEN325 M1 ORAL (00:38)
[2017-12-28] MEDS ORDERED: LEVOTHYROXINE100 MCG ORAL (00:38)
[2017-12-28] MEDS ORDERED: AMITRIPTYLINE100 MG ORAL (00:38)
[2017-12-28] MEDS ORDERED: HEPARIN SO5000 UNIT2 SUBQ (00:38)
[2017-12-28] MEDS ORDERED: ZANAFLEX4 MG ORAL (00:38)
[2017-12-28] MEDS ORDERED: MILK OF MA400 MG/51 ORAL (00:38)
[2017-12-28] MEDS ORDERED: AMBIEN5 MG ORAL (00:38)
[2017-12-28] MEDS ORDERED: VITAMIN C500 M1 ORAL (00:38)
[2017-12-28] MEDS ORDERED: NORCO 10-325 T1 EACH ORAL (00:38)
[2017-12-28] MEDS ORDERED: ZINC SULFATE220 M1 ORAL (00:38)
[2017-12-28] MEDS ORDERED: Vancomycin 1gm inj IVPB ONE (01:52)
[2017-12-28] MEDS ORDERED: Miralax 17gm pkt ORAL PRN (06:30)
[2017-12-28] MEDS ORDERED: Albuterol/Ipratropium 3ml neb HHN PRN (06:30)
[2017-12-28] MEDS ORDERED: LORazepam Inj 2mg/ml 1ml IV PRN (06:30)
[2017-12-28] MEDS: Morphine Sulfate 4mg/ml Inj IVP PRN ×4 (06:43→22:19)
[2017-12-28 08:58] LABS: LACTATE DEHYDROGENASE 138 U/L (81-234)
--- NOTE | 2017-12-28 09:17 | General Progress Note ---
Assessment/Plan Assessment/Plan (1) H/O Spinal surgery (2) DDD (degenerative disc disease), cervical (3) Lumbar spondylosis (4) Cervical spondylosis (5) Lumbar degenerative disc disease (6) History of total knee replacement, right (7) Osteoarthritis of right knee We will continue the morphine and start [place] 10/325mg PO 1 tab Q4H PRN moderate pain. Pt was d/w Dr. Schaffer and he concurred Thank you for the courtesy of this consultation. Subjective Date patient seen: Dec 28, 2017 Time patient seen: 07:15 - am Allergies: Coded Allergies: CEFAZOLIN (Verified Allergy, Severe, hives all over her body, 01/10/16) PHENYTOIN (Verified Allergy, Severe, swell up face, 01/10/16) SULFA (SULFONAMIDE ANTIBIOTICS) (Verified Allergy, Severe, hives all over her body, 01/10/16) HYDROXYZINE (Verified Adverse Reaction, Severe, tachypnea; tachycardia, 01/10/16) PENICILLINS (Verified Adverse Reaction, Severe, vomiting, 01/10/16) PROCHLORPERAZINE (Verified Adverse Reaction, Severe, musle spasm, 01/10/16) Subjective Constitutional: Reports: no symptoms HEENT: Reports: no symptoms Respiratory: Reports: SOB Gastrointestinal/Abdominal: Reports: N/v, constipation Genitourinary: Reports: no symptoms Endocrine: Reports: no symptoms Hematologic/Lymphatic: Reports: no symptoms Subjective Patient is a known patient from prior hospital visits and Dr. Schaffer clinic. She has been admitted under the care of Dr. Restrepo due to SOB and Pneumonia. Started on Morphine 4mg IV Q4H PRN severe pain and is comfortable in bed with no signs of distress. Objective Last 24 Hour Vital Signs Date Time Temp Pulse Resp B/P (MAP) Pulse Ox O2 Delivery O2 Flow Rate FiO2 12/28/17 04:00 81 12/28/17 04:00 97.5 86 21 86/53 96 Nasal Cannula 2.0 97.5 12/28/17 02:40 91 12/28/17 02:30 98.7 97 14 97/60 98 Nasal Cannula 2.0 28 98.7 12/28/17 02:30 97.9 94 21 91/51 97 Nasal Cannula 2.0 97.9 12/28/17 02:12 98.7 97 14 97/60 98 Nasal Cannula 2.0 98.7 12/28/17 01:27 102.0 12/28/17 01:22 102.0 12/28/17 01:00 102.8 98 18 106/58 100 Nasal Cannula 2.0 102.8 12/28/17 00:53 102.8 12/28/17 00:27 102.8 12/27/17 23:46 109 16 100 Nasal Cannula 2.0 28 12/27/17 23:36 114 16 100 Nasal Cannula 2.0 28 12/27/17 23:35 114 16 100 Nasal Cannula 2.0 28 12/27/17 23:24 114 17 100 Nasal Cannula 2.0 28 12/27/17 23:24 114 17 100 Nasal Cannula 2.0 28 12/27/17 23:14 115 18 Nasal Cannula 2.0 28 12/27/17 23:14 115 18 100 Nasal Cannula 2.0 28 12/27/17 22:41 101.4 115 20 143/75 100 Nasal Cannula 2.0 101.5 Intake and Output 12/27/17 12/28/17 19:00 07:00 Intake Total 545 ml Output Total 300 ml Balance 245 ml Intake Oral 120 ml IV Total 425 ml Output Urine Total 300 ml # Voids 2 Laboratory Tests 12/27/17 23:20: White Blood Count 5.1, Red Blood Count 3.96L, Hemoglobin 9.7L, Hematocrit 30.2L , Mean Corpuscular Volume 76L, Mean Corpuscular Hemoglobin 24.6L, Mean Corpuscular Hemoglobin Concent 32.3, Red Cell Distribution Width 13.8, Platelet Count 215, Mean Platelet Volume 6.4L, Neutrophils (%) (Auto) 72.3, Lymphocytes ( %) (Auto) 19.8L, Monocytes (%) (Auto) 7.2, Eosinophils (%) (Auto) 0.1, Basophils (%) (Auto) 0.7, Sodium Level 130L, Potassium Level 4.5, Chloride Level 94L, Carbon Dioxide Level 29, Anion Gap 7, Blood Urea Nitrogen 30H, Creatinine 1.0, Estimat Glomerular Filtration Rate 56.8, Glucose Level 112H, Lactic Acid Level 1.20, Calcium Level 8.9, Total Bilirubin 0.2, Aspartate Amino Transf (AST/SGOT) 21, Alanine Aminotransferase (ALT/SGPT) 15, Alkaline Phosphatase 116, Troponin I 0.000, Total Protein 8.0, Albumin 2.9L, Globulin 5.1 , Albumin/Globulin Ratio 0.6L 12/27/17 23:40: Urine Color Pale yellow, Urine Appearance Clear, Urine pH 5, Urine Specific [place] 1.015, Urine Protein 1+H, Urine Glucose (UA) Negative, Urine Ketones Negative, Urine Occult Blood 3+H, Urine Nitrite Negative, Urine Bilirubin Negative, Urine Urobilinogen Normal, Urine Leukocyte Esterase Negative, Urine RBC 0-2, Urine WBC 0-2, Urine Squamous Epithelial Cells Few, Urine Amorphous Sediment ManyH, Urine Bacteria ModerateH 12/28/17 08:10: Erythrocyte Sedimentation Rate [Pending], Reticulocyte Count [Pending], Prothrombin Time 10.8, Prothromb Time International Ratio 1.0, Activated Partial Thromboplast Time 40H, Iron Level [Pending], Unsaturated Iron Binding [ Pending], Lactate Dehydrogenase 138, Vitamin B12 Level [Pending], Folate [ Pending] Height (Feet): 5 Height (Inches): 2.00 Weight (Pounds): 152 Objective General Appearance: no apparent distress, alert EENT: PERRL/EOMI, normal ENT inspection Neck: non-tender, normal alignment Cardiovascular: normal rate, regular rhythm Respiratory/Chest: decreased breath sounds bilaterally Abdomen: non tender, soft Extremities: weakness noted Edema: trace edema Neurologic: alert, oriented x 3 Skin: warm/dry GABE DOMINGO Dec 28, 2017 09:17
[2017-12-28 09:24] LABS: % IRON SATURATION 6 % (15-50); IRON 13 ug/dL (50-175); TOTAL IRON BINDING CAPACITY 203 ug/dL (250-450)
--- NOTE | 2017-12-28 09:53 | Diagnostic Imaging Report ---
Indication: Shortness of breath Technique: One view of the chest Comparison: 10/05/2017 Findings: Lungs and pleural spaces are currently clear, previously demonstrated left basilar opacities have resolved. The heart is borderline enlarged. Extensive spinal fusion hardware again demonstrated. The aorta is elongated tortuous and calcified Impression: No acute process
[2017-12-28] MEDS: Propranolol 10mg tab ORAL SCH (10:29)
[2017-12-28] MEDS: Heparin 5000 units/ml inj SUBQ SCH ×2 (10:43→21:56)
--- NOTE | 2017-12-28 12:29 | History and Physical ---
History of Present Illness General Date patient seen: Dec 28, 2017 Reason for Hospitalization: Fever Present Illness HPI 57-year-old female with extensive PMHx including spine surgery, PE, Hypertension , hypothyroid, fdc resident, MARIA DE JESUS, with CC of cough fever and chills for 7 days. Pt states cough is productive, with green sputum. +fever chills sob , no chest pain. Also states she has had a decreased appetite Allergies: Coded Allergies: CEFAZOLIN (Verified Allergy, Severe, hives all over her body, 01/10/16) PHENYTOIN (Verified Allergy, Severe, swell up face, 01/10/16) SULFA (SULFONAMIDE ANTIBIOTICS) (Verified Allergy, Severe, hives all over her body, 01/10/16) HYDROXYZINE (Verified Adverse Reaction, Severe, tachypnea; tachycardia, 01/10/16) PENICILLINS (Verified Adverse Reaction, Severe, vomiting, 01/10/16) PROCHLORPERAZINE (Verified Adverse Reaction, Severe, musle spasm, 01/10/16) Medication History Scheduled Amitriptyline HCl (Amitriptyline HCl), 100 MG ORAL BEDTIME, (Reported) Ascorbic Acid* (Vitamin C*), 500 MG ORAL DAILY, (Reported) Cholecalciferol (Vitamin D3)* (Vitamin D*), 2,000 UNITS ORAL DAILY, (Reported) Esomeprazole Magnesium (Esomeprazole Magnesium), 40 MG PO BID, (Reported) Ferrous Sulfate* (Ferrous Sulfate*), 325 MG ORAL TWICE A DAY, (Reported) Fluticasone Propionate (Fluticasone Propionate), 50 MCG NASAL DAILY, (Reported) Heparin Sod (Porcine) (Heparin Sodium*), 5,000 UNITS SUBQ EVERY 12 HOURS, ( Reported) Levothyroxine Sodium* (Levothyroxine Sodium*), 100 MCG PO DAILY, (Reported) Levothyroxine Sodium* (Levothyroxine Sodium*), 100 MCG ORAL DAILY, (Reported) Magnesium Hydroxide* (Milk Of Magnesia*), 30 ML ORAL DAILY, (Reported) Montelukast Sodium* (Singulair*), 10 MG ORAL DAILY, (Reported) Morphine Sulfate (Ms Contin), 15 MG PO EVERY 12 HOURS Multivitamin With Minerals (Multivitamins With Minerals*), 1 TAB ORAL DAILY, ( Reported) Pregabalin* (Lyrica*), 75 MG ORAL TID, (Reported) Propranolol Hcl* (Inderal*), 60 MG ORAL DAILY, (Reported) Solifenacin Succinate (Vesicare*), 10 MG ORAL DAILY, (Reported) Tizanidine Hcl (Zanaflex*), 4 MG ORAL EVERY 8 HOURS, (Reported) Tizanidine Hcl* (Zanaflex*), 4 MG ORAL BID, (Reported) Topiramate* (Topamax*), 200 MG ORAL DAILY, (Reported) Zinc Sulfate (Zinc Sulfate*), Unknown Dose ORAL DAILY, (Reported) Scheduled PRN Acetaminophen* (Acetaminophen 325MG Tablet*), 650 MG ORAL Q4H PRN for For Pain, (Reported) Albuterol Sulfate* (Proair Hfa*), 2 PUFF INH EVERY 4 HOURS PRN for Bronchospasm, (Reported) Fluticasone/Salmeterol (Advair 500-50 Diskus), 1 PUFF INH BID PRN for Bronchospasm, (Reported) Hydrocodone Bit/Acetaminophen 10-325* ([place] 10-325*), 1 TAB ORAL Q4H PRN for For Pain, (Reported) Hydrocodone/Acetaminophen (Hydrocodon-Acetaminophn 10-325), 1 TAB ORAL 6 times a day PRN for For Pain, (Reported) Ondansetron (Zofran), 4 MG SL EVERY 8 HOURS PRN for Nausea & Vomiting, (Reported ) Polyethylene Glycol 3350* (Polyethylene Glycol 3350*), 17 GM ORAL BEDTIME PRN for Constipation, (Reported) Zolpidem Tartrate* (Ambien*), 5 MG ORAL BEDTIME PRN for Insomnia, (Reported) Miscellaneous Medications Diclofenac Sodium (Voltaren), (Reported) Rivaroxaban (Xarelto), 20 MG ORAL, (Reported) Patient History Healthcare decision maker Resuscitation status Full Code Advanced Directive on File Review of Systems Hematologic/Lymphatic: Reports: no symptoms All Other Systems: negative except mentioned in HPI Physical Exam General Appearance: WD/WN, no apparent distress Lines, tubes and drains: peripheral HEENT: normocephalic, atraumatic Neck: non-tender, normal alignment Respiratory/Chest: chest wall non-tender, lungs clear Breasts: no masses Cardiovascular/Chest: normal peripheral pulses Abdomen: normal bowel sounds, non tender Genitourinary/Rectal: normal genital exam Extremities: normal range of motion Skin Exam: normal pigmentation 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 Last 24 Hour Vital Signs Date Time Temp Pulse Resp B/P (MAP) Pulse Ox O2 Delivery O2 Flow Rate FiO2 12/28/17 11:37 Nasal Cannula 3.0 32 12/28/17 11:37 96 Nasal Cannula 3.0 32 12/28/17 10:29 96 106/67 12/28/17 08:00 98.1 96 20 102/67 97 Nasal Cannula 2.0 98.1 12/28/17 04:00 81 12/28/17 04:00 97.5 86 21 86/53 96 Nasal Cannula 2.0 97.5 12/28/17 02:40 91 12/28/17 02:30 98.7 97 14 97/60 98 Nasal Cannula 2.0 28 98.7 12/28/17 02:30 97.9 94 21 91/51 97 Nasal Cannula 2.0 97.9 12/28/17 02:12 98.7 97 14 97/60 98 Nasal Cannula 2.0 98.7 12/28/17 01:27 102.0 12/28/17 01:22 102.0 12/28/17 01:00 102.8 98 18 106/58 100 Nasal Cannula 2.0 102.8 12/28/17 00:53 102.8 12/28/17 00:27 102.8 12/27/17 23:46 109 16 100 Nasal Cannula 2.0 28 12/27/17 23:36 114 16 100 Nasal Cannula 2.0 28 12/27/17 23:35 114 16 100 Nasal Cannula 2.0 28 12/27/17 23:24 114 17 100 Nasal Cannula 2.0 28 12/27/17 23:24 114 17 100 Nasal Cannula 2.0 28 12/27/17 23:14 115 18 Nasal Cannula 2.0 28 12/27/17 23:14 115 18 100 Nasal Cannula 2.0 28 12/27/17 22:41 101.4 115 20 143/75 100 Nasal Cannula 2.0 101.5 Intake and Output 12/27/17 12/28/17 19:00 07:00 Intake Total 545 ml Output Total 300 ml Balance 245 ml Intake Oral 120 ml IV Total 425 ml Output Urine Total 300 ml # Voids 2 Laboratory Tests Test 12/27/17 23:20 12/27/17 23:40 12/28/17 08:10 White Blood Count 5.1 K/UL (4.8-10.8) Red Blood Count 3.96 M/UL (4.20-5.40) L Hemoglobin 9.7 G/DL (12.0-16.0) L Hematocrit 30.2 % (37.0-47.0) L Mean Corpuscular Volume 76 FL (80-99) L Mean Corpuscular Hemoglobin 24.6 PG (27.0-31.0) L Mean Corpuscular Hemoglobin Concent 32.3 G/DL (32.0-36.0) Red Cell Distribution Width 13.8 % (11.6-14.8) Platelet Count 215 K/UL (150-450) Mean Platelet Volume 6.4 FL (6.5-10.1) L Neutrophils (%) (Auto) 72.3 % (45.0-75.0) Lymphocytes (%) (Auto) 19.8 % (20.0-45.0) L Monocytes (%) (Auto) 7.2 % (1.0-10.0) Eosinophils (%) (Auto) 0.1 % (0.0-3.0) Basophils (%) (Auto) 0.7 % (0.0-2.0) Differential Total Cells Counted 100 Neutrophils % (Manual) 72 % (45-75) Lymphocytes % (Manual) 20 % (20-45) Monocytes % (Manual) 8 % (1-10) Eosinophils % (Manual) 0 % (0-3) Basophils % (Manual) 0 % (0-2) Band Neutrophils 0 % (0-8) Platelet Estimate Adequate Platelet Morphology Normal Hypochromasia 2+ Anisocytosis 1+ Microcytosis 1+ Sodium Level 130 MMOL/L (136-145) L Potassium Level 4.5 MMOL/L (3.5-5.1) Chloride Level 94 MMOL/L (98-107) L Carbon Dioxide Level 29 MMOL/L (21-32) Anion Gap 7 mmol/L (5-15) Blood Urea Nitrogen 30 mg/dL (7-18) H Creatinine 1.0 MG/DL (0.55-1.30) Estimat Glomerular Filtration Rate 56.8 mL/min (>60) Glucose Level 112 MG/DL (74-106) H Lactic Acid Level 1.20 mmol/L (0.66-2.22) Calcium Level 8.9 MG/DL (8.5-10.1) Total Bilirubin 0.2 MG/DL (0.2-1.0) Aspartate Amino Transf (AST/SGOT) 21 U/L (15-37) Alanine Aminotransferase (ALT/SGPT) 15 U/L (12-78) Alkaline Phosphatase 116 U/L (46-116) Troponin I 0.000 ng/mL (0.000-0.056) Total Protein 8.0 G/DL (6.4-8.2) Albumin 2.9 G/DL (3.4-5.0) L Globulin 5.1 g/dL Albumin/Globulin Ratio 0.6 (1.0-2.7) L Urine Color Pale yellow Urine Appearance Clear Urine pH 5 (4.5-8.0) Urine Specific [place] 1.015 (1.005-1.035) Urine Protein 1+ (NEGATIVE) H Urine Glucose (UA) Negative (NEGATIVE) Urine Ketones Negative (NEGATIVE) Urine Occult Blood 3+ (NEGATIVE) H Urine Nitrite Negative (NEGATIVE) Urine Bilirubin Negative (NEGATIVE) Urine Urobilinogen Normal MG/DL (0.0-1.0) Urine Leukocyte Esterase Negative (NEGATIVE) Urine RBC 0-2 /HPF (0 - 2) Urine WBC 0-2 /HPF (0 - 2) Urine Squamous Epithelial Cells Few /LPF (NONE/OCC) Urine Amorphous Sediment Many /LPF (NONE) H Urine Bacteria Moderate /HPF (NONE) H Erythrocyte Sedimentation Rate 90 MM/HR (0-30) H Reticulocyte Count 0.4 % (0.0-2.0) Prothrombin Time 10.8 SEC (9.30-11.50) Prothromb Time International Ratio 1.0 (0.9-1.1) Activated Partial Thromboplast Time 40 SEC (23-33) H Iron Level 13 ug/dL (50-175) L Total Iron Binding Capacity 203 ug/dL (250-450) L Percent Iron Saturation 6 % (15-50) L Unsaturated Iron Binding 190 ug/dL (112-346) Lactate Dehydrogenase 138 U/L (81-234) Vitamin B12 Level 396 PG/ML (193-986) Folate 11.7 NG/ML (8.6-58.9) Height (Feet): 5 Height (Inches): 2.00 Weight (Pounds): 152 Medications Current Medications Medications (Trade) Dose Ordered Sig/Reanna Route PRN Reason Start Time Stop Time Status Last Admin Dose Admin Acetaminophen (Tylenol) 650 mg Q4H PRN ORAL FEVER 12/28/17 06:30 01/27/18 06:29 Acetaminophen/ Hydrocodone Bitart ([place] 10/325) 1 tab Q4H PRN ORAL Moderate Pain (Pain Scale 4-6) 12/28/17 09:00 01/04/18 08:59 Albuterol/ Ipratropium (Albuterol/ Ipratropium) 3 ml Q4H PRN HHN Shortness of Breath 12/28/17 06:30 01/02/18 06:29 Amitriptyline HCl (Elavil) 100 mg BEDTIME ORAL 12/28/17 21:00 01/27/18 20:59 Dextrose (Dextrose 50%) STAT PRN IV Hypoglycemia 12/28/17 06:30 01/27/18 06:29 Heparin Sodium (Porcine) (Heparin 5000 units/ml) 5,000 units EVERY 12 HOURS SUBQ 12/28/17 09:00 01/27/18 08:59 12/28/17 10:43 Levothyroxine Sodium (Synthroid) 100 mcg DAILY@0630 ORAL 12/28/17 06:30 01/27/18 06:29 12/28/17 06:40 Lorazepam (Ativan 2mg/ml 1ml) 2 mg Q2H PRN IV For Anxiety 12/28/17 06:30 01/04/18 06:29 Morphine Sulfate (Morphine Sulfate) 4 mg Q4H PRN IVP Severe Pain (Pain Scale 7-10) 12/28/17 06:30 01/04/18 06:29 12/28/17 11:13 Ondansetron HCl (Zofran) 4 mg Q6H PRN IVP Nausea & Vomiting 12/28/17 06:30 01/27/18 06:29 Polyethylene Glycol (Miralax) 17 gm DAILYPRN PRN ORAL Constipation 12/28/17 06:30 01/27/18 06:29 Propranolol HCl (Inderal) 60 mg DAILY ORAL 2/23/18 09:00 01/27/18 08:59 12/28/17 10:29 Sodium Chloride 1,000 ml @ 50 mls/hr Q20H IV 12/28/17 07:00 01/27/18 06:59 12/28/17 06:52 Tizanidine HCl (Zanaflex) 4 mg EVERY 8 HOURS ORAL 12/28/17 14:00 01/27/18 13:59 Vancomycin HCl (Vanco rx to dose) 1 ea DAILY PRN MISC PER PROTOCOL 12/28/17 06:45 01/27/18 06:44 Vancomycin HCl/ Dextrose 250 ml @ 166.667 mls/hr Q24H IVPB 12/28/17 21:00 01/02/18 20:59 Assessment/Plan Problem List: (1) Sepsis ICD Codes: A41.9 - Sepsis, unspecified organism SNOMED: 12011622 (2) Purulent bronchitis ICD Codes: J41.1 - Mucopurulent chronic bronchitis SNOMED: 36566350 (3) UTI (urinary tract infection) ICD Codes: N39.0 - Urinary tract infection, site not specified SNOMED: 87871559 (4) History of pulmonary embolism ICD Codes: Z86.711 - Personal history of pulmonary embolism SNOMED: 544582702 (5) Bedridden ICD Codes: Z74.01 - Bed confinement status SNOMED: 443827789 (6) DDD (degenerative disc disease), cervical ICD Codes: M50.30 - Other cervical disc degeneration, unspecified cervical region SNOMED: 56060961 Assessment/Plan prince culture iv abx check sputum respiratory treatment pain control continue anticoagulant, hem evaluation JAMA ALONZO Dec 28, 2017 12:29
--- NOTE | 2017-12-28 12:43 | Consultation ---
Consult Note Consult Note ID DIC # [id number] NESSA MARTINO M.D. Dec 28, 2017 12:43
--- NOTE | 2017-12-28 20:30 | Consultation ---
DATE OF CONSULTATION: 12/28/2017 INFECTIOUS DISEASES CONSULTATION CONSULTING PHYSICIAN: Petar Medina M.D. REFERRING PHYSICIAN: Roge Neely M.D. REASON FOR CONSULTATION: Evaluation of patient for pneumonia, antibiotic management. HISTORY OF PRESENT ILLNESS: The patient is a 57-year-old female with multiple medical problems as listed below, who was admitted to this medical center for shortness of breath and cough, and was admitted with impression of pneumonia. Infectious Disease consultation has been requested for further evaluation of the patient and antibiotic management. PAST MEDICAL HISTORY: 1. History of spondylosis/cervical stenoses. 2. History of seizure disorder (no recent one). 3. History of migraine headache. 4. History of cholecystectomy. 5. History of hysterectomy. 6. History of right knee replacement in 2005. MEDICATIONS: Vancomycin. The patient also received one dose of Levaquin and Zithromax. ALLERGIES: Cefazolin, penicillin, and sulfa. SOCIAL HISTORY: The patient lives in residential. FAMILY HISTORY: Noncontributory. REVIEW OF SYSTEMS: HEENT: No recent change in vision or hearing. PULMONARY: Cough with some sputum production. CARDIOVASCULAR: No chest pain. GASTROINTESTINAL/ABDOMEN: No nausea or vomiting. GENITOURINARY: No dysuria. MUSCULOSKELETAL: No pain in extremity. NEUROLOGIC: No recent seizure. PHYSICAL EXAMINATION: VITAL SIGNS: Temperature 98 degrees, blood pressure 102/69, pulse 86, and respiratory rate 18. T-max 102 degrees. HEENT: No pale conjunctivae. No icterus. NECK: No lymphadenopathy. CHEST: Clear. HEART: S1 and S2. ABDOMEN: Soft and nontender. EXTREMITIES: No cyanosis at this time. NEUROLOGIC: Awake and alert. LABORATORY AND DIAGNOSTIC DATA: White blood cells 5, hemoglobin 9.7 and platelets 215. UA unremarkable. BUN 30 and creatinine 1. ALT, AST and alkaline phosphatase unremarkable. Influenza A/B screening negative. Blood culture pending. Chest x-ray no acute process. ASSESSMENT: This is a 57-year-old female with, 1. Fever. 2. Bronchitis/ pneumonia. 3. Rapid influenza A/B negative. 4. Rule out bacteremia. PLAN: 1. We will start the patient on Levaquin day #2. 2. Monitor CBC. 3. Monitor BMP. 4. Monitor chest x-ray. 5. Monitor cultures (blood, sputum). 6. Discontinue vancomycin. 7. Based on the patient's clinical course and labs, we will do further recommendations. Thank you, Dr. Neely, for allowing me to participate in the care of this patient. I will follow the patient with you during this hospitalization. Petar Medina M.D. DR: BRUCE JOB#: [id number] CC:
[2017-12-28] MEDS ORDERED: Vancomycin 1250mg/D5W 250ml IVPB SCH (21:00)
[2017-12-28] MEDS ORDERED: Amitriptyline 100mg tab ORAL SCH (21:00)
[2017-12-28] MEDS ORDERED: DiphenhydrAMINE 50mg/ml Inj IVP PRN (21:30)
[2017-12-28] MEDS ORDERED: Vancomycin 1 GM in D5W 275 ML IV SCH (23:00)
[2017-12-29] VITALS (7 sets, daily range): BP systolic 96–136; BP diastolic 56–85
[2017-12-29] MEDS: Morphine Sulfate 4mg/ml Inj IVP PRN (03:36)
--- NOTE | 2017-12-29 05:45 | Consultation ---
DATE OF CONSULTATION: 12/28/2017 NOTE: POOR AUDIO HEMATOLOGY/ONCOLOGY CONSULTATION CONSULTING PHYSICIAN: Momo Webster M.D. REQUESTING PHYSICIAN: Roge Neeyl M.D. REASON FOR CONSULTATION: Evaluation of pulmonary embolism. IDENTIFYING DATA: Dear Dr. Neely, The patient is a pleasant 57-year-old female with extensive past medical history. I have seen her before consistent with history of spine surgery, hypertension, hypothyroidism, [facility] resident, and pulmonary embolism, brought in by ambulance with complains of cough, fever, and chills with several days of green sputum and shortness of breath. No chest pain. She states that she has had a decreased appetite. Hematology Service was consulted for further evaluation and underlying treatment. Currently medications. She is on heparin subcutaneous b.i.d. PAST MEDICAL HISTORY: Pulmonary embolism, hypertension, hypothyroidism, [facility] resident. ALLERGIES: Cefazolin, penicillin, sulfa, hydroxyzine, and . REVIEW OF SYSTEMS: CONSTITUTIONAL: No fevers, chills, or night sweats. SKIN: No rashes, bumps, or itching. HEENT: No headache, hearing or vision changes. BREASTS: No lumps, pain, or discharge. PULMONARY: shortness of breath. GASTROINTESTINAL: No nausea, vomiting, or diarrhea. GENITOURINARY: No dysuria, frequency, or urgency. MUSCULOSKELETAL: No joint swelling, muscle pain, or trauma. PHYSICAL EXAMINATION: VITAL SIGNS: Reviewed. GENERAL: No acute distress. PULMONARY: Decreased breath sounds. CARDIOVASCULAR: Regular rate. No S3 or S4. ABDOMEN: Soft, nontender, and nondistended. EXTREMITIES: No cyanosis, swelling, or edema. LABORATORY AND DIAGNOSTIC DATA: WBC of 9.1, hemoglobin 9.7, hematocrit 30, and platelets 215,000. ASSESSMENT AND RECOMMENDATIONS: 1. Pulmonary embolism, currently is getting heparin subcutaneous dosing. Reviewed the patient's imaging from before. She has had a duplex of lower extremities that reveals recanalized chronic thrombosis of the superficial vein, popliteal vein, large collateral vein noted. At this time given ____ recanalized, there is no evidence of deep venous thrombosis. Recommend to just administer heparin unless other indication is noted, which we will continue to monitor for. 2. Anemia due to underlying chronic disease, continue to closely monitor. I have ordered for anemia workup as well as . Iron panel has been ordered by Dr. Neely. Folic acid and B12 pending as well. 3. Spine surgery. 4. Hypothyroidism. 5. jail resident. 6. reported. 7. Antibiotics per Dr. Medina. I appreciate the consultation. Momo Webster M.D. DR: Kirby JOB#: [id number] CC:
[2017-12-29 08:28] LABS: HEMATOCRIT 24.7 % (37.0-47.0); HEMOGLOBIN 8.2 G/DL (12.0-16.0); MEAN CORPUSCULAR VOLUME 76 FL (80-99); PLATELET COUNT 161 K/UL (150-450); RED BLOOD COUNT 3.24 M/UL (4.20-5.40); RED CELL DISTRIBUTION WIDTH 13.8 % (11.6-14.8); WHITE BLOOD COUNT 2.8 K/UL (4.8-10.8)
[2017-12-29 08:44] LABS: ALBUMIN 2.3 G/DL (3.4-5.0); ANION GAP 6 mmol/L (5-15); BLOOD UREA NITROGEN 17 mg/dL (7-18); CALCIUM 8.4 MG/DL (8.5-10.1); CARBON DIOXIDE 27 MMOL/L (21-32); CHLORIDE 101 MMOL/L (98-107); CREATININE 0.8 MG/DL (0.55-1.30); PHOSPHORUS 3.9 MG/DL (2.5-4.9); SODIUM 134 MMOL/L (136-145)
[2017-12-29] MEDS: Propranolol 10mg tab ORAL SCH (09:00)
--- NOTE | 2017-12-29 09:16 | Pulmonology Progress Note ---
Assessment/Plan Problems: (1) Sepsis (2) Purulent bronchitis (3) UTI (urinary tract infection) (4) History of pulmonary embolism (5) Bedridden (6) DDD (degenerative disc disease), cervical Assessment/Plan improivng afebrile all noted reviewed cultures pending continue abx pain management dvt prophyllaxis Subjective ROS Limited/Unobtainable: No Constitutional: Reports: no symptoms HEENT: Repors: no symptoms Respiratory: Reports: no symptoms Allergies: Coded Allergies: CEFAZOLIN (Verified Allergy, Severe, hives all over her body, 01/10/16) PHENYTOIN (Verified Allergy, Severe, swell up face, 01/10/16) SULFA (SULFONAMIDE ANTIBIOTICS) (Verified Allergy, Severe, hives all over her body, 01/10/16) HYDROXYZINE (Verified Adverse Reaction, Severe, tachypnea; tachycardia, 01/10/16) PENICILLINS (Verified Adverse Reaction, Severe, vomiting, 01/10/16) PROCHLORPERAZINE (Verified Adverse Reaction, Severe, musle spasm, 01/10/16) Objective Last 24 Hour Vital Signs Date Time Temp Pulse Resp B/P (MAP) Pulse Ox O2 Delivery O2 Flow Rate FiO2 12/29/17 08:00 97.7 79 20 96/56 100 Nasal Cannula 2.0 97.7 12/29/17 04:00 96.3 69 19 126/85 100 Nasal Cannula 2.0 96.3 12/29/17 04:00 80 12/29/17 00:00 99.7 69 19 97/56 100 Nasal Cannula 2.0 99.7 12/29/17 00:00 73 12/28/17 22:55 97.9 12/28/17 20:00 77 12/28/17 20:00 97.9 79 19 92/58 100 Nasal Cannula 2.0 97.9 12/28/17 19:20 Nasal Cannula 3.0 32 12/28/17 19:20 101 18 Nasal Cannula 2.0 28 12/28/17 19:20 95 Nasal Cannula 3.0 32 12/28/17 16:00 98.2 80 18 95/60 97 Nasal Cannula 2.0 98.2 12/28/17 16:00 73 12/28/17 14:59 99.0 12/28/17 13:06 101.0 12/28/17 12:00 83 12/28/17 12:00 100.8 86 18 101/61 92 Nasal Cannula 2.0 100.8 12/28/17 11:37 Nasal Cannula 3.0 32 12/28/17 11:37 96 Nasal Cannula 3.0 32 12/28/17 10:29 96 106/67 Intake and Output 12/28/17 12/29/17 19:00 07:00 Intake Total 470 ml 350 ml Balance 470 ml 350 ml Intake Oral 470 ml 350 ml # Voids 10 3 # Bowel Movements 4 Objective General Appearance: WD/WN, alert Lines, tubes and drains: peripheral, HEENT: normocephalic, anicteric Neck: non-tender, normal alignment Respiratory/Chest: chest wall non-tender, normal breath sounds, respiratory distress Breasts: no masses Cardiovascular/Chest: normal peripheral pulses, normal rate, no JVD Abdomen: non tender ext: No edema, no cynosis Microbiology Date/Time Source Procedure Growth Status 12/27/17 23:20 Blood Blood Culture - Preliminary NO GROWTH AFTER 24 HOURS Resulted 12/27/17 23:20 Blood Blood Culture - Preliminary NO GROWTH AFTER 24 HOURS Resulted 12/27/17 04:14 Nasal Nares Influenza Types A,B Antigen (MAURY) - Final Complete 12/27/17 23:40 Urine,Clean Catch Urine Culture - Preliminary NO GROWTH AFTER 24 HOURS Resulted Laboratory Tests 12/29/17 07:58: White Blood Count 2.8L, Red Blood Count 3.24L, Hemoglobin 8.2L, Hematocrit 24.7L , Mean Corpuscular Volume 76L, Mean Corpuscular Hemoglobin 25.3L, Mean Corpuscular Hemoglobin Concent 33.1, Red Cell Distribution Width 13.8, Platelet Count 161, Mean Platelet Volume 6.4L, Neutrophils (%) (Auto) , Lymphocytes (%) ( Auto) , Monocytes (%) (Auto) , Eosinophils (%) (Auto) , Basophils (%) (Auto) , Differential Total Cells Counted 100, Neutrophils % (Manual) 47, Lymphocytes % ( Manual) 46H, Monocytes % (Manual) 7, Eosinophils % (Manual) 0, Basophils % ( Manual) 0, Band Neutrophils 0, Platelet Estimate Adequate, Platelet Morphology Normal, Hypochromasia 1+, Microcytosis 1+, Sodium Level 134L, Potassium Level 4.0, Chloride Level 101, Carbon Dioxide Level 27, Anion Gap 6, Blood Urea Nitrogen 17, Creatinine 0.8, Estimat Glomerular Filtration Rate > 60, Glucose Level 178H, Calcium Level 8.4L, Phosphorus Level 3.9, Albumin 2.3L Current Medications Medications (Trade) Dose Ordered Sig/Reanna Route PRN Reason Start Time Stop Time Status Last Admin Dose Admin Acetaminophen (Tylenol) 650 mg Q4H PRN ORAL FEVER 12/28/17 06:30 01/27/18 06:29 12/28/17 13:06 Acetaminophen/ Hydrocodone Bitart ([place] 10/325) 1 tab Q4H PRN ORAL Moderate Pain (Pain Scale 4-6) 12/28/17 09:00 01/04/18 08:59 Albuterol/ Ipratropium (Albuterol/ Ipratropium) 3 ml Q4H PRN HHN Shortness of Breath 12/28/17 06:30 01/02/18 06:29 Amitriptyline HCl (Elavil) 100 mg BEDTIME ORAL 12/28/17 21:00 01/27/18 20:59 12/28/17 21:52 Dextrose (Dextrose 50%) STAT PRN IV Hypoglycemia 12/28/17 06:30 01/27/18 06:29 Diphenhydramine HCl (Benadryl) 25 mg Q6H PRN IVP Itching 12/28/17 21:30 01/27/18 21:29 12/28/17 21:51 Heparin Sodium (Porcine) (Heparin 5000 units/ml) 5,000 units EVERY 12 HOURS SUBQ 12/28/17 09:00 01/27/18 08:59 12/28/17 21:56 Levofloxacin 150 ml @ 100 mls/hr Q24H IVPB 12/29/17 10:00 01/05/18 09:59 Levothyroxine Sodium (Synthroid) 100 mcg DAILY@0630 ORAL 12/28/17 06:30 01/27/18 06:29 12/29/17 06:16 Lorazepam (Ativan 2mg/ml 1ml) 2 mg Q2H PRN IV For Anxiety 12/28/17 06:30 01/04/18 06:29 Morphine Sulfate (Morphine Sulfate) 4 mg Q4H PRN IVP Severe Pain (Pain Scale 7-10) 12/28/17 06:30 01/04/18 06:29 12/29/17 03:36 Ondansetron HCl (Zofran) 4 mg Q6H PRN IVP Nausea & Vomiting 12/28/17 06:30 01/27/18 06:29 Polyethylene Glycol (Miralax) 17 gm DAILYPRN PRN ORAL Constipation 12/28/17 06:30 01/27/18 06:29 Propranolol HCl (Inderal) 60 mg DAILY ORAL 12/28/17 09:00 01/27/18 08:59 12/28/17 10:29 Sodium Chloride 1,000 ml @ 50 mls/hr Q20H IV 12/28/17 07:00 01/27/18 06:59 12/29/17 03:00 Tizanidine HCl (Zanaflex) 4 mg EVERY 8 HOURS ORAL 12/28/17 14:00 01/27/18 13:59 12/29/17 06:17 JAMA ALONZO Dec 29, 2017 09:16
[2017-12-29] MEDS: Heparin 5000 units/ml inj SUBQ SCH ×2 (09:52→20:33)
--- NOTE | 2017-12-29 09:53 | Infectious Diseases Prog Note ---
Assessment/Plan Assessment/Plan ASSESSMENT: This is a 57-year-old female with, 1. Fever, improving -Bcx NTD -u/a no pyuria, ucx NTD 2. Bronchitis/possible pneumonia. -CXR: No acute process 3. Rapid influenza A/B negative. 4. Rule out bacteremia. 5. Mild leukopenia - History of spondylosis/cervical stenoses. - History of seizure disorder (no recent one). - History of migraine headache. - History of cholecystectomy. - History of hysterectomy. - History of right knee replacement in 2005. PLAN: 1. Continue Levaquin day #3 -12/28 SP IV Vanco # -12/27 SP Azithromycin x1. 2. Monitor CBC. 3. Monitor BMP. 4. Monitor chest x-ray. 5. Monitor cultures (blood, sputum). 6. Based on the patient's clinical course and labs, we will do further recommendations. Thank you, Dr. Neely, for allowing me to participate in the care of this patient. I will follow the patient with you during this hospitalization. Subjective Allergies: Coded Allergies: CEFAZOLIN (Verified Allergy, Severe, hives all over her body, 01/10/16) PHENYTOIN (Verified Allergy, Severe, swell up face, 01/10/16) SULFA (SULFONAMIDE ANTIBIOTICS) (Verified Allergy, Severe, hives all over her body, 01/10/16) HYDROXYZINE (Verified Adverse Reaction, Severe, tachypnea; tachycardia, 01/10/16) PENICILLINS (Verified Adverse Reaction, Severe, vomiting, 01/10/16) PROCHLORPERAZINE (Verified Adverse Reaction, Severe, musle spasm, 01/10/16) Subjective Tm 101, afebrile in >12hrs mild leukopenia Bcx NTD feels much better cough improving Objective Vital Signs Last 24 Hour Vital Signs Date Time Temp Pulse Resp B/P (MAP) Pulse Ox O2 Delivery O2 Flow Rate FiO2 12/29/17 08:00 97.7 79 20 96/56 100 Nasal Cannula 2.0 97.7 12/29/17 04:00 96.3 69 19 126/85 100 Nasal Cannula 2.0 96.3 12/29/17 04:00 80 12/29/17 00:00 99.7 69 19 97/56 100 Nasal Cannula 2.0 99.7 12/29/17 00:00 73 12/28/17 22:55 97.9 12/28/17 20:00 77 12/28/17 20:00 97.9 79 19 92/58 100 Nasal Cannula 2.0 97.9 12/28/17 19:20 Nasal Cannula 3.0 32 12/28/17 19:20 101 18 Nasal Cannula 2.0 28 12/28/17 19:20 95 Nasal Cannula 3.0 32 12/28/17 16:00 98.2 80 18 95/60 97 Nasal Cannula 2.0 98.2 12/28/17 16:00 73 12/28/17 14:59 99.0 12/28/17 13:06 101.0 12/28/17 12:00 83 12/28/17 12:00 100.8 86 18 101/61 92 Nasal Cannula 2.0 100.8 12/28/17 11:37 Nasal Cannula 3.0 32 12/28/17 11:37 96 Nasal Cannula 3.0 32 12/28/17 10:29 96 106/67 Height (Feet): 5 Height (Inches): 2.00 Weight (Pounds): 152 Objective HEENT: No pale conjunctivae. No icterus. NECK: No lymphadenopathy. CHEST: Clear. HEART: S1 and S2. ABDOMEN: Soft and nontender. EXTREMITIES: No cyanosis at this time. NEUROLOGIC: Awake and alert. Microbiology Date/Time Source Procedure Growth Status 12/27/17 23:20 Blood Blood Culture - Preliminary NO GROWTH AFTER 24 HOURS Resulted 12/27/17 23:20 Blood Blood Culture - Preliminary NO GROWTH AFTER 24 HOURS Resulted 12/27/17 04:14 Nasal Nares Influenza Types A,B Antigen (MAURY) - Final Complete 12/27/17 23:40 Urine,Clean Catch Urine Culture - Preliminary NO GROWTH AFTER 24 HOURS Resulted Laboratory Tests Test 12/29/17 07:58 White Blood Count 2.8 K/UL (4.8-10.8) L Red Blood Count 3.24 M/UL (4.20-5.40) L Hemoglobin 8.2 G/DL (12.0-16.0) L Hematocrit 24.7 % (37.0-47.0) L Mean Corpuscular Volume 76 FL (80-99) L Mean Corpuscular Hemoglobin 25.3 PG (27.0-31.0) L Mean Corpuscular Hemoglobin Concent 33.1 G/DL (32.0-36.0) Red Cell Distribution Width 13.8 % (11.6-14.8) Platelet Count 161 K/UL (150-450) Mean Platelet Volume 6.4 FL (6.5-10.1) L Neutrophils (%) (Auto) % (45.0-75.0) Lymphocytes (%) (Auto) % (20.0-45.0) Monocytes (%) (Auto) % (1.0-10.0) Eosinophils (%) (Auto) % (0.0-3.0) Basophils (%) (Auto) % (0.0-2.0) Differential Total Cells Counted 100 Neutrophils % (Manual) 47 % (45-75) Lymphocytes % (Manual) 46 % (20-45) H Monocytes % (Manual) 7 % (1-10) Eosinophils % (Manual) 0 % (0-3) Basophils % (Manual) 0 % (0-2) Band Neutrophils 0 % (0-8) Platelet Estimate Adequate Platelet Morphology Normal Hypochromasia 1+ Microcytosis 1+ Sodium Level 134 MMOL/L (136-145) L Potassium Level 4.0 MMOL/L (3.5-5.1) Chloride Level 101 MMOL/L (98-107) Carbon Dioxide Level 27 MMOL/L (21-32) Anion Gap 6 mmol/L (5-15) Blood Urea Nitrogen 17 mg/dL (7-18) Creatinine 0.8 MG/DL (0.55-1.30) Estimat Glomerular Filtration Rate > 60 mL/min (>60) Glucose Level 178 MG/DL (74-106) H Calcium Level 8.4 MG/DL (8.5-10.1) L Phosphorus Level 3.9 MG/DL (2.5-4.9) Albumin 2.3 G/DL (3.4-5.0) L Current Medications Medications (Trade) Dose Ordered Sig/Reanna Route PRN Reason Start Time Stop Time Status Last Admin Dose Admin Acetaminophen (Tylenol) 650 mg Q4H PRN ORAL FEVER 12/28/17 06:30 01/27/18 06:29 12/28/17 13:06 Acetaminophen/ Hydrocodone Bitart ([place] 10/325) 1 tab Q4H PRN ORAL Moderate Pain (Pain Scale 4-6) 12/28/17 09:00 01/04/18 08:59 Albuterol/ Ipratropium (Albuterol/ Ipratropium) 3 ml Q4H PRN HHN Shortness of Breath 12/28/17 06:30 01/02/18 06:29 Amitriptyline HCl (Elavil) 100 mg BEDTIME ORAL 12/28/17 21:00 01/27/18 20:59 12/28/17 21:52 Dextrose (Dextrose 50%) STAT PRN IV Hypoglycemia 12/28/17 06:30 01/27/18 06:29 Diphenhydramine HCl (Benadryl) 25 mg Q6H PRN IVP Itching 12/28/17 21:30 01/27/18 21:29 12/28/17 21:51 Heparin Sodium (Porcine) (Heparin 5000 units/ml) 5,000 units EVERY 12 HOURS SUBQ 12/28/17 09:00 01/27/18 08:59 12/28/17 21:56 Levofloxacin 150 ml @ 100 mls/hr Q24H IVPB 12/29/17 10:00 01/05/18 09:59 Levothyroxine Sodium (Synthroid) 100 mcg DAILY@0630 ORAL 12/28/17 06:30 01/27/18 06:29 12/29/17 06:16 Lorazepam (Ativan 2mg/ml 1ml) 2 mg Q2H PRN IV For Anxiety 12/28/17 06:30 01/04/18 06:29 Morphine Sulfate (Morphine Sulfate) 4 mg Q4H PRN IVP Severe Pain (Pain Scale 7-10) 12/28/17 06:30 01/04/18 06:29 12/29/17 03:36 Ondansetron HCl (Zofran) 4 mg Q6H PRN IVP Nausea & Vomiting 12/28/17 06:30 01/27/18 06:29 Polyethylene Glycol (Miralax) 17 gm DAILYPRN PRN ORAL Constipation 12/28/17 06:30 01/27/18 06:29 Propranolol HCl (Inderal) 60 mg DAILY ORAL 12/28/17 09:00 01/27/18 08:59 12/28/17 10:29 Sodium Chloride 1,000 ml @ 50 mls/hr Q20H IV 12/28/17 07:00 01/27/18 06:59 12/29/17 03:00 Tizanidine HCl (Zanaflex) 4 mg EVERY 8 HOURS ORAL 12/28/17 14:00 01/27/18 13:59 12/29/17 06:17 Cami Mendez M.D. Dec 29, 2017 09:52
[2017-12-29] MEDS: HYDROcodone/Acetamin 10/325 tab ORAL PRN ×4 (09:57→23:13)
[2017-12-29] MEDS ORDERED: Tubing IV Secondary IV ONE ×2 (16:00→16:04)
[2017-12-29] MEDS ORDERED: 1/2 NS 1000ml IV ONE ×2 (16:00→16:04)
[2017-12-29] MEDS ORDERED: LORazepam Inj 2mg/ml 1ml IV PRN (16:30)
[2017-12-29] MEDS ORDERED: Miralax 17gm pkt ORAL PRN (16:30)
[2017-12-29] MEDS ORDERED: Albuterol/Ipratropium 3ml neb HHN PRN (16:30)
[2017-12-29] MEDS: DiphenhydrAMINE 50mg/ml Inj IVP PRN (20:33)
[2017-12-29] MEDS: Amitriptyline 100mg tab ORAL SCH (21:52)
[2017-12-30] VITALS: BP 109/65
[2017-12-30] MEDS: DiphenhydrAMINE 50mg/ml Inj IVP PRN ×4 (02:26→23:11)
[2017-12-30 04:00] VITALS: BP 131/76
[2017-12-30] MEDS: HYDROcodone/Acetamin 10/325 tab ORAL PRN ×2 (05:03→09:33)
[2017-12-30 07:31] LABS: HEMATOCRIT 25.6 % (37.0-47.0); HEMOGLOBIN 8.3 G/DL (12.0-16.0); MEAN CORPUSCULAR VOLUME 77 FL (80-99); PLATELET COUNT 213 K/UL (150-450); RED BLOOD COUNT 3.33 M/UL (4.20-5.40); RED CELL DISTRIBUTION WIDTH 13.7 % (11.6-14.8); WHITE BLOOD COUNT 2.5 K/UL (4.8-10.8)
[2017-12-30 08:00] VITALS: BP 102/61
[2017-12-30 08:10] LABS: ALANINE AMINOTRANSFERASE 18 U/L (12-78); ALBUMIN 2.5 G/DL (3.4-5.0); ALBUMIN/GLOBULIN RATIO 0.6 (1.0-2.7); ALKALINE PHOSPHATASE 93 U/L (46-116); ANION GAP 6 mmol/L (5-15); ASPARTATE AMINO TRANSFERASE 19 U/L (15-37); BILIRUBIN,TOTAL 0.1 MG/DL (0.2-1.0); BLOOD UREA NITROGEN 12 mg/dL (7-18); CARBON DIOXIDE 29 MMOL/L (21-32); CHLORIDE 104 MMOL/L (98-107); CREATININE 0.6 MG/DL (0.55-1.30); POTASSIUM 3.8 MMOL/L (3.5-5.1); SODIUM 139 MMOL/L (136-145)
[2017-12-30] MEDS: Propranolol 40mg tab ORAL SCH (09:33)
[2017-12-30] MEDS: Heparin 5000 units/ml inj SUBQ SCH ×2 (09:39→21:28)
--- NOTE | 2017-12-30 09:44 | General Progress Note ---
Assessment/Plan Assessment/Plan (1) H/O Spinal surgery (2) DDD (degenerative disc disease), cervical (3) Lumbar spondylosis (4) Cervical spondylosis (5) Lumbar degenerative disc disease (6) History of total knee replacement, right (7) Osteoarthritis of right knee We will continue the morphine and [place] Pt was d/w Dr. Schaffer and he concurred Subjective Date patient seen: Dec 30, 2017 Time patient seen: 08:00 - am Allergies: Coded Allergies: CEFAZOLIN (Verified Allergy, Severe, hives all over her body, 01/10/16) PHENYTOIN (Verified Allergy, Severe, swell up face, 01/10/16) SULFA (SULFONAMIDE ANTIBIOTICS) (Verified Allergy, Severe, hives all over her body, 01/10/16) HYDROXYZINE (Verified Adverse Reaction, Severe, tachypnea; tachycardia, 01/10/16) PENICILLINS (Verified Adverse Reaction, Severe, vomiting, 01/10/16) PROCHLORPERAZINE (Verified Adverse Reaction, Severe, musle spasm, 01/10/16) Subjective Constitutional: Reports: no symptoms HEENT: Reports: no symptoms Respiratory: Reports: SOB Gastrointestinal/Abdominal: Reports: N/v, constipation Genitourinary: Reports: no symptoms Endocrine: Reports: no symptoms Hematologic/Lymphatic: Reports: no symptoms Subjective Patient reports that she is doing well and tolerating the pain on the [place]. She has no new complaints at this time. Objective Last 24 Hour Vital Signs Date Time Temp Pulse Resp B/P (MAP) Pulse Ox O2 Delivery O2 Flow Rate FiO2 12/30/17 09:33 91 102/61 12/30/17 09:33 97.0 12/30/17 08:21 Room Air 12/30/17 08:20 96 Room Air 12/30/17 08:19 91 18 Room Air 12/30/17 08:00 97.0 91 18 102/61 94 97.0 12/30/17 06:14 97.9 12/30/17 06:14 97.9 12/30/17 06:05 97.9 12/30/17 05:03 97.9 12/30/17 04:00 97.9 95 20 131/76 93 Room Air 97.9 12/30/17 00:00 97.7 87 19 109/65 93 Nasal Cannula 97.7 12/29/17 23:13 97.7 12/29/17 21:53 97.7 12/29/17 20:30 Nasal Cannula 2.0 28 12/29/17 20:30 74 18 Nasal Cannula 2.0 28 12/29/17 20:30 98 Nasal Cannula 2.0 28 12/29/17 20:00 97.9 93 18 119/65 99 Nasal Cannula 97.9 12/29/17 18:45 97.7 12/29/17 16:00 97.7 68 19 136/62 93 97.7 12/29/17 12:00 98.1 86 20 114/68 100 Nasal Cannula 2.0 98.1 12/29/17 09:50 76 107/64 Intake and Output 12/29/17 12/30/17 19:00 07:00 Intake Total 650 ml 450 ml Output Total 750 ml Balance -100 ml 450 ml Intake Oral 600 ml IV Total 50 ml 450 ml Output Urine Total 750 ml # Voids 4 # Bowel Movements 1 Laboratory Tests 12/30/17 05:20: White Blood Count 2.5L, Red Blood Count 3.33L, Hemoglobin 8.3L, Hematocrit 25.6L , Mean Corpuscular Volume 77L, Mean Corpuscular Hemoglobin 25.0L, Mean Corpuscular Hemoglobin Concent 32.7, Red Cell Distribution Width 13.7, Platelet Count 213, Mean Platelet Volume 6.2L, Neutrophils (%) (Auto) , Lymphocytes (%) ( Auto) , Monocytes (%) (Auto) , Eosinophils (%) (Auto) , Basophils (%) (Auto) , Differential Total Cells Counted 100, Neutrophils % (Manual) 38L, Lymphocytes % (Manual) 53H, Monocytes % (Manual) 9, Eosinophils % (Manual) 0, Basophils % ( Manual) 0, Band Neutrophils 0, Platelet Estimate Adequate, Platelet Morphology Normal, Hypochromasia , Microcytosis 1+, Erythrocyte Sedimentation Rate 105H, Sodium Level 139, Potassium Level 3.8, Chloride Level 104, Carbon Dioxide Level 29, Anion Gap 6, Blood Urea Nitrogen 12, Creatinine 0.6, Estimat Glomerular Filtration Rate > 60, Glucose Level 93, Calcium Level 9.0, Phosphorus Level 4.0 , Magnesium Level 1.7L, Total Bilirubin 0.1L, Aspartate Amino Transf (AST/SGOT) 19, Alanine Aminotransferase (ALT/SGPT) 18, Alkaline Phosphatase 93, Total Protein 7.0, Albumin 2.5L, Globulin 4.5, Albumin/Globulin Ratio 0.6L Height (Feet): 5 Height (Inches): 2.00 Weight (Pounds): 152 Objective General Appearance: no apparent distress, alert EENT: PERRL/EOMI, normal ENT inspection Neck: non-tender, normal alignment Cardiovascular: normal rate, regular rhythm Respiratory/Chest: decreased breath sounds bilaterally Abdomen: non tender, soft Extremities: weakness noted Edema: trace edema Neurologic: alert, oriented x 3 Skin: warm/dry GABE DOMINGO Dec 30, 2017 09:44
[2017-12-30] MEDS: Lyrica 75mg cap ORAL SCH ×3 (10:29→18:21)
[2017-12-30 11:50] VITALS: BP 130/72
--- NOTE | 2017-12-30 12:54 | General Progress Note ---
Assessment/Plan Assessment/Plan 1. Pulmonary embolism, currently is getting heparin subcutaneous dosing. --> Reviewed the patient's imaging from before. She has had a duplex of lower extremities that reveals recanalized chronic thrombosis of the superficial vein , popliteal vein, large collateral vein noted. --> At this time given recanalized, there is no evidence of deep venous thrombosis. --> Recommend to just administer heparin unless other indication is noted, which we will continue to monitor for. 2. Anemia due to underlying chronic disease, continue to closely monitor. --> Anemia workup completed. Iron 13, TIBC 203, Folate 11.7, Vit B12 396 --> Transfuse if hgb <7 or symptomatic 3. Spine surgery. 4. Hypothyroidism. 5. [facility] resident. 6. Antibiotics per Dr. Medina. Subjective Date patient seen: Dec 29, 2017 Constitutional: Denies: no symptoms, chills, diaphoresis, fever, malaise, weakness, other HEENT: Denies: no symptoms, eye pain, blurred vision, tearing, double vision, ear pain, ear discharge, nose pain, nose congestion, throat pain, throat swelling, mouth pain, mouth swelling, other Cardiovascular: Denies: no symptoms, chest pain, edema, irregular heart rate, lightheadedness, palpitations, syncope, other Respiratory: Denies: no symptoms, cough, orthopnea, shortness of breath, SOB with excertion, SOB at rest, sputum, stridor, wheezing, other Gastrointestinal/Abdominal: Denies: no symptoms, abdomen distended, abdominal pain, black stools, tarry stools, blood in stool, constipated, diarrhea, difficulty swallowing, nausea, poor appetite, poor fluid intake, rectal bleeding , vomiting, other Genitourinary: Denies: no symptoms, burning, discharge, frequency, flank pain, hematuria, incontinence, pain, urgency, other Neurologic/Psychiatric: Denies: no symptoms, anxiety, depressed, emotional problems, headache, numbness, paresthesia, pre-existing deficit, seizure, tingling, tremors, weakness, other Allergies: Coded Allergies: CEFAZOLIN (Verified Allergy, Severe, hives all over her body, 01/10/16) PHENYTOIN (Verified Allergy, Severe, swell up face, 01/10/16) SULFA (SULFONAMIDE ANTIBIOTICS) (Verified Allergy, Severe, hives all over her body, 01/10/16) HYDROXYZINE (Verified Adverse Reaction, Severe, tachypnea; tachycardia, 01/10/16) PENICILLINS (Verified Adverse Reaction, Severe, vomiting, 01/10/16) PROCHLORPERAZINE (Verified Adverse Reaction, Severe, musle spasm, 01/10/16) Subjective Leukopenia. On norco and morphine. No fever. On heparin Objective Last 24 Hour Vital Signs Date Time Temp Pulse Resp B/P (MAP) Pulse Ox O2 Delivery O2 Flow Rate FiO2 12/30/17 11:50 98.4 94 18 130/72 96 98.4 12/30/17 10:32 97.0 12/30/17 10:32 97.0 12/30/17 10:29 97.0 12/30/17 09:33 91 102/61 12/30/17 09:33 97.0 12/30/17 08:21 Room Air 12/30/17 08:20 96 Room Air 12/30/17 08:19 91 18 Room Air 12/30/17 08:00 97.0 91 18 102/61 94 97.0 12/30/17 06:14 97.9 12/30/17 06:05 97.9 12/30/17 05:03 97.9 12/30/17 04:00 97.9 95 20 131/76 93 Room Air 97.9 12/30/17 00:00 97.7 87 19 109/65 93 Nasal Cannula 97.7 12/29/17 23:13 97.7 12/29/17 21:53 97.7 12/29/17 20:30 Nasal Cannula 2.0 28 12/29/17 20:30 74 18 Nasal Cannula 2.0 28 12/29/17 20:30 98 Nasal Cannula 2.0 28 12/29/17 20:00 97.9 93 18 119/65 99 Nasal Cannula 97.9 12/29/17 18:45 97.7 12/29/17 16:00 97.7 68 19 136/62 93 97.7 12/29/17 12:00 98.1 86 20 114/68 100 Nasal Cannula 2.0 98.1 12/29/17 09:50 76 107/64 12/29/17 09:00 76 107/64 12/29/17 08:12 Nasal Cannula 2.0 28 12/29/17 08:12 79 16 Nasal Cannula 2.0 28 12/29/17 08:12 99 Nasal Cannula 2.0 28 12/29/17 08:00 79 12/29/17 08:00 97.7 79 20 96/56 100 Nasal Cannula 2.0 97.7 12/29/17 04:00 96.3 69 19 126/85 100 Nasal Cannula 2.0 96.3 12/29/17 04:00 80 12/29/17 00:00 99.7 69 19 97/56 100 Nasal Cannula 2.0 99.7 12/29/17 00:00 73 12/28/17 22:55 97.9 12/28/17 20:00 77 12/28/17 20:00 97.9 79 19 92/58 100 Nasal Cannula 2.0 97.9 12/28/17 19:20 Nasal Cannula 3.0 32 12/28/17 19:20 101 18 Nasal Cannula 2.0 28 12/28/17 19:20 95 Nasal Cannula 3.0 32 12/28/17 16:00 98.2 80 18 95/60 97 Nasal Cannula 2.0 98.2 12/28/17 16:00 73 12/28/17 14:59 99.0 12/28/17 13:06 101.0 Last 24 Hour Vital Signs Date Time Temp Pulse Resp B/P (MAP) Pulse Ox O2 Delivery O2 Flow Rate FiO2 12/30/17 11:50 98.4 94 18 130/72 96 98.4 12/30/17 10:32 97.0 12/30/17 10:32 97.0 12/30/17 10:29 97.0 12/30/17 09:33 91 102/61 12/30/17 09:33 97.0 12/30/17 08:21 Room Air 12/30/17 08:20 96 Room Air 12/30/17 08:19 91 18 Room Air 12/30/17 08:00 97.0 91 18 102/61 94 97.0 12/30/17 06:14 97.9 12/30/17 06:05 97.9 12/30/17 05:03 97.9 12/30/17 04:00 97.9 95 20 131/76 93 Room Air 97.9 12/30/17 00:00 97.7 87 19 109/65 93 Nasal Cannula 97.7 12/29/17 23:13 97.7 12/29/17 21:53 97.7 12/29/17 20:30 Nasal Cannula 2.0 28 12/29/17 20:30 74 18 Nasal Cannula 2.0 28 12/29/17 20:30 98 Nasal Cannula 2.0 28 12/29/17 20:00 97.9 93 18 119/65 99 Nasal Cannula 97.9 12/29/17 18:45 97.7 12/29/17 16:00 97.7 68 19 136/62 93 97.7 Intake and Output 12/29/17 12/30/17 19:00 07:00 Intake Total 650 ml 450 ml Output Total 750 ml Balance -100 ml 450 ml Intake Oral 600 ml IV Total 50 ml 450 ml Output Urine Total 750 ml # Voids 4 # Bowel Movements 1 Labs Test 12/27/17 23:20 12/27/17 23:40 12/28/17 08:10 12/29/17 07:58 White Blood Count 5.1 K/UL (4.8-10.8) 2.8 K/UL (4.8-10.8) Red Blood Count 3.96 M/UL (4.20-5.40) 3.24 M/UL (4.20-5.40) Hemoglobin 9.7 G/DL (12.0-16.0) 8.2 G/DL (12.0-16.0) Hematocrit 30.2 % (37.0-47.0) 24.7 % (37.0-47.0) Mean Corpuscular Volume 76 FL (80-99) 76 FL (80-99) Mean Corpuscular Hemoglobin 24.6 PG (27.0-31.0) 25.3 PG (27.0-31.0) Mean Corpuscular Hemoglobin Concent 32.3 G/DL (32.0-36.0) 33.1 G/DL (32.0-36.0) Red Cell Distribution Width 13.8 % (11.6-14.8) 13.8 % (11.6-14.8) Platelet Count 215 K/UL (150-450) 161 K/UL (150-450) Mean Platelet Volume 6.4 FL (6.5-10.1) 6.4 FL (6.5-10.1) Neutrophils (%) (Auto) 72.3 % (45.0-75.0) % (45.0-75.0) Lymphocytes (%) (Auto) 19.8 % (20.0-45.0) % (20.0-45.0) Monocytes (%) (Auto) 7.2 % (1.0-10.0) % (1.0-10.0) Eosinophils (%) (Auto) 0.1 % (0.0-3.0) % (0.0-3.0) Basophils (%) (Auto) 0.7 % (0.0-2.0) % (0.0-2.0) Differential Total Cells Counted 100 100 Neutrophils % (Manual) 72 % (45-75) 47 % (45-75) Lymphocytes % (Manual) 20 % (20-45) 46 % (20-45) Monocytes % (Manual) 8 % (1-10) 7 % (1-10) Eosinophils % (Manual) 0 % (0-3) 0 % (0-3) Basophils % (Manual) 0 % (0-2) 0 % (0-2) Band Neutrophils 0 % (0-8) 0 % (0-8) Other Cell Type Pathologist comment Platelet Estimate Adequate Adequate Platelet Morphology Normal Normal Hypochromasia 2+ 1+ Anisocytosis 1+ Microcytosis 1+ 1+ Sodium Level 130 MMOL/L (136-145) 134 MMOL/L (136-145) Potassium Level 4.5 MMOL/L (3.5-5.1) 4.0 MMOL/L (3.5-5.1) Chloride Level 94 MMOL/L (98-107) 101 MMOL/L (98-107) Carbon Dioxide Level 29 MMOL/L (21-32) 27 MMOL/L (21-32) Anion Gap 7 mmol/L (5-15) 6 mmol/L (5-15) Blood Urea Nitrogen 30 mg/dL (7-18) 17 mg/dL (7-18) Creatinine 1.0 MG/DL (0.55-1.30) 0.8 MG/DL (0.55-1.30) Estimat Glomerular Filtration Rate 56.8 mL/min (>60) > 60 mL/min (>60) Glucose Level 112 MG/DL (74-106) 178 MG/DL (74-106) Lactic Acid Level 1.20 mmol/L (0.66-2.22) Calcium Level 8.9 MG/DL (8.5-10.1) 8.4 MG/DL (8.5-10.1) Total Bilirubin 0.2 MG/DL (0.2-1.0) Aspartate Amino Transf (AST/SGOT) 21 U/L (15-37) Alanine Aminotransferase (ALT/SGPT) 15 U/L (12-78) Alkaline Phosphatase 116 U/L (46-116) Troponin I 0.000 ng/mL (0.000-0.056) Total Protein 8.0 G/DL (6.4-8.2) Albumin 2.9 G/DL (3.4-5.0) 2.3 G/DL (3.4-5.0) Globulin 5.1 g/dL Albumin/Globulin Ratio 0.6 (1.0-2.7) Urine Color Pale yellow Urine Appearance Clear Urine pH 5 (4.5-8.0) Urine Specific [place] 1.015 (1.005-1.035) Urine Protein 1+ (NEGATIVE) Urine Glucose (UA) Negative (NEGATIVE) Urine Ketones Negative (NEGATIVE) Urine Occult Blood 3+ (NEGATIVE) Urine Nitrite Negative (NEGATIVE) Urine Bilirubin Negative (NEGATIVE) Urine Urobilinogen Normal MG/DL (0.0-1.0) Urine Leukocyte Esterase Negative (NEGATIVE) Urine RBC 0-2 /HPF (0 - 2) Urine WBC 0-2 /HPF (0 - 2) Urine Squamous Epithelial Cells Few /LPF (NONE/OCC) Urine Amorphous Sediment Many /LPF (NONE) Urine Bacteria Moderate /HPF (NONE) Erythrocyte Sedimentation Rate 90 MM/HR (0-30) Reticulocyte Count 0.4 % (0.0-2.0) Prothrombin Time 10.8 SEC (9.30-11.50) Prothromb Time International Ratio 1.0 (0.9-1.1) Activated Partial Thromboplast Time 40 SEC (23-33) Iron Level 13 ug/dL (50-175) Total Iron Binding Capacity 203 ug/dL (250-450) Percent Iron Saturation 6 % (15-50) Unsaturated Iron Binding 190 ug/dL (112-346) Lactate Dehydrogenase 138 U/L (81-234) Vitamin B12 Level 396 PG/ML (193-986) Folate 11.7 NG/ML (8.6-58.9) Phosphorus Level 3.9 MG/DL (2.5-4.9) Test 12/30/17 05:20 White Blood Count 2.5 K/UL (4.8-10.8) Red Blood Count 3.33 M/UL (4.20-5.40) Hemoglobin 8.3 G/DL (12.0-16.0) Hematocrit 25.6 % (37.0-47.0) Mean Corpuscular Volume 77 FL (80-99) Mean Corpuscular Hemoglobin 25.0 PG (27.0-31.0) Mean Corpuscular Hemoglobin Concent 32.7 G/DL (32.0-36.0) Red Cell Distribution Width 13.7 % (11.6-14.8) Platelet Count 213 K/UL (150-450) Mean Platelet Volume 6.2 FL (6.5-10.1) Neutrophils (%) (Auto) % (45.0-75.0) Lymphocytes (%) (Auto) % (20.0-45.0) Monocytes (%) (Auto) % (1.0-10.0) Eosinophils (%) (Auto) % (0.0-3.0) Basophils (%) (Auto) % (0.0-2.0) Differential Total Cells Counted 100 Neutrophils % (Manual) 38 % (45-75) Lymphocytes % (Manual) 53 % (20-45) Monocytes % (Manual) 9 % (1-10) Eosinophils % (Manual) 0 % (0-3) Basophils % (Manual) 0 % (0-2) Band Neutrophils 0 % (0-8) Platelet Estimate Adequate Platelet Morphology Normal Hypochromasia Microcytosis 1+ Erythrocyte Sedimentation Rate 105 MM/HR (0-30) Sodium Level 139 MMOL/L (136-145) Potassium Level 3.8 MMOL/L (3.5-5.1) Chloride Level 104 MMOL/L (98-107) Carbon Dioxide Level 29 MMOL/L (21-32) Anion Gap 6 mmol/L (5-15) Blood Urea Nitrogen 12 mg/dL (7-18) Creatinine 0.6 MG/DL (0.55-1.30) Estimat Glomerular Filtration Rate > 60 mL/min (>60) Glucose Level 93 MG/DL (74-106) Calcium Level 9.0 MG/DL (8.5-10.1) Phosphorus Level 4.0 MG/DL (2.5-4.9) Magnesium Level 1.7 MG/DL (1.8-2.4) Total Bilirubin 0.1 MG/DL (0.2-1.0) Aspartate Amino Transf (AST/SGOT) 19 U/L (15-37) Alanine Aminotransferase (ALT/SGPT) 18 U/L (12-78) Alkaline Phosphatase 93 U/L (46-116) Total Protein 7.0 G/DL (6.4-8.2) Albumin 2.5 G/DL (3.4-5.0) Globulin 4.5 g/dL Albumin/Globulin Ratio 0.6 (1.0-2.7) Laboratory Tests 12/30/17 05:20: White Blood Count 2.5L, Red Blood Count 3.33L, Hemoglobin 8.3L, Hematocrit 25.6L , Mean Corpuscular Volume 77L, Mean Corpuscular Hemoglobin 25.0L, Mean Corpuscular Hemoglobin Concent 32.7, Red Cell Distribution Width 13.7, Platelet Count 213, Mean Platelet Volume 6.2L, Neutrophils (%) (Auto) , Lymphocytes (%) ( Auto) , Monocytes (%) (Auto) , Eosinophils (%) (Auto) , Basophils (%) (Auto) , Differential Total Cells Counted 100, Neutrophils % (Manual) 38L, Lymphocytes % (Manual) 53H, Monocytes % (Manual) 9, Eosinophils % (Manual) 0, Basophils % ( Manual) 0, Band Neutrophils 0, Platelet Estimate Adequate, Platelet Morphology Normal, Hypochromasia , Microcytosis 1+, Erythrocyte Sedimentation Rate 105H, Sodium Level 139, Potassium Level 3.8, Chloride Level 104, Carbon Dioxide Level 29, Anion Gap 6, Blood Urea Nitrogen 12, Creatinine 0.6, Estimat Glomerular Filtration Rate > 60, Glucose Level 93, Calcium Level 9.0, Phosphorus Level 4.0 , Magnesium Level 1.7L, Total Bilirubin 0.1L, Aspartate Amino Transf (AST/SGOT) 19, Alanine Aminotransferase (ALT/SGPT) 18, Alkaline Phosphatase 93, Total Protein 7.0, Albumin 2.5L, Globulin 4.5, Albumin/Globulin Ratio 0.6L Height (Feet): 5 Height (Inches): 2.00 Weight (Pounds): 152 Respiratory/Chest: decreased breath sounds Edema: trace edema Skin: warm/dry Momo Webster Dec 30, 2017 12:54
[2017-12-30] MEDS: Morphine Sulfate 4mg/ml Inj IVP PRN ×3 (13:55→23:11)
--- NOTE | 2017-12-30 15:10 | Cardiology Report ---
APPROVED REPORT EKG Measurement Heart [id number] Sinus tachycardia Otherwise normal ECG
[2017-12-30 16:00] VITALS: BP 99/58
[2017-12-30 20:00] VITALS: BP 121/66
[2017-12-30] MEDS: Amitriptyline 100mg tab ORAL SCH (21:27)
--- NOTE | 2017-12-30 23:35 | General Progress Note ---
Assessment/Plan Assessment/Plan 1. Pulmonary embolism, currently is getting heparin subcutaneous dosing. --> Reviewed the patient's imaging from before. --> She has had a duplex of lower extremities that reveals recanalized chronic thrombosis of the superficial vein, popliteal vein, large collateral vein noted. --> At this time given recanalized, there is no evidence of deep venous thrombosis. --> Recommend to just administer heparin unless other indication is noted, which we will continue to monitor for. 2. Anemia due to underlying chronic disease, continue to closely monitor. --> Anemia workup completed. Iron 13, TIBC 203, Folate 11.7, Vit B12 396 --> Blood transfusion not required unless symptomatic or hgb <7 --> Hgb above goal at this time. 3. Spine surgery. 4. Hypothyroidism. 5. jail resident. 6. Antibiotics per Dr. Medina. Subjective Date patient seen: Dec 30, 2017 Constitutional: Denies: no symptoms, chills, diaphoresis, fever, malaise, weakness, other HEENT: Denies: no symptoms, eye pain, blurred vision, tearing, double vision, ear pain, ear discharge, nose pain, nose congestion, throat pain, throat swelling, mouth pain, mouth swelling, other Cardiovascular: Denies: no symptoms, chest pain, edema, irregular heart rate, lightheadedness, palpitations, syncope, other Respiratory: Denies: no symptoms, cough, orthopnea, shortness of breath, SOB with excertion, SOB at rest, sputum, stridor, wheezing, other Gastrointestinal/Abdominal: Denies: no symptoms, abdomen distended, abdominal pain, black stools, tarry stools, blood in stool, constipated, diarrhea, difficulty swallowing, nausea, poor appetite, poor fluid intake, rectal bleeding , vomiting, other Genitourinary: Denies: no symptoms, burning, discharge, frequency, flank pain, hematuria, incontinence, pain, urgency, other Neurologic/Psychiatric: Denies: no symptoms, anxiety, depressed, emotional problems, headache, numbness, paresthesia, pre-existing deficit, seizure, tingling, tremors, weakness, other Allergies: Coded Allergies: CEFAZOLIN (Verified Allergy, Severe, hives all over her body, 01/10/16) PHENYTOIN (Verified Allergy, Severe, swell up face, 01/10/16) SULFA (SULFONAMIDE ANTIBIOTICS) (Verified Allergy, Severe, hives all over her body, 01/10/16) HYDROXYZINE (Verified Adverse Reaction, Severe, tachypnea; tachycardia, 01/10/16) PENICILLINS (Verified Adverse Reaction, Severe, vomiting, 01/10/16) PROCHLORPERAZINE (Verified Adverse Reaction, Severe, musle spasm, 01/10/16) Subjective On pain control and heparin. NAD. Objective Last 24 Hour Vital Signs Date Time Temp Pulse Resp B/P (MAP) Pulse Ox O2 Delivery O2 Flow Rate FiO2 12/30/17 23:11 98.2 12/30/17 22:26 98.2 12/30/17 21:27 98.2 12/30/17 20:00 98.2 85 18 121/66 95 Room Air 98.2 12/30/17 18:59 98.6 12/30/17 18:59 98.6 12/30/17 18:29 98.6 12/30/17 18:21 98.6 12/30/17 16:00 98.6 79 18 99/58 95 98.6 12/30/17 13:55 98.4 12/30/17 13:48 98.4 12/30/17 13:44 98.4 12/30/17 11:50 98.4 94 18 130/72 96 98.4 12/30/17 10:32 97.0 12/30/17 10:29 97.0 12/30/17 09:33 91 102/61 12/30/17 09:33 97.0 12/30/17 08:21 Room Air 12/30/17 08:20 96 Room Air 12/30/17 08:19 91 18 Room Air 12/30/17 08:00 97.0 91 18 102/61 94 97.0 12/30/17 06:05 97.9 12/30/17 05:03 97.9 12/30/17 04:00 97.9 95 20 131/76 93 Room Air 97.9 12/30/17 00:00 97.7 87 19 109/65 93 Nasal Cannula 97.7 Intake and Output 12/29/17 12/30/17 19:00 07:00 Intake Total 650 ml 450 ml Output Total 750 ml Balance -100 ml 450 ml Intake Oral 600 ml IV Total 50 ml 450 ml Output Urine Total 750 ml # Voids 4 # Bowel Movements 1 Laboratory Tests 12/30/17 05:20: White Blood Count 2.5L, Red Blood Count 3.33L, Hemoglobin 8.3L, Hematocrit 25.6L , Mean Corpuscular Volume 77L, Mean Corpuscular Hemoglobin 25.0L, Mean Corpuscular Hemoglobin Concent 32.7, Red Cell Distribution Width 13.7, Platelet Count 213, Mean Platelet Volume 6.2L, Neutrophils (%) (Auto) , Lymphocytes (%) ( Auto) , Monocytes (%) (Auto) , Eosinophils (%) (Auto) , Basophils (%) (Auto) , Differential Total Cells Counted 100, Neutrophils % (Manual) 38L, Lymphocytes % (Manual) 53H, Monocytes % (Manual) 9, Eosinophils % (Manual) 0, Basophils % ( Manual) 0, Band Neutrophils 0, Platelet Estimate Adequate, Platelet Morphology Normal, Hypochromasia , Microcytosis 1+, Erythrocyte Sedimentation Rate 105H, Sodium Level 139, Potassium Level 3.8, Chloride Level 104, Carbon Dioxide Level 29, Anion Gap 6, Blood Urea Nitrogen 12, Creatinine 0.6, Estimat Glomerular Filtration Rate > 60, Glucose Level 93, Calcium Level 9.0, Phosphorus Level 4.0 , Magnesium Level 1.7L, Total Bilirubin 0.1L, Aspartate Amino Transf (AST/SGOT) 19, Alanine Aminotransferase (ALT/SGPT) 18, Alkaline Phosphatase 93, Total Protein 7.0, Albumin 2.5L, Globulin 4.5, Albumin/Globulin Ratio 0.6L 12/30/17 15:25: Stool Occult Blood [Pending] Height (Feet): 5 Height (Inches): 2.00 Weight (Pounds): 152 General Appearance: no apparent distress Respiratory/Chest: decreased breath sounds Abdomen: non tender, soft Edema: trace edema Neurologic: extra hand II-XII grossly normal Skin: warm/dry Momo Webster Dec 30, 2017 23:35
[2017-12-31] VITALS (8 sets, daily range): BP systolic 83–136; BP diastolic 47–82
[2017-12-31] MEDS: Morphine Sulfate 4mg/ml Inj IVP PRN ×2 (04:08→14:27)
[2017-12-31] MEDS: DiphenhydrAMINE 50mg/ml Inj IVP PRN (05:14)
[2017-12-31 07:30] LABS: BASOPHILS % (AUTO) 0.5 % (0.0-2.0); EOSINOPHILS % (AUTO) 0.2 % (0.0-3.0); HEMOGLOBIN 9.5 G/DL (12.0-16.0); LYMPHOCYTES % (AUTO) 37.3 % (20.0-45.0); MEAN CORPUSCULAR VOLUME 76 FL (80-99); MONOCYTES % (AUTO) 9.2 % (1.0-10.0); NEUTROPHILS % (AUTO) 52.7 % (45.0-75.0); PLATELET COUNT 268 K/UL (150-450); RED CELL DISTRIBUTION WIDTH 13.9 % (11.6-14.8); WHITE BLOOD COUNT 3.9 K/UL (4.8-10.8)
[2017-12-31 07:55] LABS: ALANINE AMINOTRANSFERASE 17 U/L (12-78); ALBUMIN 2.6 G/DL (3.4-5.0); ALBUMIN/GLOBULIN RATIO 0.6 (1.0-2.7); ALKALINE PHOSPHATASE 97 U/L (46-116); ANION GAP 5 mmol/L (5-15); ASPARTATE AMINO TRANSFERASE 18 U/L (15-37); BILIRUBIN,TOTAL 0.2 MG/DL (0.2-1.0); BLOOD UREA NITROGEN 12 mg/dL (7-18); CARBON DIOXIDE 31 MMOL/L (21-32); CHLORIDE 102 MMOL/L (98-107); CREATININE 0.8 MG/DL (0.55-1.30); PHOSPHORUS 4.3 MG/DL (2.5-4.9); POTASSIUM 3.9 MMOL/L (3.5-5.1); SODIUM 137 MMOL/L (136-145)
--- NOTE | 2017-12-31 08:13 | General Progress Note ---
Assessment/Plan Assessment/Plan (1) H/O Spinal surgery (2) DDD (degenerative disc disease), cervical (3) Lumbar spondylosis (4) Cervical spondylosis (5) Lumbar degenerative disc disease (6) History of total knee replacement, right (7) Osteoarthritis of right knee We will continue the morphine and [place] Pt was d/w Dr. Schaffer and he concurred Subjective Date patient seen: Dec 31, 2017 Time patient seen: 07:30 - am Allergies: Coded Allergies: CEFAZOLIN (Verified Allergy, Severe, hives all over her body, 01/10/16) PHENYTOIN (Verified Allergy, Severe, swell up face, 01/10/16) SULFA (SULFONAMIDE ANTIBIOTICS) (Verified Allergy, Severe, hives all over her body, 01/10/16) HYDROXYZINE (Verified Adverse Reaction, Severe, tachypnea; tachycardia, 01/10/16) PENICILLINS (Verified Adverse Reaction, Severe, vomiting, 01/10/16) PROCHLORPERAZINE (Verified Adverse Reaction, Severe, musle spasm, 01/10/16) Subjective Constitutional: Reports: no symptoms HEENT: Reports: no symptoms Respiratory: Reports: SOB Gastrointestinal/Abdominal: Reports: N/v, constipation Genitourinary: Reports: no symptoms Endocrine: Reports: no symptoms Hematologic/Lymphatic: Reports: no symptoms Subjective Patient explains that her pain has been stable and well tolerated on the [place]. She has no new complaints at this time. Objective Last 24 Hour Vital Signs Date Time Temp Pulse Resp B/P (MAP) Pulse Ox O2 Delivery O2 Flow Rate FiO2 12/31/17 07:53 Room Air 21 12/31/17 07:53 97 Room Air 21 12/31/17 07:52 89 22 Room Air 21 12/31/17 06:46 96.2 12/31/17 05:47 96.2 12/31/17 04:38 96.2 12/31/17 04:00 98.2 92 19 136/82 93 Room Air 98.2 12/31/17 04:00 93 Room Air 12/31/17 00:00 96.2 87 20 117/70 93 Room Air 96.2 12/30/17 23:11 98.2 12/30/17 21:27 98.2 12/30/17 20:00 98.2 85 18 121/66 95 Room Air 98.2 12/30/17 20:00 95 Room Air 12/30/17 19:00 96 22 Room Air 21 12/30/17 19:00 97 Room Air 21 12/30/17 19:00 Room Air 21 12/30/17 18:59 98.6 12/30/17 18:29 98.6 12/30/17 18:21 98.6 12/30/17 16:00 98.6 79 18 99/58 95 98.6 12/30/17 13:55 98.4 12/30/17 13:48 98.4 12/30/17 13:44 98.4 12/30/17 11:50 98.4 94 18 130/72 96 98.4 12/30/17 10:32 97.0 12/30/17 10:29 97.0 12/30/17 09:33 91 102/61 12/30/17 09:33 97.0 12/30/17 08:21 Room Air 12/30/17 08:20 96 Room Air 12/30/17 08:19 91 18 Room Air Intake and Output 12/30/17 12/31/17 19:00 07:00 Intake Total 920 ml 575 ml Balance 920 ml 575 ml Intake Oral 870 ml IV Total 50 ml 575 ml # Voids 2 3 # Bowel Movements 1 Laboratory Tests 12/30/17 15:25: Stool Occult Blood [Pending] 12/31/17 05:45: White Blood Count 3.9#L, Red Blood Count 3.80L, Hemoglobin 9.5L, Hematocrit 29.0L, Mean Corpuscular Volume 76L, Mean Corpuscular Hemoglobin 24.9L, Mean Corpuscular Hemoglobin Concent 32.6, Red Cell Distribution Width 13.9, Platelet Count 268, Mean Platelet Volume 6.2L, Neutrophils (%) (Auto) 52.7, Lymphocytes ( %) (Auto) 37.3, Monocytes (%) (Auto) 9.2, Eosinophils (%) (Auto) 0.2, Basophils (%) (Auto) 0.5, Erythrocyte Sedimentation Rate [Pending], Sodium Level 137, Potassium Level 3.9, Chloride Level 102, Carbon Dioxide Level 31, Anion Gap 5, Blood Urea Nitrogen 12, Creatinine 0.8, Estimat Glomerular Filtration Rate > 60 , Glucose Level 87, Calcium Level 9.0, Phosphorus Level 4.3, Magnesium Level 1.7L, Total Bilirubin 0.2, Aspartate Amino Transf (AST/SGOT) 18, Alanine Aminotransferase (ALT/SGPT) 17, Alkaline Phosphatase 97, Total Protein 7.3, Albumin 2.6L, Globulin 4.7, Albumin/Globulin Ratio 0.6L Height (Feet): 5 Height (Inches): 2.00 Weight (Pounds): 152 Objective General Appearance: no apparent distress, alert EENT: PERRL/EOMI, normal ENT inspection Neck: non-tender, normal alignment Cardiovascular: normal rate, regular rhythm Respiratory/Chest: decreased breath sounds bilaterally Abdomen: non tender, soft Extremities: weakness noted Edema: trace edema Neurologic: alert, oriented x 3 Skin: warm/dry GABE DOMINGO Dec 31, 2017 08:13
[2017-12-31] MEDS: Propranolol 40mg tab ORAL SCH (09:03)
[2017-12-31] MEDS: Lyrica 75mg cap ORAL SCH ×3 (09:04→17:42)
[2017-12-31] MEDS: Heparin 5000 units/ml inj SUBQ SCH (09:06)
--- NOTE | 2017-12-31 09:41 | Infectious Diseases Prog Note ---
Assessment/Plan Assessment/Plan Assessment/Plan ASSESSMENT: This is a 57-year-old female with, Fever, SP Bronchitis/possible pneumonia. -CXR: No acute process Rapid influenza A/B negative. Mild leukopenia - History of spondylosis/cervical stenoses. - History of seizure disorder (no recent one). - History of migraine headache. - History of cholecystectomy. - History of hysterectomy. - History of right knee replacement in 2005. PLAN: 1. Continue Levaquin day # 5/ , ok to DC pt off of AB Rx -12/28 SP IV Vanco #1 -12/27 SP Azithromycin x1. Monitor CBC Monitor BMP. Monitor chest x-ray. Monitor cultures (blood) Subjective Constitutional: Denies: no symptoms, fever, chills, fatigue, anorexia, drenching sweats, other Allergies: Coded Allergies: CEFAZOLIN (Verified Allergy, Severe, hives all over her body, 01/10/16) PHENYTOIN (Verified Allergy, Severe, swell up face, 01/10/16) SULFA (SULFONAMIDE ANTIBIOTICS) (Verified Allergy, Severe, hives all over her body, 01/10/16) HYDROXYZINE (Verified Adverse Reaction, Severe, tachypnea; tachycardia, 01/10/16) PENICILLINS (Verified Adverse Reaction, Severe, vomiting, 01/10/16) PROCHLORPERAZINE (Verified Adverse Reaction, Severe, musle spasm, 01/10/16) Objective Vital Signs Last 24 Hour Vital Signs Date Time Temp Pulse Resp B/P (MAP) Pulse Ox O2 Delivery O2 Flow Rate FiO2 12/31/17 09:04 97.9 12/31/17 09:03 89 106/66 12/31/17 08:00 97.9 89 20 106/66 94 97.9 12/31/17 07:53 Room Air 21 12/31/17 07:53 97 Room Air 21 12/31/17 07:52 89 22 Room Air 21 12/31/17 06:46 96.2 12/31/17 05:47 96.2 12/31/17 04:38 96.2 12/31/17 04:00 98.2 92 19 136/82 93 Room Air 98.2 12/31/17 04:00 93 Room Air 12/31/17 00:00 96.2 87 20 117/70 93 Room Air 96.2 12/30/17 23:11 98.2 12/30/17 21:27 98.2 12/30/17 20:00 98.2 85 18 121/66 95 Room Air 98.2 12/30/17 20:00 95 Room Air 12/30/17 19:00 96 22 Room Air 21 12/30/17 19:00 97 Room Air 21 12/30/17 19:00 Room Air 21 12/30/17 18:59 98.6 12/30/17 18:29 98.6 12/30/17 18:21 98.6 12/30/17 16:00 98.6 79 18 99/58 95 98.6 12/30/17 13:55 98.4 12/30/17 13:48 98.4 12/30/17 13:44 98.4 12/30/17 11:50 98.4 94 18 130/72 96 98.4 12/30/17 10:32 97.0 12/30/17 10:29 97.0 Height (Feet): 5 Height (Inches): 2.00 Weight (Pounds): 152 HEENT: mucous membranes moist Respiratory/Chest: no accessory muscle use Cardiovascular: regularly irregular Abdomen: non distended Microbiology Date/Time Source Procedure Growth Status 12/28/17 22:00 Sputum Gram Stain - Final Complete 12/28/17 22:00 Sputum Sputum Culture - Final NORMAL UPPER RESPIRATORY GINETTE AT 48 ... Complete Laboratory Tests Test 12/30/17 15:25 12/31/17 05:45 Stool Occult Blood Pending White Blood Count 3.9 K/UL (4.8-10.8) #L Red Blood Count 3.80 M/UL (4.20-5.40) L Hemoglobin 9.5 G/DL (12.0-16.0) L Hematocrit 29.0 % (37.0-47.0) L Mean Corpuscular Volume 76 FL (80-99) L Mean Corpuscular Hemoglobin 24.9 PG (27.0-31.0) L Mean Corpuscular Hemoglobin Concent 32.6 G/DL (32.0-36.0) Red Cell Distribution Width 13.9 % (11.6-14.8) Platelet Count 268 K/UL (150-450) Mean Platelet Volume 6.2 FL (6.5-10.1) L Neutrophils (%) (Auto) 52.7 % (45.0-75.0) Lymphocytes (%) (Auto) 37.3 % (20.0-45.0) Monocytes (%) (Auto) 9.2 % (1.0-10.0) Eosinophils (%) (Auto) 0.2 % (0.0-3.0) Basophils (%) (Auto) 0.5 % (0.0-2.0) Erythrocyte Sedimentation Rate 96 MM/HR (0-30) H Sodium Level 137 MMOL/L (136-145) Potassium Level 3.9 MMOL/L (3.5-5.1) Chloride Level 102 MMOL/L (98-107) Carbon Dioxide Level 31 MMOL/L (21-32) Anion Gap 5 mmol/L (5-15) Blood Urea Nitrogen 12 mg/dL (7-18) Creatinine 0.8 MG/DL (0.55-1.30) Estimat Glomerular Filtration Rate > 60 mL/min (>60) Glucose Level 87 MG/DL (74-106) Calcium Level 9.0 MG/DL (8.5-10.1) Phosphorus Level 4.3 MG/DL (2.5-4.9) Magnesium Level 1.7 MG/DL (1.8-2.4) L Total Bilirubin 0.2 MG/DL (0.2-1.0) Aspartate Amino Transf (AST/SGOT) 18 U/L (15-37) Alanine Aminotransferase (ALT/SGPT) 17 U/L (12-78) Alkaline Phosphatase 97 U/L (46-116) Total Protein 7.3 G/DL (6.4-8.2) Albumin 2.6 G/DL (3.4-5.0) L Globulin 4.7 g/dL Albumin/Globulin Ratio 0.6 (1.0-2.7) L Current Medications Medications (Trade) Dose Ordered Sig/Reanna Route PRN Reason Start Time Stop Time Status Last Admin Dose Admin Acetaminophen (Tylenol) 650 mg Q4H PRN ORAL FEVER 12/29/17 16:30 01/27/18 16:29 Acetaminophen/ Hydrocodone Bitart ([place] 10/325) 1 tab Q4H PRN ORAL Moderate Pain (Pain Scale 4-6) 12/29/17 16:30 01/04/18 16:29 12/30/17 09:33 Albuterol/ Ipratropium (Albuterol/ Ipratropium) 3 ml Q4H PRN HHN Shortness of Breath 12/29/17 16:30 01/02/18 16:29 Amitriptyline HCl (Elavil) 100 mg BEDTIME ORAL 12/29/17 21:00 01/27/18 20:59 12/30/17 21:27 Dextrose (Dextrose 50%) STAT PRN IV Hypoglycemia 12/29/17 16:30 01/28/18 16:29 Diphenhydramine HCl (Benadryl) 25 mg Q6H PRN IVP Itching 12/29/17 16:30 01/27/18 16:29 12/31/17 05:14 Heparin Sodium (Porcine) (Heparin 5000 units/ml) 5,000 units EVERY 12 HOURS SUBQ 12/29/17 21:00 01/27/18 08:59 12/31/17 09:06 Levofloxacin 150 ml @ 100 mls/hr Q24H IVPB 12/30/17 10:00 01/05/18 09:59 12/31/17 09:02 Levothyroxine Sodium (Synthroid) 100 mcg DAILY@0630 ORAL 12/30/17 06:30 01/27/18 06:29 12/31/17 05:48 Lorazepam (Ativan 2mg/ml 1ml) 2 mg Q2H PRN IV For Anxiety 12/29/17 16:30 01/04/18 06:29 Morphine Sulfate (Morphine Sulfate) 4 mg Q4H PRN IVP Severe Pain (Pain Scale 7-10) 12/29/17 16:30 01/04/18 16:29 12/31/17 04:08 Ondansetron HCl (Zofran) 4 mg Q6H PRN IVP Nausea & Vomiting 12/29/17 16:30 01/27/18 16:29 Polyethylene Glycol (Miralax) 17 gm DAILYPRN PRN ORAL Constipation 12/29/17 16:30 01/28/18 16:29 Pregabalin (Lyrica) 75 mg THREE TIMES A DAY ORAL 12/30/17 10:00 01/29/18 09:59 12/31/17 09:04 Propranolol HCl (Inderal) 60 mg DAILY ORAL 12/30/17 09:00 01/27/18 08:59 12/31/17 09:03 Sodium Chloride 1,000 ml @ 50 mls/hr Q20H IV 12/29/17 16:45 01/27/18 16:44 12/30/17 21:28 Tizanidine HCl (Zanaflex) 4 mg EVERY 8 HOURS ORAL 12/29/17 22:00 01/27/18 13:59 12/31/17 05:47 NESSA MARTINO M.D. Dec 31, 2017 09:41
[2017-12-31] MEDS: HYDROcodone/Acetamin 10/325 tab ORAL PRN (10:21)
--- NOTE | 2017-12-31 13:03 | Diagnostic Imaging Report ---
Indication: Dyspnea Comparison: 12/27/2018 A single view chest radiograph was obtained. Findings: Heart size is normal. Aorta is ectatic. Lungs are clear. There may been mild interstitial edema previously but lung volumes are considerably lower on the last exam. Bones are osteopenic. Spinal fusion hardware noted extensively within the cervical to upper thoracic spine as well as from the midthoracic to lumbar region below the [id number] of this exam. IMPRESSION: No acute disease currently demonstrated.
--- NOTE | 2017-12-31 14:27 | Diagnostic Imaging Report ---
Indication: Dysphasia Procedure and findings: Real-time fluoroscopic imaging performed in a lateral projection in conjunction with the speech pathologist evaluation. Variable consistencies of barium given per mouth. Findings: Significant abnormalities of both oral and pharyngeal phases of swallowing are demonstrated. Total fluoroscopic time 100 seconds. Extensive cervical hardware noted multilevel posterior fusion. No definite aspiration identified. No penetration identified. Abnormal video swallow. Please refer to speech pathology evaluation for more information.
--- NOTE | 2017-12-31 16:58 | Pulmonology Progress Note ---
Assessment/Plan Problems: (1) Sepsis (2) Purulent bronchitis (3) UTI (urinary tract infection) (4) History of pulmonary embolism (5) Bedridden (6) DDD (degenerative disc disease), cervical Assessment/Plan improivng afebrile all noted reviewed cultures pending continue abx, ID consutl appreciate all labes reviewed pain management dvt prophyllaxis dc to [facility] living today Subjective ROS Limited/Unobtainable: No Constitutional: Reports: no symptoms HEENT: Repors: no symptoms Allergies: Coded Allergies: CEFAZOLIN (Verified Allergy, Severe, hives all over her body, 01/10/16) PHENYTOIN (Verified Allergy, Severe, swell up face, 01/10/16) SULFA (SULFONAMIDE ANTIBIOTICS) (Verified Allergy, Severe, hives all over her body, 01/10/16) HYDROXYZINE (Verified Adverse Reaction, Severe, tachypnea; tachycardia, 01/10/16) PENICILLINS (Verified Adverse Reaction, Severe, vomiting, 01/10/16) PROCHLORPERAZINE (Verified Adverse Reaction, Severe, musle spasm, 01/10/16) Objective Last 24 Hour Vital Signs Date Time Temp Pulse Resp B/P (MAP) Pulse Ox O2 Delivery O2 Flow Rate FiO2 12/31/17 16:00 98.1 79 18 83/47 92 Room Air 98.1 12/31/17 14:29 98.2 12/31/17 14:29 98.2 12/31/17 14:29 98.2 12/31/17 14:29 98.2 12/31/17 14:27 98.2 12/31/17 14:21 112/60 12/31/17 13:30 98.2 12/31/17 12:00 98.2 80 19 97/61 100 98.2 12/31/17 11:20 97.9 12/31/17 10:21 97.9 12/31/17 09:04 97.9 12/31/17 09:03 89 106/66 12/31/17 08:00 97.9 89 20 106/66 94 97.9 12/31/17 07:53 Room Air 21 12/31/17 07:53 97 Room Air 21 12/31/17 07:52 89 22 Room Air 21 12/31/17 05:47 96.2 12/31/17 04:00 98.2 92 19 136/82 93 Room Air 98.2 12/31/17 04:00 93 Room Air 12/31/17 00:00 96.2 87 20 117/70 93 Room Air 96.2 12/30/17 23:11 98.2 12/30/17 21:27 98.2 12/30/17 20:00 98.2 85 18 121/66 95 Room Air 98.2 12/30/17 20:00 95 Room Air 12/30/17 19:00 96 22 Room Air 21 12/30/17 19:00 97 Room Air 21 12/30/17 19:00 Room Air 21 12/30/17 18:29 98.6 12/30/17 18:21 98.6 Intake and Output 12/30/17 12/31/17 19:00 07:00 Intake Total 920 ml 575 ml Balance 920 ml 575 ml Intake Oral 870 ml IV Total 50 ml 575 ml # Voids 2 3 # Bowel Movements 1 Objective General Appearance: WD/WN, alert Lines, tubes and drains: peripheral, HEENT: normocephalic, anicteric Neck: non-tender, normal alignment Respiratory/Chest: chest wall non-tender, normal breath sounds, respiratory distress Breasts: no masses Cardiovascular/Chest: normal peripheral pulses, normal rate, no JVD Abdomen: non tender ext: No edema, no cynosis Microbiology Date/Time Source Procedure Growth Status 12/28/17 22:00 Sputum Gram Stain - Final Complete 12/28/17 22:00 Sputum Sputum Culture - Final NORMAL UPPER RESPIRATORY GINETTE AT 48 ... Complete Laboratory Tests 12/31/17 05:45: White Blood Count 3.9#L, Red Blood Count 3.80L, Hemoglobin 9.5L, Hematocrit 29.0L, Mean Corpuscular Volume 76L, Mean Corpuscular Hemoglobin 24.9L, Mean Corpuscular Hemoglobin Concent 32.6, Red Cell Distribution Width 13.9, Platelet Count 268, Mean Platelet Volume 6.2L, Neutrophils (%) (Auto) 52.7, Lymphocytes ( %) (Auto) 37.3, Monocytes (%) (Auto) 9.2, Eosinophils (%) (Auto) 0.2, Basophils (%) (Auto) 0.5, Erythrocyte Sedimentation Rate 96H, Sodium Level 137, Potassium Level 3.9, Chloride Level 102, Carbon Dioxide Level 31, Anion Gap 5, Blood Urea Nitrogen 12, Creatinine 0.8, Estimat Glomerular Filtration Rate > 60, Glucose Level 87, Calcium Level 9.0, Phosphorus Level 4.3, Magnesium Level 1.7L, Total Bilirubin 0.2, Aspartate Amino Transf (AST/SGOT) 18, Alanine Aminotransferase ( ALT/SGPT) 17, Alkaline Phosphatase 97, Total Protein 7.3, Albumin 2.6L, Globulin 4.7, Albumin/Globulin Ratio 0.6L Current Medications Medications (Trade) Dose Ordered Sig/Reanna Route PRN Reason Start Time Stop Time Status Last Admin Dose Admin Acetaminophen (Tylenol) 650 mg Q4H PRN ORAL FEVER 12/29/17 16:30 01/27/18 16:29 Acetaminophen/ Hydrocodone Bitart ([place] 10/325) 1 tab Q4H PRN ORAL Moderate Pain (Pain Scale 4-6) 12/29/17 16:30 01/04/18 16:29 12/31/17 10:21 Albuterol/ Ipratropium (Albuterol/ Ipratropium) 3 ml Q4H PRN HHN Shortness of Breath 12/29/17 16:30 01/02/18 16:29 Amitriptyline HCl (Elavil) 100 mg BEDTIME ORAL 12/29/17 21:00 01/27/18 20:59 12/30/17 21:27 Dextrose (Dextrose 50%) STAT PRN IV Hypoglycemia 12/29/17 16:30 01/28/18 16:29 Diphenhydramine HCl (Benadryl) 25 mg Q6H PRN IVP Itching 12/29/17 16:30 01/27/18 16:29 12/31/17 05:14 Heparin Sodium (Porcine) (Heparin 5000 units/ml) 5,000 units EVERY 12 HOURS SUBQ 12/29/17 21:00 01/27/18 08:59 12/31/17 09:06 Levofloxacin 150 ml @ 100 mls/hr Q24H IVPB 12/30/17 10:00 12/31/17 23:00 12/31/17 09:02 Levothyroxine Sodium (Synthroid) 100 mcg DAILY@0630 ORAL 12/30/17 06:30 01/27/18 06:29 12/31/17 05:48 Lorazepam (Ativan 2mg/ml 1ml) 2 mg Q2H PRN IV For Anxiety 12/29/17 16:30 01/04/18 06:29 Morphine Sulfate (Morphine Sulfate) 4 mg Q4H PRN IVP Severe Pain (Pain Scale 7-10) 12/29/17 16:30 01/04/18 16:29 12/31/17 14:27 Ondansetron HCl (Zofran) 4 mg Q6H PRN IVP Nausea & Vomiting 12/29/17 16:30 01/27/18 16:29 Polyethylene Glycol (Miralax) 17 gm DAILYPRN PRN ORAL Constipation 12/29/17 16:30 01/28/18 16:29 Pregabalin (Lyrica) 75 mg THREE TIMES A DAY ORAL 12/30/17 10:00 01/29/18 09:59 12/31/17 13:30 Propranolol HCl (Inderal) 60 mg DAILY ORAL 12/30/17 09:00 01/27/18 08:59 12/31/17 09:03 Sodium Chloride 1,000 ml @ 50 mls/hr Q20H IV 12/29/17 16:45 01/27/18 16:44 12/30/17 21:28 Tizanidine HCl (Zanaflex) 4 mg EVERY 8 HOURS ORAL 12/29/17 22:00 01/27/18 13:59 12/31/17 14:29 JAMA ALONZO Dec 31, 2017 16:58
[2017-12-31] MEDS ORDERED: Tubing IV Secondary IV ONE (19:44)
[2017-12-31] MEDS ORDERED: 1/2 NS 1000ml IV ONE (19:44)
--- NOTE | 2017-12-31 23:34 | General Progress Note ---
Assessment/Plan Assessment/Plan 1. Pulmonary embolism, currently is getting heparin subcutaneous dosing. Monitor closely. --> Reviewed the patient's imaging from before. --> She has had a duplex of lower extremities that reveals recanalized chronic thrombosis of the superficial vein, popliteal vein, large collateral vein noted. --> At this time given recanalized, there is no evidence of deep venous thrombosis. --> Recommend to just administer heparin unless other indication is noted, which we will continue to monitor for. 2. Anemia due to underlying chronic disease, continue to closely monitor. --> Anemia workup completed. Iron 13, TIBC 203, Folate 11.7, Vit B12 396 --> Blood transfusion not required unless symptomatic or hgb <7 --> Hgb above goal at this time and prbc not required. 3. Spine surgery. 4. Hypothyroidism. 5. [facility] resident. 6. Antibiotics per Dr. Medina. Subjective Date patient seen: Dec 31, 2017 Constitutional: Denies: no symptoms, chills, diaphoresis, fever, malaise, weakness, other HEENT: Denies: no symptoms, eye pain, blurred vision, tearing, double vision, ear pain, ear discharge, nose pain, nose congestion, throat pain, throat swelling, mouth pain, mouth swelling, other Cardiovascular: Denies: no symptoms, chest pain, edema, irregular heart rate, lightheadedness, palpitations, syncope, other Respiratory: Denies: no symptoms, cough, orthopnea, shortness of breath, SOB with excertion, SOB at rest, sputum, stridor, wheezing, other Gastrointestinal/Abdominal: Denies: no symptoms, abdomen distended, abdominal pain, black stools, tarry stools, blood in stool, constipated, diarrhea, difficulty swallowing, nausea, poor appetite, poor fluid intake, rectal bleeding , vomiting, other Genitourinary: Denies: no symptoms, burning, discharge, frequency, flank pain, hematuria, incontinence, pain, urgency, other Hematologic/Lymphatic: Reports: anemia Allergies: Coded Allergies: CEFAZOLIN (Verified Allergy, Severe, hives all over her body, 01/10/16) PHENYTOIN (Verified Allergy, Severe, swell up face, 01/10/16) SULFA (SULFONAMIDE ANTIBIOTICS) (Verified Allergy, Severe, hives all over her body, 01/10/16) HYDROXYZINE (Verified Adverse Reaction, Severe, tachypnea; tachycardia, 01/10/16) PENICILLINS (Verified Adverse Reaction, Severe, vomiting, 01/10/16) PROCHLORPERAZINE (Verified Adverse Reaction, Severe, musle spasm, 01/10/16) Subjective No acute events overnight. No fever or chills. Pending dc. Objective Last 24 Hour Vital Signs Date Time Temp Pulse Resp B/P (MAP) Pulse Ox O2 Delivery O2 Flow Rate FiO2 12/31/17 19:30 99.0 18 118/56 92 99.0 12/31/17 18:41 98.1 12/31/17 17:42 98.1 12/31/17 17:00 116/64 12/31/17 16:00 98.1 79 18 83/47 92 Room Air 98.1 12/31/17 14:29 98.2 12/31/17 14:29 98.2 12/31/17 14:29 98.2 12/31/17 14:27 98.2 12/31/17 14:21 112/60 12/31/17 13:30 98.2 12/31/17 12:00 98.2 80 19 97/61 100 98.2 12/31/17 11:20 97.9 12/31/17 10:21 97.9 12/31/17 09:04 97.9 12/31/17 09:03 89 106/66 12/31/17 08:00 97.9 89 20 106/66 94 97.9 12/31/17 07:53 Room Air 21 12/31/17 07:53 97 Room Air 21 12/31/17 07:52 89 22 Room Air 21 12/31/17 05:47 96.2 12/31/17 04:00 98.2 92 19 136/82 93 Room Air 98.2 12/31/17 04:00 93 Room Air 12/31/17 00:00 96.2 87 20 117/70 93 Room Air 96.2 Intake and Output 12/30/17 12/31/17 19:00 07:00 Intake Total 920 ml 575 ml Balance 920 ml 575 ml Intake Oral 870 ml IV Total 50 ml 575 ml # Voids 2 3 # Bowel Movements 1 Laboratory Tests 12/31/17 05:45: White Blood Count 3.9#L, Red Blood Count 3.80L, Hemoglobin 9.5L, Hematocrit 29.0L, Mean Corpuscular Volume 76L, Mean Corpuscular Hemoglobin 24.9L, Mean Corpuscular Hemoglobin Concent 32.6, Red Cell Distribution Width 13.9, Platelet Count 268, Mean Platelet Volume 6.2L, Neutrophils (%) (Auto) 52.7, Lymphocytes ( %) (Auto) 37.3, Monocytes (%) (Auto) 9.2, Eosinophils (%) (Auto) 0.2, Basophils (%) (Auto) 0.5, Erythrocyte Sedimentation Rate 96H, Sodium Level 137, Potassium Level 3.9, Chloride Level 102, Carbon Dioxide Level 31, Anion Gap 5, Blood Urea Nitrogen 12, Creatinine 0.8, Estimat Glomerular Filtration Rate > 60, Glucose Level 87, Calcium Level 9.0, Phosphorus Level 4.3, Magnesium Level 1.7L, Total Bilirubin 0.2, Aspartate Amino Transf (AST/SGOT) 18, Alanine Aminotransferase ( ALT/SGPT) 17, Alkaline Phosphatase 97, Total Protein 7.3, Albumin 2.6L, Globulin 4.7, Albumin/Globulin Ratio 0.6L Height (Feet): 5 Height (Inches): 2.00 Weight (Pounds): 152 General Appearance: no apparent distress Respiratory/Chest: decreased breath sounds Abdomen: non tender, soft Edema: trace edema Skin: warm/dry Momo Webster Dec 31, 2017 23:34
--- NOTE | 2018-01-01 13:44 | Discharge Summary ---
Discharge Summary Hospital Course Date of Admission Dec 28, 2017 at 00:55 Date of Discharge Dec 31, 2017 at 19:45 Admitting Diagnosis sob/pneumonia HPI Indu Flores is a 57 year old female who was admitted on Dec 28, 2017 at 00: 55 for Shortness Of Breath, Pneumonia Hospital Course dc summary #[id number] Discharge Medications Continued Medications: Albuterol Sulfate* (Proair Hfa*) 8.5 Gm Hfa.aer.ad 2 PUFF INH EVERY 4 HOURS PRN for Bronchospasm, #8.5 GM 0 Refills Amitriptyline HCl (Amitriptyline HCl) 100 Mg Tablet 100 MG ORAL BEDTIME, TAB Fluticasone/Salmeterol (Advair 500-50 Diskus) 1 Each Disk.w.dev 1 PUFF INH BID PRN for Bronchospasm, EA Heparin Sod (Porcine) (Heparin Sodium*) 5 000/1 Ml Vial 5000 UNITS SUBQ EVERY 12 HOURS, VIAL Hydrocodone/Acetaminophen (Hydrocodon-Acetaminophn 10-325) 1 Ea Tab 1 TAB ORAL 6 times a day PRN for For Pain, #30 TAB 0 Refills Levothyroxine Sodium* (Levothyroxine Sodium*) 100 Mcg Tablet 100 MCG ORAL DAILY, TAB Take in the morning on an empty stomach, at least 30 minutes before food. Propranolol Hcl* (Inderal*) 10 Mg Tablet 60 MG ORAL DAILY, #90 TAB 0 Refills Tizanidine Hcl (Zanaflex*) 4 Mg Tablet 4 MG ORAL EVERY 8 HOURS, TAB 0 Refills Discharge Condition Upon Discharge: stable Discharge Disposition Patient was discharged to SNF/Subacute Facility(03) Discharge Diagnoses: Discharge Instructions Discharge Instructions Special Instructions I have been assigned to complete a D/C Summary on this account. I was not involved in the patient management Daisy Mendez NP ([place]) Jan 01, 2018 13:44
--- NOTE | 2018-01-02 04:45 | Discharge Summary 2 SIG ---
DATE OF ADMISSION: 12/28/2017 DATE OF DISCHARGE: 12/31/2017 REASON FOR ADMISSION: 57-year-old female with extensive past medical history including lumbar cervical spine surgery, pulmonary emboli, DVT, hypertension, hypothyroidism, long term resident, brought in by ambulance with chief complaint of cough, fever, and chills for several days. The patient reported productive cough with green sputum. No shortness of breath. No chest pain, but reported subjective fever and chills. She also reported decreased appetite. The patient presented with fever -101.4, tachycardia -115, and required supplemental oxygen. No leukocytosis. Lactic acid within normal limits. Chest x-ray with possible pneumonia. Urinalysis revealed likely evidence of UTI. The patient admitted with diagnoses of: 1. Possible sepsis. 2. Purulent bronchitis. 3. Possible pneumonia. 4. Possible UTI. 5. History of PE. 6. Degenerative disc disease, cervical. HOSPITAL COURSE: The patient admitted. ID, Hematology, and pain specialist consults were requested. The patient was pancultured and started on broad-spectrum antibiotics. Supplemental oxygen and pulmonary toilet provided as needed. Anticoagulation was continued. Pain control was provided. Venous duplex of bilateral lower extremities revealed chronic thrombus left lower extremity. No evidence of acute DVT. The patient with evidence of the cervical spondylosis and degenerative disc disease cervical and lumbar. The patient undergone bedside swallow evaluation, which was abnormal with evidence of dysphagia, diet texture was modified. Strict aspiration and reflux precautions were maintained. Continue swallow treatment techniques in halfway facility. Pain management was provided. Pain specialist closely followed. [employer] followed for anemia. Anemia workup revealed anemia of chronic disease. Stool OB was negative. No need for transfusion. Hemoglobin and hematocrit remained on baseline. Continue monitoring hemoglobin and hematocrit at the halfway facility. The patient was on empiric antibiotic. ID followed. Sputum culture negative. Urine culture negative. Blood culture negative. Influenza screen negative. ID cleared the patient for discharge off antibiotics, status post antibiotic while in the hospital. The patient was improving. Home medications were resumed. Blood pressure was managed with beta-jania. DVT prophylaxis provided. Pulmonary toilet provided as needed. Bowel regimen instituted. The patient was stable for discharge to halfway facility and follow up with medical doctor at the facility. FINAL DIAGNOSES: 1. Possible sepsis. 2. Acute purulent bronchitis. 3. History of PE. 4. Dysphagia. 5. Anemia of chronic disease. 6. Cervical DDD. 7. Lumbar spondylosis. 8. Cervical spondylosis. 9. Osteoarthritis, right knee. 10. Lumbar DDD. 11. History of total knee replacement. DISCHARGE MEDICATIONS: See medication reconciliation list. DISCHARGE INSTRUCTIONS: The patient was discharged to halfway facility. FOLLOWUP: Follow up with medical doctor at the facility. Roge Neely M.D. I have been assigned to dictate discharge summary on this account and I was not involved in the patient's management. Daisy DonaldOur Lady Of Lourdes Memorial HospitalLinda N.P. DR: TARIQ JOB#: [id number] CC: ERINN
--- NOTE | 2018-01-02 13:05 | Diagnostic Imaging Report ---
APPROVED REPORT CPT Code: 91321 Present Symptoms Shortness of breath Past History DVT :Left RIGHT LEG: Venous imaging reveals a patent deep venous system. There is no evidence of thrombus within the femoral, popliteal or tibial segments. The greater saphenous vein is also within normal limits. Doppler indicates normal spontaneous flow within these segments. LEFT LEG: Venous imaging reveals recanalized chronic thrombus in the superficial femoral to popliteal veins. Large collateral vein noted anterior to the superficial femoral artery. Imaging also reveals patency of the common femoral and calf veins. The greater saphenous vein is also within normal limits. Doppler indicates normal spontaneous flow within these segments. There is no evidence of acute deep vein thrombosis.
== END 2017-12-31 19:45 | DRG 871 ==
LOC: EDSEX 22:45 → EDBD 22:45 → EMR 22:55 → 2E 12-28 00:55 → EDBEDREQ 12-28 01:07 → 4W 12-29 15:30
DX: A41.9 Sepsis, unspecified organism (principal); J18.9 Pneumonia, unspecified organism; N39.0 Urinary tract infection, site not specified; J41.1 Mucopurulent chronic bronchitis; M50.30 Other cervical disc degeneration, unspecified cervical region; Z96.651 Presence of right artificial knee joint; R06.03 Acute respiratory distress; Z88.1 Allergy status to other antibiotic agents; Z88.0 Allergy status to penicillin; Z88.2 Allergy status to sulfonamides; Z88.8 Allergy status to other drugs, medicaments and biological substances; Z86.711 Personal history of pulmonary embolism; D63.8 Anemia in other chronic diseases classified elsewhere; Z86.718 Personal history of other venous thrombosis and embolism; E03.9 Hypothyroidism, unspecified; M47.896 Other spondylosis, lumbar region; M47.892 Other spondylosis, cervical region; Z96.641 Presence of right artificial hip joint; Z74.01 Bed confinement status
CPT/HCPCS: 36415; 71045; 74230; 80053; 80069; 81003; 82270; 82378; 82607; 82746; 83540; 83550; 83605; 83615; 83735; 84100; 84484; 85007; 85025; 85044; 85060; 85610; 85651; 85730; 86710; 87040; 87070; 87081; 87086; 87205; 93005; 93970; 94640; 94664; 94760; 99285; J2405

== ENCOUNTER 2019-02-03 08:31 | Outpatient (RCR) | payer MEDICARE, OTHER ==
[~2019-02-03 08:31] MED LIST changes: +ACETAMINOPHEN325 M1 ORAL; +AMBIEN5 MG ORAL; +AMITRIPTYLINE100 MG ORAL; +FERROUS SULFAT325 MG ORAL; +HEPARIN SO5000 UNIT2 SUBQ; +LEVOTHYROXINE100 MCG ORAL; +MILK OF MA400 MG/51 ORAL; +MULTIVITAMINS1 EAC8 ORAL; +NORCO 10-325 T1 EACH ORAL; +POLYETHYLENE GL17 GM ORAL; +VITAMIN C500 M1 ORAL; +ZANAFLEX4 MG ORAL; +ZINC SULFATE220 M1 ORAL
== END 2019-03-04 | disposition home or self-care (01) ==
LOC: WCC 08:31
DX: L03.115 Cellulitis of right lower limb (principal); Z79.899 Other long term (current) drug therapy; Z96.653 Presence of artificial knee joint, bilateral; E03.9 Hypothyroidism, unspecified; F32.9 Major depressive disorder, single episode, unspecified; Z88.0 Allergy status to penicillin
CPT/HCPCS: G0463